=== PATIENT | female | born 1955 | race African-American/Black ===

== ENCOUNTER 2017-01-16 18:05 | Observation (INO) | payer OTHER ==
[2017-01-16 19:02] LABS: MCH 21.2 pg (25.7-33.7); MCHC 32.5 g/dl (32.0-36.0); MEAN PLT VOLUME 8.1 fl (7.5-11.1); PLATELET COUNT 252 K/MM3 (134-434); RDW 15.8 % (11.6-15.6); WHITE BLOOD COUNT 9.8 K/mm3 (4.0-10.0)
[2017-01-16 19:13] LABS: INR 1.12 (0.82-1.09); PROTHROMBIN TIME (PATIENT) 12.4 SEC (9.98-11.88)
[2017-01-16 19:30] LABS: ALBUMIN 3.8 g/dl (3.4-5.0); ANION GAP 8 (8-16); BILIRUBIN,TOTAL 0.3 mg/dL (0.2-1.0); CALCIUM 8.6 mg/dL (8.5-10.1); CO2 25 mmol/L (21-32); CREATININE 0.8 mg/dL (0.55-1.02); GLUCOSE,RANDOM 75 mg/dL (74-106); SGOT/AST 13 U/L (15-37); SGPT/ALT 26 U/L (12-78); TOT PROT 7.1 g/dl (6.4-8.2)
[2017-01-16 19:32] LABS: ALK PHOS 163 U/L (45-117); TROPONIN I < 0.02 ng/ml (0.00-0.05)
--- NOTE | 2017-01-16 19:41 | PDOC ---
History of Present Illness - General Chief Complaint: Chest Pain Stated Complaint: CHEST PAIN/NUMB FINGERS/LIGHTHEADED Time Seen by Provider: 01/16/17 19:04 History Source: Patient Exam Limitations: No Limitations - History of Present Illness Initial Comments: 01/16/17 19:17 61yo Female patient presents to ED c/o chest tightness. Patient reports symptoms of h/a began 1 week ago, with chest tightness today. Patient states she is not feeling well, felt her chest get tight and she used her inhaler with no relief. Patient then proceeded to take a shower, but felt lightheaded with sharp pains to left side of her head. She reports becoming very sweaty and "went down to her knees." Patient then called her daughter and took a cab over to the hospital because she was to dizzy. Patient denies n/v/d, fever, abd pain , back pain, diff breathing, cough, congestion, or any other complaints at this time. Presenting Symptoms: Dizziness Timing/Duration: reports: getting worse. denies: constant, changing over time, intermittent, resolved prior to arrival, gone now, other Severity/Quality: reports: mild, sharp. denies: moderate, severe, aching, burning, dull, ingestion, pressure, stabbing, tearing, tightness, other Location: reports: other (Chest Pressure) Chest Pain Radiation: reports: no radiation Activities at Onset: reports: no specific activity Past History - Travel Traveled outside of the country in the last 30 days: No Close contact w/someone who was outside of country & ill: No - Past Medical History Allergies/Adverse Reactions: Allergies Allergy/AdvReac Type Severity Reaction Status Date / Time morphine AdvReac Verified 01/16/17 21:01 mushroom Allergy Mild Swelling Uncoded 01/16/17 21:01 Home Medications: Ambulatory Orders Albuterol Sulfate Inhaler - [Ventolin HFA Inhaler -] 2 puff IH Q6H PRN #0 inhaler 07/04/16 Alprazolam [Xanax] 1 mg PO BID tablet MDD 10 07/04/16 Aspirin [ASA -] 81 mg PO DAILY tab.chew 07/04/16 Atorvastatin Ca [Lipitor] 80 mg PO HS tablet 07/04/16 Budesonide/Formeterol Fumarate [SYMBICORT 80/4.5mcg -] 2 puff IH BID inhaler Clopidogrel Bisulfate [Plavix -] 75 mg PO DAILY tablet 07/04/16 Enalapril Maleate [Vasotec -] 5 mg PO DAILY tablet 07/04/16 Isosorbide Mononitrate [Imdur -] 30 mg PO DAILY tab.sr.24h 07/04/16 Metoprolol Tartrate [Lopressor -] 25 mg PO BID tablet 07/04/16 Ranitidine [Zantac -] 150 mg PO BID tablet 07/04/16 Amlodipine Besylate [Norvasc -] 5 mg PO DAILY 01/16/17 Furosemide [Lasix] 40 mg PO DAILY 01/16/17 Oxycodone HCl/Acetaminophen [Percocet 5-325 mg Tablet] 1 tab PO Q6H 01/16/17 Asthma: Yes Cardiac Disorders: Yes (CARDIAC 2-STENT JUL 24) Diabetes: Yes HTN: Yes Hypercholesterolemia: Yes Suicide Attempt (Hx): No - Surgical History Abdominal Surgery: Yes (HERNIA) Cardiac Surgery: Yes (Bypass 2007, CARDIAC STENT IN JUN 2014) Cholecystectomy: Yes (1990) - Family Disease History Family Disease History: Diabetes: Grandparents, Father, Heart Disease: Grandparents, Father - Immunization History Immunization Up to Date: No - Psycho/Social/Smoking Cessation Hx Anxiety: No Suicidal Ideation: No Smoking Status: Yes Smoking History: Current every day smoker Have you smoked in the past 12 months: Yes Number of Cigarettes Smoked Daily: 1 If you are a former smoker, when did you quit?: Pt states that she smokes 1 or 2 sometimes Information on smoking cessation initiated: No 'Breaking Loose' booklet given: 02/27/15 Hx Alcohol Use: No Drug/Substance Use Hx: No Substance Use Type: None Hx Substance Use Treatment: No Cardiac Specific PMH - Complaint Specific PMHX Abdominal Aortic Aneurysm: No Angina: No Cardiac Arrhythmia: No Cardiac Stent: Yes GERD: No Pacemaker: No Pulmonary Embolus: No Valvular Heart Disease: No Peripheral Vascular Disease: No Review of Systems - Review of Systems Able to Perform ROS?: Yes Is the patient limited Kiswahili proficient: No Constitutional: No: Chills, Fever Respiratory: No: Cough, Orthopnea, Shortness of Breath, Stridor, Wheezing Cardiac (ROS): Yes: Edema, Lightheadedness, Chest Tightness. No: Chest Pain, Palpitations, Syncope ABD/GI: No: Constipated, Diarrhea, Nausea, Poor Appetite, Poor Fluid Intake, Vomiting : No: Burning, Dysuria, Frequency, Flank Pain, Hematuria, Pain, Urgency Musculoskeletal: No: Back Pain Integumentary: Yes: Sweating. No: Erythema, Rash Neurological: Yes: Headache, Dizziness. No: Numbness, Seizure, Tremors, Weakness All Other Systems: Reviewed and Negative *Physical Exam - Vital Signs Last Vital Signs Temp Pulse Resp BP Pulse Ox 98.0 F 68 20 135/65 97 01/16/17 18:13 01/16/17 18:13 01/16/17 18:13 01/16/17 18:13 01/16/17 18:13 - Physical Exam General Appearance: Yes: Nourished, Appropriately Dressed. No: Apparent Distress, Mild Distress, Moderate Distress, Severe Distress Neck: positive: Trachea midline, Supple. negative: Stridor, Lymphadenopathy (R) , Lymphadenopathy (L) Respiratory/Chest: positive: Lungs Clear, Normal Breath Sounds. negative: Chest Tender, Respiratory Distress, Accessory Muscle Use, Labored Respiration, Rapid RR, Crackles, Rales, Rhonchi, Stridor, Wheezing Cardiovascular: positive: Regular Rhythm, Regular Rate, Edema. negative: JVD, Murmur, Bradycardia, Tachycardia Gastrointestinal/Abdominal: positive: Normal Bowel Sounds, Soft Musculoskeletal: positive: Normal Inspection. negative: CVA Tenderness Extremity: positive: Normal Capillary Refill, Normal Inspection, Normal Range of Motion, Pedal Edema Integumentary: positive: Normal Color, Dry, Warm Neurologic: positive: miller apprentice II-XII NML intact, Fully Oriented, Alert, Normal Mood/ Affect, Normal Response, Motor Strength 5/5 Heart Score/ECG Review - History History: Moderately suspicious - Electrocardiogram EKG: Normal - Age Age: 45-65 - Risk Factors Risk Factors Heart Score: Yes Hx Hypertension, Yes Hx Diabetes, Yes Positive family hx of cardiac disease Based on the list above the patient has:: >/=3 risk factors or Hx atherosclerotic disease - Troponin Troponin: </= normal limit - Score Heart Score - Total: 4 - ECG Impressions Normal ECG: Yes Non-specific ST Elevation: No Ischemic Changes: No Bradycardia: No Torsades wang Pointes: No WPW: No ED Treatment Course - LABORATORY CBC & Chemistry Diagram: 01/16/17 13:57 01/16/17 13:57 - ADDITIONAL ORDERS Additional order review: Laboratory Results 01/16/17 01/16/17 01/16/17 19:14 13:57 13:57 INR 1.12 PTT (Actin FS) 42.0 H Sodium 144 Potassium 3.9 Chloride 111 H Carbon Dioxide 25 Anion Gap 8 BUN 11 D Creatinine 0.8 D Creat Clearance w eGFR > 60 Random Glucose 75 D Calcium 8.6 Total Bilirubin 0.3 AST 13 L D ALT 26 Alkaline Phosphatase 163 H Creatine Kinase 173 CK-MB (CK-2) < 1.000 Troponin I < 0.02 B-Natriuretic Peptide 105.98 Total Protein 7.1 Albumin 3.8 01/16/17 13:57 RBC 6.04 H MCV 65.0 L MCHC 32.5 RDW 15.8 H MPV 8.1 Neutrophils % 62.0 Lymphocytes % 31.0 Monocytes % 4.0 Eosinophils % 2.0 Basophils % Glazier Artist - RADIOLOGY Radiology Studies Ordered: Category Date Time Status HEAD CT WITHOUT CONTRAST [CT] Stat CT Scan 01/16/17 19:46 Completed CHEST PA & LAT [RAD] Stat Radiology 01/16/17 19:15 Completed - Medications Given in the ED: ED Medications Discontinued Medications Generic Name Dose Route Start Last Admin Trade Name Freq PRN Reason Stop Dose Admin Aspirin 324 mg 01/16/17 21:36 01/16/17 22:14 Asa - PO 01/16/17 21:37 324 mg ONCE ONE Administration *DC/Admit/Observation/Transfer Diagnosis at time of Disposition: Sensation of chest tightness, CABG 3 vessel 2005, HTN, NIDDM, Stented coronary artery, Hypercholesteremia - Discharge Dispostion Condition at time of disposition: Fair Admit: Yes Decision to Admit order Date/Time: 01/16/17 22:55 DR. PINEDA ADMITTED TO TELE OBS.
[2017-01-16] MEDS ORDERED: ASPIRIN 81 MG CHEWABLE TABLETS PO ONE (21:36)
[2017-01-16] MEDS ORDERED: ASPIRIN 81 MG CHEWABLE TABLETS ONE (22:00)
[2017-01-16 22:36] LABS: HYPOCHROMIA 1+; PLATELET ESTIMATE ADEQUATE (NORMAL)
[2017-01-16] MEDS ORDERED: NITROGLYCERIN 2% OINTMENT - 1GM PACKET TD ONE (22:45)
--- NOTE | 2017-01-16 22:46 | PN ---
<Rick Rockwelljose - Last Filed: 01/16/17 22:46> Teaching Attending Note Name of Resident: Brock Jeong ATTENDING PHYSICIAN STATEMENT I saw and evaluated the patient. I reviewed the resident's note and discussed the case with the resident. I agree with the resident's findings and plan as documented. SUBJECTIVE: OBJECTIVE: ASSESSMENT AND PLAN: <Saleem Vasques - Last Filed: 01/17/17 00:12> Teaching Attending Note ATTENDING PHYSICIAN STATEMENT I saw and evaluated the patient. I reviewed the resident's note and discussed the case with the resident. I agree with the resident's findings and plan as documented. SUBJECTIVE: Patient is a 61 yo Female with a significant past medical history of CAD s/p CABG, HTN, HLD, and diabetes, who presented to ED complaining of chest pain described as chest tightness since earlier today. The patient reported that her pain radiates to her arm and is a 8/10 in severity. The patient noted that her pain may be related to exertion but reports no alleviating factors. The patient reported associated diaphoresis, weakness, and headache. OBJECTIVE: Vital Signs: Last Vital Signs Temp Pulse Resp BP Pulse Ox 98.0 F 68 20 135/65 97 01/16/17 18:13 01/16/17 18:13 01/16/17 18:13 01/16/17 18:13 01/16/17 18:13 Physical Exam: GEN: NAD HEENT: NCAT, PERRL, CARD: RRR, S1 S2 RESP: CTAB ABD: NT, BWS x4 EXT: - (+) Bilateral lower extremity 2+ pitting edema Labs: CBCD WBC 9.8 K/mm3 (4.0-10.0) 01/16/17 13:57 RBC 6.04 M/mm3 (3.60-5.2) H 01/16/17 13:57 Hgb 12.8 GM/dL (10.7-15.3) 01/16/17 13:57 Hct 39.3 % (32.4-45.2) 01/16/17 13:57 MCV 65.0 fl (80-96) L 01/16/17 13:57 MCHC 32.5 g/dl (32.0-36.0) 01/16/17 13:57 RDW 15.8 % (11.6-15.6) H 01/16/17 13:57 Plt Count 252 K/MM3 (134-434) 01/16/17 13:57 MPV 8.1 fl (7.5-11.1) 01/16/17 13:57 CMP Sodium 144 mmol/L (136-145) 01/16/17 13:57 Potassium 3.9 mmol/L (3.5-5.1) 01/16/17 13:57 Chloride 111 mmol/L (98-107) H 01/16/17 13:57 Carbon Dioxide 25 mmol/L (21-32) 01/16/17 13:57 Anion Gap 8 (8-16) 01/16/17 13:57 BUN 11 mg/dL (7-18) D 01/16/17 13:57 Creatinine 0.8 mg/dL (0.55-1.02) D 01/16/17 13:57 Creat Clearance w eGFR > 60 (>60) 01/16/17 13:57 Calcium 8.6 mg/dL (8.5-10.1) 01/16/17 13:57 Total Bilirubin 0.3 mg/dL (0.2-1.0) 01/16/17 13:57 AST 13 U/L (15-37) L D 01/16/17 13:57 ALT 26 U/L (12-78) 01/16/17 13:57 Alkaline Phosphatase 163 U/L (45-117) H 01/16/17 13:57 Total Protein 7.1 g/dl (6.4-8.2) 01/16/17 13:57 Albumin 3.8 g/dl (3.4-5.0) 01/16/17 13:57 Imagin. CXR PA and LAT Impression: No significant interval change or acute lung disease is present. Reviewed and interpreted by radiologist Dr. Peace Roca MD. 2. CT Impression: Mild volume loss without evidence of acute intracranial pathology. Questionable prominent adenoids that were partially included on this exam. Please correlate with physical exam. Reviewed and interpreted by radiologist Dr. Peace Roca MD. ASSESSMENT AND PLAN: Patient is a 61 yo Female with a significant past medical history of CAD s/p CABG, HTN, HLD, and diabetes, who presented to ED complaining of chest tightness. 1. Chest tightness -Rule out ACS -Trend troponins -ECG-normal sinus rhythm no ST T changes -Heart Score is 4 -Cardiology consult -Continue aspirin -Continue beta blockers -Continue Plavix -Nitro PRN chest pain -Recent echo done in november obtain records -02 2L Nasal Cannula 2. Diabetes -Metformin -Finger stick Q4H RASS 3. HTN -Continue home medications -Continue beta blockers 4. CAD -Continue statin 5. Headache -CT head neg -Pain control 6. Dizziness- questionable vertigo -Can try methylzene 7. DVT PPX -Heparin 5000 Q8H Admit to observation tele. Documentation prepared by Saleem Vasques, acting as phlebotomist medical lab assistant for Dr. Luli MD.
[2017-01-16] MEDS ORDERED: traMADol HCL 50 MG TABLET PO ONE (22:52)
[2017-01-16] MEDS ORDERED: traMADol HCL 50 MG TABLET ONE (22:59)
[2017-01-16] MEDS ORDERED: OXYCODONE/APAP 5/325MG COMBO TABLET PO PRN (23:45)
[2017-01-16] MEDS ORDERED: FUROSEMIDE 40 MG/4 ML INJECTABLE VIAL IVPB ONE (23:52)
[2017-01-16] MEDS ORDERED: ALBUTEROL SO4 0.083% IH SOL 2.5 MG/3 ML VIAL.NEB. NEB PRN (23:52)
--- NOTE | 2017-01-17 00:24 | HP ---
CHIEF COMPLAINT:CHEST PAIN PCP: Dr. Eliseo Villegas Revenue Cycle Analyst: Dr. Maloney HISTORY OF PRESENT ILLNESS: 61 yo F with significant PMHx of CAD(s/p CABG 2006 and stents x2 Jun, 2016), DM , HTN, and HLD presents to ED with chest pain. She describes constant 8/10 substernal chest pressure that radiates to left arm that lasted for approx. 15- 20 min and prompted trip to ED. Pain associated with activity and SOB, but denies diaphoresis. She also complains of bilat. leg swelling which she attributes to not taking lasix for 1 week due to insurance issues. She also mentions that for the past 3 weeks she has been having dizziness in which she feel as if the room is spinning with near syncope and relieved by lying still, but denies LOC. Furthermore for the past week she has also had left sided YEE and neck pain that limits her range of motion. Denies recent illness, travel , sick contacts, fevers, chills, or N/V/D/C. ER course was notable for: (1)Trops (-) x2 (2)EKG - NSR without ST or T wave changes. (3)BNP wnl Recent Travel: Denies PAST MEDICAL HISTORY:CAD, DM , HTN, HLD, Asthma, chronic cervical neck pain PAST SURGICAL HISTORY: CABG 2006, Cardiac stents 2015, Spinal surgery 2013, hernia repair 2015, CCY 1991 Social History: Smokin-2 cig/day Alcohol: socially Drugs: Denies Family History:Diabetes: Grandparents, Father, Heart Disease: Grandparents, Father Allergies morphine Adverse Reaction (Verified 01/16/17 21:01) mushroom Allergy (Mild, Uncoded 01/16/17 21:01) Swelling Pt. states, causes swelling. HOME MEDICATIONS: Home Medications Medication Instructions Recorded Albuterol Sulfate Inhaler - 2 puff IH Q6H PRN #0 inhaler 07/04/16 [Ventolin HFA Inhaler -] Alprazolam [Xanax] 1 mg PO BID tablet MDD 10 07/04/16 Aspirin [ASA -] 81 mg PO DAILY tab.chew 07/04/16 Atorvastatin Ca [Lipitor] 80 mg PO HS tablet 07/04/16 Budesonide/Formeterol Fumarate 2 puff IH BID inhaler 07/04/16 [SYMBICORT 80/4.5mcg -] Clopidogrel Bisulfate [Plavix -] 75 mg PO DAILY tablet 07/04/16 Enalapril Maleate [Vasotec -] 5 mg PO DAILY tablet 07/04/16 Isosorbide Mononitrate [Imdur -] 30 mg PO DAILY tab.sr.24h 07/04/16 Metoprolol Tartrate [Lopressor -] 25 mg PO BID tablet 07/04/16 Ranitidine [Zantac -] 150 mg PO BID tablet 07/04/16 Amlodipine Besylate [Norvasc -] 5 mg PO DAILY 01/16/17 Furosemide [Lasix] 40 mg PO DAILY 01/16/17 Oxycodone HCl/Acetaminophen 1 tab PO Q6H 01/16/17 [Percocet 5-325 mg Tablet] REVIEW OF SYSTEMS CONSTITUTIONAL: Absent: fever, chills, diaphoresis, generalized weakness, malaise, loss of appetite, weight change HEENT: Absent: rhinorrhea, nasal congestion, throat pain, throat swelling, difficulty swallowing, mouth swelling, ear pain, eye pain, visual changes CARDIOVASCULAR: (+)chest pain, syncope,lightheadedness, peripheral edema Absent: , palpitations, irregular heart rate, RESPIRATORY:(+) dyspnea with exertion Absent: cough, shortness of breath, , orthopnea, wheezing, stridor, hemoptysis GASTROINTESTINAL: Absent: abdominal pain, abdominal distension, nausea, vomiting, diarrhea, constipation, melena, hematochezia GENITOURINARY: Absent: dysuria, frequency, urgency, hesitancy, hematuria, flank pain, genital pain MUSCULOSKELETAL: (+)neck pain Absent: myalgia, arthralgia, joint swelling, back pain, SKIN: Absent: rash, itching, pallor HEMATOLOGIC/IMMUNOLOGIC: (+)easy bruising Absent: easy bleeding, , lymphadenopathy, frequent infections ENDOCRINE: Absent: unexplained weight gain, unexplained weight loss, heat intolerance, cold intolerance NEUROLOGIC: (+)headache Absent: , focal weakness or paresthesias, dizziness, unsteady gait, seizure, mental status changes, bladder or bowel incontinence PSYCHIATRIC: Absent: anxiety, depression, suicidal or homicidal ideation, hallucinations. PHYSICAL EXAMINATION GENERAL: Awake, alert, and fully oriented, in mild distress. HEAD: Normal with no signs of trauma. EYES: Pupils equal, round and reactive to light, extraocular movements intact, sclera anicteric, conjunctiva clear. EARS, NOSE, THROAT: Ears normal, nares patent, oropharynx clear without exudates. Moist mucous membranes. NECK: Decreased range of motion 2/2 pain, supple without lymphadenopathy, JVD, or masses. LUNGS: Breath sounds equal, bibasilar crackles, no wheezing, No accessory muscle use. HEART: Regular rate and rhythm, normal S1 and S2 without murmur, rub or gallop. ABDOMEN: Soft,Obese, nontender, not distended, normoactive bowel sounds, inguinal hernia left , no guarding, no rebound, no masses. No hepatomegaly or splenomegaly. MUSCULOSKELETAL: Normal range of motion at all joints. No bony deformities or tenderness. No CVA tenderness. 3/5 strength in LUE 2/2 pain. UPPER EXTREMITIES: 2+ pulses, warm, well-perfused. No cyanosis. No clubbing. . No peripheral edema. LOWER EXTREMITIES: 2+ pulses, warm, well-perfused. No calf tenderness. 2+ pitting edema bilat. NEUROLOGICAL: Cranial nerves II-XII intact. Normal speech. gait not observed. PSYCHIATRIC: Cooperative. Good eye contact. Appropriate mood and affect. SKIN: Warm, dry, normal turgor, no rashes or lesions noted. ASSESSMENT/PLAN: 61 yo F with significant PMHx of CAD(s/p CABG 2005 and stents x2 Jun, 2016), DM , HTN, and HLD placed on observation for rule out of chest pain. Problem List - Problem (1) Chest tightness or pressure Assessment/Plan: * rule out ACS * Heart score-4 * EKG- NSR without ST or T wave changes. * telemetry * trend troponins * Consult Dr. Maloney * continue: ASA and Nitro PRN CP * Atorvastatin Calcium (Lipitor -) 80 mg PO HS * Clopidogrel Bisulfate (Plavix -) 75 mg PO DAILY * Heparin Sodium (Porcine) (Heparin -) 5,000 unit SQ TID * Isosorbide Mononitrate (Imdur -) 30 mg PO DAILY * metoprolol Tartrate (Lopressor -) 25 mg PO BID (2) CHF (congestive heart failure) Assessment/Plan: * STAT Lasix 40mg IV * ECHO done 2016 - need to obtain records. * Enalapril Maleate (Vasotec -) 5 mg PO DAILY * Furosemide (Lasix -) 40 mg PO DAILY * Metoprolol Tartrate (Lopressor -) 25 mg PO BID * daily weights * strict I/O's * sodium controlled diet. (3) CAD (coronary artery disease) (5) Stented coronary artery (6) HTN Assessment/Plan: * continue: * Amlodipine Besylate (Norvasc -) 5 mg PO DAILY * Enalapril Maleate (Vasotec -) 5 mg PO DAILY * Furosemide (Lasix -) 40 mg PO DAILY . * Metoprolol Tartrate (Lopressor -) 25 mg PO BID GHAN[place]YAM (7) Hypercholesteremia Assessment/Plan: * Continue Lipitor 80mg HS (8) Diabetes Assessment/Plan: * Sodium/ADA diet * BGM ACHS * ISS ACHS (9) Asthma Assessment/Plan: * Supplemental O2 via NC @ 2L * maintain SpO2>90% * Albuterol Sulfate (Ventolin 0.083% Nebulizer Soln -) 1 amp NEB Q4H * Budesonide/Formoterol Fumarate (Symbicort 80/4.5mcg -) 2 puff IH BID (10) Chronic pain Assessment/Plan: * Pain control * Oxycodone/Acetaminophen (Percocet 5/325 -) combo PO Q6H (11) neck pain/ cervical fusion Assessment/Plan: * Flexeril 5mg PO TID PRN * Percocet 5/325 PO Q6H (12) DVT prophylaxis Assessment/Plan: * Heparin 5000 units TID SQ * SCD's bilat. Visit type - Emergency Visit Emergency Visit: Yes ED Registration Date: 01/16/17 Care time: The patient presented to the Emergency Department on the above date and was hospitalized for further evaluation of their emergent condition. - New Patient This patient is new to me today: Yes Date on this admission: 01/17/17 - Critical Care Critical Care patient: No
[2017-01-17] MEDS ORDERED: FUROSEMIDE 40 MG/4 ML INJECTABLE VIAL ONE (00:51)
[2017-01-17] MEDS ORDERED: CYCLOBENZAPRINE HCL 10 MG TABLET (FP) PO PRN (02:28)
[2017-01-17] MEDS ORDERED: HEPARIN NA (PORCINE) 5,000 UNITS/ML 1ML VIAL ONE (06:40)
[2017-01-17 06:57] LABS: BASOPHIL 0.9 % (0-2.0); EOSINOPHIL 2.4 % (0-4.5); MCH 21.2 pg (25.7-33.7); MCHC 32.6 g/dl (32.0-36.0); MEAN CELL VOLUME 64.9 fl (80-96); MEAN PLT VOLUME 9.1 fl (7.5-11.1); NEUTROPHILS 53.5 % (42.8-82.8); PLATELET COUNT 249 K/MM3 (134-434); RDW 15.8 % (11.6-15.6); WHITE BLOOD COUNT 8.9 K/mm3 (4.0-10.0)
[2017-01-17 07:00] LABS: URINE APPEARANCE CLEAR; URINE BILIRUBIN NEGATIVE (NEGATIVE); URINE BLOOD NEGATIVE (NEGATIVE); URINE COLOR STRAW; URINE GLUCOSE (UA) NEGATIVE (NEGATIVE); URINE KETONE NEGATIVE (NEGATIVE); URINE LEUK ESTERASE NEGATIVE (NEGATIVE); URINE NITRITE NEGATIVE (NEGATIVE); URINE PROTEIN NEGATIVE (NEGATIVE); URINE UROBILINOGEN NEGATIVE E.U./dl (0.2-1.0)
[2017-01-17 07:09] LABS: INR 1.13 (0.82-1.09); PROTHROMBIN TIME (PATIENT) 12.5 SEC (9.98-11.88)
[2017-01-17] MEDS: HEPARIN NA (PORCINE) 5,000 UNITS/ML 1ML VIAL SQ SCH ×2 (07:10→14:14)
[2017-01-17] MEDS: INSULIN SLIDING SCALE (NOVOLOG) 1 VIAL SQ SCH ×3 (07:10→18:24)
[2017-01-17 07:26] LABS: ALBUMIN 3.6 g/dl (3.4-5.0); ANION GAP 10 (8-16); BILIRUBIN,TOTAL 0.3 mg/dL (0.2-1.0); CALCIUM 8.5 mg/dL (8.5-10.1); CO2 28 mmol/L (21-32); CREATININE 0.7 mg/dL (0.55-1.02); GLUCOSE,RANDOM 107 mg/dL (74-106); MAGNESIUM 1.9 mg/dL (1.8-2.4); PHOSPHOROUS 3.6 mg/dL (2.5-4.9); SGOT/AST 10 U/L (15-37); SGPT/ALT 22 U/L (12-78); TOT PROT 6.5 g/dl (6.4-8.2)
[2017-01-17 07:28] LABS: ALK PHOS 147 U/L (45-117); TROPONIN I < 0.02 ng/ml (0.00-0.05)
--- NOTE | 2017-01-17 09:37 | CON.CARD ---
Consult Consult Specialty:: Cardiology Referred by:: ER Reason for Consultation:: Chest pain - History of Present Illness Chief Complaint: Headache, left arm pain, left neck pain, chest pain History of Present Illness: 61 year old woman with a history of HTN, HLD, DM II, CAD s/p CABG 2005, s/p PCI with stent SVG 2013, and again PCI with CONSUELO SVG 06/2016 for in-stent restenosis, admitted with c/o headache, left neck pain radiating to left arm and intermittent chest pain. PT. states she has had intermittent mild chest pain for the past week however it is the headache, left neck pain, and left arm pain that caused her to come to the ER. She also states that she has not had any medications in over a week as her insurance recently changed and it did not include a prescription plan. denies any sob, palpitations, lightheadedness, dizziness, syncope, near syncope , pnd, orthopnea, or le edema. - History Source History Provided By: Patient, Medical Record Limitations to Obtaining History: No Limitations - Past Medical History Cardio/Vascular: Yes: CAD (PCI AUG 2014), HTN, Hyperlipdemia Pulmonary: Yes: COPD Psych: Yes: Depression Endocrine: Yes: Diabetes Mellitus - Past Surgical History Past Surgical History: Yes: CABG (3 V 2004), Cholecystectomy - Alcohol/Substance Use Hx Alcohol Use: No History of Substance Use: reports: None - Smoking History Smoking history: Current every day smoker Have you smoked in the past 12 months: Yes Aproximately how many cigarettes per day: 1 If you are a former smoker, when did you quit?: Pt states that she smokes 1 or 2 sometimes - Social History ADL: Independent History of Recent Travel: No Home Medications - Allergies Allergies/Adverse Reactions: Allergies Allergy/AdvReac Type Severity Reaction Status Date / Time morphine AdvReac Verified 01/16/17 21:01 mushroom Allergy Mild Swelling Uncoded 01/16/17 21:01 - Home Medications Home Medications: Ambulatory Orders Alprazolam [Xanax] 1 mg PO BID tablet MDD 10 07/04/16 Oxycodone HCl/Acetaminophen [Percocet 5-325 mg Tablet] 1 tab PO Q6H 01/16/17 Albuterol Sulfate Inhaler - [Ventolin HFA Inhaler -] 2 puff IH Q6H PRN #1 inhaler 01/17/17 Aspirin [ASA -] 81 mg PO DAILY #7 tab.chew 01/17/17 Atorvastatin Ca [Lipitor] 80 mg PO HS #7 tablet 01/17/17 Budesonide/Formeterol Fumarate [SYMBICORT 80/4.5mcg -] 2 puff IH BID #1 inhaler 01/17/17 Clopidogrel Bisulfate [Plavix -] 75 mg PO DAILY #7 tablet 01/17/17 Enalapril Maleate [Vasotec -] 5 mg PO DAILY #7 tablet 01/17/17 Furosemide [Lasix] 40 mg PO DAILY #7 tablet 01/17/17 Metoprolol Tartrate [Lopressor -] 25 mg PO BID #14 tablet 01/17/17 Ranitidine [Zantac -] 150 mg PO BID #14 tablet 01/17/17 Family Disease History - Family Disease History Family Disease History: Heart Disease: Mother Review of Systems - Review of Systems Constitutional: denies: No Symptoms, Chills, Diaphoresis, Fever, Lethargy, Loss of Appetite, Malaise, Night Sweats, Unintentional Wgt. Loss, Weakness, Other Eyes: denies: No Symptoms, Blind Spots, Blurred Vision, Double Vision, Eye Pain , Floaters, Photophobia, Recent Change in Vision, Other HENT: denies: No Symptoms, Difficult Swallowing, Ear Discharge, Ear Pain, Epistaxis, Gingival Bleeding, Hearing Loss, Mouth Swelling, Nasal Congestion, Ocular Prosthesis, Throat Pain, Toothache, Ringing in Ears, Other Neck: denies: No Symptoms, Decreased ROM, Lumps, Pain on Movement, Stiffness, Swollen Glands, Tenderness, Other Cardiovascular: reports: Chest Pain. denies: No Symptoms, Edema, Palpitations, Shortness of Breath, Other Respiratory: denies: No Symptoms, Cough, Exercise Intolerance, Hemoptysis, Orthopnea, PND, Snoring, SOB, SOB on Exertion, Wheezing, Other Gastrointestinal: denies: No Symptoms, Abdominal Pain, Bloating, Constipation, Diarrhea, Dysphagia, Indigestion, Melena, Nausea, Rectal Bleeding, Vomiting, Vomiting Blood, Other Genitourinary: denies: No Symptoms, Burning, Discharge, Dysuria, Flank Pain, Frequency, Hematuria, Incontinence, Lesions, Menses, Pain, Testicular Mass, Testicular Pain, Testicular Swelling, Urgency, Vaginal Bleeding, Other Breasts: denies: No Symptoms Reported, See HPI, Breast Implants, Discharge from Nipple, Lumps, Pain, Skin Changes, Other Musculoskeletal: reports: Extremity Pain. denies: No Symptoms, Back Pain, Crepitus, Decreased ROM, Joint Pain, Joint Swelling, Muscle Pain, Muscle Cramps , Muscle Weakness, Other Integumentary: denies: No Symptoms, Blister, Bruising, Change in Color, Eczema, Erythema, Incision, Lesions, Lump, Pallor, Pruritis, Rash, Wound, Other Neurological: reports: Headache. denies: No Symptoms, Change in LOC, Change in Speech, Confusion, Dizziness, Incoordination, Numbness, Parasthesia, Pre- Existing Deficit, Seizure, Syncope, Tremors, Unsteady Gait, Weakness, Other Endocrine: denies: No Symptoms, Excessive Sweating, Flushing, Increased Hunger, Increased Thirst, Intolerance to Cold, Intolerance to Heat, Unexplained Weight Gain, Unexplained Weight Loss, Other Hematology/Lymphatic: denies: No Symptoms, Easily Bruised, Excessive Bleeding, Swollen Glands, Other Psychiatric: denies: No Symptoms, Altered Sleep Pattern, Anxiety, Depression, Hallucinations, Panic, Paranoia, Suicidal, Other - Risk Factors Known Risk Factors: Yes: Diabetes Mellitus, Hypercholesterolemia, Hypertension Vital Signs: Vital Signs Temperature 98.0 F 01/16/17 18:13 Pulse Rate 54 L 01/17/17 06:33 Respiratory Rate 19 01/17/17 06:33 Blood Pressure 117/72 01/17/17 06:33 O2 Sat by Pulse Oximetry (%) 97 01/17/17 06:33 Constitutional: Yes: Well Nourished, No Distress, Calm Eyes: Yes: WNL, Conjunctiva Clear, EOM Intact, PERRL HENT: Yes: WNL, Atraumatic, Normocephalic Neck: Yes: WNL, Supple, Trachea Midline Respiratory: Yes: WNL, Regular, CTA Bilaterally. No: Rales, Rhonchi, Wheezes Gastrointestinal: Yes: WNL, Normal Bowel Sounds, Soft. No: Distention, Tenderness Renal/: Yes: WNL Cardiovascular: Yes: Regular Rate and Rhythm. No: Bradycardia, Tachycardia, Pulse Irregular, Gallop, Rub, Varicosities JVD: No Carotid Bruit: No PMI: Non-Displaced Heart Sounds: Yes: S1, S2. No: Split S2, S3, S4, Clicks, Gallop, Rub, Bruit Murmur: No: Systolic Murmur, Diastolic Murmur Musculoskeletal: Yes: WNL Extremities: Yes: WNL Edema: Yes Edema: LLE: 1+, RLE: 1+ Peripheral Pulses WNL: Yes Peripheral Pulses: 2+ Left Doralis Pedis, 2+ Right Dorsalis Pedis Integumentary: Yes: WNL Neurological: Yes: WNL, Alert, Oriented, Cran Nerves II-XII Intact ...Motor Strength: WNL Psychiatric: Yes: WNL, Alert, Oriented - Other Data Labs, Other Data: CBC, BMP 01/17/17 06:20 01/17/17 06:20 INR, PTT INR 1.13 (0.82-1.09) 01/17/17 06:20 Troponin, BNP 01/17/17 01/17/17 00:25 06:20 Troponin I < 0.02 < 0.02 Troponin, BNP 01/17/17 01/17/17 00:25 06:20 Troponin I < 0.02 < 0.02 ekg-nsr 63bpm, nsst Echo: Report Reviewed Prior Cardiac Procedures: CABG, Cardiac Catheterization, PTCA with Stent Imaging - Results Chest X-ray: Report Reviewed, Image Reviewed EKG: Report Reviewed, Image Reviewed Other: Report Reviewed, Image Reviewed Assessment/Plan 61 year old woman with a history of HTN, HLD, DM II, CAD s/p CABG 2005, s/p PCI with stent SVG 2013, and again PCI with CONSUELO SVG 06/2016 for in-stent restenosis, admitted with c/o headache, left neck pain radiating to left arm and intermittent chest pain. PT. states she has had intermittent mild chest pain for the past week however it is the headache, left neck pain, and left arm pain that caused her to come to the ER. She also states that she has not had any medications in over a week as her insurance recently changed and it did not include a prescription plan. Atypical chest pain/LE edema cardiac enzymes wnl no ischemia on ekg no arrhythmias on tele overnight Pt has not had medications at home in >1 week as her insurance changed and she was told she does not have prescription coverage No additional inpatient cardiac work up is needed Resume home medications and pt needs SW to help her with obtaining her medications at home Resume home lasix for LE edema Can dc tele Main complaint on presentation was headache, left sided neck pain, radiating to left arm -possibly due to cervical disc disease -consider neurology evaluation
[2017-01-17] MEDS ORDERED: ISOSORBIDE MONONITRATE 30 MG TAB.SR.24H (FP) PO SCH (10:00)
[2017-01-17] MEDS ORDERED: ASPIRIN 81 MG CHEWABLE TABLETS PO SCH (10:00)
[2017-01-17] MEDS ORDERED: FUROSEMIDE 40 MG TABLET (FP) PO SCH (10:00)
[2017-01-17] MEDS ORDERED: BUDESONIDE/FORMETEROL FUMARATE 80/4.5 mcg INHALER IH SCH (10:00)
[2017-01-17] MEDS ORDERED: ENALAPRIL MALEATE 5 MG TABLET (FP) PO SCH (10:00)
[2017-01-17] MEDS ORDERED: RANITIDINE HCL 150 MG TABLET (FP) PO SCH (10:00)
[2017-01-17] MEDS ORDERED: ALPRAZolam 2 MG TABLET PO PRN (10:00)
[2017-01-17] MEDS ORDERED: CLOPIDOGREL BISULFATE 75 MG TABLET (FP) PO SCH (10:00)
[2017-01-17] MEDS ORDERED: amLODIPine BESYLATE 5 MG TABLET (FP) PO SCH (10:00)
[2017-01-17] MEDS ORDERED: METOPROLOL TARTRATE 25 MG TABLET (FP) PO SCH (10:00)
--- NOTE | 2017-01-17 11:57 | PN ---
Physical Exam: SUBJECTIVE: Patient seen and examined in the ED Complains of headache now complaining of numbness and tingling radiating from headache to left face and arm upset as she feels she is not being worked up properly Requesting to go to [place] States she has not taken any of her home medications in over a week since she could not afford them and had to switch insurance companies and lost her prescription coverage. OBJECTIVE: Vital Signs Period Temp Pulse Resp BP Sys/Thomas Pulse Ox Last 24 Hr 54-55 19-19 117-121/72-75 97-97 GENERAL: The patient is awake, alert, and fully oriented, in no acute distress. HEAD: Normal with no signs of trauma. EYES: PERRL, extraocular movements intact ENT: moist mucous membranes. NECK: supple trachea midline no tenderness on palpation LUNGS: Breath sounds equal, clear to auscultation bilaterally HEART: Regular rate and rhythm, S1, S2 without murmur. ABDOMEN: Soft, nontender, nondistended EXTREMITIES: bilateral lower extremity non pitting edema. NEUROLOGICAL: Cranial nerves II through XII grossly intact. Normal speech PSYCH: withdrawn affect SKIN: Warm, dry Laboratory Results - last 24 hr 01/17/17 01/17/17 01/17/17 00:25 06:20 06:20 WBC 8.9 RBC 5.83 H Hgb 12.3 Hct 37.8 MCV 64.9 L MCHC 32.6 RDW 15.8 H Plt Count 249 MPV 9.1 D Neutrophils % 53.5 Lymphocytes % 37.7 D Monocytes % 5.5 Eosinophils % 2.4 Basophils % 0.9 INR 1.13 Sodium Potassium Chloride Carbon Dioxide Anion Gap BUN Creatinine Creat Clearance w eGFR Random Glucose Calcium Phosphorus Magnesium Total Bilirubin AST ALT Alkaline Phosphatase Troponin I < 0.02 Total Protein Albumin Urine Color Urine Appearance Urine pH Ur Specific [place] Urine Protein Urine Glucose (UA) Urine Ketones Urine Blood Urine Nitrite Urine Bilirubin Urine Urobilinogen Ur Leukocyte Esterase 01/17/17 01/17/17 06:20 06:45 WBC RBC Hgb Hct MCV MCHC RDW Plt Count MPV Neutrophils % Lymphocytes % Monocytes % Eosinophils % Basophils % INR Sodium 144 Potassium 3.9 Chloride 106 Carbon Dioxide 28 Anion Gap 10 BUN 12 Creatinine 0.7 Creat Clearance w eGFR > 60 Random Glucose 107 H D Calcium 8.5 Phosphorus 3.6 Magnesium 1.9 Total Bilirubin 0.3 AST 10 L D ALT 22 Alkaline Phosphatase 147 H Troponin I < 0.02 Total Protein 6.5 Albumin 3.6 Urine Color Straw Urine Appearance Clear Urine pH 6.0 Ur Specific [place] 1.011 Urine Protein Negative Urine Glucose (UA) Negative Urine Ketones Negative Urine Blood Negative Urine Nitrite Negative Urine Bilirubin Negative Urine Urobilinogen Negative Ur Leukocyte Esterase Negative Active Medications Generic Name Dose Route Start Last Admin Trade Name Freq PRN Reason Stop Dose Admin Albuterol Sulfate 1 amp 01/16/17 23:52 Ventolin 0.083% Nebulizer Soln - NEB Q4H PRN SHORT OF BREATH/WHEEZING Alprazolam 1 mg 01/17/17 10:00 Xanax - PO BID PRN Amlodipine Besylate 5 mg 01/17/17 10:00 01/17/17 10:49 Norvasc - PO 5 mg DAILY GHANSHYAM Administration Aspirin 81 mg 01/17/17 10:00 01/17/17 10:48 Asa - PO 81 mg DAILY GHANSHYAM Administration Atorvastatin Calcium 80 mg 01/17/17 22:00 Lipitor - PO HS GHANSHYAM Budesonide/Formoterol Fumarate 2 puff 01/17/17 10:00 01/17/17 10:49 Symbicort 80/4.5mcg - IH 2 puff BID GHANSHYAM Administration Clopidogrel Bisulfate 75 mg 01/17/17 10:00 01/17/17 10:49 Plavix - PO 75 mg DAILY GHANSHYAM Administration Cyclobenzaprine HCl 5 mg 01/17/17 02:28 Flexeril - PO TID PRN PAIN Dexamethasone Sodium Phosphate 10 mg 01/17/17 11:31 Decadron Injection - IVPB 01/17/17 11:32 ONCE ONE Enalapril Maleate 5 mg 01/17/17 10:00 01/17/17 10:49 Vasotec - PO 5 mg DAILY GHANSHYAM Administration Furosemide 40 mg 01/17/17 10:00 01/17/17 10:49 Lasix - PO 40 mg DAILY GHANSHYAM Administration Heparin Sodium (Porcine) 5,000 unit 01/17/17 06:00 01/17/17 07:10 Heparin - SQ 5,000 unit TID GHANSHYAM Administration Famotidine/Sodium Chloride 50 mls @ 100 mls/hr 01/17/17 11:31 Pepcid 20 Mg Premixed Ivpb - IVPB 01/17/17 12:00 ONCE ONE Insulin Aspart 1 vial 01/17/17 07:00 01/17/17 07:10 Novolog Vial Sliding Scale - SQ Not Given ACHS [facility] Protocol Isosorbide Mononitrate 30 mg 01/17/17 10:00 01/17/17 10:48 Imdur - PO 30 mg DAILY GHANSHYAM Administration Metoclopramide HCl 10 mg 01/17/17 11:31 Reglan Injection - IVPB 01/17/17 11:32 ONCE ONE Metoprolol Tartrate 25 mg 01/17/17 10:00 01/17/17 10:49 Lopressor - PO 25 mg BID GHANSHYAM Administration Oxycodone/Acetaminophen 1 combo 01/16/17 23:45 Percocet 5/325 - PO Q6H PRN Ranitidine HCl 150 mg 01/17/17 10:00 01/17/17 10:49 Zantac - PO 150 mg BID GHANSHYAM Administration ASSESSMENT/PLAN: 61F with multiple medical problems presents to the ED with headache and neck pain radiating to the chest FEN: no IVF no electrolyte abnormalities Low sodium fat controlled diet PPx: Zantac Heparin sub Q no deconditioning issues at this time Problem List - Problems (1) Chest tightness or pressure Code(s): R07.89 - OTHER CHEST PAIN (3) HTN Assessment/Plan: monitor vital signs per protocol restart home meds Imdur Lasix Metoprolol Norvasc (4) Hypercholesteremia Assessment/Plan: restart statin Code(s): E78.0 - PURE HYPERCHOLESTEROLEMIA * DO NOT USE * (5) NIDDM Assessment/Plan: fingersticks for BGM ACHS Insulin sliding scale (6) Stented coronary artery Assessment/Plan: restart aspirin and plavix Code(s): Z95.5 - PRESENCE OF CORONARY ANGIOPLASTY IMPLANT AND GRAFT (7) Chronic pain Assessment/Plan: on percocet xanax and flexeril as outpatient will restart Code(s): G89.29 - OTHER CHRONIC PAIN (8) neck pain/ cervical fusion Assessment/Plan: flexeril and percocet PRN pain (9) Asthma Assessment/Plan: restart home dose of albuterol and symbicort Code(s): J45.909 - UNSPECIFIED ASTHMA, UNCOMPLICATED Qualifiers: Asthma severity: unspecified severity Asthma complication type: uncomplicated Qualified Code(s): J45.909 - Unspecified asthma, uncomplicated (10) Back pain Code(s): M54.9 - DORSALGIA, UNSPECIFIED (11) CAD (coronary artery disease) Code(s): I25.10 - ATHSCL HEART DISEASE OF [place] CORONARY ARTERY W/O ANG PCTRS Qualifiers: Coronary Disease-Associated Artery/Lesion type: bypass graft [place] vs. transplanted heart: [place] heart Associated angina: with stable angina Qualified Code(s): I25.709 - Atherosclerosis of coronary artery bypass graft(s), unspecified, with unspecified angina pectoris (12) Chest pain Assessment/Plan: cardiology consult appreciated cardiac enzymes negative x3 no further workup per cardiology no further telemetry needed Code(s): R07.9 - CHEST PAIN, UNSPECIFIED Qualifiers: Chest pain type: unspecified Qualified Code(s): R07.9 - Chest pain, unspecified (13) HLD (hyperlipidemia) Assessment/Plan: lipitor Code(s): E78.5 - HYPERLIPIDEMIA, UNSPECIFIED (14) Headache Assessment/Plan: patient now complaining of paresthesias associated with the headaches will give decadron magnesium and reglan neurology consult CT head reviewed and no acute pathology noted Code(s): R51 - HEADACHE Qualifiers: Headache type: other headache syndrome Qualified Code(s): G44.89 - Other headache syndrome Visit type - Emergency Visit Emergency Visit: Yes ED Registration Date: 01/16/17 Care time: The patient presented to the Emergency Department on the above date and was hospitalized for further evaluation of their emergent condition. - New Patient This patient is new to me today: Yes Date on this admission: 01/17/17 - Critical Care Critical Care patient: No - Discharge Referral Referred to [facility] Med P.C.: No
[2017-01-17] MEDS ORDERED: DEXAMETHASONE SOD PHOSPHATE 10 MG/1 ML VIAL IVPB ONE (12:15)
[2017-01-17] MEDS ORDERED: FAMOTIDINE 20 MG/50 ML IVPB 50 ML IVPB ONE ×2 (12:15→12:20)
[2017-01-17] MEDS ORDERED: METOCLOPRAMIDE HCL INJECTION 10 MG/2 ML VIAL IVPB ONE (12:15)
[2017-01-17] MEDS ORDERED: DEXAMETHASONE SOD PHOSPHATE 10 MG/1 ML VIAL ONE (12:19)
[2017-01-17] MEDS ORDERED: METOCLOPRAMIDE HCL INJECTION 10 MG/2 ML VIAL ONE (12:20)
[2017-01-17] MEDS ORDERED: MAGNESIUM SULF 50% (8.12 MEQ/2 ML-1 GM VIAL) IVPB ONE (13:00)
--- NOTE | 2017-01-17 13:21 | CONSULT ---
Consult Consult Specialty:: Neurology - History of Present Illness Chief Complaint: Left sided headache, facial pain, chest pain History of Present Illness: 61 year old woman with history of CAD s/p CABG and stents, diabetes, hypertension, cervical disc disease s/p surgery, presented to ED with chest pain. Patient describes left sided headache and neck pain, radiating down the left arm and chest. Describes multiple neurologic complaints including vertigo and left leg heaviness which she reports is new for last few days. Patient was evaluated by cardiology, with negative troponin and EKG. CT head was completed which showed no acute pathology. On exam states she is unable to lift the left leg, but with noxious stimuli appears to withdraw the left leg - Past Medical History Cardio/Vascular: Yes: CAD (PCI AUG 2014), HTN, Hyperlipdemia Pulmonary: Yes: COPD Psych: Yes: Depression Endocrine: Yes: Diabetes Mellitus - Past Surgical History Past Surgical History: Yes: CABG ( V 2004), Cholecystectomy - Alcohol/Substance Use Hx Alcohol Use: No History of Substance Use: reports: None - Smoking History Smoking history: Current every day smoker Have you smoked in the past 12 months: Yes Aproximately how many cigarettes per day: 1 If you are a former smoker, when did you quit?: Pt states that she smokes 1 or 2 sometimes - Social History ADL: Independent History of Recent Travel: No Home Medications - Allergies Allergies/Adverse Reactions: Allergies Allergy/AdvReac Type Severity Reaction Status Date / Time morphine AdvReac Verified 01/16/17 21:01 mushroom Allergy Mild Swelling Uncoded 01/16/17 21:01 - Home Medications Home Medications: Ambulatory Orders Albuterol Sulfate Inhaler - [Ventolin HFA Inhaler -] 2 puff IH Q6H PRN #0 inhaler 07/04/16 Alprazolam [Xanax] 1 mg PO BID tablet MDD 10 07/04/16 Aspirin [ASA -] 81 mg PO DAILY tab.chew 07/04/16 Atorvastatin Ca [Lipitor] 80 mg PO HS tablet 07/04/16 Budesonide/Formeterol Fumarate [SYMBICORT 80/4.5mcg -] 2 puff IH BID inhaler Clopidogrel Bisulfate [Plavix -] 75 mg PO DAILY tablet 07/04/16 Enalapril Maleate [Vasotec -] 5 mg PO DAILY tablet 07/04/16 Isosorbide Mononitrate [Imdur -] 30 mg PO DAILY tab.sr.24h 07/04/16 Metoprolol Tartrate [Lopressor -] 25 mg PO BID tablet 07/04/16 Ranitidine [Zantac -] 150 mg PO BID tablet 07/04/16 Amlodipine Besylate [Norvasc -] 5 mg PO DAILY 01/16/17 Furosemide [Lasix] 40 mg PO DAILY 01/16/17 Oxycodone HCl/Acetaminophen [Percocet 5-325 mg Tablet] 1 tab PO Q6H 01/16/17 Family Disease History - Family Disease History Family Disease History: Heart Disease: Mother Review of Systems - Review of Systems Neurological: reports: Headache, Weakness Physical Exam Vital Signs: Vital Signs Temperature 98.0 F 01/17/17 10:00 Pulse Rate 68 01/17/17 10:00 Respiratory Rate 18 01/17/17 11:00 Blood Pressure 138/68 01/17/17 10:00 O2 Sat by Pulse Oximetry (%) 97 01/17/17 11:00 Constitutional: Yes: Anxious Eyes: Yes: Conjunctiva Clear, EOM Intact HENT: Yes: Atraumatic, Normocephalic Cardiovascular: Yes: S1, S2 Respiratory: Yes: Regular Neurological: Yes: Alert (EOMI, visual rios full, no facial weakness Motor can lift left leg against gravity but can not sustain, withdraws to left leg noxious stimuli Sensory intact to light touch) Labs: CBC, BMP 01/17/17 06:20 01/17/17 06:20 Assessment/Plan 61 year old woman with history of CAD s/p CABG and stents, diabetes, hypertension, cervical disc disease s/p surgery, presented to ED with chest pain. Patient describes left sided headache and neck pain, radiating down the left arm and chest. Describes multiple neurologic complaints including vertigo and left leg heaviness which she reports is new for last few days. Patient was evaluated by cardiology, with negative troponin and EKG. CT head was completed which showed no acute pathology. On exam states she is unable to lift the left leg, but with noxious stimuli appears to withdraw the left leg Headache/neck pain/left leg weakness Recommend MRI brain and cervical spine to rule out intracranial pathology/ cervical radiculopathy Explained need to patient, she is not sure if she would like to proceed Would not recommend sedation prior to MRI If unable to tolerate MRI, recommend CT neck (CT head already completed). If above testing unremarkable, patient can follow up with neuro as outpatient Physical therapy
--- NOTE | 2017-01-17 14:03 | PN ---
Teaching Attending Note Name of Resident: Evan Kevin ATTENDING PHYSICIAN STATEMENT I saw and evaluated the patient. I reviewed the resident's note and discussed the case with the resident. I agree with the resident's findings and plan as documented. SUBJECTIVE:pt is tearful during exam. states she came to the ER for YEE that started 2 weeks ago has been intermittent that radiated down her neck and left arm. she states that pain is 10/10 when it comes on and can not elicit any exacerbating or relieving factors. she states she has "blacked out" several times when this pain starts but can not confidently state that the pain has caused her to black out. she has not been compliant with her medications as her insurance has lapsed. and takes her blood pressure pills at times because she is trying to have them "stretch out". states she was prompted to come to ER when she developed chest pain after having this YEE for several hours. denies YEE in the past. denies photophobia. denies URI like symptoms denies SOB, fever, hcills, numbness/tingling in the face, recent cough, blurred vision, tinnitus. OBJECTIVE: Last Vital Signs Temp Pulse Resp BP Pulse Ox 98.0 F 68 18 138/68 97 01/17/17 10:00 01/17/17 10:00 01/17/17 11:00 01/17/17 10:00 01/17/17 11:00 General tearful CV S1 S2 RRR no murmur/rub/gallop no chest wall tenderness Neuro decreased sensation to full L side of face, no sinus tenderness, EOMI, no tongue deviation, hearing grossly intact. full range of motion of all 4 extremities, sensation grossly intact ASSESSMENT AND PLAN: 61yo F with PMH CAD s/p CABG, DM, HTN and dyslipidemia presented to the ER and was admitted for further evaluation of their emergent condition 1. atypical CP- recent cath done in June 2016. cardiac markers neg x3. evaluated by cardio. counseled pt on importance of medication compliance due to stents and risk factors. verbalized understanding 2. YEE with parathesia- possible due to medication non-compliance (possible uncontrolled HTN, although currently controlled) vs some radiculopathy. pt also stating now that she has parathesia's. but story has been inconsistent and she is hesitant on answering questions and cooperating with physical exam. states we are treating her like she "dumb because Dany black". re-assured her the questioning is so that her symptoms can be better understood and try to determine etiology of pain. MRI is likely needed in the case. neuro consulted to help facilitate information taking. 3. HTN- currently controlled. will d/c norvasc and isosorbide at this time as BP is controlled off medications. cont betablocker, acei and lasix. 4. DM- diet controlled. A1c 6.3 on last admission. will cont diabetic diet. iss , bgm 5. d/c home pending results of MRI and neuro evaluation. will likely require further workup as outpatient 6. d/w pt with Case management present the need for medication compliance. attempted to reduce the amount of medications she is currently taking. 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
[2017-01-17 15:57] VITALS: TEMP 98.1
--- NOTE | 2017-01-17 17:20 | DS ---
Physical Exam: SUBJECTIVE: Patient seen and examined at bedside in ER. OBJECTIVE: Vital Signs Period Temp Pulse Resp BP Sys/Thomas Pulse Ox Last 24 Hr 98.0 F-98.1 F 54-68 18-19 112-138/68-75 97-97 PHYSICAL EXAM GENERAL: The patient is awake, alert, and fully oriented, in no acute distress. HEAD: Normal with no signs of trauma. EYES: PERRL, extraocular movements intact, sclera anicteric, conjunctiva clear. ENT: Ears normal, nares patent, oropharynx clear without exudates, moist mucous membranes. NECK: Trachea midline, full range of motion, supple. LUNGS: Breath sounds equal, clear to auscultation bilaterally, no wheezes, no crackles, no accessory muscle use. HEART: Regular rate and rhythm, S1, S2 without murmur, rub or gallop. ABDOMEN: Soft, nontender, nondistended, normoactive bowel sounds, no guarding, no rebound, no hepatosplenomegaly, no masses. EXTREMITIES: 2+ pulses, warm, well-perfused, no edema. NEUROLOGICAL: Cranial nerves II through XII grossly intact. Normal speech, gait not observed. PSYCH: Normal mood, normal affect. SKIN: Warm, dry, normal turgor, no rashes or lesions noted. LABS Laboratory Results - last 24 hr 01/17/17 01/17/17 01/17/17 00:25 06:20 06:20 WBC 8.9 RBC 5.83 H Hgb 12.3 Hct 37.8 MCV 64.9 L MCHC 32.6 RDW 15.8 H Plt Count 249 MPV 9.1 D Neutrophils % 53.5 Lymphocytes % 37.7 D Monocytes % 5.5 Eosinophils % 2.4 Basophils % 0.9 INR 1.13 Sodium Potassium Chloride Carbon Dioxide Anion Gap BUN Creatinine Creat Clearance w eGFR POC Glucometer Random Glucose Calcium Phosphorus Magnesium Total Bilirubin AST ALT Alkaline Phosphatase Troponin I < 0.02 Total Protein Albumin Urine Color Urine Appearance Urine pH Ur Specific [place] Urine Protein Urine Glucose (UA) Urine Ketones Urine Blood Urine Nitrite Urine Bilirubin Urine Urobilinogen Ur Leukocyte Esterase 01/17/17 01/17/17 01/17/17 06:20 06:45 07:03 WBC RBC Hgb Hct MCV MCHC RDW Plt Count MPV Neutrophils % Lymphocytes % Monocytes % Eosinophils % Basophils % INR Sodium 144 Potassium 3.9 Chloride 106 Carbon Dioxide 28 Anion Gap 10 BUN 12 Creatinine 0.7 Creat Clearance w eGFR > 60 POC Glucometer [id number] Random Glucose 107 H D Calcium 8.5 Phosphorus 3.6 Magnesium 1.9 Total Bilirubin 0.3 AST 10 L D ALT 22 Alkaline Phosphatase 147 H Troponin I < 0.02 Total Protein 6.5 Albumin 3.6 Urine Color Straw Urine Appearance Clear Urine pH 6.0 Ur Specific [place] 1.011 Urine Protein Negative Urine Glucose (UA) Negative Urine Ketones Negative Urine Blood Negative Urine Nitrite Negative Urine Bilirubin Negative Urine Urobilinogen Negative Ur Leukocyte Esterase Negative HOSPITAL COURSE: Date of Admission:01/16/17 Date of Discharge: 01/17/17 Pre-hospital course: 61 yo F with significant PMHx of CAD(s/p CABG 2005 and stents x2 Jun, 2016), DM , HTN, and HLD presents to ED with chest pain. She describes constant 8/10 substernal chest pressure that radiates to left arm that lasted for approx. 15- 20 min and prompted trip to ED. Pain associated with activity and SOB, but denies diaphoresis. She also complains of bilat. leg swelling which she attributes to not taking lasix for 1 week due to insurance issues. She also mentions that for the past 3 weeks she has been having dizziness in which she feel as if the room is spinning with near syncope and relieved by lying still, but denies LOC. Furthermore for the past week she has also had left sided YEE and neck pain that limits her range of motion. Hospital course: Trops neg x 2, EKG showed NSR, BNP wnl, no white count, H/H were stable, UA showed no evidence of UTI, CXR showed no acute pathology. Head CT done due to YEE which showed mild volume loss w/o evidence of acute intracranial pathology. Pt also c/o parasthesias in face and neck due to pain. CT neck done which showed C3-C7 posterior fusion, anterior fusion at c5-c7, B/L laminectomy at C3 and C4. CT neck also showed a 1.6 cm focal low-attenuation density in L thyroid lobe. Pt told to f/u for this with endocrine and to get thyroid u/s. Pt also told to f/u neuro for pains and parasthesias. Pt was agreeable to this. She will also be sent home with 1 month's supply of home meds from our pharmacy. Norvasc and isosorbide were discontinued as her BP was well controlled. Pt told to f/u with Dr. Thornton as she usually sees him to continue to monitor BP and assess for any change in meds. Minutes to complete discharge: 45 Discharge Summary Reason For Visit: CHEST PAIN, HTN Current Active Problems CABG 3 vessel 2005 (Acute) CHF (congestive heart failure) (Acute) Chest tightness or pressure (Acute) HTN (Acute) Headache (Acute) Hypercholesteremia (Acute) NIDDM (Acute) Stented coronary artery (Acute) Condition: Fair - Instructions Diet, Activity, Other Instructions: You will be able to get 1 month's worth of your medications. You must take them as prescribed. Follow up with your primary care doctor within the next few days to get continued care and for refills of your medications. For your blood pressure medications, continue to follow up with Dr. Thornton so that he may monitor your blood pressure and make any necessary changes to your medications. If your symptoms persist please follow up with neurology (Dr. Ribera) and will likely need an MRI. Your CT scan of the neck shows a 1.6 cm density on the left thyroid lobe which will need outpatient follow up with a thyroid ultrasound. The Ct of your neck also shows fusion of C3-C7 spine. You can follow up with neurology for your fusion. Referrals: Bjorn Maloney MD [Staff Physician] - Anastacia Ribera MD [Staff Physician] - Disposition: HOME - Home Medications Comprehensive Discharge Medication List: Ambulatory Orders Alprazolam [Xanax] 1 mg PO BID tablet MDD 10 07/04/16 Oxycodone HCl/Acetaminophen [Percocet 5-325 mg Tablet] 1 tab PO Q6H 01/16/17 Albuterol Sulfate Inhaler - [Ventolin HFA Inhaler -] 2 puff IH Q6H PRN #1 inhaler 01/17/17 Aspirin [ASA -] 81 mg PO DAILY #7 tab.chew 01/17/17 Atorvastatin Ca [Lipitor] 80 mg PO HS #7 tablet 01/17/17 Budesonide/Formeterol Fumarate [SYMBICORT 80/4.5mcg -] 2 puff IH BID #1 inhaler 01/17/17 Clopidogrel Bisulfate [Plavix -] 75 mg PO DAILY #7 tablet 01/17/17 Enalapril Maleate [Vasotec -] 5 mg PO DAILY #7 tablet 01/17/17 Furosemide [Lasix] 40 mg PO DAILY #7 tablet 01/17/17 Metoprolol Tartrate [Lopressor -] 25 mg PO BID #14 tablet 01/17/17 Ranitidine [Zantac -] 150 mg PO BID #14 tablet 01/17/17 This patient is new to me today: Yes Date on this admission: 01/17/17 Emergency Visit: Yes ED Registration Date: 01/16/17 Care time: The patient presented to the Emergency Department on the above date and was hospitalized for further evaluation of their emergent condition. Critical Care patient: No - Discharge Referral Referred to [facility] No
[2017-01-17 18:21] VITALS: BP 120/62; PULSE 96; BMI 31.9
--- NOTE | 2017-01-17 21:31 | EKG ---
Test Reason : Blood Pressure : / mmHG Vent. Rate : 063 BPM Atrial Rate : 063 BPM P-R Int : 152 ms QRS Dur : 082 ms QT Int : 410 ms P-R-T Axes : 042 009 018 degrees QTc Int : 419 ms NORMAL SINUS RHYTHM POSSIBLE LEFT ATRIAL ENLARGEMENT BORDERLINE ECG WHEN COMPARED WITH ECG OF 03-JUL-2016 09:56, NO SIGNIFICANT CHANGE WAS FOUND Confirmed by BONITA RIVERS MD ([id number]) on 01/17/2017 9:31:25 PM Referred By: Confirmed By:BONITA RIVERS MD
[2017-01-17] MEDS ORDERED: ATORVASTATIN CA 80 MG TABLET (FP) PO SCH (22:00)
== END 2017-01-17 18:47 | disposition home or self-care (01) ==
LOC: JER 18:05 → JERBED 22:55
PROVIDERS: ADMIT Internal Medicine; ATTEND Internal Medicine
DX: R07.89 Other chest pain (principal); I25.10 Atherosclerotic heart disease of native coronary artery without angina pectoris; I10 Essential (primary) hypertension; R51 Headache; I50.9 Heart failure, unspecified; J45.909 Unspecified asthma, uncomplicated; F17.210 Nicotine dependence, cigarettes, uncomplicated; M54.2 Cervicalgia; J44.9 Chronic obstructive pulmonary disease, unspecified; E11.9 Type 2 diabetes mellitus without complications; F32.9 Major depressive disorder, single episode, unspecified; E78.00 Pure hypercholesterolemia, unspecified; Z95.1 Presence of aortocoronary bypass graft; Z95.5 Presence of coronary angioplasty implant and graft
CPT/HCPCS: 36415; 70450-TC; 71020-TC; 72125-TC; 80053; 81003; 82550; 82553; 83735; 83880; 84100; 84484; 85025; 85610; 85730; 93005; 93010; 99285-25; G0378; J1644

== ENCOUNTER 2017-05-02 12:22 | Observation (INO) | payer MEDICARE, OTHER ==
[2017-05-02] MEDS ORDERED: PANTOPRAZOLE SODIUM 40 MG in SODIUM CHLORIDE 100 ML IVPB ONE (13:48)
[2017-05-02] MEDS ORDERED: ONDANSETRON 4 MG/2 ML VIAL IVPUSH ONE (13:48)
[2017-05-02] MEDS ORDERED: SODIUM CHLORIDE 1,000 ML IV STA (13:48)
[2017-05-02] MEDS ORDERED: ONDANSETRON 4 MG/2 ML VIAL ONE (13:55)
[2017-05-02] MEDS ORDERED: PANTOPRAZOLE SODIUM 100 ML IVPB ONE (13:55)
[2017-05-02 14:21] LABS: BASOPHIL 0.8 % (0-2.0); EOSINOPHIL 2.4 % (0-4.5); MCH 21.1 pg (25.7-33.7); MCHC 32.3 g/dl (32.0-36.0); MEAN CELL VOLUME 65.2 fl (80-96); MEAN PLT VOLUME 8.1 fl (7.5-11.1); NEUTROPHILS 62.2 % (42.8-82.8); PLATELET COUNT 243 K/MM3 (134-434); RDW 16.3 % (11.6-15.6); WHITE BLOOD COUNT 9.1 K/mm3 (4.0-10.0)
[2017-05-02 14:47] LABS: ALBUMIN 3.7 g/dl (3.4-5.0); ANION GAP 9 (8-16); BILIRUBIN,TOTAL 0.3 mg/dL (0.2-1.0); CALCIUM 8.7 mg/dL (8.5-10.1); CO2 26 mmol/L (21-32); COCKROFT - GAULT 107.3465; CREATININE 0.8 mg/dL (0.55-1.02); GLUCOSE,RANDOM 100 mg/dL (74-106); SGOT/AST 19 U/L (15-37); SGPT/ALT 27 U/L (12-78); TOT PROT 6.9 g/dl (6.4-8.2)
[2017-05-02 14:50] LABS: ALK PHOS 175 U/L (45-117); TROPONIN I < 0.02 ng/ml (0.00-0.05)
--- NOTE | 2017-05-02 14:53 | PDOC ---
*Physical Exam - Vital Signs Last Vital Signs Temp Pulse Resp BP Pulse Ox 98 F 67 18 156/89 99 05/02/17 12:32 05/02/17 12:32 05/02/17 12:32 05/02/17 12:32 05/02/17 12:32 ED Treatment Course - LABORATORY CBC & Chemistry Diagram: 05/03/17 05:35 05/03/17 05:35 - ADDITIONAL ORDERS Additional order review: 05/02/17 14:10 RBC 6.18 H MCV 65.2 L MCHC 32.3 RDW 16.3 H MPV 8.1 D Neutrophils % 62.2 Lymphocytes % 29.8 D Monocytes % 4.8 Eosinophils % 2.4 Basophils % 0.8 - Medications Given in the ED: ED Medications Discontinued Medications Generic Name Dose Route Start Last Admin Trade Name Freq PRN Reason Stop Dose Admin Pantoprazole Sodium 40 mg/ 100 mls @ 200 mls/hr 05/02/17 13:48 05/02/17 14:10 Sodium Chloride IVPB 05/02/17 14:17 200 mls/hr ONCE ONE Administration Sodium Chloride 1,000 mls @ 1,000 mls/hr 05/02/17 13:48 05/02/17 14:10 Normal Saline - IV 05/02/17 14:47 1,000 mls/hr ASDIR STA Administration Ondansetron HCl 4 mg 05/02/17 13:48 05/02/17 14:10 Zofran Injection IVPUSH 05/02/17 13:49 4 mg ONCE ONE Administration Medical Decision Making - Medical Decision Making 05/02/17 14:49 61-year-old female presenting to the ER with a complaint of chest pain 05/02/17 14:53 Laboratory Tests 05/02/17 14:10 WBC 9.1 Hgb 13.0 Hct 40.3 Plt Count 243 Laboratory Tests 05/02/17 14:10 BUN 7 D Creatinine 0.8 Creatine Kinase 128 Troponin I < 0.02 05/02/17 14:53 Pt seen by Midlevel Provider under my direct supervision Ancillary studies reviewed I agree with plan as outlined by Midlevel Provider *DC/Admit/Observation/Transfer Diagnosis at time of Disposition: Lightheaded, Chest pain - Discharge Dispostion Disposition: HOME Condition at time of disposition: Stable - Prescriptions
--- NOTE | 2017-05-02 14:56 | PDOC ---
History of Present Illness - General Chief Complaint: Chest Pain Stated Complaint: CHEST PAIN Time Seen by Provider: 05/02/17 13:01 History Source: Patient Exam Limitations: No Limitations - History of Present Illness Initial Comments: 05/02/17 13:57 61-year-old female presents the ED with complaints of intermittent dizziness for the past 2 weeks associated with epigastric pressure radiating to her mid chest. Patient states history of acid reflux, triple bypass, diabetes, anxiety, hypertension, and dyslipidemia. Patient states also has not been compliant with her medications in regards to her diabetes since she has a lot of her mind and has increased stress in her life presently. Patient denies palpitations, shortness of breath, cough, lower extremity edema, diaphoresis, visual changes or headache. Presenting Symptoms: Chest Pain, Dizziness Timing/Duration: reports: constant Severity/Quality: reports: mild, aching Location: reports: substernal, epigastric Chest Pain Radiation: reports: no radiation Activities at Onset: reports: none Prior Chest Pain/Cardiac Workup: reports: Echocardiography, Other (bypass) Nitro Today/Relief: Yes: no nitro taken today Aspirin Received prior to arrival (Core Measure): Yes: no aspirin today Associated Symptoms: Yes: Chest Pain/pressure, Dizziness Past History - Past Medical History Allergies/Adverse Reactions: Allergies Allergy/AdvReac Type Severity Reaction Status Date / Time morphine AdvReac Verified 05/02/17 12:35 mushroom Allergy Mild Swelling Uncoded 05/02/17 12:35 Home Medications: Ambulatory Orders Alprazolam [Xanax] 1 mg PO BID tablet MDD 10 07/04/16 Oxycodone HCl/Acetaminophen [Percocet 5-325 mg Tablet] 1 tab PO Q6H 01/16/17 Albuterol Sulfate Inhaler - [Ventolin HFA Inhaler -] 2 puff IH Q6H PRN #1 inhaler 01/17/17 Aspirin [ASA -] 81 mg PO DAILY #7 tab.chew 01/17/17 Atorvastatin Ca [Lipitor] 80 mg PO HS #7 tablet 01/17/17 Budesonide/Formeterol Fumarate [SYMBICORT 80/4.5mcg -] 2 puff IH BID #1 inhaler 01/17/17 Clopidogrel Bisulfate [Plavix -] 75 mg PO DAILY #7 tablet 01/17/17 Enalapril Maleate [Vasotec -] 5 mg PO DAILY #7 tablet 01/17/17 Furosemide [Lasix] 40 mg PO DAILY #7 tablet 01/17/17 Metoprolol Tartrate [Lopressor -] 25 mg PO BID #14 tablet 01/17/17 Ranitidine [Zantac -] 150 mg PO BID #14 tablet 01/17/17 Ranolazine [Ranexa -] 500 mg PO BID #60 tab 05/03/17 Asthma: Yes Cardiac Disorders: Yes (CARDIAC 2-STENT JUL 24) Diabetes: Yes HTN: Yes Hypercholesterolemia: Yes Psychiatric Problems: Yes Suicide Attempt (Hx): No - Surgical History Abdominal Surgery: Yes (HERNIA) Cardiac Surgery: Yes (Bypass 2007, CARDIAC STENT IN JUN 2014) Cholecystectomy: Yes (1990) - Family Disease History Family Disease History: Diabetes: Grandparents, Father, Heart Disease: Grandparents, Father - Immunization History Immunization Up to Date: No - Psycho/Social/Smoking Cessation Hx Anxiety: No Suicidal Ideation: No Smoking Status: Yes Smoking History: Never smoked Have you smoked in the past 12 months: Yes Number of Cigarettes Smoked Daily: 1 If you are a former smoker, when did you quit?: Pt states that she smokes 1 or 2 sometimes Information on smoking cessation initiated: No 'Breaking Loose' booklet given: 01/17/17 Hx Alcohol Use: No Drug/Substance Use Hx: No Substance Use Type: None Hx Substance Use Treatment: No Patient Lives Alone: No Cardiac Specific PMH - Complaint Specific PMHX Abdominal Aortic Aneurysm: No Angina: No Cardiac Arrhythmia: No Cardiac Stent: Yes GERD: No Pacemaker: No Pulmonary Embolus: No Valvular Heart Disease: No Peripheral Vascular Disease: No Review of Systems - Review of Systems Able to Perform ROS?: Yes Constitutional: No: Symptoms Reported HEENTM: No: Symptoms Reported Respiratory: No: Symptoms reported Cardiac (ROS): Yes: Chest Pain, Lightheadedness ABD/GI: Yes: Poor Appetite, Indigestion Musculoskeletal: No: Symptoms Reported Integumentary: No: Symptoms Reported Neurological: Yes: Dizziness Endocrine: No: Symptoms Reported Hematologic/Lymphatic: No: Symptoms Reported *Physical Exam - Vital Signs Last Vital Signs Temp Pulse Resp BP Pulse Ox 98 F 65 20 133/68 96 05/03/17 15:22 05/03/17 15:22 05/03/17 15:22 05/03/17 15:22 05/03/17 07:28 - Physical Exam General Appearance: Yes: Nourished, Appropriately Dressed. No: Apparent Distress HEENT: positive: EOMI, [place]. negative: Pale Conjunctivae Neck: positive: Supple Respiratory/Chest: positive: Lungs Clear, Normal Breath Sounds. negative: Respiratory Distress, Accessory Muscle Use Cardiovascular: positive: Regular Rhythm, Regular Rate. negative: Murmur Gastrointestinal/Abdominal: positive: Soft. negative: Tenderness Extremity: positive: Normal Capillary Refill. negative: Pedal Edema Integumentary: positive: Normal Color, Warm, Moist Neurologic: positive: Motor Strength 5/5. negative: Normal Mood/Affect ( tearful and anxious) Heart Score/ECG Review - History History: Slightly suspicious - Electrocardiogram EKG: Normal - Age Age: 45-65 - Risk Factors Risk Factors Heart Score: Yes Hx Hypercholesterolemia, Yes Hx Hypertension, Yes Hx Diabetes, Yes Smoking History, Yes Positive family hx of cardiac disease Based on the list above the patient has:: >/=3 risk factors or Hx atherosclerotic disease - Troponin Troponin: </= normal limit - Score Heart Score - Total: 3 - ECG Intrepretation Rhythm: Regular Rhythm (rate 84.) ED Treatment Course - LABORATORY CBC & Chemistry Diagram: 05/03/17 05:35 05/03/17 05:35 - ADDITIONAL ORDERS Additional order review: 05/02/17 14:10 RBC 6.18 H MCV 65.2 L MCHC 32.3 RDW 16.3 H MPV 8.1 D Neutrophils % 62.2 Lymphocytes % 29.8 D Monocytes % 4.8 Eosinophils % 2.4 Basophils % 0.8 - RADIOLOGY Radiology Studies Ordered: Category Date Time Status HEAD CT WITHOUT CONTRAST [CT] Stat CT Scan 05/02/17 13:47 Completed CHEST X-RAY PORTABLE* [RAD] Stat Radiology 05/02/17 13:48 Completed - Medications Given in the ED: ED Medications Discontinued Medications Generic Name Dose Route Start Last Admin Trade Name Freq PRN Reason Stop Dose Admin Acetaminophen 650 mg 05/02/17 17:52 05/02/17 20:03 Tylenol - PO 05/02/17 17:53 650 mg ONCE ONE Administration Acetaminophen 325 mg 05/03/17 02:45 05/03/17 02:51 Tylenol - PO 05/03/17 02:46 Not Given ONCE ONE Al Hydroxide/Mg Hydroxide 30 ml 05/03/17 02:43 05/03/17 03:36 Mylanta Oral Suspension - PO 05/03/17 02:44 30 ml ONCE ONE Administration Albuterol Sulfate 2 puff 05/02/17 17:23 05/02/17 22:44 Ventolin Hfa Inhaler - IH 1 inh Q6H PRN Administration wheezing Aspirin 81 mg 05/03/17 10:00 05/03/17 13:06 Asa - PO 81 mg DAILY GHANSHYAM Administration Atorvastatin Calcium 80 mg 05/02/17 22:00 05/02/17 22:43 Lipitor - PO 80 mg HS GHANSHYAM Administration Budesonide/Formoterol Fumarate 2 puff 05/02/17 22:00 05/03/17 13:07 Symbicort 80/4.5mcg - IH Not Given BID GHANSHYAM Clopidogrel Bisulfate 75 mg 05/03/17 10:00 05/03/17 13:06 Plavix - PO 75 mg DAILY GHANSHYAM Administration Enalapril Maleate 5 mg 05/03/17 10:00 05/03/17 13:07 Vasotec - PO 5 mg DAILY GHANSHYAM Administration Furosemide 40 mg 05/03/17 10:00 05/03/17 13:06 Lasix - PO 40 mg DAILY GHANSHYAM Administration Pantoprazole Sodium 40 mg/ 100 mls @ 200 mls/hr 05/02/17 13:48 05/02/17 14:10 Sodium Chloride IVPB 05/02/17 14:17 200 mls/hr ONCE ONE Administration Sodium Chloride 1,000 mls @ 1,000 mls/hr 05/02/17 13:48 05/02/17 14:10 Normal Saline - IV 05/02/17 14:47 1,000 mls/hr ASDIR STA Administration Dipyridamole 50 mg/ Dextrose 50 mls @ 750 mls/hr 05/03/17 10:00 05/03/17 12:45 IVPB 05/03/17 10:03 750 mls/hr ONCE ONE Administration Insulin Aspart 0 vial 05/02/17 22:00 05/03/17 15:55 Novolog Vial Sliding Scale - SQ Not Given ACHS [facility] Protocol Ketorolac Tromethamine 30 mg 05/02/17 16:38 05/02/17 17:00 Toradol Injection - IVPUSH 05/02/17 16:39 30 mg ONCE ONE Administration Metoprolol Tartrate 25 mg 05/02/17 22:00 05/03/17 13:06 Lopressor - PO 25 mg BID GHANSHYAM Administration Ondansetron HCl 4 mg 05/02/17 13:48 05/02/17 14:10 Zofran Injection IVPUSH 05/02/17 13:49 4 mg ONCE ONE Administration Oxycodone HCl 5 mg 05/03/17 02:26 05/03/17 02:51 Roxicodone - PO 05/03/17 02:27 Not Given ONCE ONE Ranitidine HCl 150 mg 05/02/17 22:00 05/03/17 13:06 Zantac - PO 150 mg BID GHANSHYAM Administration Ranolazine 500 mg 05/03/17 15:15 05/03/17 15:50 Ranexa - PO 500 mg BID GHANSHYAM Administration Tramadol HCl 50 mg 05/03/17 03:05 05/03/17 03:19 Ultram - PO 05/03/17 03:06 50 mg ONCE ONE Administration Medical Decision Making - Medical Decision Making 05/02/17 14:02 Patient complains of lightheadedness intermittently for the past week now associate with epigastric pain that radiated to her mid chest. Patient concerning for ACS, indigestion, anxiety, and electrolyte imbalance patient ordered for cardiac workup including chest x-ray, head CT, EKG. heart score 3 05/02/17 15:06 Laboratory Tests 05/02/17 05/02/17 14:10 14:10 WBC 9.1 Hgb 13.0 Hct 40.3 MCV 65.2 L MCHC 32.3 Neutrophils % 62.2 Sodium 143 Potassium 4.4 Chloride 108 H Random Glucose 100 Magnesium 2.0 Alkaline Phosphatase 175 H Creatine Kinase 128 Troponin I < 0.02 Total Protein 6.[address] negative for acute findings.chest x-ray negative for acute findings. We' ll contact patient's PCP, Josephine Darby. 05/02/17 16:31 he does not admit. Microblog sent to hospitalist 05/02/17 16:53 patient discussed with hospitalist and accepted to service. Consultation also placed for Dr. Thornton. *DC/Admit/Observation/Transfer Diagnosis at time of Disposition: Lightheaded Chest pain Qualifiers: Chest pain type: unspecified Qualified Code(s): R07.9 - Chest pain, unspecified - Discharge Dispostion Disposition: HOME Condition at time of disposition: Stable Admit: Yes - Prescriptions
[2017-05-02 15:26] LABS: INR 1.04 (0.82-1.09); PROTHROMBIN TIME (PATIENT) 11.4 SEC (9.98-11.88)
[2017-05-02] MEDS ORDERED: KETOROLAC TROMETHAMINE 30 MG/1 ML VIAL IVPUSH ONE (16:38)
[2017-05-02] MEDS ORDERED: KETOROLAC TROMETHAMINE 30 MG/1 ML VIAL ONE (16:39)
--- NOTE | 2017-05-02 16:49 | HP ---
CHIEF COMPLAINT: "I woke up with pain in my chest." PCP: Josephine Darby Cards: Conrad HISTORY OF PRESENT ILLNESS: This is a 61yo woman with PMH of HTN, CAD, NIDDM, HLD, asthma and 2v CABG ([facility] 2005) who presents for care with left sided chest pain upon awakening today. She reports associated SOB and nausea upon awaking today. She states she has been feeling lightheaded for "a while" but has not undergone any evaluation because she has had multiple deaths in her family and did not have the time. She also reports non-compliance with her medications due to feeling overwhelmed. ER course was notable for: (1) negative troponin (2) Chest pain (3) Normal CXR Recent Travel: denies PAST MEDICAL HISTORY: HTN, CAD, NIDDM, HLD, asthma PAST SURGICAL HISTORY: 2v CABG ([facility] 2005) Social History: Smoking: quit ~1 year ago 7 pack years Alcohol: occasional Drugs: denies Family History: denies Allergies morphine Adverse Reaction (Verified 05/02/17 12:35) mushroom Allergy (Mild, Uncoded 05/02/17 12:35) Swelling Pt. states, causes swelling. HOME MEDICATIONS: Home Medications 3 Medication Instructions Recorded Alprazolam [Xanax] 1 mg PO BID tablet MDD 10 07/04/16 Oxycodone HCl/Acetaminophen 1 tab PO Q6H 01/16/17 [Percocet 5-325 mg Tablet] Albuterol Sulfate Inhaler - 2 puff IH Q6H PRN #1 inhaler 01/17/17 [Ventolin HFA Inhaler -] Aspirin [ASA -] 81 mg PO DAILY #7 tab.chew 01/17/17 Atorvastatin Ca [Lipitor] 80 mg PO HS #7 tablet 01/17/17 Budesonide/Formeterol Fumarate 2 puff IH BID #1 inhaler 01/17/17 [SYMBICORT 80/4.5mcg -] Clopidogrel Bisulfate [Plavix -] 75 mg PO DAILY #7 tablet 01/17/17 Enalapril Maleate [Vasotec -] 5 mg PO DAILY #7 tablet 01/17/17 Furosemide [Lasix] 40 mg PO DAILY #7 tablet 01/17/17 Metoprolol Tartrate [Lopressor -] 25 mg PO BID #14 tablet 01/17/17 Ranitidine [Zantac -] 150 mg PO BID #14 tablet 01/17/17 REVIEW OF SYSTEMS CONSTITUTIONAL: Absent: fever, chills, diaphoresis, generalized weakness, malaise, loss of appetite, weight change HEENT: Absent: rhinorrhea, nasal congestion, throat pain, throat swelling, difficulty swallowing, mouth swelling, ear pain, eye pain, visual changes CARDIOVASCULAR: chest pain, lightheadedness, peripheral edema Absent: syncope, palpitations, irregular heart rate RESPIRATORY: shortness of breath Absent: cough, dyspnea with exertion, orthopnea, wheezing, stridor, hemoptysis GASTROINTESTINAL: Absent: abdominal pain, abdominal distension, nausea, vomiting, diarrhea, constipation, melena, hematochezia GENITOURINARY: Absent: dysuria, frequency, urgency, hesitancy, hematuria, flank pain, genital pain MUSCULOSKELETAL: Absent: myalgia, arthralgia, joint swelling, back pain, neck pain SKIN: Absent: rash, itching, pallor HEMATOLOGIC/IMMUNOLOGIC: Absent: easy bleeding, easy bruising, lymphadenopathy, frequent infections ENDOCRINE: Absent: unexplained weight gain, unexplained weight loss, heat intolerance, cold intolerance NEUROLOGIC: Absent: headache, focal weakness or paresthesias, dizziness, unsteady gait, seizure, mental status changes, bladder or bowel incontinence PSYCHIATRIC: Absent: anxiety, depression, suicidal or homicidal ideation, hallucinations. PHYSICAL EXAMINATION Vital Signs - 24 hr 3 05/02/17 12:32 Temperature 98 F Pulse Rate 67 Respiratory 18 Rate Blood Pressure 156/89 O2 Sat by Pulse 99 Oximetry (%) GENERAL: Awake, alert, and fully oriented, in no acute distress. HEAD: Normal with no signs of trauma. EYES: Pupils equal, round and reactive to light, extraocular movements intact, sclera anicteric, conjunctiva clear. No lid lag. EARS, NOSE, THROAT: Ears normal, nares patent, oropharynx clear without exudates. Moist mucous membranes. NECK: Normal range of motion, supple without lymphadenopathy, JVD, or masses. LUNGS: Breath sounds equal, clear to auscultation bilaterally. No wheezes, and no crackles. No accessory muscle use. HEART: Regular rate and rhythm, normal S1 and S2 without murmur, rub or gallop. ABDOMEN: Soft, nontender, not distended, normoactive bowel sounds, no guarding, no rebound, no masses. No hepatomegaly or splenomegaly. MUSCULOSKELETAL: Normal range of motion at all joints. No bony deformities or tenderness. No CVA tenderness. UPPER EXTREMITIES: 2+ pulses, warm, well-perfused. No cyanosis. No clubbing. No peripheral edema. LOWER EXTREMITIES: 2+ pulses, warm, well-perfused. No calf tenderness. Dependant edema. NEUROLOGICAL: Cranial nerves II-XII intact. Normal speech. Normal gait. PSYCHIATRIC: Cooperative. Good eye contact. Tearful during exam. SKIN: Warm, dry, normal turgor, no rashes or lesions noted, normal capillary refill. Laboratory Results - last 24 hr 3 05/02/17 05/02/17 05/02/17 14:10 14:10 14:10 WBC 9.1 RBC 6.18 H Hgb 13.0 Hct 40.3 MCV 65.2 L MCHC 32.3 RDW 16.3 H Plt Count 243 MPV 8.1 D Neutrophils % 62.2 Lymphocytes % 29.8 D Monocytes % 4.8 Eosinophils % 2.4 Basophils % 0.8 INR 1.04 Sodium 143 Potassium 4.4 Chloride 108 H Carbon Dioxide 26 Anion Gap 9 BUN 7 D Creatinine 0.8 Creat Clearance w eGFR > 60 Random Glucose 100 Calcium 8.7 Magnesium 2.0 Total Bilirubin 0.3 AST 19 D ALT 27 D Alkaline Phosphatase 175 H Creatine Kinase 128 Troponin I < 0.02 Total Protein 6.9 Albumin 3.7 EKG: Sinus rhythm CXR as read by Dr. Spencer: No active pulmonary disease. CTH as read by Dr. Spencer: No bleeding, midline shift or mass effect. ASSESSMENT/PLAN: A: This is a 61yo woman with PMH of HTN, CAD, NIDDM, HLD, asthma and 2v CABG ([facility] 2005) who presents for care with left sided chest pain upon awakening today. She reports associated SOB and nausea upon awaking today. She states she has been feeling lightheaded for "a while" but has not undergone any evaluation because she has had multiple deaths in her family and did not have the time. She also reports non-compliance with her medications due to feeling overwhelmed. HEART score-5. P: 1. chest pain -trend troponin- would start heparin gtt if positive -BNP -telemetry monitoring -home Plavix -ASA -statin -BBlocker -cards consult Paul 2. CAD -tele -home meds 3. DM -FS QACHS -ISS 4. HTN -home meds 5. hyperlipidemia -home meds 6. asthma -well controlled -home meds 7. F/E/N -diabetic diet 8. PPX -on Plavix, Zantac -OOB as tolerated Dispo: This patient needs observation for her acute medical conditions. Visit type - Emergency Visit Emergency Visit: Yes ED Registration Date: 05/02/17 Care time: The patient presented to the Emergency Department on the above date and was hospitalized for further evaluation of their emergent condition. - New Patient This patient is new to me today: Yes Date on this admission: 05/03/17 - Critical Care Critical Care patient: No
[2017-05-02] MEDS ORDERED: ALBUTEROL SO4 6.7 GM HFA INHALER IH PRN (17:23)
[2017-05-02] MEDS ORDERED: ACETAMINOPHEN 325 MG TABLET (FP) PO ONE (17:52)
[2017-05-02] MEDS ORDERED: NITROGLYCERIN SUBLINGUAL 1/150 0.4 MG TAB SL PRN (17:53)
[2017-05-02 18:07] LABS: URINE APPEARANCE CLEAR; URINE BILIRUBIN NEGATIVE (NEGATIVE); URINE BLOOD NEGATIVE (NEGATIVE); URINE COLOR LTYELLOW; URINE GLUCOSE (UA) NEGATIVE (NEGATIVE); URINE KETONE NEGATIVE (NEGATIVE); URINE LEUK ESTERASE NEGATIVE (NEGATIVE); URINE NITRITE NEGATIVE (NEGATIVE); URINE PROTEIN NEGATIVE (NEGATIVE); URINE UROBILINOGEN NEGATIVE E.U./dl (0.2-1.0)
[2017-05-02] MEDS ORDERED: ACETAMINOPHEN 325 MG TABLET (FP) ONE (19:55)
[2017-05-02 20:45] LABS: TROPONIN I < 0.02 ng/ml (0.00-0.05)
[2017-05-02 21:37] LABS: HYPOCHROMIA 2+; PLATELET ESTIMATE ADEQUATE (NORMAL)
[2017-05-02 21:38] LABS: MICROCYTOSIS 1+
[2017-05-02] MEDS ORDERED: ATORVASTATIN CA 80 MG TABLET (FP) PO SCH (22:00)
[2017-05-02] MEDS ORDERED: RANITIDINE HCL 150 MG TABLET (FP) ONE (22:30)
[2017-05-02] MEDS ORDERED: METOPROLOL TARTRATE 25 MG TABLET (FP) ONE (22:30)
[2017-05-02] MEDS ORDERED: ATORVASTATIN CA 80 MG TABLET (FP) ONE (22:31)
[2017-05-02] MEDS: METOPROLOL TARTRATE 25 MG TABLET (FP) PO SCH ×2 (22:43→22:48)
[2017-05-02] MEDS: RANITIDINE HCL 150 MG TABLET (FP) PO SCH (22:44)
[2017-05-02] MEDS: BUDESONIDE/FORMETEROL FUMARATE 80/4.5 mcg INHALER IH SCH (22:44)
[2017-05-03] MEDS: INSULIN SLIDING SCALE (NOVOLOG) 1 VIAL SQ SCH ×4 (01:47→15:55)
[2017-05-03 02:10] LABS: TROPONIN I < 0.02 ng/ml (0.00-0.05)
[2017-05-03] MEDS ORDERED: oxyCODONE HCL 5 MG TABLET PO ONE (02:26)
[2017-05-03] MEDS ORDERED: MAG HYDROX/AL HYDROX/SIMETH 30 ML UNIT-DOSE CUP PO ONE (02:43)
--- NOTE | 2017-05-03 02:43 | HOSP ---
Subjective - Review of Symptoms Events since last encounter: nurse reports pt with chest pain Subjective: Pt states she is having chest pain. States it is the same pain she has been having all day, no change in site, quantity or quality. Pt states that she did receive a medication earlier in the ED that helped but pain returned. Cardiovascular: Yes: Chest Pain Physical Examination Vital Signs: Vital Signs Temperature 98.2 F 05/02/17 22:00 Pulse Rate 71 05/03/17 01:24 Respiratory Rate 20 05/02/17 23:30 Blood Pressure 117/74 05/03/17 01:24 O2 Sat by Pulse Oximetry (%) 96 05/03/17 01:24 Constitutional: Yes: No Distress, Other (poor eye contact during conversation, looking down at her lap) Cardiovascular: Yes: Regular Rate and Rhythm Respiratory: Yes: CTA Bilaterally Gastrointestinal: Yes: Normal Bowel Sounds, Tenderness (on deep palpation epigastric region) Hospitalist Encounter Assessment: Chest pain: - troponin neg x 3 - requesting toradol given earlier. Explained link between NSAID use and cardiovascular events and advised this would not be best drug to use - pt with morphine allergy: when pt asked what reaction was she stated, I don 't know, I don't know. then later states she threw up several times and felt bad after receiving it. She was unsure if this was due to the fact that she had taken it on an empty stomach. She did not want morphine - pt refused nitroglycerin as it gives her a headache. - pt advised would try maalox given epigastric tenderness and oxycodone as she takes percocet at home. Pt did not want the percocet but accepted the maalox. - pt requested to speak to another provider, resident Forbes attended pt and they agreed she would try tramadol
[2017-05-03] MEDS ORDERED: ACETAMINOPHEN 325 MG TABLET (FP) PO ONE (02:45)
[2017-05-03] MEDS ORDERED: KETOROLAC TROMETHAMINE 30 MG/1 ML VIAL IVPUSH ONE (03:01)
[2017-05-03] MEDS ORDERED: traMADol HCL 50 MG TABLET PO ONE (03:05)
[2017-05-03 06:35] VITALS: BMI 31.4
[2017-05-03 07:21] LABS: BASOPHIL 1.1 % (0-2.0); EOSINOPHIL 2.2 % (0-4.5); MCH 21.3 pg (25.7-33.7); MCHC 32.8 g/dl (32.0-36.0); MEAN CELL VOLUME 64.9 fl (80-96); MEAN PLT VOLUME 8.8 fl (7.5-11.1); NEUTROPHILS 58.2 % (42.8-82.8); PLATELET COUNT 211 K/MM3 (134-434); RDW 16.6 % (11.6-15.6); WHITE BLOOD COUNT 8.3 K/mm3 (4.0-10.0)
[2017-05-03 07:29] LABS: CALCIUM 8.3 mg/dL (8.5-10.1); COCKROFT - GAULT 140.964; CREATININE 0.6 mg/dL (0.55-1.02)
--- NOTE | 2017-05-03 08:38 | CON.CARD ---
Consult Consult Specialty:: Cardiology Referred by:: Linda Duncan Reason for Consultation:: Chest Pain - History of Present Illness Chief Complaint: Chest pain History of Present Illness: 61F known to our group from office. PMH CAD s/p CABG 2005, PCI to SVG--Ramus 2013 with unstable angina 06/2016 with ISR and CONSUELO of SVG--Ramus graft. Risk factors also include DM and HTN. ROS: 1-2 days of epigastric and midsternal chest tightness at rest, thought it was reflux. Not exertional. No associated KOCH, N/V or diaphoresis. Did not feel like her usual anginal symptoms. No palpitations, edema or PND. Denies syncope. No cough, fevers. She says she may have missed 1-2 days of meds, but in general has been taking her usual medications. ECG reviewed, no acute changes; Serial TnIs x3 have been WNL with normal CK. - History Source History Provided By: Patient Limitations to Obtaining History: No Limitations - Past Medical History Cardio/Vascular: Yes: CAD (PCI, 2013, 2015 and CABG 2005), CHF (chronic diastolic), HTN, Hyperlipdemia Pulmonary: Yes: COPD Psych: Yes: Depression Endocrine: Yes: Diabetes Mellitus - Past Surgical History Past Surgical History: Yes: CABG (3 V 2004), Cholecystectomy Additional Surgical History: spine surgery - Alcohol/Substance Use Hx Alcohol Use: No History of Substance Use: reports: None - Smoking History Smoking history: Current some day smoker Have you smoked in the past 12 months: Yes Aproximately how many cigarettes per day: 2 If you are a former smoker, when did you quit?: Pt states that she smokes 1 or 2 sometimes - Social History ADL: Independent History of Recent Travel: No Home Medications - Allergies Allergies/Adverse Reactions: Allergies Allergy/AdvReac Type Severity Reaction Status Date / Time morphine AdvReac Verified 05/02/17 12:35 mushroom Allergy Mild Swelling Uncoded 05/02/17 12:35 - Home Medications Home Medications: Ambulatory Orders Alprazolam [Xanax] 1 mg PO BID tablet MDD 10 07/04/16 Oxycodone HCl/Acetaminophen [Percocet 5-325 mg Tablet] 1 tab PO Q6H 01/16/17 Albuterol Sulfate Inhaler - [Ventolin HFA Inhaler -] 2 puff IH Q6H PRN #1 inhaler 01/17/17 Aspirin [ASA -] 81 mg PO DAILY #7 tab.chew 01/17/17 Atorvastatin Ca [Lipitor] 80 mg PO HS #7 tablet 01/17/17 Budesonide/Formeterol Fumarate [SYMBICORT 80/4.5mcg -] 2 puff IH BID #1 inhaler 01/17/17 Clopidogrel Bisulfate [Plavix -] 75 mg PO DAILY #7 tablet 01/17/17 Enalapril Maleate [Vasotec -] 5 mg PO DAILY #7 tablet 01/17/17 Furosemide [Lasix] 40 mg PO DAILY #7 tablet 01/17/17 Metoprolol Tartrate [Lopressor -] 25 mg PO BID #14 tablet 01/17/17 Ranitidine [Zantac -] 150 mg PO BID #14 tablet 01/17/17 Family Disease History - Family Disease History Family Disease History: Heart Disease: Mother Review of Systems Findings/Remarks: see HPI - Review of Systems Constitutional: reports: No Symptoms Eyes: reports: No Symptoms Cardiovascular: reports: Chest Pain Respiratory: reports: No Symptoms Gastrointestinal: reports: Other (epigastric tightness) Genitourinary: denies: No Symptoms, Burning, Discharge, Dysuria, Flank Pain, Frequency, Hematuria, Incontinence, Lesions, Menses, Pain, Testicular Mass, Testicular Pain, Testicular Swelling, Urgency, Vaginal Bleeding, Other Musculoskeletal: denies: No Symptoms, Back Pain, Crepitus, Decreased ROM, Extremity Pain, Joint Pain, Joint Swelling, Muscle Pain, Muscle Cramps, Muscle Weakness, Other Integumentary: denies: No Symptoms, Blister, Bruising, Change in Color, Eczema, Erythema, Incision, Lesions, Lump, Pallor, Pruritis, Rash, Wound, Other Neurological: reports: Other (occasional light headedness) Endocrine: denies: No Symptoms, Excessive Sweating, Flushing, Increased Hunger, Increased Thirst, Intolerance to Cold, Intolerance to Heat, Unexplained Weight Gain, Unexplained Weight Loss, Other Hematology/Lymphatic: denies: No Symptoms, Easily Bruised, Excessive Bleeding, Swollen Glands, Other Psychiatric: denies: No Symptoms, Altered Sleep Pattern, Anxiety, Depression, Hallucinations, Panic, Paranoia, Suicidal, Other - Risk Factors Known Risk Factors: Yes: Diabetes Mellitus, Hypertension, Smoking, Other (Known CAD) Vital Signs: Vital Signs Temperature 98.0 F 05/03/17 07:28 Pulse Rate 59 L 05/03/17 07:28 Respiratory Rate 20 05/03/17 07:28 Blood Pressure 140/55 05/03/17 07:28 O2 Sat by Pulse Oximetry (%) 96 05/03/17 07:28 Constitutional: Yes: No Distress Eyes: Yes: Conjunctiva Clear, EOM Intact HENT: Yes: Atraumatic, Normocephalic Neck: Yes: Supple, Trachea Midline Respiratory: Yes: CTA Bilaterally (no rales or wheezing) Gastrointestinal: Yes: Soft (non-tender) Cardiovascular: Yes: Regular Rate and Rhythm, Other (no murmurs) JVD: No Carotid Bruit: No PMI: Non-Displaced Edema: No Neurological: Yes: Alert - Other Data Labs, Other Data: CBC, BMP 05/03/17 05:35 05/03/17 05:35 INR, PTT INR 1.04 (0.82-1.09) 05/02/17 14:10 Troponin, BNP 05/02/17 05/03/17 20:15 01:45 Troponin I < 0.02 < 0.02 B-Natriuretic Peptide 105.22 Troponin, BNP 05/02/17 05/03/17 20:15 01:45 Troponin I < 0.02 < 0.02 B-Natriuretic Peptide 105.22 NSR 63bpm, LAE TELE: NSR Echo: Report Reviewed Prior Cardiac Procedures: CABG, PTCA with Stent Ejection Fraction %: LVEF > or = 40 % Imaging - Results X-ray: Report Reviewed, Image Reviewed Cat Scan: Report Reviewed EKG: Image Reviewed Problem List - Problems (1) CAD (coronary artery disease) of artery bypass graft Code(s): I25.810 - ATHEROSCLEROSIS OF CABG W/O ANGINA PECTORIS Qualifiers: [place] vs. transplanted heart: [place] heart Associated angina: without angina Qualified Code(s): I25.810 - Atherosclerosis of coronary artery bypass graft(s) without angina pectoris (2) Chest pain of unknown etiology Assessment/Plan: -Atypical chest pain Code(s): R07.89 - OTHER CHEST PAIN (3) CHF (congestive heart failure) Code(s): I50.9 - HEART FAILURE, UNSPECIFIED Qualifiers: Congestive heart failure type: diastolic Congestive heart failure chronicity: chronic Qualified Code(s): I50.32 - Chronic diastolic ( congestive) heart failure Assessment/Plan IMP: CAD s/p CABG 2005; PCI of SVG to Ramus 2013 with ISR and CONSUELO again in 06/2016 Atypical chest pain: possibly GERD HTN with chronic diastolic CHF, now euvolemic DM REC: Serial cardiac enzymes are negative with no acute ST changes. For echo today. Plan for exercise MIBI later this morning. If WNL, ok to discharge home later today with close outpatient f/u. If ischemia, would hold discharge and will formulate plan based on result. Thanks.
[2017-05-03] MEDS ORDERED: ENALAPRIL MALEATE 5 MG TABLET (FP) PO SCH (10:00)
[2017-05-03] MEDS ORDERED: DIPYRIDAMOLE STRESS TEST 50 MG in DEXTROSE 5%-WATER - 40 ML IVPB ONE (10:00)
[2017-05-03] MEDS ORDERED: CLOPIDOGREL BISULFATE 75 MG TABLET (FP) PO SCH (10:00)
[2017-05-03] MEDS ORDERED: ASPIRIN 81 MG CHEWABLE TABLETS PO SCH (10:00)
[2017-05-03] MEDS ORDERED: FUROSEMIDE 40 MG TABLET (FP) PO SCH (10:00)
[2017-05-03] MEDS ORDERED: ENOXAPARIN NA (PORCINE) 40 MG/0.4 ML DISP.SYRIN SQ SCH (10:00)
--- NOTE | 2017-05-03 12:34 | EKG ---
Test Reason : Blood Pressure : / mmHG Vent. Rate : 063 BPM Atrial Rate : 063 BPM P-R Int : 148 ms QRS Dur : 084 ms QT Int : 400 ms P-R-T Axes : 040 004 022 degrees QTc Int : 409 ms NORMAL SINUS RHYTHM POSSIBLE LEFT ATRIAL ENLARGEMENT BORDERLINE ECG WHEN COMPARED WITH ECG OF 16-JAN-2017 18:15, NO SIGNIFICANT CHANGE WAS FOUND Confirmed by VENITA PEACE MD ([id number]) on 05/03/2017 12:33:42 PM Referred By: Confirmed By:VENITA PEACE MD
[2017-05-03] MEDS: RANITIDINE HCL 150 MG TABLET (FP) PO SCH (13:06)
[2017-05-03] MEDS: METOPROLOL TARTRATE 25 MG TABLET (FP) PO SCH (13:06)
[2017-05-03] MEDS: BUDESONIDE/FORMETEROL FUMARATE 80/4.5 mcg INHALER IH SCH (13:07)
[2017-05-03] MEDS ORDERED: RANOLAZINE E.R. 500 MG TABLET (FP) PO SCH (15:15)
[2017-05-03 15:23] VITALS: BP 133/68; PULSE 65; TEMP 98
--- NOTE | 2017-05-03 16:40 | DS ---
Physical Exam: SUBJECTIVE: Patient seen and examined OBJECTIVE: Vital Signs Period Temp Pulse Resp BP Sys/Thomas Pulse Ox Last 24 Hr 97.6 F-98.8 F 52-88 18-22 117-150/52-85 96-100 Laboratory Results - last 24 hr 05/02/17 05/02/17 05/02/17 17:33 20:15 22:35 WBC RBC Hgb Hct MCV MCHC RDW Plt Count MPV Neutrophils % Lymphocytes % Monocytes % Eosinophils % Basophils % Sodium Potassium Chloride Carbon Dioxide Anion Gap BUN Creatinine POC Glucometer [id number] Random Glucose Calcium Creatine Kinase 99 Troponin I < 0.02 B-Natriuretic Peptide Urine Color Ltyellow Urine Appearance Clear Urine pH 5.0 Ur Specific [place] 1.020 Urine Protein Negative Urine Glucose (UA) Negative Urine Ketones Negative Urine Blood Negative Urine Nitrite Negative Urine Bilirubin Negative Urine Urobilinogen Negative Ur Leukocyte Esterase Negative 05/03/17 05/03/17 05/03/17 01:45 05:35 05:35 WBC 8.3 RBC 5.54 H Hgb 11.8 Hct 36.0 MCV 64.9 L MCHC 32.8 RDW 16.6 H Plt Count 211 MPV 8.8 Neutrophils % 58.2 Lymphocytes % 30.3 Monocytes % 8.2 Eosinophils % 2.2 Basophils % 1.1 Sodium 142 Potassium 4.2 Chloride 108 H Carbon Dioxide 25 Anion Gap 9 BUN 10 D Creatinine 0.6 D POC Glucometer Random Glucose 137 H D Calcium 8.3 L Creatine Kinase Troponin I < 0.02 B-Natriuretic Peptide 105.22 Urine Color Urine Appearance Urine pH Ur Specific [place] Urine Protein Urine Glucose (UA) Urine Ketones Urine Blood Urine Nitrite Urine Bilirubin Urine Urobilinogen Ur Leukocyte Esterase HOSPITAL COURSE: Date of Admission:05/02/17 Date of Discharge: 05/03/17 Minutes to complete discharge: 38 Discharge Summary Reason For Visit: CHEST PAIN LIGHTHEADED Current Active Problems CAD (coronary artery disease) of artery bypass graft (Acute) Chest pain (Acute) Chest pain of unknown etiology (Acute) Lightheaded (Acute) Hospital Course: Initial Hospital Course: Briefly, this 61 year female with PMH of HTN, CAD, NIDDM, HLD, asthma and 2v CABG ([facility] 2005) who presented for care with left sided chest pain when she woke up with associated sob and epigastric tightness at rest . She had been feeling lightheaded for "a while" but has not undergone any evaluation because she has had multiple deaths in her family and did not have the time. She also reports non-compliance with her medications due to feeling overwhelmed. HEART score-5. Subsequent Hospital Course/Progress Note/Discharge Summary by p: Plan: 1. Chest Pain - r/o DC trops x2 negative - Stress test 05/03: sml mild apical lateral reversible defect c/w ischemia EF 68 % - Echo 05/03: LVSF nml size, fxn, fill pattern nml, trace MR, RVSP nml, Mild MR - Start ranexa 500 BID - Cardiology follow up Dr. Thornton 05/04 1400 2. CAD s/p CABG - Plavix 75mg daily - Daily ASA - Metoprolol 25 BID 3. DM II - Recently taken off insulin - PMD follow up - Counseled on diet and exercise 4. HTN - Enalapril 5mg daily 5. HLD - Lipitor HS 6. Asthma - Not in exacerbation - symbicort Dispo: - Home with above new mediation (ranexa) - F/u tomorrow 05/04 1400 w/ Norberto - Pt and daughter aware and agree to above plan Condition: Stable - Instructions Diet, Activity, Other Instructions: Please return to the ED for any new, persistent, or worsening symptoms. Follow up with your PCP in 1 week Tomorrow you have an appointment 05/04/[address] Thornton at 2pm Referrals: Sha Thornton MD [Staff Physician] - (Tomorrow 05-04-17 @ 2pm follow up appt. ) Josephine Darby MD [Primary Care Provider] - Disposition: HOME - Home Medications Comprehensive Discharge Medication List: Ambulatory Orders Alprazolam [Xanax] 1 mg PO BID tablet MDD 10 07/04/16 Oxycodone HCl/Acetaminophen [Percocet 5-325 mg Tablet] 1 tab PO Q6H 01/16/17 Albuterol Sulfate Inhaler - [Ventolin HFA Inhaler -] 2 puff IH Q6H PRN #1 inhaler 01/17/17 Aspirin [ASA -] 81 mg PO DAILY #7 tab.chew 01/17/17 Atorvastatin Ca [Lipitor] 80 mg PO HS #7 tablet 01/17/17 Budesonide/Formeterol Fumarate [SYMBICORT 80/4.5mcg -] 2 puff IH BID #1 inhaler 01/17/17 Clopidogrel Bisulfate [Plavix -] 75 mg PO DAILY #7 tablet 01/17/17 Enalapril Maleate [Vasotec -] 5 mg PO DAILY #7 tablet 01/17/17 Furosemide [Lasix] 40 mg PO DAILY #7 tablet 01/17/17 Metoprolol Tartrate [Lopressor -] 25 mg PO BID #14 tablet 01/17/17 Ranitidine [Zantac -] 150 mg PO BID #14 tablet 01/17/17 Ranolazine [Ranexa -] 500 mg PO BID #60 tab 05/03/17 This patient is new to me today: Yes Date on this admission: 05/03/17 Emergency Visit: Yes ED Registration Date: 05/02/17 Care time: The patient presented to the Emergency Department on the above date and was hospitalized for further evaluation of their emergent condition. Critical Care patient: No - Discharge Referral Referred to [facility] No
== END 2017-05-03 16:13 | disposition home or self-care (01) ==
LOC: JER 12:22 → J4W 16:55
PROVIDERS: ADMIT Internal Medicine; ATTEND Nurse Practitioner Acute Care
PROC: 3E0333Z Introduction of Anti-inflammatory into Peripheral Vein, Percutaneous Approach (ICD-10-PCS; principal; 2017-05-02)
PROC: 3E033GC Introduction of Other Therapeutic Substance into Peripheral Vein, Percutaneous Approach (ICD-10-PCS; 2017-05-02)
PROC: 3E0337Z Introduction of Electrolytic and Water Balance Substance into Peripheral Vein, Percutaneous Approach (ICD-10-PCS; 2017-05-02)
PROC: 3E0F7GC Introduction of Other Therapeutic Substance into Respiratory Tract, Via Natural or Artificial Opening (ICD-10-PCS; 2017-05-02)
DX: R07.89 Other chest pain (principal); R42 Dizziness and giddiness; I10 Essential (primary) hypertension; I25.810 Atherosclerosis of coronary artery bypass graft(s) without angina pectoris; I50.32 Chronic diastolic (congestive) heart failure; K21.9 Gastro-esophageal reflux disease without esophagitis; Z95.1 Presence of aortocoronary bypass graft; E11.9 Type 2 diabetes mellitus without complications; E78.5 Hyperlipidemia, unspecified; F41.9 Anxiety disorder, unspecified; J45.909 Unspecified asthma, uncomplicated; Z91.14 Patient's other noncompliance with medication regimen; Z88.6 Allergy status to analgesic agent; Z91.018 Allergy to other foods; Z79.82 Long term (current) use of aspirin; Z95.5 Presence of coronary angioplasty implant and graft; Z72.0 Tobacco use
CPT/HCPCS: 36415; 70450-TC; 71010-TC; 78452-TC; 80048; 80053; 81003; 82550; 83735; 83880; 84484; 85025; 85610; 93005; 93010; 93017; 93306-TC; 99285-25; A9502; G0378; J1245

== ENCOUNTER 2017-07-16 14:10 | Emergency (ER) | payer MEDICARE, OTHER ==
[2017-07-16] MEDS ORDERED: ASPIRIN 81 MG CHEWABLE TABLETS PO ONE (14:44)
[2017-07-16 14:47] VITALS: BMI 31.9
--- NOTE | 2017-07-16 14:49 | PDOC ---
History of Present Illness - General Chief Complaint: Chest Pain Stated Complaint: CHEST PAIN Time Seen by Provider: 07/16/17 14:14 History Source: Patient Exam Limitations: No Limitations - History of Present Illness Initial Comments: 07/16/17 15:08 Patient is a 61 year old obese female with significant cardiac history including cabg presenting with two hours of chest pain that started at rest with associated mild shortness of breath. Patient states the pain started with a "popping" sensation in the left lower abdomen that spread to the LUQ, chest and left flank. Pain also radiates to the left shoulder and arm. Patient denies fever, chills, sweating and current SOB. Endorses LLQ and inquinal pain. Endorses hesitance incontinence w/o dysurea. Patient also endorses bilateral inguinal hernias with a failed repair for which she was going to have an MRI last week but claims they were unable to get a vein. Patient claims her GI surgeon refuses to repair the hernia. PCP: [facility] OB: Dr. Barroso GI: Dr. Walden Warehouse Selector: Norberto Past History - Past Medical History Allergies/Adverse Reactions: Allergies Allergy/AdvReac Type Severity Reaction Status Date / Time mushroom Allergy Mild Swelling Uncoded 07/16/17 14:26 Home Medications: Ambulatory Orders Alprazolam [Xanax] 1 mg PO BID tablet MDD 10 07/04/16 Oxycodone HCl/Acetaminophen [Percocet 5-325 mg Tablet] 1 tab PO Q6H 01/16/17 Albuterol Sulfate Inhaler - [Ventolin HFA Inhaler -] 2 puff IH Q6H PRN #1 inhaler 01/17/17 Aspirin [ASA -] 81 mg PO DAILY #7 tab.chew 01/17/17 Atorvastatin Ca [Lipitor] 80 mg PO HS #7 tablet 01/17/17 Budesonide/Formeterol Fumarate [SYMBICORT 80/4.5mcg -] 2 puff IH BID #1 inhaler 01/17/17 Clopidogrel Bisulfate [Plavix -] 75 mg PO DAILY #7 tablet 01/17/17 Enalapril Maleate [Vasotec -] 5 mg PO DAILY #7 tablet 01/17/17 Furosemide [Lasix] 40 mg PO DAILY #7 tablet 01/17/17 Metoprolol Tartrate [Lopressor -] 25 mg PO BID #14 tablet 01/17/17 Ranitidine [Zantac -] 150 mg PO BID #14 tablet 01/17/17 Ranolazine [Ranexa -] 500 mg PO BID #60 tab 05/03/17 Asthma: Yes Cardiac Disorders: Yes (CARDIAC 2-STENT JUL 24) Diabetes: Yes HTN: Yes Hypercholesterolemia: Yes Psychiatric Problems: Yes Suicide Attempt (Hx): No - Surgical History Abdominal Surgery: Yes (HERNIA) Cardiac Surgery: Yes (Bypass 2007, CARDIAC STENT IN JUN 2014) Cholecystectomy: Yes (1990) - Family Disease History Family Disease History: Diabetes: Grandparents, Father, Heart Disease: Grandparents, Father - Immunization History Immunization Up to Date: No - Psycho/Social/Smoking Cessation Hx Anxiety: No Suicidal Ideation: No Smoking Status: Yes Smoking History: Former smoker Have you smoked in the past 12 months: Yes Number of Cigarettes Smoked Daily: 1 If you are a former smoker, when did you quit?: Pt states that she smokes 1 or 2 sometimes Information on smoking cessation initiated: No 'Breaking Loose' booklet given: 01/17/17 Hx Alcohol Use: No Drug/Substance Use Hx: No Substance Use Type: None Hx Substance Use Treatment: No Review of Systems - Review of Systems Constitutional: No: Chills, Fever Respiratory: Yes: Shortness of Breath Cardiac (ROS): Yes: Chest Pain. No: Syncope ABD/GI: Yes: Other (Left sided abdominal pain). No: Nausea, Vomiting : Yes: Incontinence, Other (B/L inguinal hernias). No: Dysuria Musculoskeletal: Yes: Back Pain (upper left shoulder and left flank) *Physical Exam - Vital Signs Last Vital Signs Temp Pulse Resp BP Pulse Ox 97.9 F 58 L 18 134/79 98 07/16/17 14:15 07/16/17 14:15 07/16/17 14:15 07/16/17 14:15 07/16/17 14:15 - Physical Exam General Appearance: Yes: Nourished, Appropriately Dressed, Mild Distress, Obese HEENT: positive: EOMI, [place], Normal ENT Inspection, Other (Slow side to side tongue movements) Respiratory/Chest: positive: Lungs Clear, Normal Breath Sounds. negative: Chest Tender, Respiratory Distress Cardiovascular: positive: Regular Rhythm, Regular Rate, Other (auscultation limited by habitus). negative: Edema, JVD, Murmur Gastrointestinal/Abdominal: positive: Normal Bowel Sounds, Tender (LUQ, LLQ, Inguinal), Other (Small reducable left ingunal hernia palpated on left, ) Musculoskeletal: positive: Normal Inspection, Other (No evidence of hernia incarceration) Extremity: positive: Normal Inspection Integumentary: positive: Normal Color, Dry, Warm. negative: Diaphoresis Neurologic: positive: administrative services coordinator II-XII NML intact, Fully Oriented, Alert. negative: Motor Strength 5/5 (Left sided weakness 2+LE 4+UE) ED Treatment Course - LABORATORY CBC & Chemistry Diagram: 07/16/17 15:09 07/16/17 15:09 - RADIOLOGY Radiograph Interpretation: 07/16/17 20:06 EXAM: CT abdomen and pelvis with intravenous and oral contrast IMAGES: 510 EXAM DATE AND TIME: 2017-07-16 19:22:55 REASON FOR EXAM: Left lower quadrant pain COMPARISON: None. FINDINGS: There are mild atelectatic changes at the lung bases The gallbladder is surgically absent Intra-and extrahepatic biliary dilatation. Suspected post cholecystectomy changes. No clear evidence of obstructing stone or mass The liver is enlarged measuring 19 cm in craniocaudal dimension. The upper abdominal visceral organs are otherwise unremarkable There is no bowel obstruction or distention Questionable mild thickening of the distal and terminal ileum may be secondary to underdistention versus nonspecific ileitis The appendix is normal There is a soft tissue mass in the right lower quadrant with a pedicle attached to the proximal ascending colon measuring 4.0 x 3.5 cm axially and 4.7 cm in craniocaudal dimension No evidence of an acute process in the left lower quadrant The pelvic organs are grossly normal There are bilateral inguinal hernias containing fat No free air, free fluid or loculated collections Medical Decision Making - Medical Decision Making 07/16/17 14:49 61 year old obese female with significant cad s/p cabg complaining of chest pain at rest that started two hours ago with associated sob no diaphoresis, pain radiates to back and left arm. PE significant for left sided weakness that daughter claims is chronic but patient claims is worse. left leg 2+ strength. LLQ/LUQ tenderness, right shoulder tenderness Ddx includes but is not limited to dissection, ACS, pancreatitis, PE, infectious cause, abdominal wall rupture Plan ASA, IV, Monitor EKG CXR CBC, CMP Cardiac enzymes, BNP Lipase UA Consider abdominal CT with IV/PO contrast NPO EKG: sinus bradycardia (54), intervals and axis within normal limits, no ST elevations or depressions BP symmetric B/L, moderate patient pain level, no mediastinal widening reassuring for dissection 07/16/17 16:38 CBC WBC 9.5 K/mm3 (4.0-10.0) 07/16/17 15:09 RBC 6.28 M/mm3 (3.60-5.2) H 07/16/17 15:09 Hgb 13.4 GM/dL (10.7-15.3) D 07/16/17 15:09 Hct 41.2 % (32.4-45.2) 07/16/17 15:09 MCV 65.7 fl (80-96) L 07/16/17 15:09 MCH 21.4 pg (25.7-33.7) L 07/16/17 15:09 MCHC 32.5 g/dl (32.0-36.0) 07/16/17 15:09 RDW 16.1 % (11.6-15.6) H 07/16/17 15:09 Plt Count 269 K/MM3 (134-434) D 07/16/17 15:09 MPV 8.7 fl (7.5-11.1) 07/16/17 15:09 grossly within normal limits no anemia or leukocytosis 07/16/17 16:59 CMP Sodium 141 mmol/L (136-145) 07/16/17 15:09 Potassium 4.4 mmol/L (3.5-5.1) 07/16/17 15:09 Chloride 105 mmol/L (98-107) 07/16/17 15:09 Carbon Dioxide 27 mmol/L (21-32) 07/16/17 15:09 Anion Gap 9 (8-16) 07/16/17 15:09 BUN 10 mg/dL (7-18) 07/16/17 15:09 Creatinine 0.7 mg/dL (0.55-1.02) 07/16/17 15:09 Creat Clearance w eGFR > 60 (>60) 07/16/17 15:09 Random Glucose 81 mg/dL (74-106) D 07/16/17 15:09 Calcium 9.1 mg/dL (8.5-10.1) 07/16/17 15:09 Total Bilirubin 0.6 mg/dL (0.2-1.0) D 07/16/17 15:09 AST 16 U/L (15-37) 07/16/17 15:09 ALT 22 U/L (12-78) 07/16/17 15:09 Alkaline Phosphatase 156 U/L (45-117) H 07/16/17 15:09 Creatine Kinase 202 IU/L (26-192) H 07/16/17 15:09 Creatine Kinase Index 0.4 % (0.0-5.0) 07/16/17 15:09 CK-MB (CK-2) < 1.000 ng/mL (0.5-3.6) 07/16/17 15:09 Troponin I < 0.02 ng/ml (0.00-0.05) 07/16/17 15:09 B-Natriuretic Peptide 83.85 pg/ml (5-125) 07/16/17 15:09 Total Protein 6.8 g/dl (6.4-8.2) 07/16/17 15:09 Albumin 3.8 g/dl (3.4-5.0) 07/16/17 15:09 Lipase 86 U/L (73-393) 07/16/17 15:09 Reassuring cardiac enzymes, Troponin I and CK-MB within normal limits Reassuring BNP within normal limits Slightly elevated Alk Phos and CK Reassuring Lipase 07/16/17 20:12 CT non concerning for any acute left quadrant pathology Put in multiple calls to Dr. Abbasi's practice to inform him of his patient Dr. Bejarano received a text stating it was OK for patient to go home. Discussed the lab and imaging results with the patient and she said she wanted to go. Provided patient with copies of the CT report and lab results Patient became inpatient when the discharge instructions were being printed and left without receiving instructions *DC/Admit/Observation/Transfer Diagnosis at time of Disposition: Chest pain of unknown etiology - Discharge Dispostion Disposition: HOME Condition at time of disposition: Stable Admit: No - Referrals Referrals: Josephine Darby MD [Primary Care Provider] - Sha Thornton MD [Staff Physician] - - Patient Instructions Printed Discharge Instructions: DI for Atypical Chest Pain, DI for Chest Pain Additional Instructions: Thank you for trusting us with your health care. I hope you were satisfied with the care we provided. As we discussed, the tests we performed today did not show any concerning cause of your chest pain, abdominal pain or shortness of breath. While we don't always find the cause of a problem in the emergency department, our main goal is to identify serious and immediately concerning conditions. We put a call into your data integrity analyst, Dr. Thornton, and you should follow up with him and mention you were seen in the emergency department. You should also follow up with your primary physician who can perform a more in-depth evaluation of your problems. If you have any increasing pain or new or concerning symptoms, please return to the emergency department immediately. - Attestations Physician Attestion: 07/16/17 22:20 I, Dr. Eugene Church, attest that this document has been prepared under my direction and personally reviewed by me in its entirety. I further attest, that it accurately reflects all work, treatment, procedures and medical decision -making performed by me.
[2017-07-16] MEDS ORDERED: ASPIRIN 81 MG CHEWABLE TABLETS ONE (15:13)
[2017-07-16 15:50] LABS: MCH 21.4 pg (25.7-33.7); MCHC 32.5 g/dl (32.0-36.0); MEAN CELL VOLUME 65.7 fl (80-96); MEAN PLT VOLUME 8.7 fl (7.5-11.1); PLATELET COUNT 269 K/MM3 (134-434); RDW 16.1 % (11.6-15.6); WHITE BLOOD COUNT 9.5 K/mm3 (4.0-10.0)
--- NOTE | 2017-07-16 16:12 | PDOC ---
Attending Attestation - Resident Resident Name: Lynnette,Jon - ED Attending Attestation I have performed the following: I have examined & evaluated the patient, The case was reviewed & discussed with the resident, I agree w/resident's findings & plan, Exceptions are as noted <Ary Deng - Last Filed: 07/16/17 16:11> - HPI HPI: 07/16/17 16:12 The patient is a 61 yo woman with PMH of HTN, CAD, NIDDM, HLD, asthma and 2v CABG ([facility] 2005), bilateral inguinal hernia who presents for care with left lower abdominal pain for 2 hours. The patient states she developed LLQ pain yesterday which radiated up to her chest. She also reports simultaneous left sided chest pain with radiation to RUE. She notes that it feels slightly different from previous cardiac episodes. She denies any modifying factors. She states that she has prior history of inguinal hernia repair and notes a bulge in the left groin while standing for a year. She states no change in bowel habits, noting her last bowel movement being today. She endorses difficulty urinating and frequency. She denies fever, nausea, vomiting, and chills. - Physicial Exam PE: 07/16/17 16:12 GENERAL: Awake, alert, and fully oriented, in no acute distress HEAD: No signs of trauma EYES: PERRLA, EOMI, sclera anicteric, conjunctiva clear ENT: Auricles normal inspection, nares patent, Moist mucosa NECK: Normal ROM, supple, no lymphadenopathy, JVD, or masses LUNGS: Lung exam normal. Breath sounds equal, clear to auscultation bilaterally. No wheezes, and no crackles HEART: Regular rate and rhythm, normal S1 and S2, no murmurs, rubs or gallops ABDOMEN: +LUQ and LLQ tender to palpitations. +Abdominal obese Soft, nontender, normoactive bowel sounds. No guarding, no rebound. No masses : + Left supra inguinal bulge while standing for a year. EXTREMITIES: Warm and well perfused. Normal range of motion, no edema. No clubbing or cyanosis. No cords, erythema, or tenderness NEUROLOGICAL: Normal speech. Gait normal SKIN: Warm, Dry, normal turgor, no rashes or lesions noted. - Medical Decision Making 07/16/17 16:16 Documentation prepared by Emigdio Rendon, acting as medical aides teacher for Ary Deng MD. <Emigdio Rendon - Last Filed: 07/16/17 16:16>
[2017-07-16 16:16] LABS: ALBUMIN 3.8 g/dl (3.4-5.0); ANION GAP 9 (8-16); BILIRUBIN,TOTAL 0.6 mg/dL (0.2-1.0); CALCIUM 9.1 mg/dL (8.5-10.1); CO2 27 mmol/L (21-32); CREATININE 0.7 mg/dL (0.55-1.02); GLUCOSE,RANDOM 81 mg/dL (74-106); SGOT/AST 16 U/L (15-37); SGPT/ALT 22 U/L (12-78); TOT PROT 6.8 g/dl (6.4-8.2)
[2017-07-16 16:19] LABS: ALK PHOS 156 U/L (45-117); CPK 202 IU/L (26-192); TROPONIN I < 0.02 ng/ml (0.00-0.05)
[2017-07-16] MEDS ORDERED: morphine CARPU-JECT 4 MG/1 ML DISP.SYRIN IVPUSH ONE (16:40)
[2017-07-16] MEDS ORDERED: morphine CARPU-JECT 2 MG/1 ML DISP.SYRIN ONE (16:45)
[2017-07-16 17:05] LABS: PLATELET ESTIMATE ADEQUATE (NORMAL)
[2017-07-16 17:06] LABS: HYPOCHROMIA 2+; MICROCYTOSIS 1+; OVALOCYTE 1+; PLATELET ESTIMATE ADEQUATE; POIKILOCYTOSIS 1+; TARGET CELLS RARE; TEAR DROP CELLS RARE
[2017-07-16 18:47] LABS: URINE APPEARANCE SLCLOUDY; URINE BILIRUBIN NEGATIVE (NEGATIVE); URINE BLOOD NEGATIVE (NEGATIVE); URINE COLOR YELLOW; URINE GLUCOSE (UA) NEGATIVE (NEGATIVE); URINE KETONE NEGATIVE (NEGATIVE); URINE LEUK ESTERASE NEGATIVE (NEGATIVE); URINE NITRITE NEGATIVE (NEGATIVE); URINE PROTEIN NEGATIVE (NEGATIVE); URINE UROBILINOGEN NEGATIVE mg/dL (0.2-1.0)
[2017-07-16 21:50] LABS: CPK 174 IU/L (26-192); TROPONIN I < 0.02 ng/ml (0.00-0.05)
[2017-07-16 22:12] VITALS: BP 103/65; PULSE 61; TEMP 97.7
--- NOTE | 2017-07-17 11:30 | EKG ---
Test Reason : Blood Pressure : / mmHG Vent. Rate : 054 BPM Atrial Rate : 054 BPM P-R Int : 152 ms QRS Dur : 080 ms QT Int : 448 ms P-R-T Axes : 033 -02 008 degrees QTc Int : 424 ms SINUS BRADYCARDIA OTHERWISE NORMAL ECG WHEN COMPARED WITH ECG OF 02-MAY-2017 12:30, NO SIGNIFICANT CHANGE WAS FOUND Confirmed by BONITA RIVERS MD ([id number]) on 07/17/2017 11:29:41 AM Referred By: Confirmed By:BONITA RIVERS MD
== END 2017-07-16 22:28 | disposition home or self-care (01) ==
LOC: JER 14:10
PROC: 3E033NZ Introduction of Analgesics, Hypnotics, Sedatives into Peripheral Vein, Percutaneous Approach (ICD-10-PCS; principal; 2017-07-16)
DX: R07.9 Chest pain, unspecified (principal); I25.10 Atherosclerotic heart disease of native coronary artery without angina pectoris; I10 Essential (primary) hypertension; Z95.1 Presence of aortocoronary bypass graft; Z95.5 Presence of coronary angioplasty implant and graft; Z87.891 Personal history of nicotine dependence; E11.9 Type 2 diabetes mellitus without complications; E78.00 Pure hypercholesterolemia, unspecified; J45.909 Unspecified asthma, uncomplicated
CPT/HCPCS: 36415; 71020-TC; 74177-TC; 80053; 81003; 82553; 83690; 83880; 84484; 85027; 93005; 93010; 96374; 99285-25

== ENCOUNTER 2017-09-09 20:32 | Emergency (ER) | payer MEDICARE, OTHER ==
[2017-09-09 20:39] VITALS: BP 124/63; PULSE 87; TEMP 98.3; BMI 31.9
--- NOTE | 2017-09-09 21:55 | PDOC ---
History of Present Illness - General Chief Complaint: Cold Symptoms Stated Complaint: COLD,WHEEZING Time Seen by Provider: 09/09/17 20:41 History Source: Patient Exam Limitations: No Limitations - History of Present Illness Initial Comments: 09/09/17 22:15 61 yr female with cough for 3 weeks. Pt states history of asthma , took 5 days of azithromycin 3 weeks ago. Pt denies abd pain or vomiting. Pt states seh had wheezing today used inhaler that helped her symptoms. Timing/Duration: reports: constant, week Severity: reports: mild Associated Symptoms: reports: chest pain/soreness, cough. denies: denies symptoms Past History - Past Medical History Allergies/Adverse Reactions: Allergies Allergy/AdvReac Type Severity Reaction Status Date / Time mushroom Allergy Mild Swelling Verified 09/09/17 22:16 mushroom Allergy Mild Swelling Uncoded 07/16/17 14:26 Home Medications: Ambulatory Orders Alprazolam [Xanax] 1 mg PO BID tablet MDD 10 07/04/16 Oxycodone HCl/Acetaminophen [Percocet 5-325 mg Tablet] 1 tab PO Q6H 01/16/17 Albuterol Sulfate Inhaler - [Ventolin HFA Inhaler -] 2 puff IH Q6H PRN #1 inhaler 01/17/17 Atorvastatin Ca [Lipitor] 80 mg PO HS #7 tablet 01/17/17 Budesonide/Formeterol Fumarate [SYMBICORT 80/4.5mcg -] 2 puff IH BID #1 inhaler 01/17/17 Clopidogrel Bisulfate [Plavix -] 75 mg PO DAILY #7 tablet 01/17/17 Furosemide [Lasix] 40 mg PO DAILY #7 tablet 01/17/17 Metoprolol Tartrate [Lopressor -] 25 mg PO BID #14 tablet 01/17/17 Ranitidine [Zantac -] 150 mg PO BID #14 tablet 01/17/17 Ranolazine [Ranexa -] 500 mg PO BID #60 tab 05/03/17 Albuterol Sulfate Inhaler - [Ventolin HFA Inhaler -] 2 inh PO Q4H #1 inh Amoxicillin/Potassium Clav [Augmentin 875-125 Tablet] 1 each PO BID #14 tablet 09/09/17 Benzonatate [Tessalon Perle -] 200 mg PO TID #42 cap 09/09/17 Asthma: Yes Cardiac Disorders: Yes (CARDIAC 2-STENT JUL 24) Diabetes: Yes HTN: Yes Hypercholesterolemia: Yes Psychiatric Problems: Yes - Surgical History Abdominal Surgery: Yes (HERNIA) Cardiac Surgery: Yes (Bypass 2007, CARDIAC STENT IN JUN 2014) Cholecystectomy: Yes (1990) - Family Disease History Family Disease History: Diabetes: Grandparents, Father, Heart Disease: Grandparents, Father - Immunization History Immunization Up to Date: No - Suicide/Smoking/Psychosocial Hx Smoking Status: Yes Smoking History: Current some day smoker Have you smoked in the past 12 months: No Number of Cigarettes Smoked Daily: 2 If you are a former smoker, when did you quit?: Pt states that she smokes 1 or 2 sometimes Information on smoking cessation initiated: No 'Breaking Loose' booklet given: 01/17/17 Hx Alcohol Use: No Drug/Substance Use Hx: No Substance Use Type: None Hx Substance Use Treatment: No Respiratory Specific PMHX - Complaint Specific PMHX Angina: No Pulmonary Embolus: No Review of Systems - Review of Systems Able to Perform ROS?: Yes Is the patient limited Italian proficient: No Constitutional: No: Symptoms Reported HEENTM: No: Symptoms Reported Respiratory: Yes: Cough, Wheezing Cardiac (ROS): No: Symptoms Reported ABD/GI: No: Symptoms Reported : No: Symptoms Reported Musculoskeletal: No: Symptoms Reported Integumentary: No: Symptoms Reported Neurological: No: Symptoms reported *Physical Exam - Vital Signs Last Vital Signs Temp Pulse Resp BP Pulse Ox 98.3 F 87 19 124/63 98 09/09/17 20:40 09/09/17 20:40 09/09/17 20:40 09/09/17 20:40 09/09/17 20:40 - Physical Exam General Appearance: Yes: Nourished, Appropriately Dressed HEENT: positive: EOMI, [place], Normal ENT Inspection, TMs Normal, Pharynx Normal Neck: positive: Supple Respiratory/Chest: positive: Lungs Clear, Normal Breath Sounds Cardiovascular: positive: Regular Rhythm, Regular Rate Gastrointestinal/Abdominal: positive: Normal Bowel Sounds, Soft Musculoskeletal: positive: Normal Inspection Extremity: positive: Normal Capillary Refill, Normal Inspection, Normal Range of Motion Integumentary: positive: Normal Color, Dry, Warm Neurologic: positive: Fully Oriented, Alert, Normal Mood/Affect, Normal Response , Motor Strength 5/5 ED Treatment Course - RADIOLOGY Radiology Studies Ordered: Category Date Time Status CHEST PA & LAT [RAD] Stat Radiology 09/09/17 21:36 Ordered Medical Decision Making - Medical Decision Making 09/09/17 22:17 cc: cough for 3 weeks not getting better with some wheezing on and off used inhaler at home with some relief non toxic stable vitals denies chest pain or abd pain pt improved after nebulizers CXR is negative will dc home with family all dc inst verbally given to the patient and her family. all questions asked and answered at discharge. pt is stable steady gait no acute resp distress. 09/13/17 16:03 09/13/17 16:05 *DC/Admit/Observation/Transfer Diagnosis at time of Disposition: Bronchitis - Discharge Dispostion Disposition: HOME Condition at time of disposition: Fair - Prescriptions Prescriptions: Amoxicillin/Potassium Clav [Augmentin 875-125 Tablet] 1 each PO BID #14 tablet Benzonatate [Tessalon Perle -] 200 mg PO TID #42 cap Albuterol Sulfate Inhaler - [Ventolin HFA Inhaler -] 2 inh PO Q4H #1 inh - Referrals Referrals: Josephine Darby MD [Primary Care Provider] - Oswald Ramos MD [Staff Physician] - - Patient Instructions Additional Instructions: follow with the product handler next week call Monday to make appointment drink pleanty of water and get rest take the medication as directed Return to ER for any worsening symptoms - Post Discharge Activity
[2017-09-09] MEDS ORDERED: ALBUTEROL SO4 0.083% IH SOL 2.5 MG/3 ML VIAL.NEB. NEB ONE (22:14)
[2017-09-09] MEDS ORDERED: AMOX TR/POT CLAV 875MG/125MG TABLETS (FP) PO STA (22:48)
[2017-09-09] MEDS ORDERED: AMOX TR/POT CLAV 875MG/125MG TABLETS (FP) ONE (22:52)
[2017-09-10] MEDS ORDERED: LEVOFLOXACIN 750 MG TABLET PO SCH (10:00)
== END 2017-09-09 22:59 | disposition home or self-care (01) ==
LOC: JERFT 20:32
PROC: 3E0F7GC Introduction of Other Therapeutic Substance into Respiratory Tract, Via Natural or Artificial Opening (ICD-10-PCS; principal; 2017-09-09)
DX: J20.9 Acute bronchitis, unspecified (principal); I25.810 Atherosclerosis of coronary artery bypass graft(s) without angina pectoris; I10 Essential (primary) hypertension; Z95.1 Presence of aortocoronary bypass graft; Z95.5 Presence of coronary angioplasty implant and graft; Z72.0 Tobacco use; E11.9 Type 2 diabetes mellitus without complications; E78.00 Pure hypercholesterolemia, unspecified
CPT/HCPCS: 71020-TC; 94640; 99281-25

== ENCOUNTER 2017-09-20 02:27 | Emergency (ER) | payer MEDICARE, OTHER ==
[2017-09-20] MEDS ORDERED: methylPREDNISolone NA SUCC 125 MG/2 ML VIAL IVPUSH ONE (03:01)
[2017-09-20] MEDS ORDERED: FAMOTIDINE 20 MG/50 ML IVPB 50 ML IVPB ONE ×2 (03:01→03:07)
[2017-09-20 03:03] VITALS: BP 122/79; PULSE 63; BMI 32.3
[2017-09-20] MEDS ORDERED: methylPREDNISolone NA SUCC 125 MG/2 ML VIAL ONE (03:06)
--- NOTE | 2017-09-20 03:07 | PDOC ---
History of Present Illness - General Chief Complaint: Hives Stated Complaint: RASH/ALLERGIC REACTION Time Seen by Provider: 09/20/17 02:58 History Source: Patient Exam Limitations: No Limitations - History of Present Illness Initial Comments: 09/20/17 03:02 61yo Female patient presents to ED c/o itching, possible allergic reaction. Patient states symptoms began yesterday while sitting on couch. Patient denies fever, CP, Abd pain, n/v/d, or any other complaints at this time. Timing/Duration: other ( 2 days) Severity: moderate Modifying Factors: improves with: medication (Benadryl) Associated Symptoms: reports: rash Past History - Travel Traveled outside of the country in the last 30 days: No Close contact w/someone who was outside of country & ill: No - Past Medical History Allergies/Adverse Reactions: Allergies Allergy/AdvReac Type Severity Reaction Status Date / Time mushroom Allergy Mild Swelling Verified 09/20/17 02:55 mushroom Allergy Mild Swelling Uncoded 09/20/17 02:55 Home Medications: Ambulatory Orders Alprazolam [Xanax] 1 mg PO BID tablet MDD 10 07/04/16 Oxycodone HCl/Acetaminophen [Percocet 5-325 mg Tablet] 1 tab PO Q6H 01/16/17 Albuterol Sulfate Inhaler - [Ventolin HFA Inhaler -] 2 puff IH Q6H PRN #1 inhaler 01/17/17 Atorvastatin Ca [Lipitor] 80 mg PO HS #7 tablet 01/17/17 Budesonide/Formeterol Fumarate [SYMBICORT 80/4.5mcg -] 2 puff IH BID #1 inhaler 01/17/17 Clopidogrel Bisulfate [Plavix -] 75 mg PO DAILY #7 tablet 01/17/17 Furosemide [Lasix] 40 mg PO DAILY #7 tablet 01/17/17 Metoprolol Tartrate [Lopressor -] 25 mg PO BID #14 tablet 01/17/17 Ranitidine [Zantac -] 150 mg PO BID #14 tablet 01/17/17 Ranolazine [Ranexa -] 500 mg PO BID #60 tab 05/03/17 Albuterol Sulfate Inhaler - [Ventolin HFA Inhaler -] 2 inh PO Q4H #1 inh Amoxicillin/Potassium Clav [Augmentin 875-125 Tablet] 1 each PO BID #14 tablet 09/09/17 Benzonatate [Tessalon Perle -] 200 mg PO TID #42 cap 09/09/17 Diphenhydramine [Benadryl 1% Cream -] 1 applic TP BID PRN #1 tube 09/20/17 Famotidine [Pepcid] 40 mg PO BID #14 tablet 09/20/17 Methylprednisolone [Medrol Dose Vinay] 4 mg PO ASDIR #21 tablet 09/20/17 Asthma: Yes Cardiac Disorders: Yes (CARDIAC 2-STENT JUL 24) Diabetes: Yes HTN: Yes Hypercholesterolemia: Yes Psychiatric Problems: Yes - Surgical History Abdominal Surgery: Yes (HERNIA) Cardiac Surgery: Yes (Bypass 2007, CARDIAC STENT IN JUN 2014) Cholecystectomy: Yes (1990) - Family Disease History Family Disease History: Diabetes: Grandparents, Father, Heart Disease: Grandparents, Father - Immunization History Immunization Up to Date: No - Suicide/Smoking/Psychosocial Hx Smoking Status: Yes Smoking History: Current some day smoker Have you smoked in the past 12 months: No Number of Cigarettes Smoked Daily: 2 If you are a former smoker, when did you quit?: Pt states that she smokes 1 or 2 sometimes Information on smoking cessation initiated: No 'Breaking Loose' booklet given: 01/17/17 Hx Alcohol Use: No Drug/Substance Use Hx: No Substance Use Type: None Hx Substance Use Treatment: No Review of Systems - Review of Systems Able to Perform ROS?: Yes Is the patient limited Upper Sorbian proficient: No Integumentary: Yes: Erythema, Pruritus, Rash All Other Systems: Reviewed and Negative *Physical Exam - Vital Signs Last Vital Signs Temp Pulse Resp BP Pulse Ox 63 14 122/79 99 09/20/17 02:55 09/20/17 02:55 09/20/17 02:55 09/20/17 02:55 - Physical Exam General Appearance: Yes: Nourished, Appropriately Dressed, Mild Distress. No: Apparent Distress, Moderate Distress, Severe Distress HEENT: positive: EOMI, [place], Normal ENT Inspection, Normal Voice, Symmetrical, TMs Normal, Pharynx Normal. negative: Pharyngeal Erythema, Tonsillar Exudate, Tonsillar Erythema, Nasal Congestion, Rhinorrhea, Sinus Tenderness, TM Bulging, TM Dull, TM Erythema Neck: positive: Trachea midline, Supple. negative: Decreased range of motion, Stridor, Lymphadenopathy (R), Lymphadenopathy (L), Rigidity, Tender lateral, Tender midline Respiratory/Chest: positive: Lungs Clear, Normal Breath Sounds. negative: Chest Tender, Respiratory Distress, Accessory Muscle Use, Labored Respiration, Rapid RR, Rhonchi, Stridor, Wheezing Cardiovascular: positive: Regular Rhythm, Regular Rate Musculoskeletal: positive: Normal Inspection. negative: CVA Tenderness, Decreased Range of Motion, Vertebral Tenderness Extremity: positive: Normal Capillary Refill, Normal Inspection, Normal Range of Motion. negative: Pedal Edema, Swelling, Calf Tenderness, Erythema, Inflammation Integumentary: positive: Normal Color, Dry, Warm, Hives, Other (Welts noted to left upper arm, posterior neck and left cheek (face). Welts appear to be related to insect bites.) Neurologic: positive: case briefer II-XII NML intact, Fully Oriented, Alert, Normal Mood/ Affect, Normal Response, Motor Strength 5/5, Abnormal Cranial NS *DC/Admit/Observation/Transfer Diagnosis at time of Disposition: Localized urticaria - Discharge Dispostion Disposition: HOME Condition at time of disposition: Improved Admit: No - Prescriptions Prescriptions: Diphenhydramine [Benadryl 1% Cream -] 1 applic TP BID PRN #1 tube PRN Reason: itching Methylprednisolone [Medrol Dose Vinay] 4 mg PO ASDIR #21 tablet Famotidine [Pepcid] 40 mg PO BID #14 tablet - Patient Instructions Printed Discharge Instructions: DI for General Allergic Reactions, DI for Hives Additional Instructions: Take medications as prescribed. You must continue to take medications and finish them even if feeling better. Follow up with your PMD. Return if any concerns for further evaluation. Print Language: AUSTRIAN - Post Discharge Activity Forms/Work/School Notes: Back to Work
--- NOTE | 2017-09-20 04:09 | PDOC ---
*Physical Exam - Vital Signs Last Vital Signs Temp Pulse Resp BP Pulse Ox 63 14 122/79 99 09/20/17 02:55 09/20/17 02:55 09/20/17 02:55 09/20/17 02:55 ED Treatment Course - Medications Given in the ED: ED Medications Discontinued Medications Generic Name Dose Route Start Last Admin Trade Name Eddieq PRN Reason Stop Dose Admin Diphenhydramine HCl 12.5 mg 09/20/17 03:01 09/20/17 03:24 Benadryl Injection - IVPUSH 09/20/17 03:02 12.5 mg ONCE ONE Administration Famotidine/Sodium Chloride 50 mls @ 100 mls/hr 09/20/17 03:01 09/20/17 03:24 Pepcid 20 Mg Premixed Ivpb - IVPB 09/20/17 03:30 100 mls/hr ONCE ONE Administration Methylprednisolone Sodium Succinate 125 mg 09/20/17 03:01 09/20/17 03:24 Solu-Medrol - IVPUSH 09/20/17 03:02 125 mg ONCE ONE Administration Medical Decision Making - Medical Decision Making 09/20/17 04:09 agree with care from [facility] *DC/Admit/Observation/Transfer Diagnosis at time of Disposition: Localized hives - Discharge Dispostion Disposition: HOME Condition at time of disposition: Improved - Prescriptions Prescriptions: Diphenhydramine [Benadryl 1% Cream -] 1 applic TP BID PRN #1 tube PRN Reason: itching Methylprednisolone [Medrol Dose Vinay] 4 mg PO ASDIR #21 tablet Famotidine [Pepcid] 40 mg PO BID #14 tablet - Referrals Referrals: Josephine Darby MD [Primary Care Provider] - - Patient Instructions Printed Discharge Instructions: DI for Hives, DI for General Allergic Reactions Additional Instructions: Take medications as prescribed. You must continue to take medications and finish them even if feeling better. Follow up with your PMD. Return if any concerns for further evaluation. Print Language: IVORIAN - Post Discharge Activity Forms/Work/School Notes: Back to Work
== END 2017-09-20 04:25 | disposition home or self-care (01) ==
LOC: JER 02:27
PROC: 3E033GC Introduction of Other Therapeutic Substance into Peripheral Vein, Percutaneous Approach (ICD-10-PCS; principal; 2017-09-20)
DX: L50.8 Other urticaria (principal); J45.909 Unspecified asthma, uncomplicated; E11.9 Type 2 diabetes mellitus without complications; I10 Essential (primary) hypertension; E78.00 Pure hypercholesterolemia, unspecified; F99 Mental disorder, not otherwise specified; Z95.5 Presence of coronary angioplasty implant and graft; F17.210 Nicotine dependence, cigarettes, uncomplicated
CPT/HCPCS: 99281-25

== ENCOUNTER 2018-04-18 11:26 | Emergency (ER) | payer MEDICARE, OTHER ==
[2018-04-18 11:31] VITALS: BP 142/80; PULSE 70; TEMP 98.2; BMI 33.3
--- NOTE | 2018-04-18 12:23 | PDOC ---
History of Present Illness - General Chief Complaint: Pain, Acute Stated Complaint: FALL/ LT LEG PAIN Time Seen by Provider: 04/18/18 12:01 - History of Present Illness Initial Comments: This is a 62-year-old female who presents to the emergency room after a fall outside of a building yesterday she complains of left hip pain. Past medical history significant for diabetes and hypertension. She also has had a previous spinal surgery. She points to the lateral aspect of her left hip as the area of her discomfort. She describes her pain as achy exacerbated with motion relieved with rest and free of radiation. No prior issues with the left hip. 04/18/18 12:19 Past History - Past Medical History Allergies/Adverse Reactions: Allergies Allergy/AdvReac Type Severity Reaction Status Date / Time mushroom Allergy Mild Swelling Verified 04/18/18 11:31 mushroom Allergy Mild Swelling Uncoded 04/18/18 11:31 Home Medications: Ambulatory Orders Alprazolam [Xanax] 1 mg PO BID tablet MDD 10 07/04/16 Oxycodone HCl/Acetaminophen [Percocet 5-325 mg Tablet] 1 tab PO Q6H 01/16/17 Albuterol Sulfate Inhaler - [Ventolin HFA Inhaler -] 2 puff IH Q6H PRN #1 inhaler 01/17/17 Atorvastatin Ca [Lipitor] 80 mg PO HS #7 tablet 01/17/17 Budesonide/Formeterol Fumarate [SYMBICORT 80/4.5mcg -] 2 puff IH BID #1 inhaler 01/17/17 Clopidogrel Bisulfate [Plavix -] 75 mg PO DAILY #7 tablet 01/17/17 Furosemide [Lasix] 40 mg PO DAILY #7 tablet 01/17/17 Metoprolol Tartrate [Lopressor -] 25 mg PO BID #14 tablet 01/17/17 Ranitidine [Zantac -] 150 mg PO BID #14 tablet 01/17/17 Ranolazine [Ranexa -] 500 mg PO BID #60 tab 05/03/17 Albuterol Sulfate Inhaler - [Ventolin HFA Inhaler -] 2 inh PO Q4H #1 inh Famotidine [Pepcid] 40 mg PO BID #14 tablet 09/20/17 Methylprednisolone [Medrol Dose Vinay] 4 mg PO ASDIR #21 tablet 09/20/17 Asthma: Yes Cardiac Disorders: Yes (CARDIAC 2-STENT JUL 24) COPD: No Diabetes: Yes HTN: Yes Hypercholesterolemia: Yes Psychiatric Problems: Yes - Surgical History Abdominal Surgery: Yes (HERNIA) Cardiac Surgery: Yes (Bypass 2007, CARDIAC STENT IN JUN 2014) Cholecystectomy: Yes (1990) - Family Disease History Family Disease History: Diabetes: Grandparents, Father, Heart Disease: Grandparents, Father - Immunization History Immunization Up to Date: No - Suicide/Smoking/Psychosocial Hx Smoking Status: Yes Smoking History: Never smoked Have you smoked in the past 12 months: No Number of Cigarettes Smoked Daily: 2 If you are a former smoker, when did you quit?: Pt states that she smokes 1 or 2 sometimes Information on smoking cessation initiated: No 'Breaking Loose' booklet given: 01/17/17 Hx Alcohol Use: No Drug/Substance Use Hx: No Substance Use Type: None Hx Substance Use Treatment: No Review of Systems - Review of Systems Musculoskeletal: Yes: Joint Pain All Other Systems: Reviewed and Negative *Physical Exam - Vital Signs Last Vital Signs Temp Pulse Resp BP Pulse Ox 98.2 F 70 20 142/80 100 04/18/18 11:28 04/18/18 11:28 04/18/18 11:28 04/18/18 11:28 04/18/18 11:28 - Physical Exam Comments: Left hip skin color and temperature are normal there is full range of motion with discomfort about the lateral aspect of the left hip. There is tenderness about the area of the greater trochanter. Thigh and calf is soft and nontender she has no gross sensorimotor deficits. Left knee range of motion is full. There is a small superficial abrasion about the superior lateral aspect of the patella. Normal skin color and temperature are otherwise. No instability no joint line tenderness. Fine For soft and nontender. Straight leg raise test is negative. 04/18/18 12:21 Medical Decision Making - Medical Decision Making X-rays of the left hip are negative she does have mild degenerative changes. X- rays of the lumbar spine show well-preserved disc space mild degeneration at the facet joints and a grade 1 L4-L5 retrolisthesis 04/18/18 12:18 04/18/18 12:22 This is a knee and hip contusion. Her symptoms should resolve in a few days. Because of her past medical history and medications for hypertension and diabetes Tylenol as the safest for her for pain control. I will give her orthopedic follow-up. *DC/Admit/Observation/Transfer Diagnosis at time of Disposition: Contusion, hip, Contusion, knee - Discharge Dispostion Disposition: HOME Condition at time of disposition: Stable Decision to Admit order: No - Referrals Referrals: Josephine Darby MD [Primary Care Provider] - Ventura David MD [Staff Physician] - - Patient Instructions Printed Discharge Instructions: Contusion Additional Instructions: Your injuries are contusions. They involve your knee and hip. You may ice the areas that are painful for 20 minutes at a time 4-5 times a day. Because of your medications you take for hypertension and diabetes the safest pain medicine you may take is Tylenol. I will have him follow-up with orthopedic surgery for further evaluation and treatment options. Return to the emergency room if your symptoms worsen or go unresolved prior to follow-up. - Post Discharge Activity
== END 2018-04-18 12:30 | disposition home or self-care (01) ==
LOC: JER 11:26 → JERFT 11:26
DX: S70.02XA Contusion of left hip, initial encounter (principal); S80.02XA Contusion of left knee, initial encounter; W18.39XA Other fall on same level, initial encounter; Y93.89 Activity, other specified; Y92.9 Unspecified place or not applicable; F99 Mental disorder, not otherwise specified; Z95.5 Presence of coronary angioplasty implant and graft; J45.909 Unspecified asthma, uncomplicated; I10 Essential (primary) hypertension; E11.9 Type 2 diabetes mellitus without complications; E78.00 Pure hypercholesterolemia, unspecified
CPT/HCPCS: 99281-25

== ENCOUNTER → 2018-05-28 | Day surgery (SDC) | payer MEDICARE, OTHER ==
--- NOTE | 2018-05-29 17:51 | PATH ---
Surgical Pathology Report Patient Name: BANDAR GRISSOM [facility]. Rec. #: [id number] /Age/Gender: 1955 (Age: 62) / F Account: [id number] Location: RADIOLOGY [facility] Taken: 05/28/2018 Received: 05/28/2018 Reported: 05/29/2018 Physicians: Lily Wilkerson M.D. Specimen(s) Received LEFT BREAST 11-12:00 0.6CM MASS Clinical History Nonpalpable lesion Mammographic findings: Probably benign Ultrasound findings: Probably benign Final Diagnosis LEFT BREAST 11-12:00 0.6 CM MASS, ULTRASOUND GUIDED CORE BIOPSY: BREAST TISSUE WITH FIBROADENOMA AND CALCIFICATIONS. Electronically Signed Rachel Wiggins M.D. Gross Description Received in formalin labeled "left 11:30," are 6 shea-yellow, cylindrical portions of fibroadipose tissue ranging from 0.5-1.3 cm in length and averaging 0.1 cm in diameter. The specimens are submitted in toto in one cassette. Time to formalin fixation: 2 minutes Total formalin fixation time: Approximately 9 hours. /05/28/2018 saudi05/28/2018
== END | disposition home or self-care (01) ==
LOC: JRADUS-SUR 07:20
PROVIDERS: ATTEND Obstetrics & Gynecology
PROC: 0HBU3ZX Excision of Left Breast, Percutaneous Approach, Diagnostic (ICD-10-PCS; principal; 2018-05-28)
DX: D24.2 Benign neoplasm of left breast (principal); N63.22 Unspecified lump in the left breast, upper inner quadrant; D64.89 Other specified anemias
CPT/HCPCS: 19083; 77065-TC; 87899; 88305-TC; A4648

== ENCOUNTER 2018-06-09 10:06 | Emergency (ER) | payer MEDICARE, OTHER ==
[2018-06-09 10:18] VITALS: BP 141/77; PULSE 62; TEMP 98; BMI 32.3
--- NOTE | 2018-06-09 11:09 | PDOC ---
Suture Removal/Wound Check HPI - History of Present Illness Chief Complaint: Suture/Staple Removal(Here) Stated Complaint: SUTURE REMOVAL Time Seen by Provider: 06/09/18 10:45 History Source: Yes: Patient Exam Limitations: Yes: Clinical Condition Treated at: [facility] ED Date of Last ED visit: 05/25/18 - Previous ED Treatment Type of procedure performed on last visit: Yes: Laceration Repair Tetanus Immunization: Yes: Up to Date - Onset of Previous Treatment Date of Occurence: 05/25/18 Timing/Duration/Severity of Onset: reports: Prior to presentation Past History - Past Medical History Allergies/Adverse Reactions: Allergies Allergy/AdvReac Type Severity Reaction Status Date / Time mushroom Allergy Mild Swelling Verified 06/09/18 10:19 Home Medications: Ambulatory Orders Alprazolam [Xanax] 1 mg PO BID tablet MDD 10 07/04/16 Albuterol Sulfate Inhaler - [Ventolin HFA Inhaler -] 2 puff IH Q6H PRN #1 inhaler 01/17/17 Budesonide/Formeterol Fumarate [SYMBICORT 80/4.5mcg -] 2 puff IH BID #1 inhaler 01/17/17 Clopidogrel Bisulfate [Plavix -] 75 mg PO DAILY #7 tablet 01/17/17 Furosemide [Lasix] 40 mg PO DAILY #7 tablet 01/17/17 Metoprolol Tartrate [Lopressor -] 25 mg PO BID #14 tablet 01/17/17 Ranitidine [Zantac -] 150 mg PO BID #14 tablet 01/17/17 Ranolazine [Ranexa -] 500 mg PO BID #60 tab 05/03/17 Albuterol Sulfate Inhaler - [Ventolin HFA Inhaler -] 2 inh PO Q4H #1 inh Famotidine [Pepcid] 40 mg PO BID #14 tablet 09/20/17 Methylprednisolone [Medrol Dose Vinay] 4 mg PO ASDIR #21 tablet 09/20/17 Mupirocin Ointment [Bactroban 2% Ointment -] 1 applic TP BID PRN #1 tube Asthma: Yes Cardiac Disorders: Yes (Bypass 2007, CARDIAC STENT IN JUN 2014) COPD: No Diabetes: Yes HTN: Yes Hypercholesterolemia: Yes Psychiatric Problems: Yes - Surgical History Abdominal Surgery: Yes (HERNIA) Cardiac Surgery: Yes (Bypass 2007, CARDIAC STENT IN JUN 2014) Cholecystectomy: Yes (1990) - Family Disease History Family Disease History: Diabetes: Grandparents, Father, Heart Disease: Grandparents, Father - Immunization History Immunization Up to Date: No - Suicide/Smoking/Psychosocial Hx Smoking Status: Yes Smoking History: Former smoker Have you smoked in the past 12 months: No Number of Cigarettes Smoked Daily: 2 If you are a former smoker, when did you quit?: Pt states that she smokes 1 or 2 sometimes Information on smoking cessation initiated: No 'Breaking Loose' booklet given: 01/17/17 Hx Alcohol Use: No Drug/Substance Use Hx: No Substance Use Type: None Hx Substance Use Treatment: No Suture Removal/Wound Check PE - Physical Exam Laceration/Wound Check Symptoms: reports: Improved. denies: Pain, Fever, Chills , Redness, Discharge, Bleeding, Numbness, Weakness Comments: 06/09/18 11:05 wound well healed with 2 sutures in mattress fashion in place. no wound dehiscence , no erythema to wound area, no drainage to wound area Current Severity Level: None Maximum Severity Level: None Location of Laceration/Wound: left: Leg (sparrow of left leg) Pain Radiation: None *Review of Systems - Review of Systems Constitutional: No: Chills, Fever HEENTM: No: Eye Pain, Blurred Vision, Tearing, Recent change in vision, Double Vision, Cataracts, Ear Pain, Ocular Prothesis, Ear Discharge, Nose Pain, Nose Congestion, Tinnitus, Nose Bleeding, Hearing Loss, Throat Pain, Throat Swelling , Mouth Pain, Dental Problems, Difficulty Swallowing, Mouth Swelling, Other Respiratory: No: Cough, Orthopnea, Shortness of Breath, SOB with Exertion, SOB at Rest, Stridor, Wheezing, Productive cough, Hemoptysis, Other Cardiac (ROS): No: Chest Pain, Edema, Irregular Heart Rate, Lightheadedness, Palpitations, Syncope, Chest Tightness, Other ABD/GI: No: Abdominal Distended, Abd. Pain w/ defecation, Blood Streaked Bowels , Constipated, Diarrhea, Difficulty Swallowing, Nausea, Poor Appetite, Poor Fluid Intake, Rectal Bleeding, Vomiting, Indigestion, Abdominal cramping, Tarry Stools, Other Musculoskeletal: No: Back Pain, Gout, Joint Pain, Joint Swelling, Muscle Pain, Muscle Weakness, Neck Pain, Joint Stiffness, Other Integumentary: Yes: Other (well healing 3cm laceration to sparrow of left leg) Neurological: No: Headache, Numbness, Paresthesia, Pre-Existing Deficit, Seizure , Tingling, Tremors, Weakness, Unsteady Gait, Ataxia, Dizziness, Other Psychiatric: No: Anxiety, Depression, Frequent Crying, Stressors, Sleep Pattern Change, Emotional Problems, Mood Swings, Change in Appetite, Other All Other Systems: Reviewed and Negative *Physical Exam - Vital Signs Last Vital Signs Temp Pulse Resp BP Pulse Ox 98 F 62 18 141/77 99 06/09/18 10:16 06/09/18 10:16 06/09/18 10:16 06/09/18 10:16 06/09/18 10:16 *DC/Admit/Observation/Transfer Diagnosis at time of Disposition: Visit for wound check Laceration of left leg Qualifiers: Encounter type: subsequent encounter Qualified Code(s): S81.812D - Laceration without foreign body, left lower leg, subsequent encounter - Discharge Dispostion Disposition: HOME Decision to Admit order: No - Prescriptions Prescriptions: Mupirocin Ointment [Bactroban 2% Ointment -] 1 applic TP BID PRN #1 tube PRN Reason: wound - Referrals Referrals: Josephine Darby MD [Primary Care Provider] - - Patient Instructions - Post Discharge Activity
== END 2018-06-09 11:16 | disposition home or self-care (01) ==
LOC: JERFT 10:06
DX: Z48.817 Encounter for surgical aftercare following surgery on the skin and subcutaneous tissue (principal); S81.812D Laceration without foreign body, left lower leg, subsequent encounter; W22.03XD Walked into furniture, subsequent encounter
CPT/HCPCS: 99281-25

== ENCOUNTER 2018-07-11 11:49 | Inpatient (IN) | payer MEDICARE, OTHER ==
[2018-07-11 12:03] VITALS: BP 153/80; PULSE 58; TEMP 98.6; BMI 31.9
--- NOTE | 2018-07-11 12:35 | PDOC ---
History of Present Illness - General History Source: Patient Exam Limitations: No Limitations - History of Present Illness Initial Comments: 07/11/18 13:02 The patient is a 62 year old female, with a significant past medical history NIDDM, coronary artery disease with triple bypass surgery, hypertension, hyperlipidemia, who presents to the emergency department with, 3 days of chest pain. The patient describes her pain as a pressure-like, tightness radiating to her back. She reports an associated cough with clear phlegm, wheezing, and lightheadedness. As per patient, she was getting an ultrasound today of her abdomen and pelvis in the hospital when her symptoms were not subsiding which prompted her visit to the ED for evaluation. The patient has had pneumonia in the past. She denies being on antibiotics recently. She denies recent fevers, chills, headache or dizziness. She denies recent nausea, vomit, diarrhea or constipation. She denies recent dysuria, frequency, urgency or hematuria. She denies recent shortness of breath. Allergies: Mushroom. Past surgical history: Cholecystectomy. Cardiac stent s/p bypass. Hernia repair. Social history: Occasional alcohol usage. Denies recreational drug use. Primary Care Physician: Dr. Josephine Darby <Jared Williamson - Last Filed: 07/11/18 13:47> <Jennifer Anders - Last Filed: 07/12/18 07:30> - General Chief Complaint: Chest Pain Stated Complaint: CHEST PAINS Time Seen by Provider: 07/11/18 12:09 Past History <Jared Williamson - Last Filed: 07/11/18 13:47> - Past Medical History Asthma: Yes Cardiac Disorders: Yes (Bypass 2007, CARDIAC STENT IN JUN 2014) COPD: No Diabetes: Yes HTN: Yes Hypercholesterolemia: Yes Psychiatric Problems: Yes - Surgical History Abdominal Surgery: Yes (HERNIA) Cardiac Surgery: Yes (Bypass 2007, CARDIAC STENT IN JUN 2014) Cholecystectomy: Yes (1990) - Family Disease History Family Disease History: Diabetes: Grandparents, Father, Heart Disease: Grandparents, Father - Immunization History Immunization Up to Date: No - Suicide/Smoking/Psychosocial Hx Smoking Status: Yes Smoking History: Former smoker Have you smoked in the past 12 months: No Number of Cigarettes Smoked Daily: 2 If you are a former smoker, when did you quit?: Pt states that she smokes 1 or 2 sometimes Information on smoking cessation initiated: No 'Breaking Loose' booklet given: 01/17/17 Hx Alcohol Use: No Drug/Substance Use Hx: No Substance Use Type: None Hx Substance Use Treatment: No <Jennifer Anders - Last Filed: 07/12/18 07:30> - Past Medical History Allergies/Adverse Reactions: Allergies Allergy/AdvReac Type Severity Reaction Status Date / Time mushroom Allergy Mild Swelling Verified 07/11/18 11:59 Home Medications: Ambulatory Orders Albuterol Sulfate Inhaler - [Ventolin HFA Inhaler -] 2 puff IH Q6H PRN #1 inhaler 01/17/17 Budesonide/Formeterol Fumarate [SYMBICORT 80/4.5mcg -] 2 puff IH BID #1 inhaler 01/17/17 Clopidogrel Bisulfate [Plavix -] 75 mg PO DAILY #7 tablet 01/17/17 Ranolazine [Ranexa -] 500 mg PO BID #60 tab 05/03/17 Albuterol Sulfate Inhaler - [Ventolin HFA Inhaler -] 2 inh PO Q4H #1 inh Mupirocin Ointment [Bactroban 2% Ointment -] 1 applic TP BID PRN #1 tube Mupirocin Ointment [Bactroban 2% Ointment -] 1 applic TP TID #1 tube 06/11/18 Alprazolam [Xanax] 2 mg PO BID MDD 10 07/11/18 Amlodipine Besylate [Norvasc -] 5 mg PO DAILY 07/11/18 Aspirin [Ecotrin] 81 mg PO DAILY 07/11/18 Atorvastatin Calcium [Lipitor] 20 mg PO DAILY 07/11/18 Enalapril Maleate [Vasotec] 5 mg PO DAILY 07/11/18 Famotidine [Pepcid] 20 mg PO DAILY 07/11/18 Furosemide [Lasix] 20 mg PO DAILY 07/11/18 Isosorbide Mononitrate [Imdur -] 60 mg PO DAILY 07/11/18 Metoprolol Tartrate [Lopressor] 50 mg PO DAILY 07/11/18 Sertraline HCl [Zoloft] 25 mg PO DAILY 07/11/18 Sertraline HCl [Zoloft] 100 mg PO DAILY 07/11/18 hydrOXYzine PAMOATE [Vistaril -] 50 mg PO DAILY 07/11/18 Review of Systems - Review of Systems Able to Perform ROS?: Yes Comments:: 07/11/18 13:03 CONSTITUTIONAL: Absent: fever, no chills, no fatigue EYES: Absent: visual changes ENT: Absent: ear pain, no sore throat CARDIOVASCULAR: Present: Chest pain. Absent: no palpitations RESPIRATORY: Present: Cough. Absent: no SOB GI: Absent: abdominal pain, no nausea, no vomiting, no constipation, no diarrhea GENITOURINARY: Absent: dysuria, no frequency, no hematuria MUSKULOSKELETAL: Absent: back pain, no arthralgia, no myalgia SKIN: Absent: rash NEURO: Present: Lightheadedness. Absent: headache All Other Systems: Reviewed and Negative <Jared Williamson - Last Filed: 07/11/18 13:47> *Physical Exam - Vital Signs Last Vital Signs Temp Pulse Resp BP Pulse Ox 98.6 F 58 L 17 153/80 99 07/11/18 11:59 07/11/18 11:59 07/11/18 11:59 07/11/18 11:59 07/11/18 11:59 - Physical Exam Comments: 07/11/18 13:03 GENERAL: Well-appearing, well-nourished. No apparent distress. HEENT: Normocephalic, atraumatic. PERRL, EOM intact. CARDIOVASCULAR: Normal S1, S2. Regular rate and rhythm. PULMONARY: Clear to auscultation bilaterally. ABDOMEN: Soft, non-distended, non-tender. EXTREMITIES: Normal ROM in all four extremities. No gross deformities. SKIN: Warm, dry. No rash NEUROLOGICAL: No focal neurological deficits. <Jared Williamson - Last Filed: 07/11/18 13:47> - Vital Signs Last Vital Signs Temp Pulse Resp BP Pulse Ox 98.6 F 58 L 17 153/80 99 07/11/18 11:59 07/11/18 11:59 07/11/18 11:59 07/11/18 11:59 07/11/18 11:59 <Jennifer Anders - Last Filed: 07/12/18 07:30> Heart Score/ECG Review - History History: Moderately suspicious - Age Age: 45-65 - Risk Factors Risk Factors Heart Score: Yes Hx Hypercholesterolemia, Yes Hx Hypertension, Yes Hx Obesity Based on the list above the patient has:: >/=3 risk factors or Hx atherosclerotic disease <Jennifer Anders - Last Filed: 07/12/18 07:30> ED Treatment Course - LABORATORY CBC & Chemistry Diagram: 07/11/18 13:55 07/11/18 13:55 <Jennifer Anders - Last Filed: 07/12/18 07:30> Medical Decision Making - Medical Decision Making 07/11/18 13:[address] Thornton's, patient's after school teacher, office. Awaiting call back. <WinlilyJared nguyễn - Last Filed: 07/11/18 13:47> - Medical Decision Making 07/11/18 13:51 A portion of this note was documented by scribe services under my direction. I have reviewed the details of the note, within reason, and agree with the documentation with the following case summary and management plan written by me. Patient is a 62-year-old female past medical history of CAD, CABG, stenting, hypertension, hyperlipidemia, who presents to the emergency department today with 2 days of chest tightness. Patient states nothing makes the tightness better or worse. Given her history she is concerned there is something wrong with her heart. She is also concerned she might have pneumonia. She has not taken an aspirin today. Concerned for ACS patient will require to tropes given history, pneumonia, upper respiratory infection less likely. Plan as follows: Labs EKG Chest x-ray Cardiology consult: Call placed to Dr. Thornton. Reevaluate EKG: Rate 54 bpm, sinus bradycardia, normal intervals, normal axis, no acute ST- T wave changes. Chest x-ray impression: No evidence of pneumonia, CHF, pleural effusion or pneumothorax. 07/11/18 13:[address] Thornton. Given patient's history would like patient placed in telemetry observation for ACS and stress test in the morning Sign out given to Dr. Gould; pt pending admission once labs return <Jennifer Anders - Last Filed: 07/12/18 07:30> *DC/Admit/Observation/Transfer - Attestations Scribe Attestion: 07/11/18 13:03 Documentation prepared by Jared Williamson, acting as director medical writing for Kaur Gould MD. <Jared Williamson - Last Filed: 07/11/18 13:47> <Jennifer Anders - Last Filed: 07/12/18 07:30> Diagnosis at time of Disposition: CAD (coronary artery disease) Qualifiers: Coronary Disease-Associated Artery/Lesion type: unspecified vessel or lesion type [place] vs. transplanted heart: [place] heart Associated angina: without angina Qualified Code(s): I25.10 - Atherosclerotic heart disease of [place] coronary artery without angina pectoris Chest pain Qualifiers: Chest pain type: unspecified Qualified Code(s): R07.9 - Chest pain, unspecified - Discharge Dispostion Condition at time of disposition: Stable
[2018-07-11] MEDS ORDERED: ALBUTEROL SO4 2.5/IPRATROPIUM 0.5 INH SOL 3 ML VIAL.NEB. NEB ONE ×2 (12:36→13:01)
[2018-07-11] MEDS ORDERED: ASPIRIN 81 MG CHEWABLE TABLETS PO ONE (12:36)
[2018-07-11] MEDS ORDERED: SODIUM CHLORIDE 1,000 ML IV STA (12:37)
[2018-07-11] MEDS ORDERED: ASPIRIN 325 MG TABLET ONE (13:02)
--- NOTE | 2018-07-11 13:44 | PDOC ---
*Physical Exam - Vital Signs Last Vital Signs Temp Pulse Resp BP Pulse Ox 98.6 F 58 L 17 153/80 99 07/11/18 11:59 07/11/18 11:59 07/11/18 11:59 07/11/18 11:59 07/11/18 11:59 Heart Score/ECG Review - History History: Slightly suspicious - Electrocardiogram EKG: Normal - Age Age: 45-65 - Risk Factors Risk Factors Heart Score: Yes Hx Hypercholesterolemia, Yes Hx Hypertension, Yes Hx Obesity Based on the list above the patient has:: >/=3 risk factors or Hx atherosclerotic disease - Troponin Troponin: </= normal limit - Score Heart Score - Total: 3 ED Treatment Course - LABORATORY CBC & Chemistry Diagram: 07/11/18 13:55 07/11/18 13:55 Medical Decision Making - Medical Decision Making 07/11/18 14:34 62 yo F presenting with chest pain x 2 days h/o CABG Pt seen by Midlevel Provider under my direct supervision Pt interviewed and examined Ancillary studies reviewed Laboratory Tests 07/11/18 07/11/18 13:55 13:55 WBC 9.5 Hgb 14.3 Hct 44.1 Plt Count 230 BUN 11 Creatinine 0.7 Creatine Kinase 93 Troponin I < 0.02 B-Natriuretic Peptide 96.[address] Thornton Requests that pt be placed on observation I agree with plan as outlined by Midlevel Provider 07/11/18 14:35 *DC/Admit/Observation/Transfer Diagnosis at time of Disposition: CAD (coronary artery disease) Qualifiers: Coronary Disease-Associated Artery/Lesion type: unspecified vessel or lesion type [place] vs. transplanted heart: [place] heart Associated angina: without angina Qualified Code(s): I25.10 - Atherosclerotic heart disease of [place] coronary artery without angina pectoris Chest pain Qualifiers: Chest pain type: unspecified Qualified Code(s): R07.9 - Chest pain, unspecified - Discharge Dispostion Condition at time of disposition: Stable Decision to Admit order: Yes - Referrals Referrals: Josephine Darby MD [Primary Care Provider] - - Patient Instructions - Post Discharge Activity
[2018-07-11 14:06] LABS: EOS % 3.3 % (0-4.5); HEMATOCRIT 44.1 % (32.4-45.2); HEMOGLOBIN 14.3 GM/dL (10.7-15.3); MCH 21.8 pg (25.7-33.7); MCHC 32.5 g/dl (32.0-36.0); MEAN PLT VOLUME 9.1 fl (7.5-11.1); NEUT % 54.7 % (42.8-82.8); PLATELET COUNT 230 K/MM3 (134-434); RBC 6.58 M/mm3 (3.60-5.2); RDW 15.9 % (11.6-15.6); WHITE BLOOD COUNT 9.5 K/mm3 (4.0-10.0)
[2018-07-11 14:18] LABS: INR 1.11 (0.83-1.09); PROTHROMBIN TIME (PATIENT) 12.5 SEC (9.7-13.0)
[2018-07-11 14:26] LABS: ALBUMIN 3.9 g/dl (3.4-5.0); ANION GAP 7 (8-16); BILIRUBIN,TOTAL 0.5 mg/dL (0.2-1.0); BLOOD UREA NITROGEN 11 mg/dL (7-18); CALCIUM 9.2 mg/dL (8.5-10.1); CHLORIDE 106 mmol/L (98-107); CO2 28 mmol/L (21-32); CREATININE 0.7 mg/dL (0.55-1.02); GLUCOSE,RANDOM 79 mg/dL (74-106); SGOT/AST 37 U/L (15-37); SGPT/ALT 68 U/L (12-78); SODIUM 141 mmol/L (136-145); TOT PROT 7.7 g/dl (6.4-8.2)
[2018-07-11 14:29] LABS: ALK PHOS 164 U/L (45-117); N-TERMINAL BNP 96.86 pg/ml (5-125)
--- NOTE | 2018-07-11 14:47 | PN ---
Teaching Attending Note Name of Resident: Hortensia Agrawal ATTENDING PHYSICIAN STATEMENT I saw and evaluated the patient. I reviewed the resident's note and discussed the case with the resident. I agree with the resident's findings and plan as documented. SUBJECTIVE: Patient is a 62yo female with PMHx of HTN, CAD, DM, HLD, Asthma, CABG x1 stent presented in the ED with a 3 day history of chest pain. Patient is very tearful , states that 4 of her family members within a year period. OBJECTIVE: Vital Signs Temperature 98.6 F 07/11/18 11:59 Pulse Rate 58 L 07/11/18 11:59 Respiratory Rate 17 07/11/18 11:59 Blood Pressure 153/80 07/11/18 11:59 O2 Sat by Pulse Oximetry (%) 99 07/11/18 11:59 CBCD WBC 9.5 K/mm3 (4.0-10.0) 07/11/18 13:55 RBC 6.58 M/mm3 (3.60-5.2) H 07/11/18 13:55 Hgb 14.3 GM/dL (10.7-15.3) 07/11/18 13:55 Hct 44.1 % (32.4-45.2) 07/11/18 13:55 MCV 67.0 fl (80-96) L 07/11/18 13:55 MCHC 32.5 g/dl (32.0-36.0) 07/11/18 13:55 RDW 15.9 % (11.6-15.6) H 07/11/18 13:55 Plt Count 230 K/MM3 (134-434) 07/11/18 13:55 MPV 9.1 fl (7.5-11.1) 07/11/18 13:55 CMP Sodium 141 mmol/L (136-145) 07/11/18 13:55 Potassium 4.0 mmol/L (3.5-5.1) 07/11/18 13:55 Chloride 106 mmol/L (98-107) 07/11/18 13:55 Carbon Dioxide 28 mmol/L (21-32) 07/11/18 13:55 Anion Gap 7 (8-16) L 07/11/18 13:55 BUN 11 mg/dL (7-18) 07/11/18 13:55 Creatinine 0.7 mg/dL (0.55-1.02) 07/11/18 13:55 Creat Clearance w eGFR > 60 (>60) 07/11/18 13:55 Random Glucose 79 mg/dL (74-106) 07/11/18 13:55 Calcium 9.2 mg/dL (8.5-10.1) 07/11/18 13:55 Total Bilirubin 0.5 mg/dL (0.2-1.0) 07/11/18 13:55 AST 37 U/L (15-37) 07/11/18 13:55 ALT 68 U/L (12-78) 07/11/18 13:55 Alkaline Phosphatase 164 U/L (45-117) H 07/11/18 13:55 Total Protein 7.7 g/dl (6.4-8.2) 07/11/18 13:55 Albumin 3.9 g/dl (3.4-5.0) 07/11/18 13:55 CARDIAC ENZYMES Creatine Kinase 93 IU/L (26-192) 07/11/18 13:55 Troponin I < 0.02 ng/ml (0.00-0.05) 07/11/18 13:55 Current Medications Generic Name Dose Route Start Last Admin Trade Name Freq PRN Reason Stop Dose Admin Sodium Chloride 1,000 mls @ 125 mls/hr 07/11/18 12:37 07/11/18 13:50 Normal Saline - IV 07/11/18 20:36 125 mls/hr ASDIR STA Administration Home Medications Medication Instructions Recorded Alprazolam [Xanax] 1 mg PO BID tablet MDD 10 07/04/16 Albuterol Sulfate Inhaler - 2 puff IH Q6H PRN #1 inhaler 01/17/17 [Ventolin HFA Inhaler -] Budesonide/Formeterol Fumarate 2 puff IH BID #1 inhaler 01/17/17 [SYMBICORT 80/4.5mcg -] Clopidogrel Bisulfate [Plavix -] 75 mg PO DAILY #7 tablet 01/17/17 Furosemide [Lasix] 40 mg PO DAILY #7 tablet 01/17/17 Metoprolol Tartrate [Lopressor -] 25 mg PO BID #14 tablet 01/17/17 Ranitidine [Zantac -] 150 mg PO BID #14 tablet 01/17/17 Ranolazine [Ranexa -] 500 mg PO BID #60 tab 05/03/17 Albuterol Sulfate Inhaler - 2 inh PO Q4H #1 inh 09/09/17 [Ventolin HFA Inhaler -] Famotidine [Pepcid] 40 mg PO BID #14 tablet 09/20/17 Methylprednisolone [Medrol Dose 4 mg PO ASDIR #21 tablet 09/20/17 Vinay] Mupirocin Ointment [Bactroban 2% 1 applic TP BID PRN #1 tube 06/09/18 Ointment -] Mupirocin Ointment [Bactroban 2% 1 applic TP TID #1 tube 06/11/18 Ointment -] PE: GENERAL: AAOx3. NAD. Tearful during interview. HEENT: AT/NC. Normal facial symmetry. Moist mucus membranes. NECK: Supple, no LAD or JVD. LUNGS: CTA B/L. No wheezes/rhonchi/rales noted. HEART: RRR, Normal S1, S2. No murmurs, rubs, or gallop noted. No reproducible chest pain. ABDOMEN: Soft, nondistended. positive for BSs. MUSCULOSKELETAL: left sided of her neck tender the pressure points. NEUROLOGICAL: Decreased tactile sensation on l side. PSYCHIATRIC: Cooperative. Pt is tearful SKIN: Warm, dry, normal turgor, no rashes or lesions ASSESSMENT AND PLAN: Patient is a 62yo female with PMHx of HTN, CAD, DM, HLD, Asthma, CABG x1 stent presented in the ED with a 3 day history of chest pain. #Acute chest pain r/o ACS, is on the case, stress test in am. will get CTA to r/o dissection since the patient is c/o having chest pain radiating to her back # Left sided weakness , will get Ct of the head to r/o Stroke. # Depression her family members a year ago ,very tearful. DVT Px: heparin
--- NOTE | 2018-07-11 14:49 | FALL ---
Fall Exam - Event Witnessed fall: No - Pre-Fall Mental Status: Cooperative Current Medications: Current Medications Generic Name Dose Route Start Last Admin Trade Name Freq PRN Reason Stop Dose Admin Sodium Chloride 1,000 mls @ 125 mls/hr 07/11/18 12:37 07/11/18 13:50 Normal Saline - IV 07/11/18 20:36 125 mls/hr ASDIR STA Administration - Post-Fall Patient Outcome: No Injury Treatment: None Vital Signs: Vital Signs Temperature 98.6 F 07/11/18 11:59 Pulse Rate 58 L 07/11/18 11:59 Respiratory Rate 17 07/11/18 11:59 Blood Pressure 153/80 07/11/18 11:59 O2 Sat by Pulse Oximetry (%) 99 07/11/18 11:59 LOC Post-Fall: Unchanged Identify factors for HIGH RISK for Head Injury: Pt on anticoagulant (CT of the head was ordered by the primary care nurse, )
--- NOTE | 2018-07-11 16:28 | HP ---
CHIEF COMPLAINT: chest pain x3 days PCP: Dr. Josephine Darby HISTORY OF PRESENT ILLNESS: 62F w/ pmhx of HTN, CAD, DM, HLD, Asthma, CABG x1 stent presented in the ED with a 3 day history of chest pain. Pt reports her chest pain is 7/10 and radiates to the back. She usually takes a baby aspirin, but reports no relief. She associates this chest pain with shortness of breath and nausea. Pt also reports that she has been noncompliant with her meds due to multiple recent deaths in her family that has caused her stress. She occasionally smokes 1-2 cigarettes when she feels stressed. Additionally, she reports a 3 day history of L sided body weakness that started with a tingling sensation on the L side of her face. Since then, her symptoms has persisted. ER course was notable for: (1) neg trops (2) ECG unremarkable (3) Aspirin 325 mg given Recent Travel: Denies PAST MEDICAL HISTORY: HTN CAD DM HLD Asthma CABG (2005) x1 stent PAST SURGICAL HISTORY: cholescystectomy CABG (2005) Social History: Smoking: Admits to smoking 1-2 cigarettes intermittently over the past month Alcohol: Socially Drugs: Denies Family History: Denies Allergies mushroom Allergy (Mild, Verified 07/11/18 11:59) Swelling Home Medication List Medication Instructions Recorded Confirmed Type Alprazolam [Xanax] 2 mg PO BID MDD 10 07/11/18 07/11/18 History Amlodipine Besylate [Norvasc -] 5 mg PO DAILY 07/11/18 07/11/18 History Aspirin [Ecotrin] 81 mg PO DAILY 07/11/18 07/11/18 History Atorvastatin Calcium [Lipitor] 20 mg PO DAILY 07/11/18 07/11/18 History Enalapril Maleate [Vasotec] 5 mg PO DAILY 07/11/18 07/11/18 History Famotidine [Pepcid] 20 mg PO DAILY 07/11/18 07/11/18 History Furosemide [Lasix] 20 mg PO DAILY 07/11/18 07/11/18 History Isosorbide Mononitrate [Imdur -] 60 mg PO DAILY 07/11/18 07/11/18 History Metoprolol Tartrate [Lopressor] 50 mg PO DAILY 07/11/18 07/11/18 History Sertraline HCl [Zoloft] 25 mg PO DAILY 07/11/18 07/11/18 History Sertraline HCl [Zoloft] 100 mg PO DAILY 07/11/18 07/11/18 History hydrOXYzine PAMOATE [Vistaril -] 50 mg PO DAILY 07/11/18 07/11/18 History Active Medications Acetaminophen (Tylenol -) 650 mg PO Q6H PRN PRN Reason: PAIN LEVEL 6-10 Albuterol Sulfate (Ventolin Hfa Inhaler -) 2 puff IH Q4H PRN PRN Reason: SHORTNESS OF BREATH Amlodipine Besylate (Norvasc -) 5 mg PO DAILY [facility] Aspirin (Ecotrin -) 81 mg PO DAILY [facility] Atorvastatin Calcium (Lipitor -) 20 mg PO DAILY [facility] Budesonide/Formoterol Fumarate (Symbicort 80/4.5mcg -) 2 puff IH BID PRN PRN Reason: ASTHMA Clopidogrel Bisulfate (Plavix -) 75 mg PO DAILY [facility] Enalapril Maleate (Vasotec -) 5 mg PO DAILY [facility] Furosemide (Lasix -) 20 mg PO DAILY [facility] Heparin Sodium (Porcine) (Heparin -) 5,000 unit SQ TID [facility] Sodium Chloride (Normal Saline -) 1,000 mls @ 125 mls/hr IV ASDIR STA Stop: 07/11/18 20:36 Last Admin: 07/11/18 13:50 Dose: 125 mls/hr Sodium Chloride (Normal Saline -) 1,000 mls @ 75 mls/hr IV ASDIR GHANSHYAM Stop: 07/12/18 06:34 Insulin Aspart (Novolog Vial Sliding Scale -) 1 vial SQ ACHS [facility]; Protocol Metoprolol Tartrate (Lopressor -) 50 mg PO DAILY [facility] Ranolazine (Ranexa -) 500 mg PO BID [facility] Sertraline HCl (Zoloft -) 125 mg PO DAILY [facility] REVIEW OF SYSTEMS CONSTITUTIONAL: +L sided weakness in U/L extremities Absent: fever, chills, diaphoresis, generalized weakness, malaise, loss of appetite, weight change HEENT: Absent: rhinorrhea, nasal congestion, throat pain, throat swelling, difficulty swallowing, mouth swelling, ear pain, eye pain, visual changes CARDIOVASCULAR: 7/10 chest pain radiating to the back Absent: syncope, palpitations, irregular heart rate, lightheadedness, peripheral edema RESPIRATORY: cough w/ clear productive sputum Absent: shortness of breath, dyspnea with exertion, orthopnea, wheezing, stridor , hemoptysis GASTROINTESTINAL: Absent: abdominal pain, abdominal distension, nausea, vomiting, diarrhea, constipation, melena, hematochezia GENITOURINARY: Absent: dysuria, frequency, urgency, hesitancy, hematuria, flank pain, genital pain MUSCULOSKELETAL: Absent: myalgia, arthralgia, joint swelling, back pain, neck pain SKIN: Absent: rash, itching, pallor HEMATOLOGIC/IMMUNOLOGIC: Absent: easy bleeding, easy bruising, lymphadenopathy, frequent infections ENDOCRINE: Absent: unexplained weight gain, unexplained weight loss, heat intolerance, cold intolerance NEUROLOGIC: Absent: headache, focal weakness or paresthesias, dizziness, unsteady gait, seizure, mental status changes, bladder or bowel incontinence PSYCHIATRIC: Absent: anxiety, depression, suicidal or homicidal ideation, hallucinations. PHYSICAL EXAMINATION Vital Signs - 24 hr 07/11/18 11:59 Temperature 98.6 F Pulse Rate 58 L Respiratory 17 Rate Blood Pressure 153/80 O2 Sat by Pulse 99 Oximetry (%) GENERAL: AAOx3. NAD. Tearful during interview. HEENT: AT/NC. Normal facial symmetry. Moist mucus membranes. NECK: Supple, no LAD or JVD. 4/5 muscle strength in L neck rotation. LUNGS: CTA B/L. No wheezes/rhonchi/rales noted. HEART: RRR, Normal S1, S2. No murmurs, rubs, or gallop noted. No reproducible chest pain. ABDOMEN: Soft, nondistended. Tender in RUQ to deep palpation. Normactive bowel sounds in all 4Qs. No masses or bruits noted. MUSCULOSKELETAL: No peripheral edema noted. 5/5 muscles strength in R U/L extremities. 4/5 muscle strength in L U/L extremities. NEUROLOGICAL: Decreased tactile sensation on l side. PSYCHIATRIC: Cooperative. Pt is tearful with limited eye contact. SKIN: Warm, dry, normal turgor, no rashes or lesions noted, normal capillary refill. Laboratory Results - last 24 hr 07/11/18 07/11/18 07/11/18 13:55 13:55 13:55 WBC 9.5 RBC 6.58 H Hgb 14.3 Hct 44.1 MCV 67.0 L MCH 21.8 L MCHC 32.5 RDW 15.9 H Plt Count 230 MPV 9.1 Absolute Neuts (auto) 5.2 Neutrophils % 54.7 Lymphocytes % 34.0 Monocytes % 7.0 Eosinophils % 3.3 Basophils % 1.0 Nucleated RBC % 0 PT with INR 12.50 INR 1.11 H Sodium 141 Potassium 4.0 Chloride 106 Carbon Dioxide 28 Anion Gap 7 L BUN 11 Creatinine 0.7 Creat Clearance w eGFR > 60 Random Glucose 79 Calcium 9.2 Magnesium 2.0 Total Bilirubin 0.5 AST 37 ALT 68 Alkaline Phosphatase 164 H Creatine Kinase 93 Troponin I < 0.02 B-Natriuretic Peptide 96.86 Total Protein 7.7 Albumin 3.9 CXR: No acute PNA, CHF, pleural effusion, pneumothorax. Echo: pending CT Head: pending CTA Chest: pending ASSESSMENT/PLAN: 62F w/ pmhx of HTN, CAD, DM, HLD, Asthma, CABG x1 stent who presented to the ED with chest pain admitted to the hospital to r/o ACS. #chest pain; likely unstable angina, r/o ACS vs GERD -cont Aspirin 81 mg PO QD -cont Tylenol 650 mg PO Q6H -trend trops -repeat ECG -f/u echo -f/u CTA to r/o dissection -cardio consult (Dr. Thornton) -lipid panel ordered, pt not currently on statin #L sided body weakness; r/o stroke -f/u CT head -PT eval #DM -BGM -ISS -f/u Hgb A1c #Asthma -cont Albuterol -cont Symbicort PRN #HTN -cont Norvasc 5 mg PO QD -cont Enalapril 5 mg PO QD -cont Lasix 20 mg PO QD #CAD -cont Aspirin 81 mg PO QD #HLD -cont Atorvastatin 20 mg PO QD #DVT Ppx -cont Heparin 5000U SQ TID #FEN -NS @ 75cc/hr -BMP in AM -diabetic/sodium-controlled diet dispo -monitor on tele -HCP provided to pt Visit type - Emergency Visit Emergency Visit: Yes ED Registration Date: 07/11/18 Care time: The patient presented to the Emergency Department on the above date and was hospitalized for further evaluation of their emergent condition. - New Patient This patient is new to me today: Yes Date on this admission: 07/12/18 - Critical Care Critical Care patient: No Hospitalist Screening - Colonoscopy Questionnaire Colonoscopy Questionnaire: Colonoscopy Questionnaire - Patient: 50 - 75 years old and never had a screening colonoscopy: Unknown History of colon or rectal polyps, or CA: Unknown History of IBD, Crohn's disease or UC: Unknown History of abdominal radiation therapy as a child: Unknown - Relative: 1 with colon or rectal CA, or polyps at age 60 or younger: Unknown Colon or rectal CA diagnosed at age 45 or younger: Unknown Multiple relatives with colon or rectal CA: Unknown - Outcome: Screening Result: Negative Screen
[2018-07-11] MEDS ORDERED: INSULIN SLIDING SCALE (NOVOLOG) 1 VIAL SQ SCH (16:30)
[2018-07-11] MEDS ORDERED: ACETAMINOPHEN 325 MG TABLET (FP) PO PRN (16:43)
--- NOTE | 2018-07-11 17:12 | EKG ---
Test Reason : Blood Pressure : / mmHG Vent. Rate : 054 BPM Atrial Rate : 054 BPM P-R Int : 144 ms QRS Dur : 084 ms QT Int : 424 ms P-R-T Axes : 001 001 014 degrees QTc Int : 402 ms SINUS BRADYCARDIA OTHERWISE NORMAL ECG WHEN COMPARED WITH ECG OF 16-JUL-2017 14:47, NO SIGNIFICANT CHANGE WAS FOUND Confirmed by LUKAS MAR MD ([id number]) on 07/11/2018 5:12:27 PM Referred By: Confirmed By:LUKAS MAR MD
[2018-07-11] MEDS ORDERED: SODIUM CHLORIDE 1,000 ML IV SCH (17:15)
[2018-07-11] MEDS ORDERED: ALBUTEROL SO4 8 GM HFA INHALER IH PRN (17:30)
[2018-07-11] MEDS ORDERED: amLODIPine BESYLATE 5 MG TABLET (FP) PO SCH (17:30)
[2018-07-11] MEDS ORDERED: SERTRALINE HCL 50 MG TABLET (FP) PO SCH (17:45)
[2018-07-11] MEDS ORDERED: BUDESONIDE/FORMETEROL FUMARATE 80/4.5 mcg INHALER IH SCH (17:45)
[2018-07-11] MEDS ORDERED: ENALAPRIL MALEATE 5 MG TABLET (FP) PO SCH (17:45)
[2018-07-11] MEDS ORDERED: FUROSEMIDE 20 MG TABLET (FP) PO SCH (17:45)
[2018-07-11] MEDS ORDERED: METOPROLOL TARTRATE 50 MG TABLET (FP) PO SCH (17:45)
[2018-07-11 20:24] LABS: URINE APPEARANCE SLCLOUDY; URINE BILIRUBIN NEGATIVE (<2.0 mg/dL); URINE COLOR YELLOW; URINE GLUCOSE (UA) NEGATIVE (NEGATIVE); URINE KETONE NEGATIVE (NEGATIVE); URINE LEUK ESTERASE NEGATIVE (NEGATIVE); URINE NITRITE NEGATIVE (NEGATIVE); URINE PROTEIN NEGATIVE (NEGATIVE); URINE UROBILINOGEN NEGATIVE mg/dL (0.2-1.0)
[2018-07-11] MEDS ORDERED: HEPARIN NA (PORCINE) 5,000 UNITS/ML 1ML VIAL SQ SCH (22:00)
[2018-07-11] MEDS ORDERED: ATORVASTATIN CA 20 MG TABLET (FP) PO SCH (22:00)
[2018-07-11] MEDS ORDERED: RANOLAZINE E.R. 500 MG TABLET (FP) PO SCH (22:00)
--- NOTE | 2018-07-12 06:50 | HOSP ---
Physical Examination Vital Signs: Vital Signs Temperature 98.6 F 07/11/18 11:59 Pulse Rate 58 L 07/11/18 11:59 Respiratory Rate 17 07/11/18 11:59 Blood Pressure 153/80 07/11/18 11:59 O2 Sat by Pulse Oximetry (%) 99 07/11/18 11:59 Labs: CBC, BMP 07/11/18 13:55 07/11/18 13:55 Hospitalist Encounter Assessment: Called at around 8:30pm. Nurse reported patient wanted to leave AMA. She refused to do any more tests, and is removing her IV lines. Explained to patient risks of leaving and benefits of staying. Paper Machine Backtender called to inform patient wanted to leave, told patient wet wheeler would want her to stay here but still she refused to stay. Explained to patient the risks of leaving which include , she understood, but refused to sign the AMA form.
[2018-07-12] MEDS ORDERED: ASPIRIN COATED 81 MG TABLET.EC PO SCH ×2 (10:00)
[2018-07-12] MEDS ORDERED: CLOPIDOGREL BISULFATE 75 MG TABLET (FP) PO SCH (10:00)
--- NOTE | 2018-07-12 10:01 | EKG ---
Test Reason : Blood Pressure : / mmHG Vent. Rate : 053 BPM Atrial Rate : 053 BPM P-R Int : 152 ms QRS Dur : 074 ms QT Int : 448 ms P-R-T Axes : 023 -01 011 degrees QTc Int : 420 ms POOR DATA QUALITY, INTERPRETATION MAY BE ADVERSELY AFFECTED SINUS BRADYCARDIA OTHERWISE NORMAL ECG WHEN COMPARED WITH ECG OF 11-JUL-2018 11:56, NO SIGNIFICANT CHANGE WAS FOUND Confirmed by ROSALIND JOSHUA, ERIK ([id number]) on 07/12/2018 10:00:56 AM Referred By: Confirmed By:ERIK BOYER MD
--- NOTE | 2018-07-12 15:51 | DS ---
Physical Exam: HOSPITAL COURSE: Date of Admission:07/11/18 The patient is a 62yo F w/ pmhx HTN, CAD, DM, HLD who presented to the ED with a 3 day history of chest pain. Pt reported that her pain was 7/10 in intensity and radiated to her back. The patient also complained of left sided body weakness and numbness during the same period of time. The patient associated this chest pain with both shortness of breath and nausea. In the ED, an EKG showed sinus bradycardia without evidence of ischemia or change from previous studies. Troponins were negative x1. A Head CT was negative. The patient was admitted for further cardiac evaluation and to rule out ACS. Cardiology was consulted. Prior to evaluation by cardiology, the patient expressed the desire to leave AMA. The various risks were explained to the patient including worsening of her condition as well as morbidity and mortality. The patient verbalized understanding and expressed the desire to leave regardless. Upon being asked to sign AMA papers, the patient refused. Date of Discharge: 07/12/18 Minutes to complete discharge: 35 Discharge Summary Reason For Visit: CHEST PAIN Current Active Problems CAD (coronary artery disease) (Acute) Chest pain (Acute) Condition: Stable - Instructions Referrals: Josephine Darby MD [Primary Care Provider] - Disposition: AGAINST MEDICAL ADVICE - Home Medications Comprehensive Discharge Medication List: Ambulatory Orders Albuterol Sulfate Inhaler - [Ventolin HFA Inhaler -] 2 puff IH Q6H PRN #1 inhaler 01/17/17 Budesonide/Formeterol Fumarate [SYMBICORT 80/4.5mcg -] 2 puff IH BID #1 inhaler 01/17/17 Clopidogrel Bisulfate [Plavix -] 75 mg PO DAILY #7 tablet 01/17/17 Ranolazine [Ranexa -] 500 mg PO BID #60 tab 05/03/17 Albuterol Sulfate Inhaler - [Ventolin HFA Inhaler -] 2 inh PO Q4H #1 inh Mupirocin Ointment [Bactroban 2% Ointment -] 1 applic TP BID PRN #1 tube Mupirocin Ointment [Bactroban 2% Ointment -] 1 applic TP TID #1 tube 06/11/18 Alprazolam [Xanax] 2 mg PO BID MDD 10 07/11/18 Amlodipine Besylate [Norvasc -] 5 mg PO DAILY 07/11/18 Aspirin [Ecotrin] 81 mg PO DAILY 07/11/18 Atorvastatin Calcium [Lipitor] 20 mg PO DAILY 07/11/18 Enalapril Maleate [Vasotec] 5 mg PO DAILY 07/11/18 Famotidine [Pepcid] 20 mg PO DAILY 07/11/18 Furosemide [Lasix] 20 mg PO DAILY 07/11/18 Isosorbide Mononitrate [Imdur -] 60 mg PO DAILY 07/11/18 Metoprolol Tartrate [Lopressor] 50 mg PO DAILY 07/11/18 Sertraline HCl [Zoloft] 25 mg PO DAILY 07/11/18 Sertraline HCl [Zoloft] 100 mg PO DAILY 07/11/18 hydrOXYzine PAMOATE [Vistaril -] 50 mg PO DAILY 07/11/18 This patient is new to me today: Yes Date on this admission: 07/12/18 Emergency Visit: Yes ED Registration Date: 07/11/18 Care time: The patient presented to the Emergency Department on the above date and was hospitalized for further evaluation of their emergent condition. Critical Care patient: No - Discharge Referral Referred to [facility] No
== END 2018-07-11 21:00 | disposition left against medical advice (07) | DRG 311 ==
LOC: JER 11:49 → JERBED 14:36 → OBSVTOIN 15:45 → J4W 17:30
PROVIDERS: ADMIT Internal Medicine; ATTEND Internal Medicine
DX: I20.0 Unstable angina (principal); Z95.1 Presence of aortocoronary bypass graft; R07.9 Chest pain, unspecified; I10 Essential (primary) hypertension; E78.5 Hyperlipidemia, unspecified; Z98.61 Coronary angioplasty status; E11.9 Type 2 diabetes mellitus without complications; J45.909 Unspecified asthma, uncomplicated; I25.10 Atherosclerotic heart disease of native coronary artery without angina pectoris; E66.9 Obesity, unspecified; Z68.32 Body mass index [BMI] 32.0-32.9, adult; K21.9 Gastro-esophageal reflux disease without esophagitis; Z91.14 Patient's other noncompliance with medication regimen
CPT/HCPCS: 36415; 70450-TC; 71045-TC-FY; 76700-TC; 76856-TC; 80053; 81003; 82550; 83036; 83735; 83880; 84484; 85025; 85610; 93005; 93010; 99283-25; G0378; J7030; J7620

== ENCOUNTER 2018-07-12 11:13 | Observation (INO) | payer MEDICARE, OTHER ==
[2018-07-12 11:45] VITALS: BMI 32.3
--- NOTE | 2018-07-12 12:07 | PDOC ---
History of Present Illness - General Chief Complaint: Chest Pain Stated Complaint: SENT BY PCP Time Seen by Provider: 07/12/18 12:06 History Source: Patient Exam Limitations: No Limitations - History of Present Illness Initial Comments: 07/12/18 15:24 The patient is a 62 year old female, with a significant past medical history NIDDM, coronary artery disease with triple bypass surgery, hypertension, hyperlipidemia, who presents to the emergency department with 4 days of chest pain. The patient describes her pain as a pressure-like, tightness radiating to her back. She states that her symptoms are unchanged from yesterday. Pt was admitted to the hospital yesterday; however, she left AMA after going up to the telemetry floor after many attempts to place an IV. She states that she spoke with Dr. Thornton this morning who convinced her to return to the ED for further cardiac work up. Denies palpitations, SOB, difficulty breathing, n/v/d Allergies: Mushroom. Past surgical history: Cholecystectomy. Cardiac stent s/p bypass. Hernia repair. Social history: Occasional alcohol usage. Denies recreational drug use. Primary Care Physician: Dr. Josephine Darby Past History - Travel Traveled outside of the country in the last 30 days: No Close contact w/someone who was outside of country & ill: No - Past Medical History Allergies/Adverse Reactions: Allergies Allergy/AdvReac Type Severity Reaction Status Date / Time mushroom Allergy Mild Swelling Verified 07/12/18 11:40 Home Medications: Ambulatory Orders Albuterol Sulfate Inhaler - [Ventolin HFA Inhaler -] 2 puff IH Q6H PRN #1 inhaler 01/17/17 Budesonide/Formeterol Fumarate [SYMBICORT 80/4.5mcg -] 2 puff IH BID #1 inhaler 01/17/17 Clopidogrel Bisulfate [Plavix -] 75 mg PO DAILY #7 tablet 01/17/17 Ranolazine [Ranexa -] 500 mg PO BID #60 tab 05/03/17 Albuterol Sulfate Inhaler - [Ventolin HFA Inhaler -] 2 inh PO Q4H #1 inh Mupirocin Ointment [Bactroban 2% Ointment -] 1 applic TP BID PRN #1 tube Mupirocin Ointment [Bactroban 2% Ointment -] 1 applic TP TID #1 tube 06/11/18 Alprazolam [Xanax] 2 mg PO BID MDD 10 07/11/18 Amlodipine Besylate [Norvasc -] 5 mg PO DAILY 07/11/18 Aspirin [Ecotrin] 81 mg PO DAILY 07/11/18 Atorvastatin Calcium [Lipitor] 20 mg PO DAILY 07/11/18 Enalapril Maleate [Vasotec] 5 mg PO DAILY 07/11/18 Famotidine [Pepcid] 20 mg PO DAILY 07/11/18 Furosemide [Lasix] 20 mg PO DAILY 07/11/18 Isosorbide Mononitrate [Imdur -] 60 mg PO DAILY 07/11/18 Metoprolol Tartrate [Lopressor] 50 mg PO DAILY 07/11/18 Sertraline HCl [Zoloft] 25 mg PO DAILY 07/11/18 Sertraline HCl [Zoloft] 100 mg PO DAILY 07/11/18 hydrOXYzine PAMOATE [Vistaril -] 50 mg PO DAILY 07/11/18 Asthma: Yes Cardiac Disorders: Yes (Bypass 2007, CARDIAC STENT IN JUN 2014) COPD: No Diabetes: Yes HTN: Yes Hypercholesterolemia: Yes Psychiatric Problems: Yes - Surgical History Abdominal Surgery: Yes (HERNIA) Cardiac Surgery: Yes (Bypass 2007, CARDIAC STENT IN JUN 2014) Cholecystectomy: Yes (1990) - Family Disease History Family Disease History: Diabetes: Grandparents, Father, Heart Disease: Grandparents, Father - Immunization History Immunization Up to Date: No - Suicide/Smoking/Psychosocial Hx Smoking Status: Yes Smoking History: Former smoker Have you smoked in the past 12 months: Yes Number of Cigarettes Smoked Daily: 3 If you are a former smoker, when did you quit?: Pt states that she smokes 1 or 2 sometimes Information on smoking cessation initiated: No 'Breaking Loose' booklet given: 01/17/17 Hx Alcohol Use: No Drug/Substance Use Hx: No Substance Use Type: None Hx Substance Use Treatment: No Review of Systems - Review of Systems Able to Perform ROS?: Yes Is the patient limited [place] proficient: No Constitutional: No: Chills, Fever, Weakness HEENTM: No: Eye Pain, Blurred Vision, Throat Pain Respiratory: Yes: Cough. No: Shortness of Breath, SOB with Exertion Cardiac (ROS): Yes: Chest Pain, Chest Tightness. No: Palpitations, Syncope ABD/GI: No: Diarrhea, Nausea, Vomiting : No: Burning, Dysuria, Hematuria Musculoskeletal: No: Back Pain, Muscle Pain, Neck Pain Integumentary: No: Bruising, Rash, Sweating Neurological: No: Headache, Numbness, Weakness Psychiatric: No: Anxiety, Depression Endocrine: No: Excessive Sweating, Intolerance to Cold Hematologic/Lymphatic: No: Anemia, Easy Bleeding, Easy Bruising All Other Systems: Reviewed and Negative *Physical Exam - Vital Signs Last Vital Signs Temp Pulse Resp BP Pulse Ox 98.6 F 62 14 132/65 98 07/12/18 11:40 07/12/18 11:40 07/12/18 11:40 07/12/18 11:40 07/12/18 11:40 - Physical Exam General Appearance: Yes: Nourished, Appropriately Dressed. No: Apparent Distress (laying on exam bed) HEENT: positive: EOMI, [place], Normal Voice Neck: positive: Trachea midline, Supple. negative: Tender, Rigid, Lymphadenopathy (R), Lymphadenopathy (L) Respiratory/Chest: positive: Lungs Clear, Normal Breath Sounds. negative: Chest Tender, Respiratory Distress, Accessory Muscle Use, Rhonchi, Stridor, Wheezing Cardiovascular: positive: Regular Rhythm, S1, S2 (present), Bradycardia. negative: JVD, Murmur Gastrointestinal/Abdominal: positive: Normal Bowel Sounds, Flat, Soft. negative : Tender, Guarding, Rebound, Tenderness Musculoskeletal: positive: Normal Inspection. negative: CVA Tenderness (R), CVA Tenderness (L) Extremity: positive: Normal Capillary Refill, Normal Inspection Integumentary: positive: Normal Color, Dry, Warm Neurologic: positive: Fully Oriented, Alert, Normal Mood/Affect, Normal Response ED Treatment Course - LABORATORY CBC & Chemistry Diagram: 07/12/18 13:00 07/12/18 13:10 Medical Decision Making - Medical Decision Making 07/12/18 15:32 The patient is a 62 year old female, with a significant past medical history NIDDM, coronary artery disease with triple bypass surgery, hypertension, hyperlipidemia, who presents to the emergency department with 4 days of chest pain. Pt left AMA yesterday d/t too many needle sticks and did not complete her cardiac work up. Dr. Morris would like tele observation to finish her work up. 20g needle placed in the L AC by Dr. Hermosillo under ultrasound. Plan: Labs, EKG, Urine Tramadol, Aspirin IV fluids EKG, CXR Admission EKG: rate 51 BPM, sinus rhythm. Normal intervals/axis. No acute ST-T wave changes. *DC/Admit/Observation/Transfer Diagnosis at time of Disposition: HTN Chest pain Qualifiers: Chest pain type: unspecified Qualified Code(s): R07.9 - Chest pain, unspecified CAD (coronary artery disease) Qualifiers: Coronary Disease-Associated Artery/Lesion type: unspecified vessel or lesion type [place] vs. transplanted heart: [place] heart Associated angina: with unspecified angina Qualified Code(s): I25.119 - Atherosclerotic heart disease of [place] coronary artery with unspecified angina pectoris - Discharge Dispostion Condition at time of disposition: Stable Decision to Admit order: Yes - Referrals Referrals: Josephine Darby MD [Primary Care Provider] - - Patient Instructions - Post Discharge Activity
[2018-07-12] MEDS ORDERED: ASPIRIN 81 MG CHEWABLE TABLETS PO ONE (12:19)
[2018-07-12] MEDS ORDERED: traMADol HCL 50 MG TABLET PO ONE (12:19)
[2018-07-12] MEDS ORDERED: traMADol HCL 50 MG TABLET ONE (12:40)
[2018-07-12] MEDS ORDERED: ASPIRIN 81 MG CHEWABLE TABLETS ONE (12:40)
[2018-07-12 13:40] LABS: INR 1.09 (0.83-1.09); PROTHROMBIN TIME (PATIENT) 12.3 SEC (9.7-13.0)
[2018-07-12 13:43] LABS: BASO % 0.8 % (0-2.0); EOS % 3.3 % (0-4.5); HEMATOCRIT 42.3 % (32.4-45.2); HEMOGLOBIN 13.7 GM/dL (10.7-15.3); MCH 21.7 pg (25.7-33.7); MCHC 32.2 g/dl (32.0-36.0); MEAN CELL VOLUME 67.3 fl (80-96); MEAN PLT VOLUME 8.6 fl (7.5-11.1); MONO % 6.3 % (3.8-10.2); NEUT % 56.6 % (42.8-82.8); PLATELET COUNT 243 K/MM3 (134-434); RBC 6.29 M/mm3 (3.60-5.2); RDW 15.7 % (11.6-15.6); WHITE BLOOD COUNT 9.8 K/mm3 (4.0-10.0)
[2018-07-12 13:45] LABS: ANION GAP 8 (8-16); BILIRUBIN,TOTAL 0.5 mg/dL (0.2-1.0); BLOOD UREA NITROGEN 10 mg/dL (7-18); CALCIUM 9.2 mg/dL (8.5-10.1); CHLORIDE 106 mmol/L (98-107); CO2 27 mmol/L (21-32); CREATININE 0.8 mg/dL (0.55-1.02); GLUCOSE,RANDOM 93 mg/dL (74-106); MAGNESIUM 2.1 mg/dL (1.8-2.4); POTASSIUM 4.6 mmol/L (3.5-5.1); SGOT/AST 34 U/L (15-37); SGPT/ALT 68 U/L (12-78); SODIUM 141 mmol/L (136-145); TOT PROT 7.8 g/dl (6.4-8.2)
[2018-07-12 13:46] LABS: ALK PHOS 164 U/L (45-117)
[2018-07-12] MEDS ORDERED: SODIUM CHLORIDE 1,000 ML IV STA (14:44)
--- NOTE | 2018-07-12 16:25 | PN ---
Teaching Attending Note Name of Resident: Michelle Lui ATTENDING PHYSICIAN STATEMENT I saw and evaluated the patient. I reviewed the resident's note and discussed the case with the resident. I agree with the resident's findings and plan as documented with exceptions below. SUBJECTIVE: 62 yof with PMHx of CAD s/p CABG 2005, PCI SVG-> ramus 2013, unstable angina 2015 with ISR/CONSUELO to SVG-> ramus 2015, also with HLD, Type 2 DM, HTN comes with 4 days of chest pain and back pain. Patient vague in her history, states for the last 4 days her symptoms have been worse which she has on a chronic basis, substernal pressure like constant with no aggravating or relieving factors, associated with back pain, and some dyspnea earlier but currently denies. Denies being similar to prior anginal symptoms. No arm or jaw pain, diaphoresis , fevers, chills, new cough, dizziness or palpitations. Reports around a month ago started having left facial numbness and left sided weakness and starting using cane. Her facial symptoms have resolved but still feels weak on left side and using a cane. Patient tearful when asked about any stressors. 12 point ROS done, neg except above. OBJECTIVE: Vital Signs Period Temp Pulse Resp BP Sys/Thomas Pulse Ox Last 24 Hr 98.6 F 62 14 132/65 98 Intake & Output 07/09/18 07/10/18 07/11/18 07/12/18 23:59 23:59 23:59 23:59 Weight 200 lb GENERAL: Awake, alert, and fully oriented, in no acute distress, tearful when asked about stressors in life. HEAD: Normal with no signs of trauma. EYES: Pupils equal, round and reactive to light, extraocular movements intact, sclera anicteric, conjunctiva clear. No lid lag. EARS, NOSE, THROAT: Ears normal, nares patent, oropharynx clear without exudates. Moist mucous membranes. NECK: normal range of motion, soft supple no JVD LUNGS: Breath sounds equal, clear to auscultation bilaterally. No wheezes, and no crackles. No accessory muscle use. HEART: S1S2 regular ABDOMEN: Soft, nontender, not distended, normoactive bowel sounds, no guarding, no rebound, no masses. MUSCULOSKELETAL: Normal range of motion at all joints. No bony deformities or tenderness. No CVA tenderness. UPPER EXTREMITIES: 2+ pulses, warm, well-perfused. No cyanosis. No clubbing. No peripheral edema. LOWER EXTREMITIES: 2+ pulses, warm, well-perfused. No calf tenderness. No peripheral edema. NEUROLOGICAL: Cranial nerves II-XII intact. facial symmetry, tongue midline, EOMI, PERRL, sensation checked, inconsistent exam, initially reported decreased on left face, then same, symmetric on upper extremities and again inconsistent on lower extremities, power 5/5 generalized, no pronator drift PSYCHIATRIC: Cooperative. Good eye contact. Appropriate mood and affect. SKIN: Warm, dry, normal turgor, no rashes or lesions noted, normal capillary refill. Home Medications Medication Instructions Recorded Albuterol Sulfate Inhaler - 2 puff IH Q6H PRN #1 inhaler 01/17/17 [Ventolin HFA Inhaler -] Budesonide/Formeterol Fumarate 2 puff IH BID #1 inhaler 01/17/17 [SYMBICORT 80/4.5mcg -] Clopidogrel Bisulfate [Plavix -] 75 mg PO DAILY #7 tablet 01/17/17 Ranolazine [Ranexa -] 500 mg PO BID #60 tab 05/03/17 Albuterol Sulfate Inhaler - 2 inh PO Q4H #1 inh 09/09/17 [Ventolin HFA Inhaler -] Mupirocin Ointment [Bactroban 2% 1 applic TP BID PRN #1 tube 06/09/18 Ointment -] Mupirocin Ointment [Bactroban 2% 1 applic TP TID #1 tube 06/11/18 Ointment -] Alprazolam [Xanax] 2 mg PO BID MDD 10 07/11/18 Amlodipine Besylate [Norvasc -] 5 mg PO DAILY 07/11/18 Aspirin [Ecotrin] 81 mg PO DAILY 07/11/18 Atorvastatin Calcium [Lipitor] 20 mg PO DAILY 07/11/18 Enalapril Maleate [Vasotec] 5 mg PO DAILY 07/11/18 Famotidine [Pepcid] 20 mg PO DAILY 07/11/18 Furosemide [Lasix] 20 mg PO DAILY 07/11/18 Isosorbide Mononitrate [Imdur -] 60 mg PO DAILY 07/11/18 Metoprolol Tartrate [Lopressor] 50 mg PO DAILY 07/11/18 Sertraline HCl [Zoloft] 25 mg PO DAILY 07/11/18 Sertraline HCl [Zoloft] 100 mg PO DAILY 07/11/18 hydrOXYzine PAMOATE [Vistaril -] 50 mg PO DAILY 07/11/18 Laboratory Results - last 24 hr 07/12/18 07/12/18 07/12/18 13:00 13:10 13:10 WBC 9.8 RBC 6.29 H Hgb 13.7 Hct 42.3 MCV 67.3 L MCH 21.7 L MCHC 32.2 RDW 15.7 H Plt Count 243 MPV 8.6 Absolute Neuts (auto) 5.6 Neutrophils % 56.6 Lymphocytes % 33.0 Monocytes % 6.3 Eosinophils % 3.3 Basophils % 0.8 Nucleated RBC % 0 PT with INR 12.30 INR 1.09 Sodium 141 Potassium 4.6 Chloride 106 Carbon Dioxide 27 Anion Gap 8 BUN 10 Creatinine 0.8 Creat Clearance w eGFR > 60 Random Glucose 93 Calcium 9.2 Magnesium 2.1 Total Bilirubin 0.5 AST 34 ALT 68 Alkaline Phosphatase 164 H Creatine Kinase Troponin I Total Protein 7.8 Albumin 4.0 07/12/18 13:10 WBC RBC Hgb Hct MCV MCH MCHC RDW Plt Count MPV Absolute Neuts (auto) Neutrophils % Lymphocytes % Monocytes % Eosinophils % Basophils % Nucleated RBC % PT with INR INR Sodium Potassium Chloride Carbon Dioxide Anion Gap BUN Creatinine Creat Clearance w eGFR Random Glucose Calcium Magnesium Total Bilirubin AST ALT Alkaline Phosphatase Creatine Kinase 110 Troponin I < 0.02 Total Protein Albumin EKG- Sinus bradycardia 51, T inversion in III, unchanged ekg from yesterday CT brain (07/11) - no acute process ASSESSMENT AND PLAN: 62 yof with PMHx of CAD s/p CABG 2005, PCI SVG-> ramus 2013, unstable angina 2015 with ISR/CONSUELO to SVG-> ramus 2015, also with HLD, Type 2 DM, HTN admitted with chest pain -Chest pain -CAD s/p CABG, PCI x2 2 SVG-> ramus 2013 and ISR/CONSUELO in 2016 -?Left facial/left sided weakness -HTN -HLD -Type 2 DM -Obesity -Anxiety -Chronic pain Plan: CTA chest Telemetry, cycle CE. Cardiology consult with Dr. Thornton. 2D echo, will defer stress testing to cardiology. COntinue asa/plavix/metoprolol/imdur/ranexa/Enalapril/lasix Continue zoloft/xanax/percocet. ?Stressors, patient tearful when attempted to discuss, denies any SI/HI. social work support. Continue home meds. CT brain neg from 07/11, inconsistent but non concerning exam currently. Cardiac w/u as above. PT eval. Further neuro w/u based on clinical course. Hold off active imaging till active cardiac concerns ruled out. DVTPPX with lovenox Dispo admit to observation, Plan discussed with patient in detail, all questions answered. Total admit time 60 min.
--- NOTE | 2018-07-12 17:08 | HP ---
CHIEF COMPLAINT: chest pain PCP: Dr. Josephine Darby Solar Crew Member: Dr. Thornton HISTORY OF PRESENT ILLNESS: 62 yr old woman with NIDDM, HTN, CAD s/p CABG and stent with re-stenosis c/o continuous pressure-like mid-substernal chest pain radiating to her back for the past 4 days. She chronically has chest pain but for the past 4 days it has increased in intensity and newly started radiating to the back. Was admitted yesterday for similar compliant but left AMA after multiple attempts at peripheral IV placement failed. When she went home the chest pain continued now associated with poor appetite. This morning she called Dr. Thornton who advised the patient to return to the ED to complete cardiac work -up. admits to medication non-compliance due to stressors in her life. for past month she notes left sided weakness, recalls that she woke up feeling the left lower side of her face was numb and daughter remarked that "her face looked twisted," facial symptoms resolved but left sided weakness remained. her left leg gave out ( 05/25/2018 ) resulting in a mechanical fall(without head trauma) and laceration to right mid sparrow. ER course was notable for: (1) (2) (3) Recent Travel: none PAST MEDICAL HISTORY: CAD, HTN, HLD Asthma, chronic neck pain PAST SURGICAL HISTORY: chart reviewed for further information. 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 Smoking:current occasionally smokes cigarettes 4-5/week Alcohol: socially drinks at parties every few months Drugs: denies Family History: denies family hx of cardiac disease Allergies mushroom Allergy (Mild, Verified 07/12/18 11:40) Swelling HOME MEDICATIONS: Home Medications Medication Instructions Recorded Albuterol Sulfate Inhaler - 2 puff IH Q6H PRN #1 inhaler 01/17/17 [Ventolin HFA Inhaler -] Budesonide/Formeterol Fumarate 2 puff IH BID #1 inhaler 01/17/17 [SYMBICORT 80/4.5mcg -] Clopidogrel Bisulfate [Plavix -] 75 mg PO DAILY #7 tablet 01/17/17 Ranolazine [Ranexa -] 500 mg PO BID #60 tab 05/03/17 Albuterol Sulfate Inhaler - 2 inh PO Q4H #1 inh 09/09/17 [Ventolin HFA Inhaler -] Mupirocin Ointment [Bactroban 2% 1 applic TP BID PRN #1 tube 06/09/18 Ointment -] Mupirocin Ointment [Bactroban 2% 1 applic TP TID #1 tube 06/11/18 Ointment -] Alprazolam [Xanax] 2 mg PO BID MDD 10 07/11/18 Amlodipine Besylate [Norvasc -] 5 mg PO DAILY 07/11/18 Aspirin [Ecotrin] 81 mg PO DAILY 07/11/18 Atorvastatin Calcium [Lipitor] 20 mg PO DAILY 07/11/18 Enalapril Maleate [Vasotec] 5 mg PO DAILY 07/11/18 Famotidine [Pepcid] 20 mg PO DAILY 07/11/18 Furosemide [Lasix] 20 mg PO DAILY 07/11/18 Isosorbide Mononitrate [Imdur -] 60 mg PO DAILY 07/11/18 Metoprolol succinate 50 mg PO DAILY 07/11/18 Sertraline HCl [Zoloft] 25 mg PO DAILY 07/11/18 Sertraline HCl [Zoloft] 100 mg PO DAILY 07/11/18 hydrOXYzine PAMOATE [Vistaril -] 50 mg PO DAILY 07/11/18 REVIEW OF SYSTEMS CONSTITUTIONAL: Present: loss of appetite Absent: fever, chills, diaphoresis, generalized weakness, malaise,, weight change HEENT: Present: sore throat since last night Absent: rhinorrhea, nasal congestion, throat pain, throat swelling, difficulty swallowing, mouth swelling, ear pain, eye pain, visual changes CARDIOVASCULAR: Present: chest pain, Absent: syncope, palpitations, irregular heart rate, lightheadedness, peripheral edema RESPIRATORY: Present: cough, shortness of breath, Absent: dyspnea with exertion, orthopnea, wheezing, stridor, hemoptysis GASTROINTESTINAL: Present: constipation, abdominal pain, Absent: abdominal distension, nausea, vomiting, diarrhea, melena, hematochezia GENITOURINARY: Absent: dysuria, frequency, urgency, hesitancy, hematuria, flank pain, genital pain MUSCULOSKELETAL: Absent: myalgia, arthralgia, joint swelling, back pain, neck pain SKIN: Absent: rash, itching, pallor HEMATOLOGIC/IMMUNOLOGIC: Absent: easy bleeding, easy bruising, lymphadenopathy, frequent infections ENDOCRINE: Absent: unexplained weight gain, unexplained weight loss, heat intolerance, cold intolerance NEUROLOGIC: Present: unsteady gait, left sided upper and lower ext weakness Absent: headache, paresthesias, dizziness, PSYCHIATRIC: Present: anxiety, Absent: depression, suicidal or homicidal ideation, hallucinations. PHYSICAL EXAMINATION Vital Signs - 24 hr 07/12/18 11:40 Temperature 98.6 F Pulse Rate 62 Respiratory 14 Rate Blood Pressure 132/65 O2 Sat by Pulse 98 Oximetry (%) GENERAL: Awake, alert, and fully oriented, in no acute distress. anxious and tearful during interview HEAD: Normal with no signs of trauma. EYES: Pupils equal, round and reactive to light, extraocular movements intact, sclera anicteric, conjunctiva clear. No lid lag. facial symmetry. EARS, NOSE, THROAT: Ears normal, nares patent, oropharynx clear without exudates. Moist mucous membranes. dentures in place NECK: Normal range of motion, supple without lymphadenopathy, JVD, or masses. no carotid bruits, no thyromegaly LUNGS: Breath sounds equal, clear to auscultation bilaterally. No wheezes, and no crackles. No accessory muscle use. HEART: Regular rate and rhythm, normal S1 and S2 without murmur, rub or gallop. ABDOMEN: Soft, +tender in left lower quadrant, not distended, normoactive bowel sounds, no guarding, no rebound, no masses. No hepatomegaly or splenomegaly. MUSCULOSKELETAL: Normal range of motion at all joints. No bony deformities or tenderness. No CVA tenderness. UPPER EXTREMITIES: 2+ b/l radial pulses, warm, well-perfused. No cyanosis. No clubbing. No peripheral edema. well healed scar in left forearm LOWER EXTREMITIES: 2+ b/l DP pulses, warm, well-perfused. No calf tenderness. No peripheral edema. 5/5 in right handgrip/ext+flex at shoulder, biceps,triceps , hip, knee and ankle. left side: 4/5 handgrip, ext+flex at shoulder,biceps/ triceps, hip, knee and ankle. no upper ext or lower extremity drift. finger-to- nose intact b/l. NEUROLOGICAL: Cranial nerves II-XII intact. Normal speech. PSYCHIATRIC: Cooperative. Good eye contact. Appropriate mood and affect. SKIN: Warm, dry, normal turgor, no rashes or lesions noted, normal capillary refill. Laboratory Results - last 24 hr 07/12/18 07/12/18 07/12/18 13:00 13:10 13:10 WBC 9.8 RBC 6.29 H Hgb 13.7 Hct 42.3 MCV 67.3 L MCH 21.7 L MCHC 32.2 RDW 15.7 H Plt Count 243 MPV 8.6 Absolute Neuts (auto) 5.6 Neutrophils % 56.6 Lymphocytes % 33.0 Monocytes % 6.3 Eosinophils % 3.3 Basophils % 0.8 Nucleated RBC % 0 PT with INR 12.30 INR 1.09 Sodium 141 Potassium 4.6 Chloride 106 Carbon Dioxide 27 Anion Gap 8 BUN 10 Creatinine 0.8 Creat Clearance w eGFR > 60 Random Glucose 93 Calcium 9.2 Magnesium 2.1 Total Bilirubin 0.5 AST 34 ALT 68 Alkaline Phosphatase 164 H Creatine Kinase Troponin I Total Protein 7.8 Albumin 4.0 07/12/18 13:10 WBC RBC Hgb Hct MCV MCH MCHC RDW Plt Count MPV Absolute Neuts (auto) Neutrophils % Lymphocytes % Monocytes % Eosinophils % Basophils % Nucleated RBC % PT with INR INR Sodium Potassium Chloride Carbon Dioxide Anion Gap BUN Creatinine Creat Clearance w eGFR Random Glucose Calcium Magnesium Total Bilirubin AST ALT Alkaline Phosphatase Creatine Kinase 110 Troponin I < 0.02 Total Protein Albumin ASSESSMENT/PLAN: 61yo woman with PMH of HTN, CAD, NIDDM, HLD, asthma presents with atypical chest pain placed on observation for further cardiac evaluation. Atypical chest pain - ddx includes acs, angina, aortic dissection - received full dose ASA today in ED, continue 81 mg daily - telemetry monitoring, trend trop, initial set negative today, yesterday's initial set was negative - cards consult [facility] for stress test tomorrow, npo at midnight - with radiation to the back, r.o dissection with chest/abd CTA - echo - pt says ultram is working for the pain, does not tolerate nitroglycerin or morphine left sided weakness - head CT yesterday without any acute or chronic stroke identified - physical therapy assessment, neuro checks q4hr - if symptoms remain stable, recommend f.u with pcp for further work-up with neurology or outpatient spinal imaging CAD s/p cabg - continue plavix and asa 81mg po daily DM - ACHS and BGM w/ NISS - A1c 6.2 HTN - continue imdur, ranexa, metoprolol xl, Asthma - currently controlled - ventolin prn - albuterol prn anxiety - zoloft 100mg HS, 25mg AM - xanax 2mg TID prn chronic pain - percocet 5mg po daily constipation - colace 100mg - one dose miralax diet: low sodium, diabetic, low fat, NPO at midnight for stress in the AM activity as tolerated Visit type - Emergency Visit Emergency Visit: Yes ED Registration Date: 07/12/18 Care time: The patient presented to the Emergency Department on the above date and was hospitalized for further evaluation of their emergent condition. - New Patient This patient is new to me today: Yes Date on this admission: 07/12/18 - Critical Care Critical Care patient: No Hospitalist Screening - Colonoscopy Questionnaire Colonoscopy Questionnaire: Colonoscopy Questionnaire - Patient: 50 - 75 years old and never had a screening colonoscopy: Unknown History of colon or rectal polyps, or CA: Unknown History of IBD, Crohn's disease or UC: Unknown History of abdominal radiation therapy as a child: Unknown - Relative: 1 with colon or rectal CA, or polyps at age 60 or younger: Unknown Colon or rectal CA diagnosed at age 45 or younger: Unknown Multiple relatives with colon or rectal CA: Unknown - Outcome: Screening Result: Negative Screen
[2018-07-12] MEDS ORDERED: DOCUSATE SODIUM 100 MG CAPSULE (FP) PO PRN (17:49)
[2018-07-12] MEDS ORDERED: ALBUTEROL SO4 8 GM HFA INHALER IH PRN (17:49)
[2018-07-12] MEDS ORDERED: ACETAMINOPHEN 325 MG TABLET (FP) PO PRN (17:52)
[2018-07-12] MEDS ORDERED: oxyCODONE HCL 5 MG TABLET PO PRN (17:52)
[2018-07-12] MEDS ORDERED: ENALAPRIL MALEATE 5 MG TABLET (FP) PO SCH (18:00)
[2018-07-12] MEDS ORDERED: POLYETHYLENE GLYCOL 3350 119 GM BTL PO ONE (18:45)
[2018-07-12] MEDS ORDERED: INSULIN (NOVOLOG) ASPART 100 UNITS/ML 10ML VIAL ONE (21:20)
[2018-07-12] MEDS: INSULIN SLIDING SCALE (NOVOLOG) 1 VIAL SQ SCH (21:35)
[2018-07-12] MEDS: RANOLAZINE E.R. 500 MG TABLET (FP) PO SCH (21:35)
[2018-07-12] MEDS ORDERED: SERTRALINE HCL 50 MG TABLET (FP) PO SCH (22:00)
[2018-07-12] MEDS ORDERED: ATORVASTATIN CA 20 MG TABLET (FP) PO SCH (22:00)
[2018-07-13] MEDS: INSULIN SLIDING SCALE (NOVOLOG) 1 VIAL SQ SCH ×3 (06:09→17:29)
[2018-07-13 07:53] LABS: BASO % 1.2 % (0-2.0); EOS % 4.2 % (0-4.5); HEMOGLOBIN 12.7 GM/dL (10.7-15.3); LYMPH % 37.3 % (8-40); MCH 21.9 pg (25.7-33.7); MCHC 32.6 g/dl (32.0-36.0); MEAN PLT VOLUME 8.9 fl (7.5-11.1); MONO % 7.2 % (3.8-10.2); NEUT % 50.1 % (42.8-82.8); PLATELET COUNT 208 K/MM3 (134-434); RBC 5.82 M/mm3 (3.60-5.2); RDW 15.7 % (11.6-15.6); WHITE BLOOD COUNT 7.7 K/mm3 (4.0-10.0)
[2018-07-13 08:23] LABS: ANION GAP 2 (8-16); BLOOD UREA NITROGEN 8 mg/dL (7-18); CALCIUM 8.5 mg/dL (8.5-10.1); CHLORIDE 111 mmol/L (98-107); CO2 27 mmol/L (21-32); CREATININE 0.7 mg/dL (0.55-1.02); GLUCOSE,RANDOM 119 mg/dL (74-106); POTASSIUM 4.4 mmol/L (3.5-5.1); SODIUM 140 mmol/L (136-145)
--- NOTE | 2018-07-13 08:33 | CON.CARD ---
Consult Consult Specialty:: Cardiology Referred by:: Dr. Nuñez Reason for Consultation:: chest pain - History of Present Illness Chief Complaint: Chest pain History of Present Illness: 62F with CAD s/p CABG 2005, multiple PCIs including SVG to Ramus in 2013, and again in 2017 after nuclear stress showed mild apical lateral ischemia. She now returns to ER with atypical CP described as sharp, at rest, lasting seconds. Nonexertional. No associated N/V or diaphoresis. No palpitations. No edema, PND , orthopnea. Denies fever, chills, cough. - History Source History Provided By: Patient - Past Medical History Cardio/Vascular: Yes: CAD (PCI, 2013, 2015 and CABG 2005), CHF (chronic diastolic), HTN, Hyperlipdemia Pulmonary: Yes: COPD Psych: Yes: Depression Endocrine: Yes: Diabetes Mellitus - Past Surgical History Past Surgical History: Yes: CABG (3 V 2004), Cholecystectomy - Alcohol/Substance Use Hx Alcohol Use: No History of Substance Use: reports: None - Smoking History Smoking history: Former smoker Have you smoked in the past 12 months: Yes Aproximately how many cigarettes per day: 3 If you are a former smoker, when did you quit?: Pt states that she smokes 1 or 2 sometimes - Social History ADL: Independent History of Recent Travel: No Home Medications - Allergies Allergies/Adverse Reactions: Allergies Allergy/AdvReac Type Severity Reaction Status Date / Time mushroom Allergy Mild Swelling Verified 07/12/18 11:40 - Home Medications Home Medications: Ambulatory Orders Albuterol Sulfate Inhaler - [Ventolin HFA Inhaler -] 2 puff IH Q6H PRN #1 inhaler 01/17/17 Clopidogrel Bisulfate [Plavix -] 75 mg PO DAILY #7 tablet 01/17/17 Alprazolam [Xanax] 2 mg PO TID PRN MDD 3 07/11/18 Amlodipine Besylate [Norvasc -] 5 mg PO DAILY 07/11/18 Aspirin [Ecotrin] 81 mg PO DAILY 07/11/18 Atorvastatin Calcium [Lipitor] 20 mg PO DAILY 07/11/18 Enalapril Maleate [Vasotec] 5 mg PO DAILY 07/11/18 Famotidine [Pepcid] 20 mg PO DAILY 07/11/18 Furosemide [Lasix] 20 mg PO DAILY 07/11/18 Isosorbide Mononitrate [Imdur -] 60 mg PO DAILY 07/11/18 Sertraline HCl [Zoloft] 25 mg PO DAILY 07/11/18 Sertraline HCl [Zoloft] 100 mg PO HS 07/11/18 hydrOXYzine PAMOATE [Vistaril -] 50 mg PO DAILY 07/11/18 Docusate Sodium [Colace] 100 mg PO BID PRN 07/12/18 Hydroxyzine HCl 50 mg PO DAILY 07/12/18 Metoprolol Succinate [Toprol Xl] 50 mg PO BID 07/12/18 Oxycodone HCl/Acetaminophen [Oxycodone-Acetaminophen 10-325] 1 each PO TID PRN 07/12/18 Ranitidine HCl [Zantac] 150 mg PO BID 07/12/18 Ranitidine [Zantac -] 150 mg PO BID 07/12/18 Ranolazine [Ranexa] 500 mg PO BID 07/12/18 Family Disease History - Family Disease History Family Disease History: Heart Disease: Mother Review of Systems Findings/Remarks: see HPI - Review of Systems Constitutional: denies: No Symptoms, Chills, Diaphoresis, Fever, Lethargy, Loss of Appetite, Malaise, Night Sweats, Unintentional Wgt. Loss, Weakness, Other Eyes: denies: No Symptoms, Blind Spots, Blurred Vision, Double Vision, Eye Pain , Floaters, Photophobia, Recent Change in Vision, Other HENT: denies: No Symptoms, Difficult Swallowing, Ear Discharge, Ear Pain, Epistaxis, Gingival Bleeding, Hearing Loss, Mouth Swelling, Nasal Congestion, Ocular Prosthesis, Throat Pain, Toothache, Ringing in Ears, Other Neck: denies: No Symptoms, Decreased ROM, Lumps, Pain on Movement, Stiffness, Swollen Glands, Tenderness, Other Cardiovascular: reports: Chest Pain Respiratory: denies: No Symptoms, Cough, Exercise Intolerance, Hemoptysis, Orthopnea, PND, Snoring, SOB, SOB on Exertion, Wheezing, Other Genitourinary: denies: No Symptoms, Burning, Discharge, Dysuria, Flank Pain, Frequency, Hematuria, Incontinence, Lesions, Menses, Pain, Testicular Mass, Testicular Pain, Testicular Swelling, Urgency, Vaginal Bleeding, Other Breasts: denies: No Symptoms Reported, See HPI, Breast Implants, Discharge from Nipple, Lumps, Pain, Skin Changes, Other Integumentary: denies: No Symptoms, Blister, Bruising, Change in Color, Eczema, Erythema, Incision, Lesions, Lump, Pallor, Pruritis, Rash, Wound, Other Neurological: denies: No Symptoms, Change in LOC, Change in Speech, Confusion, Dizziness, Headache, Incoordination, Numbness, Parasthesia, Pre-Existing Deficit , Seizure, Syncope, Tremors, Unsteady Gait, Weakness, Other Endocrine: denies: No Symptoms, Excessive Sweating, Flushing, Increased Hunger, Increased Thirst, Intolerance to Cold, Intolerance to Heat, Unexplained Weight Gain, Unexplained Weight Loss, Other - Risk Factors Known Risk Factors: Yes: Diabetes Mellitus, Prior [place] /Emb Stroke, Smoking, Other (known CAD) Vital Signs: Vital Signs Temperature 98.6 F 07/13/18 08:13 Pulse Rate 57 L 07/13/18 08:13 Respiratory Rate 18 07/13/18 08:13 Blood Pressure 141/79 07/13/18 08:13 O2 Sat by Pulse Oximetry (%) 98 07/13/18 01:14 Constitutional: Yes: No Distress, Calm Eyes: Yes: Conjunctiva Clear, EOM Intact HENT: Yes: Atraumatic, Normocephalic Neck: Yes: Supple, Trachea Midline Respiratory: Yes: CTA Bilaterally Gastrointestinal: Yes: Soft Cardiovascular: Yes: Regular Rate and Rhythm JVD: No Carotid Bruit: No PMI: Non-Displaced Heart Sounds: Yes: S1, S2 (RRR, no m.r.g) Edema: No Peripheral Pulses WNL: Yes Neurological: Yes: Alert, Oriented ...Motor Strength: WNL - Other Data Labs, Other Data: CBC, BMP 07/13/18 07:05 INR, PTT INR 1.09 (0.83-1.09) 07/12/18 13:10 Troponin, BNP 07/12/18 07/12/18 13:10 17:28 Troponin I < 0.02 < 0.02 Troponin, BNP 07/12/18 07/12/18 13:10 17:28 Troponin I < 0.02 < 0.02 Laboratory Tests 05/02/17 05/02/17 05/03/17 14:10 20:15 01:45 WBC Hgb Plt Count Sodium Potassium BUN Creatinine Troponin I < 0.02 < 0.02 Creatine Kinase B-Natriuretic Peptide 105.22 05/03/17 05/03/17 07/12/18 05:35 05:35 13:10 WBC 8.3 Hgb 11.8 Plt Count 211 Sodium 142 Potassium 4.2 BUN 10 D Creatinine 0.6 D Troponin I < 0.02 Creatine Kinase 110 B-Natriuretic Peptide 07/12/18 17:28 WBC Hgb Plt Count Sodium Potassium BUN Creatinine Troponin I < 0.02 Creatine Kinase 106 B-Natriuretic Peptide Sinus ria 51, LVH. No acute ST changes Echo: Pending Prior Cardiac Procedures: CABG, PTCA with Stent Ejection Fraction %: LVEF > or = 40 % Imaging - Results Chest X-ray: Report Reviewed Cat Scan: Report Reviewed (no aortic dissection) EKG: Image Reviewed Problem List - Problems (1) CAD (coronary artery disease) Code(s): I25.10 - ATHSCL HEART DISEASE OF [place] CORONARY ARTERY W/O ANG PCTRS Qualifiers: Coronary Disease-Associated Artery/Lesion type: bypass graft [place] vs. transplanted heart: [place] heart (2) Atypical chest pain Code(s): R07.89 - OTHER CHEST PAIN (3) Diabetes Code(s): E11.9 - TYPE 2 DIABETES MELLITUS WITHOUT COMPLICATIONS Qualifiers: Diabetes mellitus type: type 2 (4) HTN (hypertension) Code(s): I10 - ESSENTIAL (PRIMARY) HYPERTENSION Qualifiers: Hypertension type: essential hypertension Qualified Code(s): I10 - Essential (primary) hypertension Assessment/Plan IMP: CAD s/p CABG and multivessel PCI- last in 2017 DM HTN Atypical chest pain. REC: 1. Continue home meds including ASA/Plavix/Metoprolol/Statin/Imdur 2. Echo to rule out pericardial disease 3. For Lexiscan MIBI today, further reccs pending above.
--- NOTE | 2018-07-13 09:43 | ECHO ---
Name: BANDAR GRISSOM Exam:Adult Echocardiogram Study Date: 07/13/2018 07:13 AM Age: 62 yrs Reason For Study: Chest pain Height: 66 in Weight: 200 lb BSA: 2.0 m2 MMode/2D Measurements & Calculations IVSd: 1.3 cm Ao root diam: 2.9 cm LVIDd: 4.4 cm LA dimension: 3.8 cm LVIDs: 2.6 cm LVPWd: 1.2 cm EDV(Teich): 88.8 ml ESV(Teich): 25.1 ml Doppler Measurements & Calculations MV E max trent: 80.5 cm/sec TR max trent: 207.7 cm/sec MV A max trent: 52.9 cm/sec TR max P.3 mmHg MV E/A: 1.5 MV dec time: 0.64 sec Med Peak E' Trent: 9.7 cm/sec PI Vmax: 149.3 cm/sec Med E/e': 8.3 Lat Peak E' Trent: 8.4 cm/sec Lat E/e': 9.6 Left Ventricle There is borderline concentric left ventricular hypertrophy. Ejection Fraction = 60-65%. Right Ventricle The right ventricle is normal in size and function. Atria The left atrium is borderline dilated. Mitral Valve The mitral valve is normal in structure and function. There is no mitral valve stenosis. There is mil d mitral regurgitation. Tricuspid Valve The tricuspid valve is normal in structure and function. There is mild tricuspid regurgitation. Right ventricular systolic pressure is normal. Aortic Valve The aortic valve is trileaflet. No hemodynamically significant valvular aortic stenosis. No aortic regurgitation is present. Pulmonic Valve The pulmonic valve is not well seen, but is grossly normal. There is no pulmonic valvular stenosis. T race pulmonic valvular regurgitation. Great Vessels The aortic root is normal size. Pericardium/Pleura There is no pericardial effusion. Interpretation Summary There is borderline concentric left ventricular hypertrophy. Ejection Fraction = 60-65%. The right ventricle is normal in size and function. There is mild mitral regurgitation. There is mild tricuspid regurgitation. Right ventricular systolic pressure is normal. There is no pericardial effusion. MD Sha Thornton 07/13/2018 09:42 AM
[2018-07-13] MEDS ORDERED: ASPIRIN 81 MG CHEWABLE TABLETS PO SCH (10:00)
[2018-07-13] MEDS ORDERED: SERTRALINE HCL 25 MG TABLET (FP) PO SCH (10:00)
[2018-07-13] MEDS ORDERED: CLOPIDOGREL BISULFATE 75 MG TABLET (FP) PO SCH (10:00)
[2018-07-13] MEDS ORDERED: ENOXAPARIN NA (PORCINE) 40 MG/0.4 ML DISP.SYRIN SQ SCH (10:00)
[2018-07-13] MEDS ORDERED: ENALAPRIL MALEATE 5 MG TABLET (FP) PO SCH (10:00)
[2018-07-13] MEDS ORDERED: amLODIPine BESYLATE 5 MG TABLET (FP) PO SCH (10:00)
[2018-07-13] MEDS ORDERED: ISOSORBIDE MONONITRATE 30 MG TAB.SR.24H (FP) PO SCH (10:00)
--- NOTE | 2018-07-13 11:12 | EKG ---
Test Reason : Blood Pressure : / mmHG Vent. Rate : 051 BPM Atrial Rate : 051 BPM P-R Int : 144 ms QRS Dur : 068 ms QT Int : 442 ms P-R-T Axes : 042 001 011 degrees QTc Int : 407 ms POOR DATA QUALITY, INTERPRETATION MAY BE ADVERSELY AFFECTED SINUS BRADYCARDIA MINIMAL VOLTAGE CRITERIA FOR LVH, MAY BE NORMAL VARIANT Confirmed by DARIAN RAND MD ([id number]) on 07/13/2018 11:12:17 AM Referred By: Confirmed By:DARIAN RAND MD
--- NOTE | 2018-07-13 11:21 | PN ---
Physical Exam: SUBJECTIVE: Patient seen and examined. No acute events overnight. OBJECTIVE: Vital Signs Temperature 98.6 F 07/13/18 08:13 Pulse Rate 57 L 07/13/18 08:13 Respiratory Rate 18 07/13/18 09:00 Blood Pressure 141/79 07/13/18 08:13 O2 Sat by Pulse Oximetry (%) 100 07/13/18 09:00 PHYSICAL EXAMINATION: GENERAL: Awake, alert, and fully oriented, in no acute distress. anxious and tearful during interview. Limited eye contact. HEAD: Normal with no signs of trauma. EYES: Pupils equal, round and reactive to light, extraocular movements intact, sclera anicteric, conjunctiva clear. No lid lag. facial symmetry. EARS, NOSE, THROAT: Ears normal, nares patent, oropharynx clear without exudates. Moist mucous membranes. dentures in place NECK: Normal range of motion, supple without lymphadenopathy, JVD, or masses. no carotid bruits, no thyromegaly LUNGS: Breath sounds equal, clear to auscultation bilaterally. No wheezes, and no crackles. No accessory muscle use. HEART: Regular rate and rhythm, normal S1 and S2 without murmur, rub or gallop. ABDOMEN: Soft, +tender in left lower quadrant, not distended, normoactive bowel sounds, no guarding, no rebound, no masses. No hepatomegaly or splenomegaly. MUSCULOSKELETAL: Normal range of motion at all joints. No bony deformities or tenderness. No CVA tenderness. UPPER EXTREMITIES: 2+ b/l radial pulses, warm, well-perfused. No cyanosis. No clubbing. No peripheral edema. well healed scar in left forearm LOWER EXTREMITIES: 2+ b/l DP pulses, warm, well-perfused. No calf tenderness. No peripheral edema. 5/5 in right handgrip/ext+flex at shoulder, biceps,triceps , hip, knee and ankle. left side: 4/5 handgrip, ext+flex at shoulder,biceps/ triceps, hip, knee and ankle. no upper ext or lower extremity drift. finger-to- nose intact b/l. NEUROLOGICAL: Cranial nerves II-XII intact. Normal speech. PSYCHIATRIC: Cooperative. Good eye contact. Appropriate mood and affect. SKIN: Warm, dry, normal turgor, no rashes or lesions noted, normal capillary refill. CBC, BMP 07/13/18 07:05 07/13/18 07:05 Active Medications Acetaminophen (Tylenol -) 325 mg PO Q8H PRN PRN Reason: PAIN 6-10 Albuterol Sulfate (Ventolin Hfa Inhaler -) 2 puff IH Q6H PRN PRN Reason: SHORT OF BREATH/WHEEZING Amlodipine Besylate (Norvasc -) 5 mg PO DAILY [facility] Aspirin (Asa -) 81 mg PO DAILY [facility] Atorvastatin Calcium (Lipitor -) 20 mg PO HS [facility] Last Admin: 07/12/18 21:39 Dose: Not Given Clopidogrel Bisulfate (Plavix -) 75 mg PO DAILY [facility] Docusate Sodium (Colace -) 100 mg PO Q12H PRN PRN Reason: CONSTIPATION Enalapril Maleate (Vasotec -) 5 mg PO DAILY [facility] Enoxaparin Sodium (Lovenox -) 40 mg SQ DAILY [facility] Insulin Aspart (Novolog Vial Sliding Scale -) 1 vial SQ [facility]; Protocol Last Admin: 07/13/18 06:09 Dose: Not Given Isosorbide Mononitrate (Imdur -) 30 mg PO DAILY [facility] Metoprolol Succinate (Toprol Xl -) 50 mg PO BID [facility] Last Admin: 07/12/18 21:35 Dose: 50 mg Oxycodone HCl (Roxicodone -) 5 mg PO Q8H PRN PRN Reason: PAIN 6-10 Ranolazine (Ranexa -) 500 mg PO BID [facility] Last Admin: 07/12/18 21:35 Dose: 500 mg Sertraline HCl (Zoloft -) 100 mg PO HS [facility] Last Admin: 07/12/18 21:39 Dose: Not Given Sertraline HCl (Zoloft -) 25 mg PO DAILY [facility] IMAGING: ECHO: Borderline concentric LVH. EF = 60-65%. RV is normal in size and fxn. Mild MR. Mild TR. RV systolic pressure is normal. No pericardial effusion. Head CT (yesterday): No acute intracranial pathology CTA Chest: No evidence of thoracoabdominal aortic dissection. ASSESSMENT AND PLAN: 61F with PMH of HTN, CAD, NIDDM, HLD, asthma presents with atypical chest pain placed on observation for further cardiac evaluation. #Atypical chest pain - ddx includes acs, angina, aortic dissection -cont Aspirin 81 mg PO QD -cont Ranexa 500 mg PO BID -telemetry monitoring, trops neg x2 -Echo showed: Borderline concentric LVH. EF = 60-65%. RV is normal in size and fxn. Mild MR. Mild TR. RV systolic pressure is normal. No pericardial effusion. -f/u cardio recs and results of stress test #left sided weakness - head CT yesterday without any acute or chronic stroke identified -PT assessment, neuro checks q4hr -if symptoms remain stable, recommend f/u with PCP for further work-up with neurology or outpatient spinal imaging #CAD s/p cabg -cont Plavix 75 mg PO QD -cont Aspirin 81mg PO QD #DM -ACHS and BGM w/ NISS -A1c 6.2 #HTN -cont Imdur 30 mg PO QD -cont Ranexa 500 mg PO BID -cont Toprol XL 50 mg PO BID #Asthma - currently controlled -cont Ventolin PRN -cont Albuterol PRN #anxiety -cont Zoloft 100mg HS, 25mg AM -cont Xanax 2mg TID PRN #chronic pain -cont Percocet 5 mg PO QD #constipation -cont Colace 100mg -one dose miralax #FEN -no IVf needed -lytes wnl -sodium-controlled/diabetic/low fat diet dispo -full code -activity as tolerated Visit type - Emergency Visit Emergency Visit: Yes ED Registration Date: 07/12/18 Care time: The patient presented to the Emergency Department on the above date and was hospitalized for further evaluation of their emergent condition. - New Patient This patient is new to me today: Yes Date on this admission: 07/13/18 - Critical Care Critical Care patient: No
[2018-07-13] MEDS: RANOLAZINE E.R. 500 MG TABLET (FP) PO SCH (14:09)
--- NOTE | 2018-07-13 14:22 | PN ---
Teaching Attending Note Name of Resident: Hortensia Agrawal ATTENDING PHYSICIAN STATEMENT I saw and evaluated the patient. I reviewed the resident's note and discussed the case with the resident. I agree with the resident's findings and plan as documented. SUBJECTIVE: Patient is comfortable with no acute distress. OBJECTIVE: Vital Signs Temperature 98.6 F 07/13/18 08:13 Pulse Rate 57 L 07/13/18 08:13 Respiratory Rate 18 07/13/18 09:00 Blood Pressure 141/79 07/13/18 08:13 O2 Sat by Pulse Oximetry (%) 100 07/13/18 09:00 CBCD WBC 7.7 K/mm3 (4.0-10.0) 07/13/18 07:05 RBC 5.82 M/mm3 (3.60-5.2) H 07/13/18 07:05 Hgb 12.7 GM/dL (10.7-15.3) 07/13/18 07:05 Hct 39.0 % (32.4-45.2) 07/13/18 07:05 MCV 67.0 fl (80-96) L 07/13/18 07:05 MCHC 32.6 g/dl (32.0-36.0) 07/13/18 07:05 RDW 15.7 % (11.6-15.6) H 07/13/18 07:05 Plt Count 208 K/MM3 (134-434) 07/13/18 07:05 MPV 8.9 fl (7.5-11.1) 07/13/18 07:05 CMP Sodium 140 mmol/L (136-145) 07/13/18 07:05 Potassium 4.4 mmol/L (3.5-5.1) 07/13/18 07:05 Chloride 111 mmol/L (98-107) H 07/13/18 07:05 Carbon Dioxide 27 mmol/L (21-32) 07/13/18 07:05 Anion Gap 2 (8-16) L 07/13/18 07:05 BUN 8 mg/dL (7-18) 07/13/18 07:05 Creatinine 0.7 mg/dL (0.55-1.02) 07/13/18 07:05 Creat Clearance w eGFR > 60 (>60) 07/13/18 07:05 Random Glucose 119 mg/dL (74-106) H 07/13/18 07:05 Calcium 8.5 mg/dL (8.5-10.1) 07/13/18 07:05 Total Bilirubin 0.5 mg/dL (0.2-1.0) 07/12/18 13:10 AST 34 U/L (15-37) 07/12/18 13:10 ALT 68 U/L (12-78) 07/12/18 13:10 Alkaline Phosphatase 164 U/L (45-117) H 07/12/18 13:10 Total Protein 7.8 g/dl (6.4-8.2) 07/12/18 13:10 Albumin 4.0 g/dl (3.4-5.0) 07/12/18 13:10 CARDIAC ENZYMES Creatine Kinase 106 IU/L (26-192) 07/12/18 17:28 Troponin I < 0.02 ng/ml (0.00-0.05) 07/12/18 17:28 Current Medications Generic Name Dose Route Start Last Admin Trade Name Freq PRN Reason Stop Dose Admin Acetaminophen 325 mg 07/12/18 17:52 Tylenol - PO Q8H PRN PAIN 6-10 Albuterol Sulfate 2 puff 07/12/18 17:49 Ventolin Hfa Inhaler - IH Q6H PRN SHORT OF BREATH/WHEEZING Amlodipine Besylate 5 mg 07/13/18 10:00 07/13/18 14:09 Norvasc - PO 5 mg DAILY [facility] Administration Aspirin 81 mg 07/13/18 10:00 07/13/18 14:09 Asa - PO 81 mg DAILY [facility] Administration Atorvastatin Calcium 20 mg 07/12/18 22:00 07/12/18 21:39 Lipitor - PO Not Given HS [facility] Clopidogrel Bisulfate 75 mg 07/13/18 10:00 07/13/18 14:09 Plavix - PO 75 mg DAILY [facility] Administration Docusate Sodium 100 mg 07/12/18 17:49 Colace - PO Q12H PRN CONSTIPATION Enalapril Maleate 5 mg 07/13/18 10:00 07/13/18 14:09 Vasotec - PO 5 mg DAILY [facility] Administration Enoxaparin Sodium 40 mg 07/13/18 10:00 07/13/18 14:09 Lovenox - SQ 40 mg DAILY [facility] Administration Insulin Aspart 1 vial 07/12/18 22:00 07/13/18 06:09 Novolog Vial Sliding Scale - SQ Not Given [facility] Protocol Isosorbide Mononitrate 30 mg 07/13/18 10:00 07/13/18 14:09 Imdur - PO 30 mg DAILY [facility] Administration Metoprolol Succinate 50 mg 07/12/18 22:00 07/13/18 14:09 Toprol Xl - PO 50 mg BID [facility] Administration Oxycodone HCl 5 mg 07/12/18 17:52 Roxicodone - PO Q8H PRN PAIN 6-10 Ranolazine 500 mg 07/12/18 22:00 07/13/18 14:09 Ranexa - PO 500 mg BID [facility] Administration Sertraline HCl 100 mg 07/12/18 22:00 07/12/18 21:39 Zoloft - PO Not Given HS [facility] Sertraline HCl 25 mg 07/13/18 10:00 07/13/18 14:20 Zoloft - PO Not Given DAILY [facility] Home Medications Medication Instructions Recorded Albuterol Sulfate Inhaler - 2 puff IH Q6H PRN #1 inhaler 01/17/17 [Ventolin HFA Inhaler -] Clopidogrel Bisulfate [Plavix -] 75 mg PO DAILY #7 tablet 01/17/17 Alprazolam [Xanax] 2 mg PO TID PRN MDD 3 07/11/18 Amlodipine Besylate [Norvasc -] 5 mg PO DAILY 07/11/18 Aspirin [Ecotrin] 81 mg PO DAILY 07/11/18 Atorvastatin Calcium [Lipitor] 20 mg PO DAILY 07/11/18 Enalapril Maleate [Vasotec] 5 mg PO DAILY 07/11/18 Famotidine [Pepcid] 20 mg PO DAILY 07/11/18 Furosemide [Lasix] 20 mg PO DAILY 07/11/18 Isosorbide Mononitrate [Imdur -] 60 mg PO DAILY 07/11/18 Sertraline HCl [Zoloft] 25 mg PO DAILY 07/11/18 Sertraline HCl [Zoloft] 100 mg PO HS 07/11/18 hydrOXYzine PAMOATE [Vistaril -] 50 mg PO DAILY 07/11/18 Docusate Sodium [Colace] 100 mg PO BID PRN 07/12/18 Hydroxyzine HCl 50 mg PO DAILY 07/12/18 Metoprolol Succinate [Toprol Xl] 50 mg PO BID 07/12/18 Oxycodone HCl/Acetaminophen 1 each PO TID PRN 07/12/18 [Oxycodone-Acetaminophen 10-325] Ranitidine HCl [Zantac] 150 mg PO BID 07/12/18 Ranitidine [Zantac -] 150 mg PO BID 07/12/18 Ranolazine [Ranexa] 500 mg PO BID 07/12/18 PE: per resident's note Echo showed: Borderline concentric LVH. EF = 60-65%. RV is normal in size and fxn. Mild MR. Mild TR. RV systolic pressure is normal. No pericardial effusion. IMAGING: ECHO: Borderline concentric LVH. EF = 60-65%. RV is normal in size and fxn. Mild MR. Mild TR. RV systolic pressure is normal. No pericardial effusion. Head CT (yesterday): No acute intracranial pathology CTA Chest: No evidence of thoracoabdominal aortic dissection. ASSESSMENT AND PLAN: 61F with PMH of HTN, CAD, NIDDM, HLD, asthma presents with atypical chest pain placed on observation for further cardiac evaluation. #Atypical chest pain - CE were negative, stress test is negative , follow with #left sided weakness - head CT negative for stroke #CAD s/p cabg cont Plavix 75 mg PO QD, cont Aspirin 81mg PO QD contnue Imdur 30 mg PO QD, Ranexa 500 mg PO BID, Toprol XL 50 mg PO BID #DM ACHS and BGM w/ NISS, A1c 6.2 #HTN continue home meds. #Asthma - continue current therapy #anxiety continue Zoloft, Xanax as needed #constipation continue colace and Miralax
[2018-07-13 14:41] VITALS: BP 137/65; PULSE 53; TEMP 98
--- NOTE | 2018-07-13 17:36 | DS ---
Physical Exam: SUBJECTIVE: Patient seen and examined. No acute events overnight. OBJECTIVE: Vital Signs Period Temp Pulse Resp BP Sys/Thomas Pulse Ox Last 24 Hr 98 F-98.6 F 53-65 18-20 137-142/61-79 98-100 PHYSICAL EXAM GENERAL: Awake, alert, and fully oriented, in no acute distress. anxious and tearful during interview. Limited eye contact. HEAD: Normal with no signs of trauma. EYES: Pupils equal, round and reactive to light, extraocular movements intact, sclera anicteric, conjunctiva clear. No lid lag. facial symmetry. EARS, NOSE, THROAT: Ears normal, nares patent, oropharynx clear without exudates. Moist mucous membranes. dentures in place NECK: Normal range of motion, supple without lymphadenopathy, JVD, or masses. no carotid bruits, no thyromegaly LUNGS: Breath sounds equal, clear to auscultation bilaterally. No wheezes, and no crackles. No accessory muscle use. HEART: Regular rate and rhythm, normal S1 and S2 without murmur, rub or gallop. ABDOMEN: Soft, +tender in left lower quadrant, not distended, normoactive bowel sounds, no guarding, no rebound, no masses. No hepatomegaly or splenomegaly. MUSCULOSKELETAL: Normal range of motion at all joints. No bony deformities or tenderness. No CVA tenderness. UPPER EXTREMITIES: 2+ b/l radial pulses, warm, well-perfused. No cyanosis. No clubbing. No peripheral edema. well healed scar in left forearm LOWER EXTREMITIES: 2+ b/l DP pulses, warm, well-perfused. No calf tenderness. No peripheral edema. 5/5 in right handgrip/ext+flex at shoulder, biceps,triceps , hip, knee and ankle. left side: 4/5 handgrip, ext+flex at shoulder,biceps/ triceps, hip, knee and ankle. no upper ext or lower extremity drift. finger-to- nose intact b/l. NEUROLOGICAL: Cranial nerves II-XII intact. Normal speech. PSYCHIATRIC: Cooperative. Good eye contact. Appropriate mood and affect. SKIN: Warm, dry, normal turgor, no rashes or lesions noted, normal capillary refill. LABS Laboratory Results - last 24 hr 07/12/18 07/12/18 07/13/18 17:28 21:33 05:12 WBC RBC Hgb Hct MCV MCH MCHC RDW Plt Count MPV Absolute Neuts (auto) Neutrophils % Lymphocytes % Monocytes % Eosinophils % Basophils % Nucleated RBC % Sodium Potassium Chloride Carbon Dioxide Anion Gap BUN Creatinine Creat Clearance w eGFR POC Glucometer 151 122 Random Glucose Calcium Magnesium Creatine Kinase 106 Troponin I < 0.02 07/13/18 07/13/18 07/13/18 07:05 07:05 07:05 WBC 7.7 RBC 5.82 H Hgb 12.7 Hct 39.0 MCV 67.0 L MCH 21.9 L MCHC 32.6 RDW 15.7 H Plt Count 208 MPV 8.9 Absolute Neuts (auto) 3.9 Neutrophils % 50.1 Lymphocytes % 37.3 Monocytes % 7.2 Eosinophils % 4.2 Basophils % 1.2 Nucleated RBC % 0 Sodium 140 Potassium 4.4 Chloride 111 H Carbon Dioxide 27 Anion Gap 2 L BUN 8 Creatinine 0.7 Creat Clearance w eGFR > 60 POC Glucometer Random Glucose 119 H Calcium 8.5 Magnesium 2.0 Creatine Kinase Troponin I 07/13/18 14:25 WBC RBC Hgb Hct MCV MCH MCHC RDW Plt Count MPV Absolute Neuts (auto) Neutrophils % Lymphocytes % Monocytes % Eosinophils % Basophils % Nucleated RBC % Sodium Potassium Chloride Carbon Dioxide Anion Gap BUN Creatinine Creat Clearance w eGFR POC Glucometer 139 Random Glucose Calcium Magnesium Creatine Kinase Troponin I HOSPITAL COURSE: Date of Admission:07/12/18 IMAGING: ECHO: Borderline concentric LVH. EF = 60-65%. RV is normal in size and fxn. Mild MR. Mild TR. RV systolic pressure is normal. No pericardial effusion. 61F with pmhx of HTN, CAD, NIDDM, HLD, asthma presented with atypical chest pain placed on observation for further cardiac evaluation. In the ED, pt was given Ultram for pain. Pt was seen by cardio. Upon cardio recommendation, a pharmacologic stress test was done that was negative for acute ischemic changes. Pt's symptoms improved. She was discharged home with recommendation to follow up with her pcp and assistant finance director and to continue taking all home meds as directed. Date of Discharge: 07/13/18 Minutes to complete discharge: 35 Discharge Summary Reason For Visit: ATHEROSCLEROSIS OF CORONARY ARTERY Condition: Improved - Instructions Diet, Activity, Other Instructions: You were admitted to the hospital for evaluation of your chest pain. You underwent a cardiac stress test that revealed normal heart perfusion. You will need to follow up with a assistant finance director in order to perform further workup and treatment. MEDICAL RECOMMENDATIONS Please continue taking your home medications as directed. CONSULT RECOMMENDATIONS Please follow up with your primary care physician within 1 week. Please follow up with your assistant finance director, Dr. Thornton, within 1 week. If you continue to experience worsening chest pain, shortness of breath, headaches/dizziness, problems with balance or coordination, please proceed to your nearest emergency room immediately. Referrals: Sha Thornton MD [Staff Physician] - 1 Week Josephine Darby MD [Primary Care Provider] - 1 Week Disposition: HOME - Home Medications Comprehensive Discharge Medication List: Ambulatory Orders Albuterol Sulfate Inhaler - [Ventolin HFA Inhaler -] 2 puff IH Q6H PRN #1 inhaler 01/17/17 Clopidogrel Bisulfate [Plavix -] 75 mg PO DAILY #7 tablet 01/17/17 Alprazolam [Xanax] 2 mg PO TID PRN MDD 3 07/11/18 Amlodipine Besylate [Norvasc -] 5 mg PO DAILY 07/11/18 Aspirin [Ecotrin] 81 mg PO DAILY 07/11/18 Atorvastatin Calcium [Lipitor] 20 mg PO DAILY 07/11/18 Enalapril Maleate [Vasotec] 5 mg PO DAILY 07/11/18 Famotidine [Pepcid] 20 mg PO DAILY 07/11/18 Furosemide [Lasix] 20 mg PO DAILY 07/11/18 Isosorbide Mononitrate [Imdur -] 60 mg PO DAILY 07/11/18 Sertraline HCl [Zoloft] 25 mg PO DAILY 07/11/18 Sertraline HCl [Zoloft] 100 mg PO HS 07/11/18 hydrOXYzine PAMOATE [Vistaril -] 50 mg PO DAILY 07/11/18 Docusate Sodium [Colace] 100 mg PO BID PRN 07/12/18 Hydroxyzine HCl 50 mg PO DAILY 07/12/18 Metoprolol Succinate [Toprol Xl] 50 mg PO BID 07/12/18 Oxycodone HCl/Acetaminophen [Oxycodone-Acetaminophen 10-325] 1 each PO TID PRN 07/12/18 Ranitidine [Zantac -] 150 mg PO BID 07/12/18 Ranolazine [Ranexa] 500 mg PO BID 07/12/18 This patient is new to me today: No Emergency Visit: Yes ED Registration Date: 07/12/18 Care time: The patient presented to the Emergency Department on the above date and was hospitalized for further evaluation of their emergent condition. Critical Care patient: No - Discharge Referral Referred to [facility] No
== END 2018-07-13 18:37 | disposition home or self-care (01) ==
LOC: JER 11:13 → JERBED 15:39 → J4W 21:04
PROVIDERS: ADMIT Hospitalist; ATTEND Internal Medicine
PROC: 3E0337Z Introduction of Electrolytic and Water Balance Substance into Peripheral Vein, Percutaneous Approach (ICD-10-PCS; principal; 2018-07-12)
DX: R07.89 Other chest pain (principal); I10 Essential (primary) hypertension; E78.5 Hyperlipidemia, unspecified; E11.9 Type 2 diabetes mellitus without complications; I25.119 Atherosclerotic heart disease of native coronary artery with unspecified angina pectoris; R53.1 Weakness; J45.909 Unspecified asthma, uncomplicated; F41.9 Anxiety disorder, unspecified; G89.29 Other chronic pain; K59.00 Constipation, unspecified; Z79.82 Long term (current) use of aspirin; Z87.891 Personal history of nicotine dependence; Z95.1 Presence of aortocoronary bypass graft; Z95.5 Presence of coronary angioplasty implant and graft
CPT/HCPCS: 36415; 71045-TC-FY; 71275-TC; 74175-TC; 78452-TC; 80048; 80053; 82550; 82962; 83735; 84484; 85025; 85610; 93005; 93010; 93017; 93306-TC; 96360; 97116-GP; 97161-GP; 99285-25; A9502; G0378; J2785; J7030

== ENCOUNTER 2019-01-21 20:55 | Emergency (ER) | payer MEDICARE, OTHER ==
--- NOTE | 2019-01-21 21:01 | PDOC ---
Rapid Medical Evaluation Chief Complaint: Chest Pain Time Seen by Provider: 01/21/19 21:00 Medical Evaluation: Allergies Allergy/AdvReac Type Severity Reaction Status Date / Time mushroom Allergy Mild Swelling Verified 01/21/19 21:00 01/21/19 21:00 I have performed a brief in-person evaluation of this patient. The patient presents with a chief complaint of: chest pain since yesterday. Patient reports chest pain piercing through to mid back and radiation into arm. Denies shortness of breath, nausea or dizziness Pertinent physical exam findings: NAD even and unlabored breathing heart s1s2 I have ordered the following: ekg labs The patient will proceed to the ED for further evaluation. 01/21/19 21:02 Discharge Disposition - Diagnosis Chest pain - Referrals - Patient Instructions - Post Discharge Activity
[2019-01-21 21:07] VITALS: BP 135/54; TEMP 98.7; BMI 30.4
[2019-01-21 21:36] LABS: BASO % 0.9 % (0-2.0); EOS % 2.6 % (0-4.5); HEMATOCRIT 38.4 % (32.4-45.2); HEMOGLOBIN 13.1 GM/dL (10.7-15.3); LYMPH % 30.9 % (8-40); MCH 23.2 pg (25.7-33.7); MCHC 34.1 g/dl (32.0-36.0); MEAN CELL VOLUME 68.1 fl (80-96); MEAN PLT VOLUME 8.2 fl (7.5-11.1); MONO % 7.5 % (3.8-10.2); NEUT % 58.1 % (42.8-82.8); PLATELET COUNT 242 K/MM3 (134-434); RBC 5.64 M/mm3 (3.60-5.2); RDW 14.7 % (11.6-15.6); WHITE BLOOD COUNT 9.2 K/mm3 (4.0-10.0)
--- NOTE | 2019-01-21 21:50 | PDOC ---
History of Present Illness - General Chief Complaint: Chest Pain Stated Complaint: CHEST PAIN Time Seen by Provider: 01/21/19 21:00 - History of Present Illness Initial Comments: 01/21/19 21:52 63 yo female with PMH HTN, HLD, CAD s/p CABG 2007/Stent 2013, NIDDM, Depression ? presents with a complaint of chest pain that started yesterday which she decribes as sharp. She states the pain radiates to her left arm and back to the point where her arm feels heavy. She also endorses left leg pain. She endorses a cough productive of clear sputum for 2 weeks and recent chills. Past History - Past Medical History Allergies/Adverse Reactions: Allergies Allergy/AdvReac Type Severity Reaction Status Date / Time mushroom Allergy Mild Swelling Verified 01/21/19 21:00 Home Medications: Ambulatory Orders Albuterol Sulfate Inhaler - [Ventolin HFA Inhaler -] 2 puff IH Q6H PRN #1 inhaler 01/17/17 Clopidogrel Bisulfate [Plavix -] 75 mg PO DAILY #7 tablet 01/17/17 Alprazolam [Xanax] 2 mg PO TID PRN MDD 3 07/11/18 Amlodipine Besylate [Norvasc -] 5 mg PO DAILY 07/11/18 Aspirin [Ecotrin] 81 mg PO DAILY 07/11/18 Atorvastatin Calcium [Lipitor] 20 mg PO DAILY 07/11/18 Enalapril Maleate [Vasotec] 5 mg PO DAILY 07/11/18 Famotidine [Pepcid] 20 mg PO DAILY 07/11/18 Furosemide [Lasix] 20 mg PO DAILY 07/11/18 Isosorbide Mononitrate [Imdur -] 60 mg PO DAILY 07/11/18 Docusate Sodium [Colace] 100 mg PO BID PRN 07/12/18 Metoprolol Succinate [Toprol Xl] 50 mg PO BID 07/12/18 Oxycodone HCl/Acetaminophen [Oxycodone-Acetaminophen 10-325] 1 each PO TID PRN 07/12/18 Ranitidine [Zantac -] 150 mg PO BID 07/12/18 Ranolazine [Ranexa] 1,000 mg PO BID 07/12/18 Liraglutide [Victoza -] 1.8 mg SQ DAILY@0700 01/21/19 Asthma: Yes Cardiac Disorders: Yes (Bypass 2007, CARDIAC STENT IN JUN 2014) COPD: No Diabetes: Yes HTN: Yes Hypercholesterolemia: Yes Psychiatric Problems: Yes - Surgical History Abdominal Surgery: Yes (HERNIA) Cardiac Surgery: Yes (Bypass 2007, CARDIAC STENT IN JUN 2014) Cholecystectomy: Yes (1990) - Family Disease History Family Disease History: Diabetes: Grandparents, Father, Heart Disease: Grandparents, Father - Immunization History Immunization Up to Date: No - Suicide/Smoking/Psychosocial Hx Smoking Status: Yes Smoking History: Former smoker Have you smoked in the past 12 months: No Number of Cigarettes Smoked Daily: 3 If you are a former smoker, when did you quit?: "a while ago" Information on smoking cessation initiated: No 'Breaking Loose' booklet given: 01/17/17 Hx Alcohol Use: No Drug/Substance Use Hx: No Substance Use Type: None Hx Substance Use Treatment: No *Physical Exam - Vital Signs Last Vital Signs Temp Pulse Resp BP Pulse Ox 98.7 F 71 18 135/54 L 96 01/21/19 21:00 01/21/19 21:00 01/21/19 21:00 01/21/19 21:00 01/21/19 21:00 - Physical Exam Comments: 01/21/19 21:53 GEN: A&O, mild acute distress HEENT: PERRL, moist mucus membranes NECK: supple, no lymphadenopathy HEART: RRR, no murmurs or rubs noted, chest pain is reproducible in mediastinal region LUNGS: CTA b/l, no wheezes or crackles ABDOMEN: Tender to palpation in epigastric and region below left breast, around to CVA area EXTREMITIES: normal ROM, no peripheral edema Moderate Sedation - Procedure Monitoring Vital Signs: Procedure Monitoring Vital Signs Temperature 98.7 F 01/21/19 21:00 Pulse Rate 71 01/21/19 21:00 Respiratory Rate 18 01/21/19 21:00 Blood Pressure 135/54 L 01/21/19 21:00 O2 Sat by Pulse Oximetry (%) 96 01/21/19 21:00 Heart Score/ECG Review - History History: Slightly suspicious - Electrocardiogram EKG: Normal - Age Age: 45-65 - Risk Factors Risk Factors Heart Score: Yes Hx Hypercholesterolemia, Yes Hx Hypertension, Yes Hx Diabetes Based on the list above the patient has:: >/=3 risk factors or Hx atherosclerotic disease - Troponin Troponin: </= normal limit - Score Heart Score - Total: 3 ED Treatment Course - LABORATORY CBC & Chemistry Diagram: 01/21/19 21:16 01/21/19 21:16 - ADDITIONAL ORDERS Additional order review: 01/21/19 21:16 RBC 5.64 H MCV 68.1 L MCHC 34.1 RDW 14.7 MPV 8.2 Neutrophils % 58.1 Lymphocytes % 30.9 Monocytes % 7.5 Eosinophils % 2.6 Basophils % 0.9 Medical Decision Making - Medical Decision Making 01/21/19 23:17 63 yo female with extensive PMH presents with Chest pain since yesterday which radiates to her left arm, left flank, and left leg. She recently had full cardiac workup including stress test and ECHO in 06/2018 which did not reveal any concerning findings. With symptoms difficult to pinpoint, will check CXR and UA in addition to CBC, CMP, and Cardiac profile which are unremarkable at this point. 01/22/19 02:25 UA and CXR unremarkable. Pt still with some pain following Tylenol and fluids. Will give Toradol 30 mg IV and repeat troponin. If pain improves and 2nd Troponin negative, pt can likely be d/c with cardiology and pcp follow up. *DC/Admit/Observation/Transfer Diagnosis at time of Disposition: Chest pain - Discharge Dispostion Disposition: HOME Condition at time of disposition: Stable Decision to Admit order: No - Referrals Referrals: Josephine Darby MD [Primary Care Provider] - Beny Franco MD [Staff Physician] - - Patient Instructions Printed Discharge Instructions: DI for Atypical Chest Pain Additional Instructions: You were seen in the emergency room for chest pain. A heart attack was ruled out with an EKG and two sets of cardiac enzyme tests. It is likely that a lot of your pain was caused by your recent coughing. You should continue to use your inhaler as needed and you can take NSAIDs (Motrin or Ibuprofen) for further pain. Information for a oracle database manager has been included in your discharge paperwork as discussed. - Post Discharge Activity
[2019-01-21 22:09] LABS: ALBUMIN 3.6 g/dl (3.4-5.0); ALK PHOS 156 U/L (45-117); ANION GAP 9 MMOL/L (8-16); BILIRUBIN,TOTAL 0.4 mg/dL (0.2-1); BLOOD UREA NITROGEN 12 mg/dL (7-18); CALCIUM 8.6 mg/dL (8.5-10.1); CHLORIDE 105 mmol/L (98-107); CO2 25 mmol/L (21-32); CREATININE 0.7 mg/dL (0.55-1.3); GLUCOSE,RANDOM 95 mg/dL (74-106); POTASSIUM 3.5 mmol/L (3.5-5.1); SGOT/AST 36 U/L (15-37); SGPT/ALT 94 U/L (13-61); SODIUM 139 mmol/L (136-145); TOT PROT 7.1 g/dl (6.4-8.2)
--- NOTE | 2019-01-21 22:31 | PDOC ---
Attending Attestation - Resident Resident Name: Harpal Li - ED Attending Attestation I have performed the following: I have examined & evaluated the patient, The case was reviewed & discussed with the resident, I agree w/resident's findings & plan, Exceptions are as noted - HPI HPI: 01/21/19 22:30 63 yo female p/w left sided chest pain,L flank pain since yesterday. Pain 8/10 radiating to L arm - Physicial Exam PE: 01/21/19 22:31 wnwd 63 yo female with L chest pain, l flank pain head ncat neck no jvd,supple lungs cta b/l cvs [id number] abd no rebound ext no edema left cva tenderness skin warm and dry neuro axox3,ambulatory - Medical Decision Making 01/22/19 02:34 pt had negaitve stress test and normal echo in 06/2018 plan repeat trop, if neg ,d/c home
[2019-01-21] MEDS ORDERED: ACETAMINOPHEN 1000 MG/100 ML VIAL (NON FORMULARY) IVPB ONE (22:36)
[2019-01-21] MEDS ORDERED: ASPIRIN 81 MG CHEWABLE TABLETS PO ONE (22:36)
[2019-01-21] MEDS ORDERED: LACTATED RINGERS SOLUTION 1000 ML INFUS.BAG IV ONE (22:45)
[2019-01-21] MEDS ORDERED: ACETAMINOPHEN INJECTION 100 ML IVPB ONE (23:13)
[2019-01-21] MEDS ORDERED: ASPIRIN 81 MG CHEWABLE TABLETS ONE (23:13)
[2019-01-21 23:56] VITALS: PULSE 67
[2019-01-22] MEDS ORDERED: KETOROLAC TROMETHAMINE 30 MG/1 ML VIAL IVPUSH ONE (01:59)
[2019-01-22 02:05] LABS: URINE APPEARANCE CLEAR; URINE BILIRUBIN NEGATIVE (<2.0 mg/dL); URINE COLOR YELLOW; URINE GLUCOSE (UA) NEGATIVE (NEGATIVE); URINE KETONE NEGATIVE (NEGATIVE); URINE LEUK ESTERASE NEGATIVE (NEGATIVE); URINE NITRITE NEGATIVE (NEGATIVE); URINE PROTEIN NEGATIVE (NEGATIVE); URINE UROBILINOGEN 4.0 E.U/dl mg/dL (0.2-1.0)
[2019-01-22] MEDS ORDERED: KETOROLAC TROMETHAMINE 30 MG/1 ML VIAL ONE (02:27)
--- NOTE | 2019-01-22 10:49 | EKG ---
Test Reason : Blood Pressure : / mmHG Vent. Rate : 067 BPM Atrial Rate : 067 BPM P-R Int : 166 ms QRS Dur : 086 ms QT Int : 422 ms P-R-T Axes : 052 012 042 degrees QTc Int : 445 ms NORMAL SINUS RHYTHM NORMAL ECG Confirmed by Jonah Nunez MD ([id number]) on 01/22/2019 10:48:39 AM Referred By: Confirmed By:Jonah Nunez MD
== END 2019-01-22 08:10 | disposition home or self-care (01) ==
LOC: JER 20:55
PROC: 3E033NZ Introduction of Analgesics, Hypnotics, Sedatives into Peripheral Vein, Percutaneous Approach (ICD-10-PCS; principal; 2019-01-21)
PROC: 3E0333Z Introduction of Anti-inflammatory into Peripheral Vein, Percutaneous Approach (ICD-10-PCS; 2019-01-21)
DX: R07.9 Chest pain, unspecified (principal); I25.10 Atherosclerotic heart disease of native coronary artery without angina pectoris; I10 Essential (primary) hypertension; Z95.1 Presence of aortocoronary bypass graft; Z95.5 Presence of coronary angioplasty implant and graft; E11.9 Type 2 diabetes mellitus without complications; Z79.84 Long term (current) use of oral hypoglycemic drugs; E78.5 Hyperlipidemia, unspecified; F32.9 Major depressive disorder, single episode, unspecified; Z79.01 Long term (current) use of anticoagulants
CPT/HCPCS: 36415; 71046-TC-FY; 80053; 81003; 82550; 84484; 85025; 93005; 93010; 96374; 96375; 99283-25; J0131

== ENCOUNTER 2019-02-25 12:29 | Emergency (ER) | payer MEDICARE, OTHER ==
[2019-02-25 12:49] VITALS: BP 114/69; PULSE 73; TEMP 98.3; BMI 29.3
[2019-02-25] MEDS ORDERED: ALBUTEROL SO4 2.5/IPRATROPIUM 0.5 INH SOL 3 ML VIAL.NEB. NEB ONE (13:29)
--- NOTE | 2019-02-25 13:29 | PDOC ---
History of Present Illness - General Chief Complaint: Respiratory Stated Complaint: FLU SYSMPTOMS Time Seen by Provider: 02/25/19 13:24 History Source: Patient Exam Limitations: Clinical Condition - History of Present Illness Initial Comments: 02/25/19 13:26 Patient with history of hypertension, hyperlipidemia, diabetes and CAD on blood thinners present with complaint of persistent yellow productive cough, body aches, nasal congestion and tactile fever since yesterday. Patient reported history of pneumonia in the past. Denies dizziness, chest pain, shortness of breath, nausea or vomiting. Denies any other symptoms Timing/Duration: 24 hours Past History - Past Medical History Allergies/Adverse Reactions: Allergies Allergy/AdvReac Type Severity Reaction Status Date / Time mushroom Allergy Mild Swelling Verified 02/25/19 13:14 Home Medications: Ambulatory Orders Albuterol Sulfate Inhaler - [Ventolin HFA Inhaler -] 2 puff IH Q6H PRN #1 inhaler 01/17/17 Clopidogrel Bisulfate [Plavix -] 75 mg PO DAILY #7 tablet 01/17/17 Alprazolam [Xanax] 2 mg PO TID PRN MDD 3 07/11/18 Amlodipine Besylate [Norvasc -] 5 mg PO DAILY 07/11/18 Aspirin [Ecotrin] 81 mg PO DAILY 07/11/18 Atorvastatin Calcium [Lipitor] 20 mg PO DAILY 07/11/18 Enalapril Maleate [Vasotec] 5 mg PO DAILY 07/11/18 Famotidine [Pepcid] 20 mg PO DAILY 07/11/18 Furosemide [Lasix] 20 mg PO DAILY 07/11/18 Isosorbide Mononitrate [Imdur -] 60 mg PO DAILY 07/11/18 Docusate Sodium [Colace] 100 mg PO BID PRN 07/12/18 Metoprolol Succinate [Toprol Xl] 50 mg PO BID 07/12/18 Oxycodone HCl/Acetaminophen [Oxycodone-Acetaminophen 10-325] 1 each PO TID PRN 07/12/18 Ranitidine [Zantac -] 150 mg PO BID 07/12/18 Ranolazine [Ranexa] 1,000 mg PO BID 07/12/18 Liraglutide [Victoza -] 1.8 mg SQ DAILY@0700 01/21/19 Benzonatate [Tessalon Pearls -] 100 mg PO TID PRN #21 capsule 02/25/19 Ipratropium [place] 2 spray NS BID PRN #1 spray 02/25/19 Asthma: Yes Cardiac Disorders: Yes (Bypass 2007, CARDIAC STENT IN JUN 2014) COPD: No Diabetes: Yes HTN: Yes Hypercholesterolemia: Yes Psychiatric Problems: Yes - Surgical History Abdominal Surgery: Yes (HERNIA) Cardiac Surgery: Yes (Bypass 2007, CARDIAC STENT IN JUN 2014) Cholecystectomy: Yes (1990) - Family Disease History Family Disease History: Diabetes: Grandparents, Father, Heart Disease: Grandparents, Father - Immunization History Immunization Up to Date: No - Suicide/Smoking/Psychosocial Hx Smoking Status: Yes Smoking History: Never smoked Have you smoked in the past 12 months: No Number of Cigarettes Smoked Daily: 3 If you are a former smoker, when did you quit?: "a while ago" Information on smoking cessation initiated: No 'Breaking Loose' booklet given: 01/17/17 Hx Alcohol Use: No Drug/Substance Use Hx: No Substance Use Type: None Hx Substance Use Treatment: No Review of Systems - Review of Systems Able to Perform ROS?: Yes Is the patient limited Serbian proficient: No Constitutional: Yes: See HPI, Fever (tactile), Malaise HEENTM: Yes: Symptoms Reported, See HPI, Nose Congestion. No: Eye Pain, Blurred Vision, Tearing, Recent change in vision, Double Vision, Cataracts, Ear Pain, Ocular Prothesis, Ear Discharge, Nose Pain, Tinnitus, Nose Bleeding, Hearing Loss, Throat Pain, Throat Swelling, Mouth Pain, Dental Problems, Difficulty Swallowing, Mouth Swelling, Other Respiratory: Yes: Symptoms reported, See HPI, Cough, Wheezing, Productive cough. No: Orthopnea, Shortness of Breath, SOB with Exertion, SOB at Rest, Stridor, Hemoptysis, Other Cardiac (ROS): No: Symptoms Reported, See HPI, Chest Pain, Edema, Irregular Heart Rate, Lightheadedness, Palpitations, Syncope, Chest Tightness, Other ABD/GI: No: Symptoms Reported, Nausea, Vomiting All Other Systems: Reviewed and Negative *Physical Exam - Vital Signs Last Vital Signs Temp Pulse Resp BP Pulse Ox 98.3 F 73 20 114/69 97 02/25/19 12:44 02/25/19 12:44 02/25/19 12:44 02/25/19 12:44 02/25/19 12:44 - Physical Exam Comments: 02/25/19 13:27 GENERAL: Well developed, well nourished. Awake and alert. No acute distress. HEENT: Normocephalic, atraumatic. PERRLA, EOMI. No conjunctival pallor. Sclera are non-icteric. Moist mucous membranes. Oropharynx is clear. NECK: Supple. Full ROM. CARDIOVASCULAR: Regular rate and rhythm. No murmurs, rubs, or gallops. Distal pulses are 2+ and symmetric. PULMONARY: Mild diffuse wheezing.No evidence of respiratory distress. No rales or rhonchi. ABDOMINAL: Soft. Non-tender. Non-distended. No rebound or guarding. No organomegaly. Normoactive bowel sounds. MUSCULOSKELETAL Normal range of motion at all joints. SKIN: Warm and dry. Normal capillary refill. No rashes. No jaundice. NEUROLOGICAL: Alert, awake, appropriate. Gait is normal without ataxia. PSYCHIATRIC: Cooperative. Good eye contact. Appropriate mood General Appearance: Yes: Nourished, Appropriately Dressed. No: Apparent Distress ED Treatment Course - RADIOLOGY Radiology Studies Ordered: Category Date Time Status CHEST PA & LAT [RAD] Stat Radiology 02/25/19 13:25 Ordered Medical Decision Making - Medical Decision Making 02/25/19 13:28 Patient with history of multiple comorbidities and pneumonia in the past present with complaint of 24-hour history of persistent yellow productive cough , nasal congestion, runny nose and tactile fever. Exam significant for mild diffuse wheezing with no respiratory distress. Patient afebrile on presentation. Rapid flu tests ordered to rule out influenza. Checks x-ray ordered to rule out pneumonia. Treat based on imaging and lab results 02/25/19 14:26 Rapid flu negative. Checks x-ray shows no acute pneumonia or infiltrate. Patient is stable for outpatient management for URI with PCP follow-up. *DC/Admit/Observation/Transfer Diagnosis at time of Disposition: Cough URI (upper respiratory infection) Qualifiers: URI type: unspecified viral URI Qualified Code(s): J06.9 - Acute upper respiratory infection, unspecified - Discharge Dispostion Disposition: HOME Condition at time of disposition: Stable Decision to Admit order: No - Prescriptions Prescriptions: Benzonatate [Tessalon Pearls -] 100 mg PO TID PRN #21 capsule PRN Reason: Cough Ipratropium [place] 2 spray NS BID PRN #1 spray PRN Reason: nasal congestion - Referrals Referrals: Josephine Darby MD [Primary Care Provider] - - Patient Instructions Printed Discharge Instructions: DI for Viral Upper Respiratory Infection -- Adult Additional Instructions: Your flu test was negative. The chest x-ray shows no pneumonia the symptoms likely from upper respiratory infection. Take medication as prescribed. Follow- up with primary care - Post Discharge Activity
== END 2019-02-25 14:33 | disposition home or self-care (01) ==
LOC: JER 12:29 → JERFT 12:29
PROC: 3E0F7GC Introduction of Other Therapeutic Substance into Respiratory Tract, Via Natural or Artificial Opening (ICD-10-PCS; principal; 2019-02-25)
DX: J06.9 Acute upper respiratory infection, unspecified (principal); B97.89 Other viral agents as the cause of diseases classified elsewhere; I25.10 Atherosclerotic heart disease of native coronary artery without angina pectoris; I10 Essential (primary) hypertension; Z95.1 Presence of aortocoronary bypass graft; Z95.5 Presence of coronary angioplasty implant and graft; Z79.01 Long term (current) use of anticoagulants; E11.9 Type 2 diabetes mellitus without complications; E78.00 Pure hypercholesterolemia, unspecified; J45.909 Unspecified asthma, uncomplicated
CPT/HCPCS: 71046-TC-FY; 87804; 94640; 99281-25

== ENCOUNTER 2019-07-17 18:06 | Inpatient (IN) | payer MEDICARE, OTHER ==
--- NOTE | 2019-07-17 18:22 | PDOC ---
Rapid Medical Evaluation Chief Complaint: Chest Pain Time Seen by Provider: 07/17/19 18:18 Medical Evaluation: Allergies Allergy/AdvReac Type Severity Reaction Status Date / Time mushroom Allergy Mild Swelling Verified 02/25/19 13:14 07/17/19 18:20 I have performed a brief in-person evaluation of this patient. The patient presents with a chief complaint of:h/o CABG on plavix, HTN present with complains of CP since yesterday worsening today with numbness in left arm since this AM. Denies vomiting but report nausea and lightheadedness. Denies sweats, chills Pertinent physical exam findings: heart RRR. lungs CTAB I have ordered the following: EKG, CBC,CMP,cardiac profile The patient will proceed to the ED for further evaluation. Discharge Disposition - Diagnosis Chest pain Qualifiers: Chest pain type: unspecified Qualified Code(s): R07.9 - Chest pain, unspecified - Discharge Dispostion Condition at time of disposition: Stable - Referrals - Patient Instructions - Post Discharge Activity
--- NOTE | 2019-07-17 18:48 | PDOC ---
History of Present Illness - General Chief Complaint: Chest Pain Stated Complaint: chest pain Time Seen by Provider: 07/17/19 18:18 History Source: Patient, Old Records Exam Limitations: Other (poor historian) - History of Present Illness Initial Comments: 07/17/19 18:50 Patient is a poor historian. 63yo F with PMH of CAD s/p CABG 2010, stent placement, IDDM, HTN, HLD, Asthma presenting to ED with complaints of sharp chest pain radiating to the L arm and to the back. Patient is unsure when pain started, saying it started "earlier today". She says she felt a tightness yesterday. Pain is sharp, constant, radiating to the L arm and to the back, worsened with inspiration. States that she was walking when the pain started. She feels a heaviness in her L arm and L leg. Patient states that she has been coughing clear phlegm for the past few days. She says she had similar symptoms when she got the bypass. She has not seen her programs director since last year. Endorses nausea, abdominal pain. Denies syncope, SOB at this time, fevers, chills, changes in vision, urinary symptoms, diarrhea, constipation, vomiting, recent travel, recent surgeries. Went to her PMD office this morning but did not mention the tightness. PMD: Krista Darby Cards: Norberto PMH: see hpi PSH: see hpi Meds: see med rec Allergies: nkda Social: smokes 2-4 cigarettes/day Past History - Past Medical History Allergies/Adverse Reactions: Allergies Allergy/AdvReac Type Severity Reaction Status Date / Time mushroom Allergy Mild Swelling Verified 07/17/19 18:21 Home Medications: Ambulatory Orders Albuterol Sulfate Inhaler - [Ventolin HFA Inhaler -] 2 puff IH Q6H PRN #1 inhaler 01/17/17 Clopidogrel Bisulfate [Plavix -] 75 mg PO DAILY #7 tablet 01/17/17 Alprazolam [Xanax] 2 mg PO TID PRN MDD 3 07/11/18 Amlodipine Besylate [Norvasc -] 5 mg PO DAILY 07/11/18 Aspirin [Ecotrin] 81 mg PO DAILY 07/11/18 Atorvastatin Calcium [Lipitor] 20 mg PO DAILY 07/11/18 Enalapril Maleate [Vasotec] 5 mg PO DAILY 07/11/18 Famotidine [Pepcid] 20 mg PO DAILY 07/11/18 Furosemide [Lasix] 20 mg PO DAILY 07/11/18 Isosorbide Mononitrate [Imdur -] 60 mg PO DAILY 07/11/18 Docusate Sodium [Colace] 100 mg PO BID PRN 07/12/18 Metoprolol Succinate [Toprol Xl] 50 mg PO BID 07/12/18 Oxycodone HCl/Acetaminophen [Oxycodone-Acetaminophen 10-325] 1 each PO TID PRN 07/12/18 Ranitidine [Zantac -] 150 mg PO BID 07/12/18 Ranolazine [Ranexa] 1,000 mg PO BID 07/12/18 Liraglutide [Victoza -] 1.8 mg SQ DAILY@0700 01/21/19 Benzonatate [Tessalon Pearls -] 100 mg PO TID PRN #21 capsule 02/25/19 Ipratropium [place] 2 spray NS BID PRN #1 spray 02/25/19 Asthma: Yes Cardiac Disorders: Yes (Bypass 2007, CARDIAC STENT IN JUN 2014) COPD: No Diabetes: Yes HTN: Yes Hypercholesterolemia: Yes Psychiatric Problems: Yes - Surgical History Abdominal Surgery: Yes (HERNIA) Cardiac Surgery: Yes (Bypass 2007, CARDIAC STENT IN JUN 2014) Cholecystectomy: Yes (1990) - Family Disease History Family Disease History: Diabetes: Grandparents, Father, Heart Disease: Grandparents, Father - Immunization History Immunization Up to Date: No - Suicide/Smoking/Psychosocial Hx Smoking Status: Yes Smoking History: Never smoked Have you smoked in the past 12 months: No Number of Cigarettes Smoked Daily: 3 If you are a former smoker, when did you quit?: "a while ago" Information on smoking cessation initiated: No 'Breaking Loose' booklet given: 01/17/17 Hx Alcohol Use: No Drug/Substance Use Hx: No Substance Use Type: None Hx Substance Use Treatment: No Cardiac Specific PMH - Complaint Specific PMHX Abdominal Aortic Aneurysm: No Angina: No Cardiac Arrhythmia: No Cardiac Stent: Yes GERD: No Pacemaker: No Pulmonary Embolus: No Valvular Heart Disease: No Peripheral Vascular Disease: No Review of Systems - Review of Systems Constitutional: Yes: See HPI HEENTM: No: Symptoms Reported Respiratory: Yes: See HPI Cardiac (ROS): Yes: See HPI ABD/GI: Yes: See HPI Musculoskeletal: Yes: See HPI Integumentary: No: Symptoms Reported Neurological: Yes: See HPI *Physical Exam - Vital Signs Last Vital Signs Temp Pulse Resp BP Pulse Ox 98.1 F 58 L 20 133/72 100 07/17/19 18:17 07/17/19 19:30 07/17/19 19:30 07/17/19 19:30 07/17/19 19:30 - Physical Exam General Appearance: Yes: Appropriately Dressed, Mild Distress, Obese HEENT: positive: EOMI, [place], Normal ENT Inspection Neck: positive: Trachea midline, Supple. negative: Carotid bruit Respiratory/Chest: positive: Lungs Clear, Normal Breath Sounds. negative: Crackles, Rales, Rhonchi, Stridor, Wheezing Cardiovascular: positive: Regular Rhythm, Regular Rate, S1, S2. negative: Edema , JVD, Murmur Vascular Pulses: Dorsalis-Pedis (R): 2+, Doralis-Pedis (L): 2+ Gastrointestinal/Abdominal: positive: Normal Bowel Sounds, Soft. negative: Tender, Distended, Guarding, Rebound Musculoskeletal: positive: Other (L upper arm tenderness). negative: CVA Tenderness Extremity: positive: Normal Capillary Refill. negative: Pedal Edema, Swelling, Calf Tenderness Integumentary: positive: Normal Color, Dry, Warm Neurologic: positive: sifter operator II-XII NML intact, Fully Oriented, Alert, Normal Mood/ Affect, Normal Response, Motor Strength 5/5 Heart Score/ECG Review - History History: Highly suspicious - Electrocardiogram EKG: Normal - Age Age: 45-65 - Risk Factors Risk Factors Heart Score: Yes Hx Hypercholesterolemia, Yes Hx Hypertension, Yes Hx Diabetes, Yes Smoking History Based on the list above the patient has:: >/=3 risk factors or Hx atherosclerotic disease - Troponin Troponin: </= normal limit - Score Heart Score - Total: 5 - ECG Intrepretation Rhythm: Regular Rhythm - [place]: Normal - P and [place] Prominent R with upright T in V1 (true posterior GA): No Delta Wave(s) Present: No WPW: No - QRS Poor R Wave Progression: No Q Wave Present: No - ST and T Early Repolarization: No Non Specific ST-T Wave changes: No ED Treatment Course - LABORATORY CBC & Chemistry Diagram: 07/17/19 19:45 07/17/19 19:45 - ADDITIONAL ORDERS Additional order review: Laboratory Results 07/17/19 07/17/19 07/17/19 19:45 19:45 19:45 PT with INR 12.70 INR 1.08 D-Dimer 411 Sodium 140 Potassium 4.6 Chloride 107 Carbon Dioxide 26 Anion Gap 7 L BUN 7.7 Creatinine 0.6 Est GFR (CKD-EPI)AfAm 114.02 Est GFR (CKD-EPI)NonAf 98.38 Random Glucose 71 L Calcium 9.1 Total Bilirubin 0.5 AST 67 H ALT 100 H Alkaline Phosphatase 154 H Creatine Kinase Cancelled Troponin I Total Protein 7.8 Albumin 3.8 07/17/19 07/17/19 19:45 19:45 PT with INR INR D-Dimer Sodium Potassium Chloride Carbon Dioxide Anion Gap BUN Creatinine Est GFR (CKD-EPI)AfAm Est GFR (CKD-EPI)NonAf Random Glucose Calcium Total Bilirubin AST ALT Alkaline Phosphatase Creatine Kinase 127 Troponin I < 0.02 Cancelled Total Protein Albumin 07/17/19 19:45 RBC 6.34 H MCV 67.4 L MCHC 32.8 RDW 15.3 MPV 8.5 Neutrophils % 55.3 Lymphocytes % 33.6 Monocytes % 7.5 Eosinophils % 2.1 Basophils % 1.5 - RADIOLOGY Radiology Studies Ordered: Category Date Time Status CHEST X-RAY PORTABLE* [RAD] Stat Radiology 07/17/19 18:31 Completed - Medications Given in the ED: ED Medications Discontinued Medications Generic Name Dose Route Start Last Admin Trade Name Freq PRN Reason Stop Dose Admin Aspirin 162 mg 07/17/19 19:07 07/17/19 19:15 Ecotrin - PO 07/17/19 19:08 162 mg ONCE ONE Administration Sodium Chloride 1,000 mls @ 1,000 mls/hr 07/17/19 18:53 07/17/19 19:30 Normal Saline - IV 07/17/19 19:52 1,000 mls/hr ASDIR STA Administration Metoclopramide HCl 10 mg 07/17/19 18:54 07/17/19 19:35 Reglan Injection - IVPB 07/17/19 18:55 10 mg ONCE ONE Administration Nitroglycerin 1 inch 07/17/19 19:07 07/17/19 19:15 Nitro-Bid 2% Paste - TD 07/17/19 19:08 1 inch ONCE ONE Administration Medical Decision Making - Medical Decision Making 07/17/19 21:06 63yo F with PMH of CAD s/p CABG 2009, IDDM, HTN, HLD, Asthma presenting to ED with complaints of sharp chest pain radiating to the L arm and to the back. Patient is unsure when pain started, saying it started "earlier today". She says she felt a tightness yesterday. Pain is sharp, constant, radiating to the L arm and to the back, worsened with inspiration. States that she was walking when the pain started. She feels a heaviness in her L arm and L leg. Patient states that she has been coughing clear phlegm for the past few days. She says she had similar symptoms when she got the bypass. She has not seen her programs director since last year. Endorses nausea, abdominal pain. Denies syncope, SOB at this time, fevers, chills, changes in vision, urinary symptoms, diarrhea , constipation, vomiting, recent travel, recent surgeries. Went to her PMD office this morning but did not mention the tightness. Vitals: wnl ddx includes but not limited to acs, pe, dissection, cva/tia, pna, copd/asthma, ptx, malignancy, electrolyte disturbance. echo 07/14 showed normal lvf. stress 07/14: normal. has not followed up with cardiology. cardiac labs, d-dimer, asa, nitropaste, cxr, ekg. iv fluids and reglan: pt complaining of nausea and is diabetic low suspicion for dissection and pe at this time. patient feeling better after meds, chest pain decreased. labs wnl, d-dimer wnl, negative trop. no acute changes. given history, improvement with meds, not following up with cardiology, patient will benefit from admission. accepted by hospitalist. *DC/Admit/Observation/Transfer Diagnosis at time of Disposition: Chest pain Qualifiers: Chest pain type: unspecified Qualified Code(s): R07.9 - Chest pain, unspecified - Discharge Dispostion Condition at time of disposition: Stable Decision to Admit order Date/Time: Decision to Admit Order Category Date Time Status Decision to Admit to Hospital Routine Admission 07/17/19 20:55 Active - Referrals Referrals: Josephine Darby MD [Primary Care Provider] - - Patient Instructions - Post Discharge Activity
[2019-07-17] MEDS ORDERED: SODIUM CHLORIDE 1,000 ML IV STA (18:53)
[2019-07-17] MEDS ORDERED: METOCLOPRAMIDE HCL INJECTION 10 MG/2 ML VIAL IVPB ONE (18:54)
[2019-07-17] MEDS ORDERED: ASPIRIN COATED 81 MG TABLET.EC PO ONE (19:07)
[2019-07-17] MEDS ORDERED: NITROGLYCERIN 2% OINTMENT - 1GM PACKET TD ONE ×2 (19:07→19:21)
[2019-07-17] MEDS ORDERED: ASPIRIN COATED 81 MG TABLET.EC ONE (19:20)
[2019-07-17] MEDS ORDERED: METOCLOPRAMIDE HCL INJECTION 10 MG/2 ML VIAL ONE (19:21)
[2019-07-17 19:57] LABS: BASO % 1.5 % (0-2.0); EOS % 2.1 % (0-4.5); HEMATOCRIT 42.7 % (32.4-45.2); LYMPH % 33.6 % (8-40); MCH 22.1 pg (25.7-33.7); MCHC 32.8 g/dl (32.0-36.0); MEAN CELL VOLUME 67.4 fl (80-96); MEAN PLT VOLUME 8.5 fl (7.5-11.1); MONO % 7.5 % (3.8-10.2); NEUT % 55.3 % (42.8-82.8); PLATELET COUNT 287 K/MM3 (134-434); RBC 6.34 M/mm3 (3.60-5.2); RDW 15.3 % (11.6-15.6); WHITE BLOOD COUNT 9.6 K/mm3 (4.0-10.0)
--- NOTE | 2019-07-17 20:04 | PDOC ---
Documentation entered by Dax Nolan SCRIBE, acting as scribe for Curtis Campbell MD. Curtis Campbell MD: This documentation has been prepared by the Ovidio baxter Elijah, SCRIBE, under my direction and personally reviewed by me in its entirety. I confirm that the documentation accurately reflects all work, treatment, procedures, and medical decision making performed by me. Attending Attestation - Resident Resident Name: Sa Ravenira - ED Attending Attestation I have performed the following: I have examined & evaluated the patient, The case was reviewed & discussed with the resident, I agree w/resident's findings & plan - HPI HPI: 07/17/19 18:48 Patient is a 63 year old female with a significant past medical history of htn, hld, dm and CAD who presents to the ED with Sharp chest pain. Patient reports that the pain radiates to the L arm and back, and associates some tightness, Patient also notes she feels heaviness in the L arm and L leg. Denies SOB, fever , chills, vomiting. Allergies: Mushroom PCP: Dr. Josephine Darby - Physicial Exam PE: 07/17/19 20:02 Patient is awake and alert, well-nourished, in no distress Normocephalic and atraumatic PERRLA, EOMI CTA RRR Well-healed sternotomy scar No lower extremity edema - Medical Decision Making 07/17/19 20:03 Patient 63-year-old female with multiple comorbidities, history of CAD (CABG) presents with left-sided chest discomfort with radiation to the left arm. Initial EKG shows no evidence of acute ischemia. Vital signs are noted. Differential diagnoses includes ACS versus PE. We'll obtain d-dimer. Chest x- ray reveals no evidence of acute pathology. Surgical morena are noted. We'll administer aspirin and transdermal nitroglycerin. Patient's heart is noted to be 5. Will place her in obs telemetry for serial cardiac enzymes and cardiac eval. 07/17/19 21:04 1st cardiac enzymes are negative. LFTs mildly elevated: may be related to statin therapy of hepatic steatosis. Heart Score/ECG Review - History History: Highly suspicious - Electrocardiogram EKG: Normal - Age Age: 45-65 - Risk Factors Risk Factors Heart Score: Yes Hx Hypercholesterolemia, Yes Hx Hypertension, Yes Hx Diabetes Based on the list above the patient has:: >/=3 risk factors or Hx atherosclerotic disease - Troponin Troponin: </= normal limit - Score Heart Score - Total: 5
[2019-07-17 20:16] LABS: INR 1.08 (0.83-1.09); PROTHROMBIN TIME (PATIENT) 12.7 SEC (9.7-13.0)
[2019-07-17 20:36] LABS: ALBUMIN 3.8 g/dl (3.4-5.0); BILIRUBIN,TOTAL 0.5 mg/dL (0.2-1); BLOOD UREA NITROGEN 7.7 mg/dL (7-18); CALCIUM 9.1 mg/dL (8.5-10.1); CREATININE 0.6 mg/dL (0.55-1.3); POTASSIUM 4.6 mmol/L (3.5-5.1); TOT PROT 7.8 g/dl (6.4-8.2)
[2019-07-17 21:49] LABS: PH,URINE 5.5 (5.0-8.0); URINE APPEARANCE CLOUDY; URINE BILIRUBIN NEGATIVE (NEGATIVE); URINE COLOR DK YELLOW; URINE GLUCOSE (UA) NEGATIVE (NEGATIVE); URINE KETONE NEGATIVE (NEGATIVE); URINE LEUK ESTERASE NEGATIVE (NEGATIVE); URINE NITRITE NEGATIVE (NEGATIVE); URINE PROTEIN NEGATIVE (NEGATIVE)
[2019-07-17] MEDS ORDERED: ALBUTEROL SO4 8 GM HFA INHALER IH PRN (22:04)
--- NOTE | 2019-07-17 22:12 | HP ---
CHIEF COMPLAINT: Chest pain PCP: Dr. Josephine Darby Vacuum Pan Tender: Dr. Thornton HISTORY OF PRESENT ILLNESS: Patient is a 63 year old female with PMH of CAD (s/p CABG), NIDDM, HTN, HLD, asthma who presents with chest pain for 2 days. Pain is sharp, pleuritic, substernal, and radiates to her LUE. She complains of persistent heaviness in her LUE and associated SOB, diaphoresis, and lightheadedness. Symptoms began yesterday while she was walking. Pt also complains of a mild productive cough with clear phlegm for the past several days. She denies any fever, chills, or palpitations. 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 She denies any episodes of similar symptoms in recent past. She follows up with her PCP regularly (last saw earlier today, but did not mention her chest pain symptoms) and to her knowledge, there have been no changes in her medications. She has a health aide at home who helps her with her medications daily. Patient also denies any abd pain, diarrhea, vomiting, or urinary symptoms. Pt's symptoms have since resolved s/p asa and nitroglycerin. ER course was notable for: (1) EKG: NSR, no ischemic changes (2) Initial trop: neg (3) CXR: no acute pathology Recent Travel: denies PAST MEDICAL HISTORY: CAD (s/p CABG) DM HTN HLD asthma PAST SURGICAL HISTORY: Cholecystectomy () CABG (2006) Spine surgery (2015) Social History: Smoking: denies Alcohol: denies Drugs: denies Family History: Brother: HTN Aunts: Breast CA Father: DM, CAD Allergies mushroom Allergy (Mild, Verified 07/17/19 18:21) Swelling HOME MEDICATIONS: Home Medications Medication Instructions Recorded Albuterol Sulfate Inhaler - 2 puff IH Q6H PRN #1 inhaler 01/17/17 [Ventolin HFA Inhaler -] Clopidogrel Bisulfate [Plavix -] 75 mg PO DAILY #7 tablet 01/17/17 Amlodipine Besylate [Norvasc -] 5 mg PO DAILY 07/11/18 Aspirin [Ecotrin] 81 mg PO DAILY 07/11/18 Enalapril Maleate [Vasotec] 5 mg PO DAILY 07/11/18 Famotidine [Pepcid] 20 mg PO DAILY 07/11/18 Furosemide [Lasix] 20 mg PO DAILY 07/11/18 Isosorbide Mononitrate [Imdur -] 60 mg PO DAILY 07/11/18 Docusate Sodium [Colace] 100 mg PO BID PRN 07/12/18 Metoprolol Succinate [Toprol Xl] 50 mg PO BID 07/12/18 Oxycodone HCl/Acetaminophen 1 each PO TID PRN 07/12/18 [Oxycodone-Acetaminophen 10-325] Ranolazine [Ranexa] 1,000 mg PO BID 07/12/18 Liraglutide [Victoza -] 1.8 mg SQ DAILY@0700 01/21/19 Benzonatate [Tessalon Pearls -] 100 mg PO TID PRN #21 capsule 02/25/19 Ipratropium [place] 2 spray NS BID PRN #1 spray 02/25/19 REVIEW OF SYSTEMS CONSTITUTIONAL: diaphoresis Absent: fever, chills, generalized weakness, malaise, loss of appetite, weight change HEENT: Absent: rhinorrhea, nasal congestion, throat pain, throat swelling, difficulty swallowing, mouth swelling, ear pain, eye pain, visual changes CARDIOVASCULAR: chest pain, lightheadedness Absent: syncope, palpitations, irregular heart rate, peripheral edema RESPIRATORY: shortness of breath, cough Absent: dyspnea with exertion, orthopnea, wheezing, stridor, hemoptysis GASTROINTESTINAL: Absent: abdominal pain, abdominal distension, nausea, vomiting, diarrhea, constipation, melena, hematochezia GENITOURINARY: Absent: dysuria, frequency, urgency, hesitancy, hematuria, flank pain, genital pain MUSCULOSKELETAL: Absent: myalgia, arthralgia, joint swelling, back pain, neck pain SKIN: Absent: rash, itching, pallor HEMATOLOGIC/IMMUNOLOGIC: Absent: easy bleeding, easy bruising, lymphadenopathy, frequent infections ENDOCRINE: Absent: unexplained weight gain, unexplained weight loss, heat intolerance, cold intolerance NEUROLOGIC: Absent: headache, focal weakness or paresthesias, dizziness, unsteady gait, seizure, mental status changes, bladder or bowel incontinence PSYCHIATRIC: Absent: anxiety, depression, suicidal or homicidal ideation, hallucinations. PHYSICAL EXAMINATION Vital Signs - 24 hr 07/17/19 07/17/19 18:17 19:30 Temperature 98.1 F Pulse Rate 69 Pulse Rate [ 58 L Left Radial] Respiratory 18 20 Rate Blood Pressure 130/79 Blood Pressure 133/72 [Left Arm] O2 Sat by Pulse 99 100 Oximetry (%) GENERAL: Awake, alert, and fully oriented. No acute distress. HEAD: Normal with no signs of trauma. EYES: Pupils equal, round and reactive to light, extraocular movements intact, sclera anicteric, conjunctiva clear. No lid lag. EARS, NOSE, THROAT: Ears normal, nares patent, oropharynx clear without exudates. Moist mucous membranes. NECK: Normal range of motion, supple without lymphadenopathy, JVD, or masses. LUNGS: Breath sounds equal, clear to auscultation bilaterally. No wheezes, and no crackles. No accessory muscle use. HEART: Regular rate and rhythm, normal S1 and S2 without murmur, rub or gallop. ABDOMEN: Soft, nontender, not distended, normoactive bowel sounds, no guarding, no rebound, no masses. No hepatomegaly or splenomegaly. MUSCULOSKELETAL: Normal range of motion at all joints. No bony deformities or tenderness. No CVA tenderness. UPPER EXTREMITIES: 2+ pulses, warm, well-perfused. No cyanosis. No clubbing. No peripheral edema. LOWER EXTREMITIES: 2+ pulses, warm, well-perfused. No calf tenderness. 1+ non- pitting edema NEUROLOGICAL: Cranial nerves II-XII intact. Normal speech. Normal gait. PSYCHIATRIC: Cooperative. Pt avoids most eye contact, speaks slowly. Became tearful several times during questioning. SKIN: Warm, dry, normal turgor, no rashes or lesions noted, normal capillary refill. Laboratory Results - last 24 hr CBC, BMP 07/17/19 19:45 07/17/19 19:45 Urine Test Results Urine Color Dk yellow Urine Appearance Cloudy Urine pH 5.5 (5.0-8.0) Ur Specific [place] 1.023 (1.010-1.035) Urine Protein Negative (NEGATIVE) Urine Glucose (UA) Negative (NEGATIVE) Urine Ketones Negative (NEGATIVE) Urine Blood Negative (NEGATIVE) Urine Nitrite Negative (NEGATIVE) Urine Bilirubin Negative (NEGATIVE) Ur Leukocyte Esterase Negative (NEGATIVE) Hepatic Panel Total Bilirubin 0.5 mg/dL (0.2-1) AST 67 U/L (15-37) H ALT 100 U/L (13-61) H Alkaline Phosphatase 154 U/L (45-117) H Albumin 3.8 g/dl (3.4-5.0) ASSESSMENT/PLAN: Patient is a 63 year old female with PMH of CAD (s/p CABG), NIDDM, HTN, HLD, asthma who presents with chest pain for 2 days. #Chest pain With pt's multiple co-morbidities, must r/o ACS EKG: NSR with no st elevations or ischemic changes Initial trop: neg, will cont to trend Echo (07/13/18): Borderline concentric LVH, EF: 60-65% Stress test (07/12/18): no ischemia, normal perfusion Will f/u repeat echo for any changes in function. Consider stress test in am. Consulting cardio (Dr. Thornton) as pt has been lost to f/u as outpt Monitor on tele #Transaminitis AST: 67, ALT: 100 Per pt, PCP told her that her LFTs have been elevated. She states that she self-discontinued her statin one month ago Pt denies alcohol/drug use, abd symptoms, any hx of liver disease. She is post-cholecystectomy ~25 years US abd (07/11/18): mild fatty infiltration of liver, small simple cyst 8mm Will f/u repeat RUQ US #Depression Pt was notably sad during interview, tearing up several times. Reports that she has lost 4 family members (including her and mother) in the past year. Spoke very slowly, avoided eye contact. Notes that she has lost 30 lbs in the past month due to poor appetite. PHQ-9 Depression screen: 12 Consider psych consult #DM Pt takes liraglutide 1.8mg SQ daily at home Will start SSI TIDAC during admission #HTN Cont home meds: 50mg BID, norvasc 5mg daily, enalapril 5mg daily #CAD s/p CABG Cont home meds: asa 81mg, plavix 75mg daily #FEN No standing fluids NPO, pending possible stress test in am #DVT ppx Heparin SQ #Dispo Monitor on tele Visit type - Emergency Visit Emergency Visit: Yes ED Registration Date: 07/17/19 Care time: The patient presented to the Emergency Department on the above date and was hospitalized for further evaluation of their emergent condition. - New Patient This patient is new to me today: Yes Date on this admission: 08/22/19 - Critical Care Critical Care patient: No ATTENDING PHYSICIAN STATEMENT I saw and evaluated the patient. I reviewed the resident's note and discussed the case with the resident. I agree with the resident's findings and plan as documented. SUBJECTIVE: OBJECTIVE: ASSESSMENT AND PLAN:
--- NOTE | 2019-07-17 23:48 | PN ---
Teaching Attending Note Name of Resident: Irma Long ATTENDING PHYSICIAN STATEMENT I saw and evaluated the patient. I reviewed the resident's note and discussed the case with the resident. I agree with the resident's findings and plan as documented. Seen and examined; please see resident note for further hsitorical information. Briefly, this is a 63 y/o female presenting with chest pain; +hx CAD s/p CABG (3V remote s/p PCI SVG to ramus). Seen by CV in past; echo 2018 shows LVEF wnl with mild MR/TR and normal RVSP. PCI done 2013, 2015, and 2005 CABG. When she was here for chest pain in 2018 Dr. Thornton saw her and ordered MIBI and was discharged. She is on Ranexa at home as well as long-acting nitrates. VS, labs, imaging reviewed NAD, AAO, resting in bed RRR s1/2 no mgr NC AT EOMI PERRLA Lungs CTAB, w/ sym exp Sternotomy scar Depressed mood EKG reviewed; prior studies reviewed Prior echo and MIBI discussed above No cath reports in system to review ASSESSMENT AND PLAN: Patient with a known hx CAD on optimal medical therapy presents to the ER with chest pain; we will place her on tele, r/o ACS, and consult her web editor. # Chest Pain with hx CAD # Hx DM # Hx HFpEF # Hx HLD Full Code
[2019-07-18] MEDS: HEPARIN NA (PORCINE) 5,000 UNITS/ML 1ML VIAL SQ SCH ×2 (03:00→09:53)
[2019-07-18] MEDS: INSULIN SLIDING SCALE (NOVOLOG) 1 VIAL SQ SCH ×3 (06:19→16:18)
[2019-07-18 07:28] VITALS: BMI 29.5
[2019-07-18 07:57] LABS: BASO % 0.5 % (0-2.0); HEMATOCRIT 37.3 % (32.4-45.2); HEMOGLOBIN 12.3 GM/dL (10.7-15.3); LYMPH % 36.7 % (8-40); MCH 22.2 pg (25.7-33.7); MEAN CELL VOLUME 67.4 fl (80-96); MEAN PLT VOLUME 8.2 fl (7.5-11.1); MONO % 7.4 % (3.8-10.2); NEUT % 53.4 % (42.8-82.8); PLATELET COUNT 219 K/MM3 (134-434); RBC 5.54 M/mm3 (3.60-5.2); WHITE BLOOD COUNT 7.4 K/mm3 (4.0-10.0)
[2019-07-18 07:59] LABS: ALBUMIN 3.2 g/dl (3.4-5.0); BILIRUBIN,TOTAL 0.7 mg/dL (0.2-1); BLOOD UREA NITROGEN 8.5 mg/dL (7-18); CALCIUM 8.7 mg/dL (8.5-10.1); CREATININE 0.6 mg/dL (0.55-1.3); POTASSIUM 3.7 mmol/L (3.5-5.1); TOT PROT 6.6 g/dl (6.4-8.2)
[2019-07-18] MEDS ORDERED: ASPIRIN COATED 81 MG TABLET.EC PO SCH (10:00)
[2019-07-18] MEDS ORDERED: FUROSEMIDE 20 MG TABLET (FP) PO SCH (10:00)
[2019-07-18] MEDS ORDERED: amLODIPine BESYLATE 5 MG TABLET (FP) PO SCH (10:00)
[2019-07-18] MEDS ORDERED: CLOPIDOGREL BISULFATE 75 MG TABLET (FP) PO SCH (10:00)
[2019-07-18] MEDS ORDERED: ENALAPRIL MALEATE 5 MG TABLET (FP) PO SCH (10:00)
[2019-07-18] MEDS ORDERED: REGADENOSON 0.4 MG/5 ML PRE-FILLED SYRINGE IVPUSH ONE ×2 (10:32→10:45)
--- NOTE | 2019-07-18 11:43 | CON.CARD ---
Cardiology Consult (text) - Consultation Consultation Note: Chief Complaint: Chest pain History of Present Illness: 63F with CAD s/p CABG 2005, multiple PCIs including SVG to Ramus in 2013, and again in 2017 after nuclear stress showed mild apical lateral ischemia. She now returns to ER with atypical CP described as sharp, at rest, lasting seconds each time, intermittent over past 3 days. No sob palps dizzy loc pnd orthopnea le edema. Cp resolved now. No anginal sxs. - History Source History Provided By: Patient - Past Medical History Cardio/Vascular: Yes: CAD (PCI, 2013, 2015 and CABG 2005), CHF (chronic diastolic), HTN, Hyperlipdemia Pulmonary: Yes: COPD Psych: Yes: Depression Endocrine: Yes: Diabetes Mellitus - Past Surgical History Past Surgical History: Yes: CABG (3 V 2004), Cholecystectomy - Alcohol/Substance Use Hx Alcohol Use: No History of Substance Use: reports: None - Smoking History Smoking history: Former smoker - Social History ADL: Independent History of Recent Travel: No Home Medications - Allergies Allergies/Adverse Reactions: Allergies Allergy/AdvReac Type Severity Reaction Status Date / Time mushroom Allergy Mild Swelling Verified 07/17/19 18:21 Home Medications Medication Instructions Recorded Albuterol Sulfate Inhaler - 2 puff IH Q6H PRN #1 inhaler 01/17/17 [Ventolin HFA Inhaler -] Clopidogrel Bisulfate [Plavix -] 75 mg PO DAILY #7 tablet 01/17/17 Amlodipine Besylate [Norvasc -] 5 mg PO DAILY 07/11/18 Aspirin [Ecotrin] 81 mg PO DAILY 07/11/18 Enalapril Maleate [Vasotec] 5 mg PO DAILY 07/11/18 Famotidine [Pepcid] 20 mg PO DAILY 07/11/18 Furosemide [Lasix] 20 mg PO DAILY 07/11/18 Isosorbide Mononitrate [Imdur -] 60 mg PO DAILY 07/11/18 Docusate Sodium [Colace] 100 mg PO BID PRN 07/12/18 Metoprolol Succinate [Toprol Xl] 50 mg PO BID 07/12/18 Oxycodone HCl/Acetaminophen 1 each PO TID PRN 07/12/18 [Oxycodone-Acetaminophen 10-325] Ranolazine [Ranexa] 1,000 mg PO BID 07/12/18 Liraglutide [Victoza -] 1.8 mg SQ DAILY@0700 01/21/19 Benzonatate [Tessalon Pearls -] 100 mg PO TID PRN #21 capsule 02/25/19 Ipratropium [place] 2 spray NS BID PRN #1 spray 02/25/19 Family Disease History - Family Disease History Family Disease History: Heart Disease: Mother Review of Systems Findings/Remarks: see HPI - Review of Systems Constitutional: denies: No Symptoms, Chills, Diaphoresis, Fever, Lethargy, Loss of Appetite, Malaise, Night Sweats, Unintentional Wgt. Loss, Weakness, Other Eyes: denies: No Symptoms, Blind Spots, Blurred Vision, Double Vision, Eye Pain , Floaters, Photophobia, Recent Change in Vision, Other HENT: denies: No Symptoms, Difficult Swallowing, Ear Discharge, Ear Pain, Epistaxis, Gingival Bleeding, Hearing Loss, Mouth Swelling, Nasal Congestion, Ocular Prosthesis, Throat Pain, Toothache, Ringing in Ears, Other Neck: denies: No Symptoms, Decreased ROM, Lumps, Pain on Movement, Stiffness, Swollen Glands, Tenderness, Other Cardiovascular: reports: Chest Pain Respiratory: denies: No Symptoms, Cough, Exercise Intolerance, Hemoptysis, Orthopnea, PND, Snoring, SOB, SOB on Exertion, Wheezing, Other Genitourinary: denies: No Symptoms, Burning, Discharge, Dysuria, Flank Pain, Frequency, Hematuria, Incontinence, Lesions, Menses, Pain, Testicular Mass, Testicular Pain, Testicular Swelling, Urgency, Vaginal Bleeding, Other Breasts: denies: No Symptoms Reported, See HPI, Breast Implants, Discharge from Nipple, Lumps, Pain, Skin Changes, Other Integumentary: denies: No Symptoms, Blister, Bruising, Change in Color, Eczema, Erythema, Incision, Lesions, Lump, Pallor, Pruritis, Rash, Wound, Other Neurological: denies: No Symptoms, Change in LOC, Change in Speech, Confusion, Dizziness, Headache, Incoordination, Numbness, Parasthesia, Pre-Existing Deficit , Seizure, Syncope, Tremors, Unsteady Gait, Weakness, Other Endocrine: denies: No Symptoms, Excessive Sweating, Flushing, Increased Hunger, Increased Thirst, Intolerance to Cold, Intolerance to Heat, Unexplained Weight Gain, Unexplained Weight Loss, Other - Risk Factors Known Risk Factors: Yes: Diabetes Mellitus, Prior DC /Emb Stroke, Smoking, Other (known CAD) Vital Signs: Vital Signs Period Temp Pulse Resp BP Sys/Thomas Pulse Ox Last 24 Hr 97.8 F-98.1 F 54-69 16-20 109-133/62-79 98-100 Constitutional: Yes: No Distress, Calm Eyes: Yes: Conjunctiva Clear, EOM Intact HENT: Yes: Atraumatic, Normocephalic Neck: Yes: Supple, Trachea Midline Respiratory: Yes: CTA Bilaterally Gastrointestinal: Yes: Soft Cardiovascular: Yes: Regular Rate and Rhythm JVD: No Carotid Bruit: No PMI: Non-Displaced Heart Sounds: Yes: S1, S2 (RRR, no m.r.g) Edema: No Peripheral Pulses WNL: Yes Neurological: Yes: Alert, Oriented ...Motor Strength: WNL no jaundice diaphoresis - Other Data Labs, Other Data: Laboratory Last Values WBC 7.4 K/mm3 (4.0-10.0) 07/18/19 06:55 RBC 5.54 M/mm3 (3.60-5.2) H 07/18/19 06:55 Hgb 12.3 GM/dL (10.7-15.3) 07/18/19 06:55 Hct 37.3 % (32.4-45.2) 07/18/19 06:55 MCV 67.4 fl (80-96) L 07/18/19 06:55 MCH 22.2 pg (25.7-33.7) L 07/18/19 06:55 MCHC 33.0 g/dl (32.0-36.0) 07/18/19 06:55 RDW 15.0 % (11.6-15.6) 07/18/19 06:55 Plt Count 219 K/MM3 (134-434) D 07/18/19 06:55 MPV 8.2 fl (7.5-11.1) 07/18/19 06:55 Absolute Neuts (auto) 4.0 K/mm3 (1.5-8.0) 07/18/19 06:55 Neutrophils % 53.4 % (42.8-82.8) 07/18/19 06:55 Lymphocytes % 36.7 % (8-40) 07/18/19 06:55 Monocytes % 7.4 % (3.8-10.2) 07/18/19 06:55 Eosinophils % 2.0 % (0-4.5) 07/18/19 06:55 Basophils % 0.5 % (0-2.0) 07/18/19 06:55 Nucleated RBC % 0 % (0-0) 07/18/19 06:55 PT with INR 12.70 SEC (9.7-13.0) 07/17/19 19:45 INR 1.08 (0.83-1.09) 07/17/19 19:45 D-Dimer 411 ng/ml (0-500) 07/17/19 19:45 Sodium 142 mmol/L (136-145) 07/18/19 06:55 Potassium 3.7 mmol/L (3.5-5.1) 07/18/19 06:55 Chloride 110 mmol/L (98-107) H 07/18/19 06:55 Carbon Dioxide 26 mmol/L (21-32) 07/18/19 06:55 Anion Gap 7 MMOL/L (8-16) L 07/18/19 06:55 BUN 8.5 mg/dL (7-18) 07/18/19 06:55 Creatinine 0.6 mg/dL (0.55-1.3) 07/18/19 06:55 Est GFR (CKD-EPI)AfAm 114.02 07/18/19 06:55 Est GFR (CKD-EPI)NonAf 98.38 07/18/19 06:55 POC Glucometer 80 UNITS (80-120) 07/18/19 05:40 Random Glucose 77 mg/dL (74-106) 07/18/19 06:55 Calcium 8.7 mg/dL (8.5-10.1) 07/18/19 06:55 Total Bilirubin 0.7 mg/dL (0.2-1) 07/18/19 06:55 AST 46 U/L (15-37) H 07/18/19 06:55 ALT 82 U/L (13-61) H 07/18/19 06:55 Alkaline Phosphatase 141 U/L (45-117) H 07/18/19 06:55 Creatine Kinase 127 U/L (26-192) 07/17/19 19:45 Troponin I < 0.02 ng/ml (0.00-0.05) 07/18/19 06:55 Total Protein 6.6 g/dl (6.4-8.2) 07/18/19 06:55 Albumin 3.2 g/dl (3.4-5.0) L 07/18/19 06:55 Urine Color Dk yellow 07/17/19 21:40 Urine Appearance Cloudy 07/17/19 21:40 Urine pH 5.5 (5.0-8.0) 07/17/19 21:40 Ur Specific [place] 1.023 (1.010-1.035) 07/17/19 21:40 Urine Protein Negative (NEGATIVE) 07/17/19 21:40 Urine Glucose (UA) Negative (NEGATIVE) 07/17/19 21:40 Urine Ketones Negative (NEGATIVE) 07/17/19 21:40 Urine Blood Negative (NEGATIVE) 07/17/19 21:40 Urine Nitrite Negative (NEGATIVE) 07/17/19 21:40 Urine Bilirubin Negative (NEGATIVE) 07/17/19 21:40 Urine Urobilinogen 1.0 mg/dL (0.2-1.0) 07/17/19 21:40 Ur Leukocyte Esterase Negative (NEGATIVE) 07/17/19 21:40 ecg: sr, no ischemic changes tele: sr mibi 06/2018: no ischemia echo 06/2018: nl lv/rv, mild mr, mild tr, nl rvsp cxr: clear lungs Problem List - Problems (1) CAD (coronary artery disease) Code(s): I25.10 - ATHSCL HEART DISEASE OF [place] CORONARY ARTERY W/O ANG PCTRS Qualifiers: Coronary Disease-Associated Artery/Lesion type: bypass graft [place] vs. transplanted heart: [place] heart (2) Atypical chest pain Code(s): R07.89 - OTHER CHEST PAIN (3) Diabetes Code(s): E11.9 - TYPE 2 DIABETES MELLITUS WITHOUT COMPLICATIONS Qualifiers: Diabetes mellitus type: type 2 (4) HTN (hypertension) Code(s): I10 - ESSENTIAL (PRIMARY) HYPERTENSION Qualifiers: Hypertension type: essential hypertension Qualified Code(s): I10 - Essential (primary) hypertension Assessment/Plan IMP: CAD s/p CABG and multivessel PCI- last in 2016 DM HTN Atypical chest pain. REC: cp: -atypical, resolved -trops neg, ecg w/o ischemic changes, no signs acs -echo and nuclear stress test pending, if both benign then ok for dc today from cardiac pov cad: -as above -continue home meds including ASA/Plavix/Metoprolol/Statin/Imdur htn: -cont home meds
--- NOTE | 2019-07-18 13:30 | ECHO ---
Name: BANDAR GRISSOM Exam:Adult Echocardiogram Study Date: 07/18/2019 08:58 AM Age: 63 yrs Reason For Study: RULE OUT ACS Height: 66 in Weight: 182 lb BSA: 1.9 m2 MMode/2D Measurements & Calculations IVSd: 1.1 cm Ao root diam: 2.9 cm LVIDd: 4.3 cm LA dimension: 3.2 cm LVIDs: 2.8 cm LVPWd: 1.2 cm LVPWs: 1.4 cm EDV(Teich): 81.0 ml ESV(Teich): 30.0 ml LVOT diam: 2.2 cm RV S Trent: 10.6 cm/sec Doppler Measurements & Calculations MV E max trent: 80.0 cm/sec Ao V2 max: 129.5 cm/sec MV A max trent: 54.3 cm/sec Ao max P.7 mmHg MV E/A: 1.5 Ao V2 mean: 89.3 cm/sec MV dec time: 0.31 sec Ao mean P.5 mmHg Ao V2 VTI: 32.1 cm CRISTI(I,D): 2.2 cm2 CRISTI(V,D): 2.6 cm2 LV V1 max P.3 mmHg SV(LVOT): 71.4 ml LV V1 mean P.6 mmHg LV V1 max: 91.3 cm/sec LV V1 mean: 57.4 cm/sec LV V1 VTI: 19.6 cm PA V2 max: 70.1 cm/sec Med Peak E' Trent: 6.6 cm/sec PA max P.0 mmHg Med E/e': 12.1 Lat Peak E' Trent: 7.6 cm/sec Lat E/e': 10.5 Procedure A complete two-dimensional transthoracic echocardiogram was performed (2D, M-mode, Doppler and color flow Doppler). Left Ventricle The left ventricular size, thickness and function are normal. The left ventricular ejection fraction is normal. Ejection Fraction = 60-65%. The left ventricular wall motion is normal. Right Ventricle The right ventricle is normal in size and function. Atria Normal left and right atrial size and function. Mitral Valve There is no mitral regurgitation noted. Tricuspid Valve There is trace tricuspid regurgitation. There was insufficient TR detected to calculate RV systolic p ressure. Aortic Valve No hemodynamically significant valvular aortic stenosis. No aortic regurgitation is present. Pulmonic Valve There is no pulmonic valvular regurgitation. Great Vessels The aortic root is normal size. Pericardium/Pleura There is no pericardial effusion. Interpretation Summary The left ventricular size, thickness and function are normal The right ventricle is normal in size and function. There is trace tricuspid regurgitation. MD James Armendariz 07/18/2019 01:29 PM
[2019-07-18 15:14] VITALS: BP 118/59; PULSE 73; TEMP 97.7
--- NOTE | 2019-07-18 16:46 | PN ---
Teaching Attending Note Name of Resident: Deborah Viramontes ATTENDING PHYSICIAN STATEMENT I saw and evaluated the patient. I reviewed the resident's note and discussed the case with the resident. I agree with the resident's findings and plan as documented. SUBJECTIVE:asymptomatic. denies CP, SOB, fever, chills, N/V/c/D OBJECTIVE: Last Vital Signs Temp Pulse Resp BP Pulse Ox 97.7 F 73 18 118/59 L 100 07/18/19 14:00 07/18/19 14:00 07/18/19 14:00 07/18/19 14:00 07/18/19 07:54 General NAD ASSESSMENT AND PLAN: 63yo F wtih PMH CAD s/p CABG, DM, dyslipidemia, disatolic CHF presented to the ER with cp x2days and found to have elevated liver enzymes 1. R/o ACS- has not followed [facility] [place] cardio for over a year. at that time had a negative stress. will consult cardio as would liekly benefit from stress test. cont home medication 2. Transamintiis- appears stable. as per pt was told 2 months ago that her liver test were high and she stopped her statin. has not followed up since then. abdominal u/s pending. would cont to hold statin. and will need outpatient monitoring 3. plan to d/c home pending results of NMST and abdominal u/s
--- NOTE | 2019-07-18 16:59 | EKG ---
Test Reason : Blood Pressure : / mmHG Vent. Rate : 065 BPM Atrial Rate : 065 BPM P-R Int : 172 ms QRS Dur : 084 ms QT Int : 430 ms P-R-T Axes : 032 004 032 degrees QTc Int : 447 ms NORMAL SINUS RHYTHM POSSIBLE LEFT ATRIAL ENLARGEMENT BORDERLINE ECG WHEN COMPARED WITH ECG OF 21-JAN-2019 21:04, NO SIGNIFICANT CHANGE WAS FOUND Confirmed by ERIK BOYER MD ([id number]) on 07/18/2019 4:59:28 PM Referred By: Confirmed By:ERIK BOYER MD
--- NOTE | 2019-07-18 17:42 | DS ---
Physical Exam: SUBJECTIVE: Patient seen and examined. In no acute distress. Denies CP/ SOB/ N/V /D/ fevers/ chills. OBJECTIVE: Vital Signs Period Temp Pulse Resp BP Sys/Thomas Pulse Ox Last 24 Hr 97.7 F-98.1 F 54-73 16-20 109-133/59-79 98-100 PHYSICAL EXAM GENERAL: The patient is awake, alert, and fully oriented, in no acute distress. HEENT: No JVD LUNGS: Breath sounds equal, clear to auscultation bilaterally, no wheezes, no crackles, no accessory muscle use. HEART: Regular rate and rhythm, S1, S2 without murmur, rub or gallop. ABDOMEN: Soft, nontender, nondistended, normoactive bowel sounds, no guarding. EXTREMITIES: 2+ pulses, warm, well-perfused, no edema. LABS Laboratory Results - last 24 hr 07/17/19 07/17/19 07/17/19 19:45 19:45 19:45 WBC 9.6 RBC 6.34 H Hgb 14.0 Hct 42.7 MCV 67.4 L MCH 22.1 L MCHC 32.8 RDW 15.3 Plt Count 287 MPV 8.5 Absolute Neuts (auto) 5.3 Neutrophils % 55.3 Lymphocytes % 33.6 Monocytes % 7.5 Eosinophils % 2.1 Basophils % 1.5 Nucleated RBC % 1 H PT with INR INR D-Dimer Sodium Potassium Chloride Carbon Dioxide Anion Gap BUN Creatinine Est GFR (CKD-EPI)AfAm Est GFR (CKD-EPI)NonAf POC Glucometer Random Glucose Calcium Total Bilirubin AST ALT Alkaline Phosphatase Creatine Kinase 127 Troponin I Cancelled < 0.02 Total Protein Albumin Urine Color Urine Appearance Urine pH Ur Specific [place] Urine Protein Urine Glucose (UA) Urine Ketones Urine Blood Urine Nitrite Urine Bilirubin Urine Urobilinogen Ur Leukocyte Esterase 07/17/19 07/17/19 07/17/19 19:45 19:45 19:45 WBC RBC Hgb Hct MCV MCH MCHC RDW Plt Count MPV Absolute Neuts (auto) Neutrophils % Lymphocytes % Monocytes % Eosinophils % Basophils % Nucleated RBC % PT with INR 12.70 INR 1.08 D-Dimer 411 Sodium 140 Potassium 4.6 Chloride 107 Carbon Dioxide 26 Anion Gap 7 L BUN 7.7 Creatinine 0.6 Est GFR (CKD-EPI)AfAm 114.02 Est GFR (CKD-EPI)NonAf 98.38 POC Glucometer Random Glucose 71 L Calcium 9.1 Total Bilirubin 0.5 AST 67 H ALT 100 H Alkaline Phosphatase 154 H Creatine Kinase Cancelled Troponin I Cancelled Total Protein 7.8 Albumin 3.8 Urine Color Urine Appearance Urine pH Ur Specific [place] Urine Protein Urine Glucose (UA) Urine Ketones Urine Blood Urine Nitrite Urine Bilirubin Urine Urobilinogen Ur Leukocyte Esterase 07/17/19 07/18/19 07/18/19 21:40 00:17 05:40 WBC RBC Hgb Hct MCV MCH MCHC RDW Plt Count MPV Absolute Neuts (auto) Neutrophils % Lymphocytes % Monocytes % Eosinophils % Basophils % Nucleated RBC % PT with INR INR D-Dimer Sodium Potassium Chloride Carbon Dioxide Anion Gap BUN Creatinine Est GFR (CKD-EPI)AfAm Est GFR (CKD-EPI)NonAf POC Glucometer 80 Random Glucose Calcium Total Bilirubin AST ALT Alkaline Phosphatase Creatine Kinase Troponin I < 0.02 Total Protein Albumin Urine Color Dk yellow Urine Appearance Cloudy Urine pH 5.5 Ur Specific [place] 1.023 Urine Protein Negative Urine Glucose (UA) Negative Urine Ketones Negative Urine Blood Negative Urine Nitrite Negative Urine Bilirubin Negative Urine Urobilinogen 1.0 Ur Leukocyte Esterase Negative 07/18/19 07/18/19 07/18/19 06:55 06:55 06:55 WBC 7.4 RBC 5.54 H Hgb 12.3 Hct 37.3 MCV 67.4 L MCH 22.2 L MCHC 33.0 RDW 15.0 Plt Count 219 D MPV 8.2 Absolute Neuts (auto) 4.0 Neutrophils % 53.4 Lymphocytes % 36.7 Monocytes % 7.4 Eosinophils % 2.0 Basophils % 0.5 Nucleated RBC % 0 PT with INR INR D-Dimer Sodium 142 Potassium 3.7 Chloride 110 H Carbon Dioxide 26 Anion Gap 7 L BUN 8.5 Creatinine 0.6 Est GFR (CKD-EPI)AfAm 114.02 Est GFR (CKD-EPI)NonAf 98.38 POC Glucometer Random Glucose 77 Calcium 8.7 Total Bilirubin 0.7 AST 46 H ALT 82 H Alkaline Phosphatase 141 H Creatine Kinase Troponin I < 0.02 Total Protein 6.6 Albumin 3.2 L Urine Color Urine Appearance Urine pH Ur Specific [place] Urine Protein Urine Glucose (UA) Urine Ketones Urine Blood Urine Nitrite Urine Bilirubin Urine Urobilinogen Ur Leukocyte Esterase 07/18/19 16:14 WBC RBC Hgb Hct MCV MCH MCHC RDW Plt Count MPV Absolute Neuts (auto) Neutrophils % Lymphocytes % Monocytes % Eosinophils % Basophils % Nucleated RBC % PT with INR INR D-Dimer Sodium Potassium Chloride Carbon Dioxide Anion Gap BUN Creatinine Est GFR (CKD-EPI)AfAm Est GFR (CKD-EPI)NonAf POC Glucometer 266 Random Glucose Calcium Total Bilirubin AST ALT Alkaline Phosphatase Creatine Kinase Troponin I Total Protein Albumin Urine Color Urine Appearance Urine pH Ur Specific [place] Urine Protein Urine Glucose (UA) Urine Ketones Urine Blood Urine Nitrite Urine Bilirubin Urine Urobilinogen Ur Leukocyte Esterase HOSPITAL COURSE: 63 y.o. F PMH CAD (s/p CABG), DM2, HTN, HLD, ashtma, diastolic CHF presented for hest pain for 2 days duration with transaminitis. Admitted for r/o ACS. Pt has not followed up with a road advisor in about 1 year; 1 year ago p had negative stress test and echo showing EF 60-65% and LVH; repeat echo on this visit showed normal EF and trace TR.. EKG showed NSR. Cardio was consulted, recommended stress test which was normal. Started on Imdur 30mg daily. Abd US performed for findings of transaminitis, found to have mild fatty liver. Educated patient on importance of medication compliance and physician follow- up. Pt will f/u outpatient w/ Dr. Thornton. Date of Admission:07/17/19 Cardac stress test: No ischemia Abd US: Status post cholecystectomy. Mild fatty infiltration of the liver versus hepatocellular disease. Please correlate with liver enzymes. Normal- appearing right kidney. CXR 07/17: Single view of the chest reveals clear lungs, sternal sutures and clips, lower cervical spine fusion and prominent mediastinum. The hands are sharp and the soft tissues are intact. Acute process is not seen. Echo: normal EF. Trace TR. EKG wtc 447. NSR Date of Discharge: 07/18/19 Minutes to complete discharge: 36 Discharge Summary Reason For Visit: CHEST PAIN, HTN, HYPERLIPIDEMIA Condition: Stable - Instructions Diet, Activity, Other Instructions: Your visit: You were admitted to the hospital for chest pain. You were treated with medication and we monitored your heart function. While you were here you were found to have mildly elevated liver function testing. Please follow this up with your primary care provider as you may need to have repeat lab testing. Medications: 1. Please take Imdur (Isosorbide mononitrate) 30mg by mouth daily. Continue all other home medications as prescribed. Follow up with the following physicians: 1. Primary care provider (Dr. Josephine Darby) in 1 week. 2. [place] (Dr. Thornton) in 1 week. Further Instructions: You are being discharged to your home. Please return to the ER if you have any signs or symptoms of chest pain, shortness of breath, dizziness, nausea, vomiting, abdominal pains, diarrhea, fevers, fatigue or muscle pains. Please return to the ER if symptoms persist, worsen, or new symptoms arise. Referrals: Sha Thornton MD [Staff Physician] - Josephine Darby MD [Primary Care Provider] - Disposition: HOME - Home Medications Comprehensive Discharge Medication List: Ambulatory Orders Albuterol Sulfate Inhaler - [Ventolin HFA Inhaler -] 2 puff IH Q6H PRN #1 inhaler 01/17/17 Clopidogrel Bisulfate [Plavix -] 75 mg PO DAILY #7 tablet 01/17/17 Amlodipine Besylate [Norvasc -] 5 mg PO DAILY 07/11/18 Aspirin [Ecotrin] 81 mg PO DAILY 07/11/18 Enalapril Maleate [Vasotec] 5 mg PO DAILY 07/11/18 Famotidine [Pepcid] 20 mg PO BID 07/11/18 Furosemide [Lasix] 20 mg PO DAILY 07/11/18 Docusate Sodium [Colace] 100 mg PO BID PRN 07/12/18 Metoprolol Succinate [Toprol Xl] 50 mg PO BID 07/12/18 Oxycodone HCl/Acetaminophen [Oxycodone-Acetaminophen 10-325] 1 each PO TID PRN 07/12/18 Ranolazine [Ranexa] 1,000 mg PO BID 07/12/18 Liraglutide [Victoza -] 1.8 mg SQ DAILY@0700 01/21/19 Ipratropium [place] 2 spray NS BID PRN #1 spray 02/25/19 Isosorbide Mononitrate [Imdur -] 30 mg PO DAILY #30 tab.sr.24h 07/18/19 This patient is new to me today: No Emergency Visit: No Critical Care patient: No - Discharge Referral [facility]erred to [facility] Med P.C.: No ATTENDING PHYSICIAN STATEMENT I saw and evaluated the patient. I reviewed the resident's note and discussed the case with the resident. I agree with the resident's findings and plan as documented. SUBJECTIVE: OBJECTIVE: ASSESSMENT AND PLAN:
== END 2019-07-18 17:39 | disposition home or self-care (01) | DRG 313 ==
LOC: JER 18:06 → JERBED 20:55 → OBSVTOIN 21:55 → J4W 07-18 02:03
PROVIDERS: ADMIT Internal Medicine; ATTEND Internal Medicine
DX: R07.89 Other chest pain (principal); I50.32 Chronic diastolic (congestive) heart failure; I25.10 Atherosclerotic heart disease of native coronary artery without angina pectoris; R94.5 Abnormal results of liver function studies; I11.0 Hypertensive heart disease with heart failure; Z95.1 Presence of aortocoronary bypass graft; E11.9 Type 2 diabetes mellitus without complications; E78.5 Hyperlipidemia, unspecified; F17.210 Nicotine dependence, cigarettes, uncomplicated; J45.909 Unspecified asthma, uncomplicated; R74.0 Nonspecific elevation of levels of transaminase and lactic acid dehydrogenase [LDH]; F32.9 Major depressive disorder, single episode, unspecified
CPT/HCPCS: 36415; 71045-TC-FY; 76705-TC; 78452-TC; 80053; 81003; 82550; 82962; 84484; 85025; 85379; 85610; 87086; 93005; 93010; 93017; 93306-TC; 99285-25; A9502; G0378; J1644; J2785; J7030

== ENCOUNTER 2019-11-07 12:18 | Emergency (ER) | payer MEDICARE, OTHER ==
[2019-11-07 12:28] VITALS: BP 143/77; PULSE 69; TEMP 98; BMI 29.3
[2019-11-07] MEDS ORDERED: IBUPROFEN 600 MG TABLET (FP) PO ONE ×2 (13:43→13:57)
--- NOTE | 2019-11-07 14:49 | PDOC ---
History of Present Illness - General Chief Complaint: Cold Symptoms Stated Complaint: PAIN Time Seen by Provider: 11/07/19 12:49 History Source: Patient Exam Limitations: No Limitations - History of Present Illness Initial Comments: 11/07/19 14:43 63-year-old female presents accompanied by her home health aide with history of CAD status post CABG, diabetes, hypertension, hyperlipidemia, pneumonia in the past, tobacco smoker presents complaining of productive cough, body aches, fever T-max 102, sore throat, earache since yesterday. Denies recent sick contacts, recent travel, shortness of breath, chest pain, nausea, vomiting, diarrhea, abdominal pain or any other symptoms. ROS: GENERAL/CONSTITUTIONAL: Positive fever, no chills, weakness, dizziness HEAD, EYES, EARS, NOSE AND THROAT: Positive ear pain, sore throat CARDIOVASCULAR: No chest pain RESPIRATORY: Positive cough, no shortness of breath GASTROINTESTINAL: No pain, nausea, vomiting, diarrhea or constipation GENITOURINARY: No dysuria MUSCULOSKELETAL: No neck or back pain SKIN: No rash NEUROLOGIC: No headache, vertigo, loss of consciousness, or loss of sensation PE: GENERAL: well-appearing, NAD HEAD: NCAT EYES: Pupils equal, round and reactive to light, sclera anicteric, conjunctiva clear ENT: Normal ear canals bilaterally, pharynx: Minimal erythema, no exudate, uvula midline NECK: supple CHEST: nontender RESP: clear, no w/r/r CARDIO: rrr, no m/g/r ABD: +BS, soft, nontender, non distended BACK: no midline spinal ttp, no CVAT EXTREMITIES: Normal range of motion, no edema NEUROLOGICAL: Normal speech, normal gait SKIN: Warm, Dry Is this a multiple visit Asthma Patient?: No Past History - Past Medical History Allergies/Adverse Reactions: Allergies Allergy/AdvReac Type Severity Reaction Status Date / Time mushroom Allergy Mild Swelling Verified 11/07/19 12:28 Home Medications: Ambulatory Orders Albuterol Sulfate Inhaler - [Ventolin HFA Inhaler -] 2 puff IH Q6H PRN #1 inhaler 01/17/17 Clopidogrel Bisulfate [Plavix -] 75 mg PO DAILY #7 tablet 01/17/17 Amlodipine Besylate [Norvasc -] 5 mg PO DAILY 07/11/18 Aspirin [Ecotrin] 81 mg PO DAILY 07/11/18 Enalapril Maleate [Vasotec] 5 mg PO DAILY 07/11/18 Famotidine [Pepcid] 20 mg PO BID 07/11/18 Furosemide [Lasix] 20 mg PO DAILY 07/11/18 Docusate Sodium [Colace] 100 mg PO BID PRN 07/12/18 Metoprolol Succinate [Toprol Xl] 50 mg PO BID 07/12/18 Oxycodone HCl/Acetaminophen [Oxycodone-Acetaminophen 10-325] 1 each PO TID PRN 07/12/18 Ranolazine [Ranexa] 1,000 mg PO BID 07/12/18 Liraglutide [Victoza -] 1.8 mg SQ DAILY@0700 01/21/19 Ipratropium [place] 2 spray NS BID PRN #1 spray 02/25/19 Isosorbide Mononitrate [Imdur -] 30 mg PO DAILY #30 tab.sr.24h 07/18/19 Asthma: Yes Cardiac Disorders: Yes (Bypass 2007, CARDIAC STENT IN JUN 2014) COPD: No Diabetes: Yes HTN: Yes Hypercholesterolemia: Yes Psychiatric Problems: Yes - Surgical History Abdominal Surgery: Yes (Hernia repair) Cardiac Surgery: Yes (Bypass 2007, Cardiac stent 06/2014) Cholecystectomy: Yes (1990) Orthopedic Surgery: Yes (Spine surgery 12/29) - Immunization History Immunization Up to Date: No - Psycho Social/Smoking Cessation Hx Smoking Status: Yes Smoking History: Never smoked Have you smoked in the past 12 months: No Number of Cigarettes Smoked Daily: 2 If you are a former smoker, when did you quit?: "a while ago" 'Breaking Loose' booklet given: 07/18/19 Hx Alcohol Use: No Drug/Substance Use Hx: No Substance Use Type: None Hx Substance Use Treatment: No *Physical Exam - Vital Signs Last Vital Signs Temp Pulse Resp BP Pulse Ox 98 F 69 18 143/77 98 11/07/19 12:24 11/07/19 12:24 11/07/19 12:24 11/07/19 12:24 11/07/19 12:24 ED Treatment Course - RADIOLOGY Radiology Studies Ordered: Category Date Time Status CHEST PA & LAT [RAD] Stat Radiology 11/07/19 13:42 Completed - Medications Given in the ED: ED Medications Discontinued Medications Generic Name Dose Route Start Last Admin Trade Name Freq PRN Reason Stop Dose Admin Ibuprofen 600 mg 11/07/19 13:43 11/07/19 13:59 Motrin - PO 11/07/19 13:44 600 mg ONCE ONE Administration Medical Decision Making - Medical Decision Making 11/07/19 14:47 63-year-old female with history of CAD, diabetes, hypertension, hyperlipidemia, asthma complaining of cough, fever, body aches, sore throat and earache since yesterday. Rapid flu swab negative for influenza A and B Chest x-ray negative Ibuprofen 600 mg x 1 dose Stable for discharge Supportive care discussed Follow-up with your doctor this week Return precautions given Discharge - Discharge Information Problems reviewed: Yes Clinical Impression/Diagnosis: Viral illness Condition: Stable Disposition: HOME - Follow up/Referral Referrals: Josephine Darby MD [Primary Care Provider] - - Patient Discharge Instructions Additional Instructions: Alternate between acetaminophen 650 and ibuprofen 600 mg every 6 hours as needed for body aches Plenty fluids Rest Follow up with your doctor this week Return to ED if worsening symptoms including shortness of breath, chest pain, diarrhea, vomiting. - Post Discharge Activity
== END 2019-11-07 15:09 | disposition home or self-care (01) ==
LOC: JERFT 12:18
DX: B34.9 Viral infection, unspecified (principal); E11.9 Type 2 diabetes mellitus without complications; I10 Essential (primary) hypertension; E78.5 Hyperlipidemia, unspecified; J45.909 Unspecified asthma, uncomplicated; I25.10 Atherosclerotic heart disease of native coronary artery without angina pectoris
CPT/HCPCS: 71046-TC-FY; 87804; 99281-25

== ENCOUNTER 2020-01-12 16:23 | Observation (INO) | payer MEDICARE ==
[2020-01-12 16:31] VITALS: BMI 29.3
--- NOTE | 2020-01-12 16:45 | PDOC ---
History of Present Illness - General Chief Complaint: Respiratory Stated Complaint: CHEST TIGHTNESS Time Seen by Provider: 01/12/20 16:44 History Source: Patient Exam Limitations: No Limitations - History of Present Illness Initial Comments: 01/12/20 16:47 64yF w PMHx CAD s/p CABG, T2DM, HTN, HLD, asthma, fatty liver, HFpEF complaining of progressive worsening L chest tightness, L arm and leg heaviness at rest since yesterday morning. Not sure if she took aspirin today. Did not take any pain meds for symptoms. Feels anxious about own health because best friend recently , and visited mother's grave site yesterday. Denies fever, headache, nausea/vomiting, SOB. Walks w cane at baseline. 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 Past History - Past Medical History Allergies/Adverse Reactions: Allergies Allergy/AdvReac Type Severity Reaction Status Date / Time mushroom Allergy Mild Swelling Verified 01/12/20 16:31 Home Medications: Ambulatory Orders Albuterol Sulfate Inhaler - [Ventolin HFA Inhaler -] 2 puff IH Q6H PRN #1 inhaler 01/17/17 Clopidogrel Bisulfate [Plavix -] 75 mg PO DAILY #7 tablet 01/17/17 Amlodipine Besylate [Norvasc -] 5 mg PO DAILY 07/11/18 Aspirin [Ecotrin] 81 mg PO DAILY 07/11/18 Enalapril Maleate [Vasotec] 5 mg PO DAILY 07/11/18 Famotidine [Pepcid] 20 mg PO DAILY 07/11/18 Furosemide [Lasix] 20 mg PO DAILY 07/11/18 Docusate Sodium [Colace] 100 mg PO BID 07/12/18 Metoprolol Succinate [Toprol Xl] 50 mg PO DAILY 07/12/18 Ranolazine [Ranexa] 1,000 mg PO BID 07/12/18 Liraglutide [Victoza -] 1.8 mg SQ DAILY@0700 01/21/19 Asthma: Yes Cardiac Disorders: Yes (Bypass 2007, CARDIAC STENT IN JUN 2014) COPD: No Diabetes: Yes HTN: Yes Hypercholesterolemia: Yes Psychiatric Problems: Yes - Surgical History Abdominal Surgery: Yes (Hernia repair) Cardiac Surgery: Yes (Bypass 2007, Cardiac stent 06/2014) Cholecystectomy: Yes (1990) Orthopedic Surgery: Yes (Spine surgery 2/2 rods) - Immunization History Immunization Up to Date: No - Psycho Social/Smoking Cessation Hx Smoking Status: Yes Smoking History: Current some day smoker Have you smoked in the past 12 months: No Number of Cigarettes Smoked Daily: 2 If you are a former smoker, when did you quit?: "a while ago" Information on smoking cessation initiated: No 'Breaking Loose' booklet given: 07/18/19 Hx Alcohol Use: No Drug/Substance Use Hx: No Substance Use Type: None Hx Substance Use Treatment: No Review of Systems - Review of Systems Constitutional: No: Chills, Fever HEENTM: No: Eye Pain, Nose Pain Respiratory: No: Cough, Shortness of Breath Cardiac (ROS): Yes: Chest Pain. No: Palpitations, Syncope ABD/GI: No: Abdominal Distended, Constipated, Diarrhea, Nausea, Vomiting : No: Burning, Dysuria Musculoskeletal: No: Back Pain, Joint Pain Integumentary: No: Bruising, Flushing Neurological: No: Headache, Seizure Psychiatric: No: Anxiety, Depression Endocrine: No: Intolerance to Cold, Intolerance to Heat Hematologic/Lymphatic: No: Anemia, Blood Clots *Physical Exam - Vital Signs Last Vital Signs Temp Pulse Resp BP Pulse Ox 98 F 76 18 125/67 97 01/12/20 16:28 01/12/20 16:28 01/12/20 16:28 01/12/20 16:28 01/12/20 16:28 - Physical Exam General Appearance: Yes: Nourished, Appropriately Dressed, Mild Distress HEENT: positive: EOMI, [place], Normal Voice. negative: Scleral Icterus (R), Scleral Icterus (L) Respiratory/Chest: positive: Lungs Clear, Normal Breath Sounds. negative: Chest Tender, Respiratory Distress, Crackles, Rales, Rhonchi, Stridor, Wheezing Cardiovascular: positive: Regular Rhythm, Regular Rate, S1, S2. negative: Edema , Murmur Gastrointestinal/Abdominal: positive: Normal Bowel Sounds, Flat, Soft. negative : Tender, Organomegaly Extremity: negative: Pedal Edema Integumentary: positive: Normal Color. negative: Dry, Rash Neurologic: positive: mold setter II-XII NML intact, Fully Oriented, Alert, Normal Response, Motor Strength 5/5, Respond to painful stimul, Responsive, Other ( normal balance). negative: Normal Mood/Affect (tearful, anxious), Facial Droop , Numbness, Sensory Deficit, Confused, Disoriented Heart Score/ECG Review - History History: Slightly suspicious - Electrocardiogram EKG: Normal - Age Age: 45-65 - Risk Factors Risk Factors Heart Score: Yes Hx Hypercholesterolemia, Yes Hx Hypertension, Yes Hx Diabetes Based on the list above the patient has:: >/=3 risk factors or Hx atherosclerotic disease - Troponin Troponin: </= normal limit - Score Heart Score - Total: 3 ED Treatment Course - LABORATORY CBC & Chemistry Diagram: 01/12/20 18:00 01/12/20 18:00 Medical Decision Making - Medical Decision Making 01/12/20 17:19 CXR - clear lung rios, normal cardiac size, sternal sutures EKG NSR, HR 70, QTc 425, no ST changes AST 73 ALT 137 ALP 150 --- 64yF w PMHx CAD s/p CABG, T2DM, HTN, HLD, asthma, fatty liver, HFpEF complaining of 2d progressive worsening L chest tightness, L arm and leg heaviness d/t anxiety (life stressors). Low concern for CVA (no focal neuro deficits) vs ACS (neg trop, no ST changes) vs PNA (clear lungs). Chronic elevated LFTs since 2019 likely d/t fatty liver but didnt follow up w PCP Given 162 aspirin, tylenol Admitted tele/obvs Dr Rodas for chest pain, HEART score 3, ACS r/o Discharge - Discharge Information Problems reviewed: Yes Clinical Impression/Diagnosis: Chest pain Qualifiers: Chest pain type: unspecified Qualified Code(s): R07.9 - Chest pain, unspecified Condition: Good - Follow up/Referral Referrals: Josephine Darby MD [Primary Care Provider] - - Patient Discharge Instructions - Post Discharge Activity
--- NOTE | 2020-01-12 17:14 | PDOC ---
Documentation entered by Maida Vincent SCRIBE, acting as scribe for Lana Hurley MD. Lana Hurley MD: This documentation has been prepared by the alisonibe, Maida Vincent SCRIBE, under my direction and personally reviewed by me in its entirety. I confirm that the documentation accurately reflects all work, treatment, procedures, and medical decision making performed by me. Attending Attestation - Resident Resident Name: Nile Vargas - ED Attending Attestation I have performed the following: I have examined & evaluated the patient, The case was reviewed & discussed with the resident, I agree w/resident's findings & plan, Exceptions are as noted - HPI HPI: 01/12/20 17:23 The patient is a 64-year-old female with a past medical history significant for CAD s/p CABG, DM Type 2, HTN, HLD, Asthma, and HFpEF who presents to the emergency department with Left-sided chest pain. The patient reports left-sided chest pain felt under her left breast, which radiates up to the left shoulder, associated with left arm pain. The patient reports additional concern of lower back pain and left leg pain. Denies shortness of breath, fever, chills, nausea, vomiting. The patient states she is anxious because her best friend recently , and she visited her mother's gravesite yesterday. - Physicial Exam PE: 01/12/20 18:09 GENERAL: Well developed, well nourished. Awake and alert. No acute distress. HEENT: Normocephalic, atraumatic. PERRLA, EOMI. No conjunctival pallor. Sclera are non- icteric. Moist mucous membranes. Oropharynx is clear. NECK: Supple. Full ROM. No JVD or bruits. CARDIOVASCULAR: Regular rate and rhythm. No murmurs, rubs, or gallops. PULMONARY: No evidence of respiratory distress. Lungs clear to auscultation bilaterally. No wheezing, rales or rhonchi. ABDOMINAL: Soft. Non-tender. Non-distended. No rebound or guarding. Normoactive bowel sounds. MUSCULOSKELETAL Normal range of motion at all joints. No bony deformities or tenderness. No CVA tenderness. EXTREMITIES: No cyanosis. No clubbing. No edema. No calf tenderness. SKIN: Warm and dry. Normal capillary refill. No rashes. No jaundice. NEUROLOGICAL: Alert, awake, and oriented x3e. Cranial nerves 2-12 intact. Motor strength 5/5, no ataxia or foot droop. PSYCHIATRIC: Cooperative. Good eye contact. Appropriate mood and affect. - Medical Decision Making 01/12/20 18:39 64-year-old female past medical history of coronary artery disease, cardiac stent, hypertension, CHF presents with left-sided chest pain She was here in July 18, 2019 had an echo that showed normal LV function, EF of 60-65% 01/12/20 21:52 Negative troponin CBC is unremarkable Chemistries reviewed and she does have elevated ALT LFTs and she had on her prior ED visit also Admit to telemetry
[2020-01-12] MEDS ORDERED: ASPIRIN 81 MG CHEWABLE TABLETS PO ONE (17:17)
[2020-01-12] MEDS ORDERED: ASPIRIN 81 MG CHEWABLE TABLETS ONE (17:22)
[2020-01-12] MEDS ORDERED: ACETAMINOPHEN 1000 MG/100 ML VIAL (NON FORMULARY) IVPB ONE (17:23)
[2020-01-12] MEDS ORDERED: ACETAMINOPHEN INJECTION 100 ML IVPB ONE (17:54)
[2020-01-12 18:10] LABS: BASO % 1.4 % (0-2.0); EOS % 2.7 % (0-4.5); HEMATOCRIT 40.1 % (32.4-45.2); LYMPH % 30.9 % (8-40); MCH 22.5 pg (25.7-33.7); MCHC 32.6 g/dl (32.0-36.0); MEAN CELL VOLUME 69.2 fl (80-96); MEAN PLT VOLUME 8.3 fl (7.5-11.1); MONO % 7.8 % (3.8-10.2); NEUT % 57.2 % (42.8-82.8); PLATELET COUNT 297 K/MM3 (134-434); RBC 5.79 M/mm3 (3.60-5.2); RDW 15.1 % (11.6-15.6); WHITE BLOOD COUNT 8.3 K/mm3 (4.0-10.0)
[2020-01-12 18:39] LABS: ALBUMIN 3.6 g/dl (3.4-5.0); BILIRUBIN,TOTAL 0.4 mg/dL (0.2-1); BLOOD UREA NITROGEN 11.9 mg/dL (7-18); CREATININE 0.7 mg/dL (0.55-1.3); TOT PROT 7.7 g/dl (6.4-8.2)
[2020-01-12] MEDS ORDERED: IBUPROFEN 400 MG TABLET (FP) PO PRN (20:31)
--- NOTE | 2020-01-12 20:40 | HP ---
<Deborah Viramontes - Last Filed: 01/12/20 21:13> CHIEF COMPLAINT: chest pain PCP: HISTORY OF PRESENT ILLNESS: 64 y.o. F PMH CAD s/p CABG, DM type 2, HTN, HLD, PNA, asthma presenting for chest pain x 2days duration. The patient describes a pressure-like pain, 6/10, constant, radiating through left arm. She did not take anything at home for the pain. The pain is not reproducible, unchanged w/ position. She has had similar symptoms in June 2019, ACS was ruled out at that time (stress test and echo were WNL)- was discharged home w/ addition of 30mg daily Imdur, although she has been non-compliant with medications. The patient noted some recent life stressors including the of her best friend last monday, and visiting her mother's grave site yesterday. She also endorses a recent URI w/ completion of z -pack a few days ago. ROS: + chest pain, L arm pain, LLE pain, diaphoresis - YEE/ SOB/ palpitations/ abd pain/ nausea/ vomiting/ diarrhea/ urine or bowel changes/ weight changes ER course was notable for: (1) EKG NSR; solano waves noted, unchanged from prior ekg in 2018 (2) trop x 1 negative (3) Recent Travel: denies PAST MEDICAL HISTORY: as per hpi PAST SURGICAL HISTORY: C-spine surgery Social History: Smoking: quit 2 yrs ago, but had 1 cigarette 2 days ago Alcohol: social Drugs: denies Allergies mushroom Allergy (Mild, Verified 01/12/20 16:31) Swelling HOME MEDICATIONS: Home Medications Medication Instructions Recorded Albuterol Sulfate Inhaler - 2 puff IH Q6H PRN #1 inhaler 01/17/17 [Ventolin HFA Inhaler -] Clopidogrel Bisulfate [Plavix -] 75 mg PO DAILY #7 tablet 01/17/17 Amlodipine Besylate [Norvasc -] 5 mg PO DAILY 07/11/18 Aspirin [Ecotrin] 81 mg PO DAILY 07/11/18 Enalapril Maleate [Vasotec] 5 mg PO DAILY 07/11/18 Famotidine [Pepcid] 20 mg PO DAILY 07/11/18 Furosemide [Lasix] 20 mg PO DAILY 07/11/18 Docusate Sodium [Colace] 100 mg PO BID 07/12/18 Metoprolol Succinate [Toprol Xl] 50 mg PO DAILY 07/12/18 Ranolazine [Ranexa] 1,000 mg PO BID 07/12/18 Liraglutide [Victoza -] 1.8 mg SQ DAILY@0700 01/21/19 PHYSICAL EXAMINATION Vital Signs - 24 hr 01/12/20 01/12/20 01/12/20 16:28 17:00 18:45 Temperature 98 F Pulse Rate 76 Pulse Rate [ 73 Apical] Respiratory 18 18 Rate Blood Pressure 125/67 Blood Pressure 97/50 L [Right Arm] O2 Sat by Pulse 97 98 97 Oximetry (%) GENERAL: Awake, alert, and fully oriented, sitting upright in bed in no acute distress. Vital signs stable. HEENT: NCAT PERRLA MMM No JVD LUNGS: B/l lower lobe expiratory mild wheezing. No crackles. No accessory muscle use. HEART: Regular rate and rhythm, normal S1 and S2 without murmurs. No chest tenderness to palpation. ABDOMEN: Soft, nontender, not distended, normoactive bowel sounds, no guarding. MUSCULOSKELETAL: B/l calf tenderness to palpation. + Ariel's LLE. Full ROM. EXTREMITIES: 2+ pulses, warm, well-perfused. No peripheral edema. NEUROLOGICAL: Cranial nerves II-XII intact. PSYCHIATRIC: Appropriate mood and affect. SKIN: Warm, dry, normal turgor Laboratory Results - last 24 hr 01/12/20 01/12/20 01/12/20 18:00 18:00 18:00 WBC 8.3 RBC 5.79 H Hgb 13.0 Hct 40.1 MCV 69.2 L MCH 22.5 L MCHC 32.6 RDW 15.1 Plt Count 297 D MPV 8.3 Absolute Neuts (auto) 4.7 Neutrophils % 57.2 Lymphocytes % 30.9 Monocytes % 7.8 Eosinophils % 2.7 Basophils % 1.4 Nucleated RBC % 0 Sodium 140 Potassium 5.0 Chloride 109 H Carbon Dioxide 28 Anion Gap 3 L BUN 11.9 Creatinine 0.7 Est GFR (CKD-EPI)AfAm 107.62 Est GFR (CKD-EPI)NonAf 92.86 Random Glucose 80 Calcium 9.0 Total Bilirubin 0.4 AST 77 H ALT 137 H Alkaline Phosphatase 150 H Creatine Kinase 116 Troponin I 0.02 Total Protein 7.7 Albumin 3.6 ASSESSMENT/PLAN: 64 y.o. F PMH CAD s/p CABG, DM type 2, HTN, HLD, PNA, asthma presenting for chest pain #Chest pain, r/o ACS -trop negative x 1 -EKG: NSR no ST changes, no t wave inversions. Solano waves noted in lead II, also seen on prior EKG from 06/2019 -repeat trop, EKG 6 hrs from initial -cardio consulted here as patient has not seen inspector motor vehicles, has poor follow up. Sees Dr. Thornton outpatient -tele observation -f/u thyroid testing #Calf tenderness -f/u LE ultrasound -ibuprofen as needed for pain #Transaminitis -chronic -fatty liver noted on RUQ U/S in jun-- has not followed up w/ PCP -advised for outpatient follow up -monitor LFT's -lipid panel #DVT PPX -heparin SQ TID -pepsid 20mg daily #FEN -no standing fluids -trend lytes replete prn -sodium controlled/ diabetic diet #Dispo tele observation ATTENDING PHYSICIAN STATEMENT I saw and evaluated the patient. I reviewed the resident's note and discussed the case with the resident. I agree with the resident's findings and plan as documented. SUBJECTIVE: OBJECTIVE: ASSESSMENT AND PLAN: <David Rodas - Last Filed: 01/12/20 22:59> CHIEF COMPLAINT: PCP: HISTORY OF PRESENT ILLNESS: ER course was notable for: (1) (2) (3) Recent Travel: PAST MEDICAL HISTORY: PAST SURGICAL HISTORY: Social History: Smoking: Alcohol: Drugs: Allergies mushroom Allergy (Mild, Verified 01/12/20 16:31) Swelling HOME MEDICATIONS: Home Medications Medication Instructions Recorded Albuterol Sulfate Inhaler - 2 puff IH Q6H PRN #1 inhaler 01/17/17 [Ventolin HFA Inhaler -] Clopidogrel Bisulfate [Plavix -] 75 mg PO DAILY #7 tablet 01/17/17 Amlodipine Besylate [Norvasc -] 5 mg PO DAILY 07/11/18 Aspirin [Ecotrin] 81 mg PO DAILY 07/11/18 Enalapril Maleate [Vasotec] 5 mg PO DAILY 07/11/18 Famotidine [Pepcid] 20 mg PO DAILY 07/11/18 Furosemide [Lasix] 20 mg PO DAILY 07/11/18 Docusate Sodium [Colace] 100 mg PO BID 07/12/18 Metoprolol Succinate [Toprol Xl] 50 mg PO DAILY 07/12/18 Ranolazine [Ranexa] 1,000 mg PO BID 07/12/18 Liraglutide [Victoza -] 1.8 mg SQ DAILY@0700 01/21/19 REVIEW OF SYSTEMS CONSTITUTIONAL: Absent: fever, chills, diaphoresis, generalized weakness, malaise, loss of appetite, weight change HEENT: Absent: rhinorrhea, nasal congestion, throat pain, throat swelling, difficulty swallowing, mouth swelling, ear pain, eye pain, visual changes CARDIOVASCULAR: Absent: chest pain, syncope, palpitations, irregular heart rate, lightheadedness , peripheral edema RESPIRATORY: Absent: cough, shortness of breath, dyspnea with exertion, orthopnea, wheezing, stridor, hemoptysis GASTROINTESTINAL: Absent: abdominal pain, abdominal distension, nausea, vomiting, diarrhea, constipation, melena, hematochezia GENITOURINARY: Absent: dysuria, frequency, urgency, hesitancy, hematuria, flank pain, genital pain MUSCULOSKELETAL: Absent: myalgia, arthralgia, joint swelling, back pain, neck pain SKIN: Absent: rash, itching, pallor HEMATOLOGIC/IMMUNOLOGIC: Absent: easy bleeding, easy bruising, lymphadenopathy, frequent infections ENDOCRINE: Absent: unexplained weight gain, unexplained weight loss, heat intolerance, cold intolerance NEUROLOGIC: Absent: headache, focal weakness or paresthesias, dizziness, unsteady gait, seizure, mental status changes, bladder or bowel incontinence PSYCHIATRIC: Absent: anxiety, depression, suicidal or homicidal ideation, hallucinations. PHYSICAL EXAMINATION Vital Signs - 24 hr 01/12/20 01/12/20 01/12/20 16:28 17:00 18:45 Temperature 98 F Pulse Rate 76 Pulse Rate [ 73 Apical] Respiratory 18 18 Rate Blood Pressure 125/67 Blood Pressure 97/50 L [Right Arm] O2 Sat by Pulse 97 98 97 Oximetry (%) GENERAL: Awake, alert, and fully oriented, in no acute distress. HEAD: Normal with no signs of trauma. EYES: Pupils equal, round and reactive to light, extraocular movements intact, sclera anicteric, conjunctiva clear. No lid lag. EARS, NOSE, THROAT: Ears normal, nares patent, oropharynx clear without exudates. Moist mucous membranes. NECK: Normal range of motion, supple without lymphadenopathy, JVD, or masses. LUNGS: Breath sounds equal, clear to auscultation bilaterally. No wheezes, and no crackles. No accessory muscle use. HEART: Regular rate and rhythm, normal S1 and S2 without murmur, rub or gallop. ABDOMEN: Soft, nontender, not distended, normoactive bowel sounds, no guarding, no rebound, no masses. No hepatomegaly or splenomegaly. MUSCULOSKELETAL: Normal range of motion at all joints. No bony deformities or tenderness. No CVA tenderness. UPPER EXTREMITIES: 2+ pulses, warm, well-perfused. No cyanosis. No clubbing. No peripheral edema. LOWER EXTREMITIES: 2+ pulses, warm, well-perfused. No calf tenderness. No peripheral edema. NEUROLOGICAL: Cranial nerves II-XII intact. Normal speech. Normal gait. PSYCHIATRIC: Cooperative. Good eye contact. Appropriate mood and affect. SKIN: Warm, dry, normal turgor, no rashes or lesions noted, normal capillary refill. Laboratory Results - last 24 hr 01/12/20 01/12/20 01/12/20 18:00 18:00 18:00 WBC 8.3 RBC 5.79 H Hgb 13.0 Hct 40.1 MCV 69.2 L MCH 22.5 L MCHC 32.6 RDW 15.1 Plt Count 297 D MPV 8.3 Absolute Neuts (auto) 4.7 Neutrophils % 57.2 Lymphocytes % 30.9 Monocytes % 7.8 Eosinophils % 2.7 Basophils % 1.4 Nucleated RBC % 0 Sodium 140 Potassium 5.0 Chloride 109 H Carbon Dioxide 28 Anion Gap 3 L BUN 11.9 Creatinine 0.7 Est GFR (CKD-EPI)AfAm 107.62 Est GFR (CKD-EPI)NonAf 92.86 POC Glucometer Random Glucose 80 Calcium 9.0 Total Bilirubin 0.4 AST 77 H ALT 137 H Alkaline Phosphatase 150 H Creatine Kinase 116 Troponin I 0.02 Total Protein 7.7 Albumin 3.6 01/12/20 21:05 WBC RBC Hgb Hct MCV MCH MCHC RDW Plt Count MPV Absolute Neuts (auto) Neutrophils % Lymphocytes % Monocytes % Eosinophils % Basophils % Nucleated RBC % Sodium Potassium Chloride Carbon Dioxide Anion Gap BUN Creatinine Est GFR (CKD-EPI)AfAm Est GFR (CKD-EPI)NonAf POC Glucometer 90 Random Glucose Calcium Total Bilirubin AST ALT Alkaline Phosphatase Creatine Kinase Troponin I Total Protein Albumin ASSESSMENT/PLAN: Visit type - Emergency Visit Emergency Visit: Yes ED Registration Date: 01/12/20 Care time: The patient presented to the Emergency Department on the above date and was hospitalized for further evaluation of their emergent condition. - New Patient This patient is new to me today: Yes Date on this admission: 01/12/20 - Critical Care Critical Care patient: No ATTENDING PHYSICIAN STATEMENT I saw and evaluated the patient. I reviewed the resident's note and discussed the case with the resident. I agree with the resident's findings and plan as documented. SUBJECTIVE:64 years old F with PMH CAD s/p CABG, DM type 2, HTN, HLD, PNA, asthma presented with chest pain. As per patient pain is pressure like 6/10, constant, radiating to left arm. She denies SOB, nausea,vomiting, fever Last time ECHO and stress test was done in june 2019 it was normal She also c/o b/l calf pain L>T and left leg heaviness for past few days. OBJECTIVE: Last Vital Signs Temp Pulse Resp BP Pulse Ox 98 F 73 18 97/50 L 97 01/12/20 16:28 01/12/20 18:45 01/12/20 18:45 01/12/20 18:45 01/12/20 18:45 General Appearance: NAD, normal buit HEENT: positive: EOMI, KINGSTNO, Normal Voice. negative: Scleral Icterus (R), Scleral Icterus (L) Respiratory/Chest: positive: b/l air entry + Normal Breath Sounds. mild b/l exp wheezing Cardiovascular: positive: Regular Rhythm, Regular Rate, S1, S2. negative: Edema , Murmur Gastrointestinal/Abdominal: positive: Normal Bowel Sounds, Flat, Soft. negative : Tender, Organomegaly Extremity: negative: No Pedal Edema, b/l calf tenderness L>R Integumentary: positive: Normal Color. negative: Dry, Rash Neurologic: positive: wellness consultant II-XII NML intact, Fully Oriented, Alert, Normal Response, Motor Strength 5/5, Respond to painful stimul, Responsive, ASSESSMENT AND PLAN: Chest pain R/o ACS b/l calf tenderness r/o DVT Transaminitis _ chronic due to fatty kiver Obs to tele 1st trop negative. EKG normal. follow serial cardiac enzymes and EKG. Cardiology eval. - patient is also requesting to see inspector motor vehicles here check TSH Resume home meds DVt ppx
[2020-01-12] MEDS ORDERED: ALBUTEROL SO4 2.5/IPRATROPIUM 0.5 INH SOL 3 ML VIAL.NEB. NEB PRN (20:57)
[2020-01-12] MEDS ORDERED: HEPARIN NA (PORCINE) 5,000 UNITS/ML 1ML VIAL ONE (21:02)
[2020-01-12] MEDS: INSULIN SLIDING SCALE (NOVOLOG) 1 VIAL SQ SCH (21:12)
[2020-01-12] MEDS: HEPARIN NA (PORCINE) 5,000 UNITS/ML 1ML VIAL SQ SCH (21:12)
[2020-01-13] MEDS ORDERED: ALBUTEROL SO4 HFA INHALER IH PRN (05:03)
[2020-01-13] MEDS: HEPARIN NA (PORCINE) 5,000 UNITS/ML 1ML VIAL SQ SCH (06:03)
[2020-01-13 06:19] VITALS: TEMP 97.7
[2020-01-13 07:23] VITALS: BP 109/62; PULSE 71
[2020-01-13 08:26] LABS: BASO % 1.1 % (0-2.0); EOS % 3.2 % (0-4.5); HEMATOCRIT 37.6 % (32.4-45.2); HEMOGLOBIN 12.4 GM/dL (10.7-15.3); LYMPH % 36.3 % (8-40); MCH 22.4 pg (25.7-33.7); MCHC 32.9 g/dl (32.0-36.0); MEAN CELL VOLUME 68.1 fl (80-96); MEAN PLT VOLUME 8.1 fl (7.5-11.1); MONO % 8.9 % (3.8-10.2); NEUT % 50.5 % (42.8-82.8); PLATELET COUNT 252 K/MM3 (134-434); RBC 5.52 M/mm3 (3.60-5.2); RDW 14.6 % (11.6-15.6); WHITE BLOOD COUNT 6.6 K/mm3 (4.0-10.0)
[2020-01-13 08:34] LABS: ALBUMIN 3.3 g/dl (3.4-5.0); ALK PHOS 143 U/L (45-117); ANION GAP 7 MMOL/L (8-16); BILIRUBIN,TOTAL 0.4 mg/dL (0.2-1); BLOOD UREA NITROGEN 10.9 mg/dL (7-18); CALCIUM 8.4 mg/dL (8.5-10.1); CHLORIDE 111 mmol/L (98-107); CHOLESTEROL 187 mg/dL (50-200); CO2 24 mmol/L (21-32); CREATININE 0.7 mg/dL (0.55-1.3); GLUCOSE,RANDOM 82 mg/dL (74-106); HDL CHOLESTEROL 53 mg/dL (40-60); LDL CHOLESTEROL (ONLY SJRH) 119 mg/dL (5-100); POTASSIUM 3.8 mmol/L (3.5-5.1); SGOT/AST 60 U/L (15-37); SGPT/ALT 125 U/L (13-61); SODIUM 142 mmol/L (136-145); TOT PROT 6.9 g/dl (6.4-8.2); TRIGLYCERIDES 82 mg/dL (0-150)
[2020-01-13] MEDS: INSULIN SLIDING SCALE (NOVOLOG) 1 VIAL SQ SCH (08:44)
--- NOTE | 2020-01-13 09:51 | EKG ---
Test Reason : Blood Pressure : / mmHG Vent. Rate : 058 BPM Atrial Rate : 058 BPM P-R Int : 162 ms QRS Dur : 080 ms QT Int : 436 ms P-R-T Axes : 050 017 033 degrees QTc Int : 428 ms SINUS BRADYCARDIA OTHERWISE NORMAL ECG WHEN COMPARED WITH ECG OF 12-JAN-2020 16:57, T WAVE AMPLITUDE HAS INCREASED IN ANTERIOR LEADS Confirmed by Clara Trevizo ([id number]) on 01/13/2020 9:50:35 AM Referred By: EARLE BRYANT Confirmed By:Clara Trevizo
[2020-01-13] MEDS ORDERED: ASPIRIN COATED 81 MG TABLET.EC PO SCH (10:00)
[2020-01-13] MEDS ORDERED: ENALAPRIL MALEATE 5 MG TABLET (FP) PO SCH (10:00)
[2020-01-13] MEDS ORDERED: amLODIPine BESYLATE 5 MG TABLET (FP) PO SCH (10:00)
[2020-01-13] MEDS ORDERED: FUROSEMIDE 20 MG TABLET (FP) PO SCH (10:00)
[2020-01-13] MEDS ORDERED: RANOLAZINE E.R. 500 MG TABLET (FP) PO SCH (10:00)
[2020-01-13] MEDS ORDERED: DOCUSATE SODIUM 100 MG CAPSULE (FP) PO SCH (10:00)
[2020-01-13] MEDS ORDERED: CLOPIDOGREL BISULFATE 75 MG TABLET (FP) PO SCH (10:00)
[2020-01-13] MEDS ORDERED: FAMOTIDINE 20 MG TABLET PO SCH (10:00)
--- NOTE | 2020-01-13 10:02 | EKG ---
Test Reason : Blood Pressure : / mmHG Vent. Rate : 070 BPM Atrial Rate : 070 BPM P-R Int : 148 ms QRS Dur : 078 ms QT Int : 394 ms P-R-T Axes : 049 024 018 degrees QTc Int : 425 ms NORMAL SINUS RHYTHM POSSIBLE LEFT ATRIAL ENLARGEMENT BORDERLINE ECG WHEN COMPARED WITH ECG OF 17-JUL-2019 18:12, NO SIGNIFICANT CHANGE WAS FOUND Confirmed by Clara Trevizo ([id number]) on 01/13/2020 10:02:37 AM Referred By: Confirmed By:Clara Trevizo
[2020-01-13] MEDS ORDERED: PT OWN MED DRAWER 7, Y5N ONE (10:04)
--- NOTE | 2020-01-13 11:36 | CON.CARD ---
Cardiology Consult (text) - Consultation Consultation Note: Consultation Note: Chief Complaint: Chest pain History of Present Illness: 64F with CAD s/p CABG 2005, multiple PCIs including SVG to [facility] in 2013, and again in 2016 after nuclear stress showed mild apical lateral ischemia p/w chest pain, leg weakness, headaches. Has been feeling weakness in her legs for several days or even longer, then yesterday she felt chest pain in her left chest radiating to her back and left arm, which has resolved. Was intermittent , sharp and lasting a few seconds each time. Has a hard time describing the pain, has happened before and was evaluated 06/2019 with unremarkable echo and mibi at the time. Currently no chest pain, palps, dizziness, dyspnea. Legs feel weak. Sees Dr Thornton for cardio, not recently. Had intermittent lower ext edema over last few weeks which resolved. - History Source History Provided By: Patient - Past Medical History Cardio/Vascular: Yes: CAD (PCI, 2013, 2015 and CABG 2005), CHF (chronic diastolic), HTN, Hyperlipdemia Pulmonary: Yes: COPD Psych: Yes: Depression Endocrine: Yes: Diabetes Mellitus - Past Surgical History Past Surgical History: Yes: CABG (3 V 2004), Cholecystectomy - Alcohol/Substance Use Hx Alcohol Use: No History of Substance Use: reports: None - Smoking History Smoking history: Former smoker - Social History ADL: Independent History of Recent Travel: No Home Medications - Allergies Allergies/Adverse Reactions: Allergies Allergy/AdvReac Type Severity Reaction Status Date / Time mushroom Allergy Mild Swelling Verified 01/12/20 16:31 Home Medications Medication Instructions Recorded Albuterol Sulfate Inhaler - 2 puff IH Q6H PRN #1 inhaler 01/17/17 [Ventolin HFA Inhaler -] Clopidogrel Bisulfate [Plavix -] 75 mg PO DAILY #7 tablet 01/17/17 Amlodipine Besylate [Norvasc -] 5 mg PO DAILY 07/11/18 Aspirin [Ecotrin] 81 mg PO DAILY 07/11/18 Enalapril Maleate [Vasotec] 5 mg PO DAILY 07/11/18 Famotidine [Pepcid] 20 mg PO DAILY 07/11/18 Furosemide [Lasix] 20 mg PO DAILY 07/11/18 Docusate Sodium [Colace] 100 mg PO BID 07/12/18 Metoprolol Succinate [Toprol Xl] 50 mg PO DAILY 07/12/18 Ranolazine [Ranexa] 1,000 mg PO BID 07/12/18 Liraglutide [Victoza -] 1.8 mg SQ DAILY@0700 01/21/19 Family Disease History - Family Disease History Family Disease History: Heart Disease: Mother Review of Systems Findings/Remarks: see HPI - Review of Systems Constitutional: denies: No Symptoms, Chills, Diaphoresis, Fever, Lethargy, Loss of Appetite, Malaise, Night Sweats, Unintentional Wgt. Loss, Weakness, Other Eyes: denies: No Symptoms, Blind Spots, Blurred Vision, Double Vision, Eye Pain , Floaters, Photophobia, Recent Change in Vision, Other HENT: denies: No Symptoms, Difficult Swallowing, Ear Discharge, Ear Pain, Epistaxis, Gingival Bleeding, Hearing Loss, Mouth Swelling, Nasal Congestion, Ocular Prosthesis, Throat Pain, Toothache, Ringing in Ears, Other Neck: denies: No Symptoms, Decreased ROM, Lumps, Pain on Movement, Stiffness, Swollen Glands, Tenderness, Other Cardiovascular: reports: Chest Pain Respiratory: denies: No Symptoms, Cough, Exercise Intolerance, Hemoptysis, Orthopnea, PND, Snoring, SOB, SOB on Exertion, Wheezing, Other Genitourinary: denies: No Symptoms, Burning, Discharge, Dysuria, Flank Pain, Frequency, Hematuria, Incontinence, Lesions, Menses, Pain, Testicular Mass, Testicular Pain, Testicular Swelling, Urgency, Vaginal Bleeding, Other Breasts: denies: No Symptoms Reported, See HPI, Breast Implants, Discharge from Nipple, Lumps, Pain, Skin Changes, Other Integumentary: denies: No Symptoms, Blister, Bruising, Change in Color, Eczema, Erythema, Incision, Lesions, Lump, Pallor, Pruritis, Rash, Wound, Other Neurological: denies: No Symptoms, Change in LOC, Change in Speech, Confusion, Dizziness, Headache, Incoordination, Numbness, Parasthesia, Pre-Existing Deficit , Seizure, Syncope, Tremors, Unsteady Gait, Weakness, Other Endocrine: denies: No Symptoms, Excessive Sweating, Flushing, Increased Hunger, Increased Thirst, Intolerance to Cold, Intolerance to Heat, Unexplained Weight Gain, Unexplained Weight Loss, Other - Risk Factors Known Risk Factors: Yes: Diabetes Mellitus, Prior CT /Emb Stroke, Smoking, Other (known CAD) Vital Signs: Vital Signs Period Temp Pulse Resp BP Sys/Thomas Pulse Ox Last 24 Hr 97.7 F-98.6 F 64-76 16-20 97-125/50-67 97-100 Constitutional: Yes: No Distress, Calm Eyes: Yes: Conjunctiva Clear, EOM Intact HENT: Yes: Atraumatic, Normocephalic Neck: Yes: Supple, Trachea Midline Respiratory: Yes: CTA Bilaterally Gastrointestinal: Yes: Soft Cardiovascular: Yes: Regular Rate and Rhythm JVD: No Carotid Bruit: No PMI: Non-Displaced Heart Sounds: Yes: S1, S2 (RRR, no m.r.g) Edema: No Peripheral Pulses WNL: Yes Neurological: Yes: Alert, Oriented no jaundice diaphoresis Laboratory Last Values WBC 6.6 K/mm3 (4.0-10.0) 01/13/20 08:00 RBC 5.52 M/mm3 (3.60-5.2) H 01/13/20 08:00 Hgb 12.4 GM/dL (10.7-15.3) 01/13/20 08:00 Hct 37.6 % (32.4-45.2) 01/13/20 08:00 MCV 68.1 fl (80-96) L 01/13/20 08:00 MCH 22.4 pg (25.7-33.7) L 01/13/20 08:00 MCHC 32.9 g/dl (32.0-36.0) 01/13/20 08:00 RDW 14.6 % (11.6-15.6) 01/13/20 08:00 Plt Count 252 K/MM3 (134-434) 01/13/20 08:00 MPV 8.1 fl (7.5-11.1) 01/13/20 08:00 Absolute Neuts (auto) 3.3 K/mm3 (1.5-8.0) 01/13/20 08:00 Neutrophils % 50.5 % (42.8-82.8) 01/13/20 08:00 Lymphocytes % 36.3 % (8-40) 01/13/20 08:00 Monocytes % 8.9 % (3.8-10.2) 01/13/20 08:00 Eosinophils % 3.2 % (0-4.5) 01/13/20 08:00 Basophils % 1.1 % (0-2.0) 01/13/20 08:00 Nucleated RBC % 0 % (0-0) 01/13/20 08:00 Sodium 142 mmol/L (136-145) 01/13/20 08:00 Potassium 3.8 mmol/L (3.5-5.1) 01/13/20 08:00 Chloride 111 mmol/L (98-107) H 01/13/20 08:00 Carbon Dioxide 24 mmol/L (21-32) 01/13/20 08:00 Anion Gap 7 MMOL/L (8-16) L 01/13/20 08:00 BUN 10.9 mg/dL (7-18) 01/13/20 08:00 Creatinine 0.7 mg/dL (0.55-1.3) 01/13/20 08:00 Est GFR (CKD-EPI)AfAm 107.62 01/13/20 08:00 Est GFR (CKD-EPI)NonAf 92.86 01/13/20 08:00 POC Glucometer 82 UNITS (80-120) 01/13/20 07:56 Random Glucose 82 mg/dL (74-106) 01/13/20 08:00 Hemoglobin A1c % 4.9 % (4.2-6.3) 01/13/20 08:00 Calcium 8.4 mg/dL (8.5-10.1) L 01/13/20 08:00 Total Bilirubin 0.4 mg/dL (0.2-1) 01/13/20 08:00 AST 60 U/L (15-37) H 01/13/20 08:00 ALT 125 U/L (13-61) H 01/13/20 08:00 Alkaline Phosphatase 143 U/L (45-117) H 01/13/20 08:00 Creatine Kinase 116 U/L (26-192) 01/12/20 18:00 Troponin I < 0.02 ng/ml (0.00-0.05) 01/13/20 08:00 Total Protein 6.9 g/dl (6.4-8.2) 01/13/20 08:00 Albumin 3.3 g/dl (3.4-5.0) L 01/13/20 08:00 Triglycerides 82 mg/dL (0-150) 01/13/20 08:00 Cholesterol 187 mg/dL (50-200) 01/13/20 08:00 Total LDL Cholesterol 119 mg/dL (5-100) H 01/13/20 08:00 HDL Cholesterol 53 mg/dL (40-60) 01/13/20 08:00 TSH 1.65 uIU/ml (0.358-3.74) 01/13/20 00:00 Free T4 1.03 ng/dl (0.76-1.46) 01/13/20 00:00 ecg: sr, no ischemic changes tele: sr mibi 06/2019: no ischemia echo 06/2019: nl lv/rv, tr TR, nl rvsp cxr: clear lungs cp: -atypical, resolved -unremarkable echo and mibi 06/2019 -trops neg, ecg w/o ischemic changes, no signs acs - defer further cardiac testing, advised follow up with Dr. Thornton cad: -as above -continue home meds including ASA/Plavix/Metoprolol/Statin/Imdur htn: -cont home meds leg weakness/swelling - no edema currently - lower ext dopplers no DVT
--- NOTE | 2020-01-13 13:31 | DS ---
Physical Exam: SUBJECTIVE: Patient seen and examined OBJECTIVE: Vital Signs Period Temp Pulse Resp BP Sys/Thomas Pulse Ox Last 24 Hr 97.7 F-98.6 F 64-76 16-20 97-125/50-67 97-100 PHYSICAL EXAM GENERAL: The patient is awake, alert, and fully oriented, in no acute distress. HEAD: Normal with no signs of trauma. EYES: PERRL, extraocular movements intact, sclera anicteric, conjunctiva clear. ENT: Ears normal, nares patent, oropharynx clear without exudates, moist mucous membranes. NECK: Trachea midline, full range of motion, supple. LUNGS: Breath sounds equal, clear to auscultation bilaterally, no wheezes, no crackles, no accessory muscle use. HEART: Regular rate and rhythm, S1, S2 without murmur, rub or gallop. ABDOMEN: Soft, nontender, nondistended, normoactive bowel sounds, no guarding, no rebound, no hepatosplenomegaly, no masses. EXTREMITIES: 2+ pulses, warm, well-perfused, no edema. NEUROLOGICAL: Cranial nerves II through XII grossly intact. Normal speech, gait not observed. PSYCH: Normal mood, normal affect. SKIN: Warm, dry, normal turgor, no rashes or lesions noted. LABS Laboratory Results - last 24 hr 01/12/20 01/12/20 01/12/20 18:00 18:00 18:00 WBC 8.3 RBC 5.79 H Hgb 13.0 Hct 40.1 MCV 69.2 L MCH 22.5 L MCHC 32.6 RDW 15.1 Plt Count 297 D MPV 8.3 Absolute Neuts (auto) 4.7 Neutrophils % 57.2 Lymphocytes % 30.9 Monocytes % 7.8 Eosinophils % 2.7 Basophils % 1.4 Nucleated RBC % 0 Sodium 140 Potassium 5.0 Chloride 109 H Carbon Dioxide 28 Anion Gap 3 L BUN 11.9 Creatinine 0.7 Est GFR (CKD-EPI)AfAm 107.62 Est GFR (CKD-EPI)NonAf 92.86 POC Glucometer Random Glucose 80 Hemoglobin A1c % Calcium 9.0 Total Bilirubin 0.4 AST 77 H ALT 137 H Alkaline Phosphatase 150 H Creatine Kinase 116 Troponin I 0.02 Total Protein 7.7 Albumin 3.6 Triglycerides Cholesterol Total LDL Cholesterol HDL Cholesterol TSH Free T4 01/12/20 01/13/20 01/13/20 21:05 00:00 07:56 WBC RBC Hgb Hct MCV MCH MCHC RDW Plt Count MPV Absolute Neuts (auto) Neutrophils % Lymphocytes % Monocytes % Eosinophils % Basophils % Nucleated RBC % Sodium Potassium Chloride Carbon Dioxide Anion Gap BUN Creatinine Est GFR (CKD-EPI)AfAm Est GFR (CKD-EPI)NonAf POC Glucometer 90 82 Random Glucose Hemoglobin A1c % Calcium Total Bilirubin AST ALT Alkaline Phosphatase Creatine Kinase Troponin I 0.02 Total Protein Albumin Triglycerides Cholesterol Total LDL Cholesterol HDL Cholesterol TSH 1.65 Free T4 1.03 01/13/20 01/13/20 01/13/20 08:00 08:00 08:00 WBC 6.6 RBC 5.52 H Hgb 12.4 Hct 37.6 MCV 68.1 L MCH 22.4 L MCHC 32.9 RDW 14.6 Plt Count 252 MPV 8.1 Absolute Neuts (auto) 3.3 Neutrophils % 50.5 Lymphocytes % 36.3 Monocytes % 8.9 Eosinophils % 3.2 Basophils % 1.1 Nucleated RBC % 0 Sodium 142 Potassium 3.8 Chloride 111 H Carbon Dioxide 24 Anion Gap 7 L BUN 10.9 Creatinine 0.7 Est GFR (CKD-EPI)AfAm 107.62 Est GFR (CKD-EPI)NonAf 92.86 POC Glucometer Random Glucose 82 Hemoglobin A1c % 4.9 Calcium 8.4 L Total Bilirubin 0.4 AST 60 H ALT 125 H Alkaline Phosphatase 143 H Creatine Kinase Troponin I < 0.02 Total Protein 6.9 Albumin 3.3 L Triglycerides 82 Cholesterol 187 Total LDL Cholesterol 119 H HDL Cholesterol 53 TSH Free T4 HOSPITAL COURSE: Date of Admission:01/12/20 Date of Discharge: 01/13/20 Minutes to complete discharge: 30 Discharge Summary Problems reviewed: Yes Reason For Visit: CHEST PAIN Current Active Problems Chest pain (Acute) Asthma (Chronic) CAD (coronary artery disease) of artery bypass graft (Chronic) COPD (chronic obstructive pulmonary disease) (Chronic) Chronic diastolic heart failure (Chronic) Depression (Chronic) HLD (hyperlipidemia) (Chronic) Hx of CABG (Chronic) Hypertension (Chronic) Stented coronary artery (Chronic) Type 2 diabetes mellitus (Chronic) Condition: Good - Instructions Diet, Activity, Other Instructions: You were seen in the ER at [facility] on January 12 for chest pain. EKG and labs showed no signs of a heart attack. Your heart was monitored and you were seen by a brass cutter, Dr. Sera Villa, who cleared you to be discharged and follow up with your brass cutter, Dr. Thornton. You are being discharged home on January 13. Please schedule appointments with your primary care physician, Dr. Josephine Darby, and your brass cutter, Dr. Sha Thornton, within 1 week. Referrals: Sha Thornton MD [Staff Physician] - 1 Week Josephine Darby MD [Primary Care Provider] - 1 Week Disposition: HOME - Home Medications Comprehensive Discharge Medication List: Ambulatory Orders Albuterol Sulfate Inhaler - [Ventolin HFA Inhaler -] 2 puff IH Q6H PRN #1 inhaler 01/17/17 Clopidogrel Bisulfate [Plavix -] 75 mg PO DAILY #7 tablet 01/17/17 Amlodipine Besylate [Norvasc -] 5 mg PO DAILY 07/11/18 Aspirin [Ecotrin] 81 mg PO DAILY 07/11/18 Enalapril Maleate [Vasotec] 5 mg PO DAILY 07/11/18 Famotidine [Pepcid] 20 mg PO DAILY 07/11/18 Furosemide [Lasix] 20 mg PO DAILY 07/11/18 Docusate Sodium [Colace] 100 mg PO BID 07/12/18 Metoprolol Succinate [Toprol Xl] 50 mg PO DAILY 07/12/18 Ranolazine [Ranexa] 1,000 mg PO BID 07/12/18 Liraglutide [Victoza -] 1.8 mg SQ DAILY@0700 01/21/19
== END 2020-01-13 13:30 | disposition home or self-care (01) ==
LOC: JER 16:23 → JERBED 17:15
PROVIDERS: ADMIT Internal Medicine; ATTEND Internal Medicine
PROC: 3E033NZ Introduction of Analgesics, Hypnotics, Sedatives into Peripheral Vein, Percutaneous Approach (ICD-10-PCS; principal; 2020-01-12)
DX: R07.89 Other chest pain (principal); I11.0 Hypertensive heart disease with heart failure; I50.32 Chronic diastolic (congestive) heart failure; E78.5 Hyperlipidemia, unspecified; E11.9 Type 2 diabetes mellitus without complications; I25.10 Atherosclerotic heart disease of native coronary artery without angina pectoris; K76.0 Fatty (change of) liver, not elsewhere classified; B18.2 Chronic viral hepatitis C; R74.0 Nonspecific elevation of levels of transaminase and lactic acid dehydrogenase [LDH]; J44.9 Chronic obstructive pulmonary disease, unspecified; Z87.891 Personal history of nicotine dependence; Z79.82 Long term (current) use of aspirin; Z79.02 Long term (current) use of antithrombotics/antiplatelets; Z95.1 Presence of aortocoronary bypass graft; Z95.5 Presence of coronary angioplasty implant and graft; Z91.018 Allergy to other foods
CPT/HCPCS: 36415; 71045-TC-FY; 80053; 80061; 82550; 82962; 83036; 83721; 84439; 84443; 84484; 85025; 93005; 93010; 93970-TC; 96374; 99285-25; G0378; J0131; J1644

== ENCOUNTER 2020-09-11 23:47 | Observation (INO) | payer MEDICARE, OTHER ==
--- NOTE | 2020-09-12 00:15 | PDOC ---
Attending Attestation - Resident Resident Name: José Miguel Hayes - ED Attending Attestation I have performed the following: I have examined & evaluated the patient, The case was reviewed & discussed with the resident, I agree w/resident's findings & plan - HPI HPI: 09/12/20 03:03 Pt comes with chest pain - Physicial Exam PE: 09/12/20 04:10 Pt has normal exam. She complains of paraspinal back pain. Pt is upset and states that she doesn;t want to be in [place] and that she would never come here. Afebrile VSS Agree with resident exam Pt demanding to sign AMA and leave and go to [facility] where she had aguila Cardiac bypass. - Medical Decision Making 09/12/20 03:02 Patient Name: BANDAR GRISSOM THIS IS A PRELIMINARY REPORT DATE OF SERVICE: 2020-09-12 01:45:31 IMAGES: [id number] EXAM: HEAD CT WITHOUT CONTRAST HISTORY: Left-sided heaviness COMPARISON: 07/11/18 FINDINGS: The ventricular system is midline and nondilated. Mild cortical atrophy is noted.. There is no bleed, mass, extra-axial fluid collection or mass effect. No skull fracture or skull lesion is identified. The visualized paranasal sinuses and mastoid air cells are clear. IMPRESSION: No evidence of acute pathology. 09/12/20 04:19 Pt walked out. Discharge - Discharge Information Problems reviewed: Yes Clinical Impression/Diagnosis: ACS (acute coronary syndrome) Condition: Guarded Disposition: AGAINST MEDICAL ADVICE - Follow up/Referral - Patient Discharge Instructions - Post Discharge Activity
--- OUTSIDE RECORDS SUMMARY | 2020-09-12 00:35 | XMS ---
:1955 Author Organization [facility] ER Care Team Providers Name Role Phone ED STAFF PHYSICIAN, SHREYA Unavailable Unavailable [facility], CNR9 Unavailable Unavailable ED STAFF PHYSICIAN, STAFF Unavailable Unavailable ED STAFF PHYSICIANGONZALO Unavailable Unavailable Mehnaz, Osama Unavailable Unavailable Mehnaz, Osama Unavailable Unavailable Mehnaz, Osama Unavailable Unavailable Mehnaz, Osama Unavailable Unavailable Mehnaz, Osama Unavailable Unavailable Mehnaz, Osama Unavailable Unavailable Mehnaz, Osama Unavailable Unavailable Mehnaz, Osama Unavailable Unavailable Mehnaz, Osama Unavailable Unavailable Mehnaz, Osama Unavailable Unavailable Mehnaz, Osama Unavailable Unavailable Mehnaz, Osama Unavailable Unavailable Mehnaz, Osama Unavailable Unavailable Mehnaz, Osama Unavailable Unavailable Mehnaz, Osama Unavailable Unavailable ED STAFF PHYSICIANYOHAN Unavailable Unavailable ED STAFF PHYSICIAN Unavailable Unavailable Re-disclosure Warning The records that you are about to access may contain information from federally- assisted alcohol or drug abuse programs. If such information is present, then the following federally mandated warning applies: This information has been disclosed to you from records protected by federal confidentiality rules (42 CFR part 2). The federal rules prohibit you from making any further disclosure of this information unless further disclosure is expressly permitted by the written consent of the person to whom it pertains or as otherwise permitted by 42 CFR part 2. A general authorization for the release of medical or other information is NOT sufficient for this purpose. The Federal rules restrict any use of the information to criminally investigate or prosecute any alcohol or drug abuse patient.The records that you are about to access may contain highly sensitive health information, the redisclosure of which is protected by Article 27-F of the [facility] Public Health law. If you continue you may haveaccess to information: Regarding HIV / AIDS; Provided by facilities licensed or operated by the [facility] Office of Mental Health; or Provided by the [facility] Office for People With Developmental Disabilities. If such information is present, then the following [facility] mandated warning applies: This information has been disclosed to you from confidential records which are protected by state law. State law prohibits you from making any further disclosure of this information without the specific written consent of the person to whom it pertains, or as otherwise permitted by law. Any unauthorized further disclosure in violation of state law may result in a fine or custodial sentence or both. A general authorization for the release of medical or other information is NOT sufficient authorization for further disclosure. Allergies and Adverse Reactions Type Description Substance Reaction Status Data Source(s ) Mushrooms Mushrooms Mushrooms Unknown Active eCW1 ([facility]) Mushrooms Mushrooms Mushrooms Unknown Active eCW1 ([facility]) Mushrooms Mushrooms Mushrooms Unknown Active eCW1 ([facility]) Mushrooms Mushrooms Mushrooms Unknown Active eCW1 ([facility]) Mushrooms Mushrooms Mushrooms Unknown Active eCW1 ([facility]) Mushrooms Mushrooms Mushrooms Unknown Active eCW1 ([facility]) Mushrooms Mushrooms Mushrooms Unknown Active eCW1 ([facility]) Encounters Encounter Providers Location Date Indications Data Source(s ) Outpatient Attender: [id number] [facility] 08/31/2020 GSI ([facility] 04:05:10 PM Health Care EDT [facility]) Patient admitted. Outpatient [address] 08/19/2020 12:00:00 eCW1 ([facility] EDT [facility]) (TEL) [address] 08/05/2020 12:00:00 [facility]CW1 [facility] Outpatient [address] 08/05/2020 12:00:00 eCW1 ([facility]) (TEL) [address] 07/22/2020 12:00:00 eCW1 ([facility] Outpatient [address] 07/22/2020 12:00:00 eCW1 ([facility] (TEL) [address] 06/30/2020 12:00:00 eCW1 ([facility] Outpatient Attender: [id number] 06/27/2020 11:33:14 [facility] Patient admitted. Outpatient [address] 06/18/2020 12:00:00 eCW1 ([facility] Outpatient [address] 06/10/2020 12:00:00 eCW1 ([facility]) (TEL) [address] 06/03/2020 12:00:00 eCW1 ([facility]) (TEL) [address] 06/01/2020 12:00:00 eCW1 ([facility]) Outpatient Attender: [id number] 05/27/2020 10:22:47 G SI ([facility] EDT [facility]) Patient admitted. Outpatient [address] 05/22/2020 12:00:00 eCW1 ([facility] (TEL) [address] 05/04/2020 12:00:00 eCW1 ([facility]) 69 [facility] [address] 04/16/2020 12:00:00 eCW1 [facility]) 69 [facility] [address] [facility] 04/16/2020 12:00:00 eCW1 [facility]) Outpatient Attender: CNR9 04/06/2020 10:19:16 G SI ([facility]) Patient admitted. Outpatient Attender: CNR9 [facility] 04/06/2020 10:19:03 AM GSI ([facility] EDT Collabor[facility]) Patient admitted. [address] 04/06/2020 12:00:00 eCW1 ([facility] AM EDT [facility]) [address] 236 03/16/2020 12:00:00 eCW1 ([facility] AM EDT [facility]) [facility] [address] 02/28/2020 12:00:00 eC W1 ([facility] AM EDT [facility]) [address] 236 02/26/2020 12:00:00 eCW1 ([facility] AM EDT [facility]) [address] 236 02/24/2020 12:00:00 eCW1 ([facility] AM EDT [facility]) Outpatient Attender: CNR9 02/14/2020 06:24:51 G SI ([facility]T [facility]) Patient admitted. [facility] [address] 02/12/2020 eCW1 ([facility] 12:00:00 AM EDT [facility]) [facility] [address] 02/11/2020 eCW1 ([facility] 12:00:00 AM EDT [facility] [address] 02/11/2020 eCW1 ([facility] 12:00:00 AM EDT [facility]) [address] 01/22/2020 [facility]00 AM EST [facility]) [address] 236 01/13/2020 eCW1 ([facility] Street [facility] 12:00:00 AM EST [facility]) Emergency Attender: SHREYA Shannon 12/26/2019 [facility] ED STAFF 02:47:00 PM [facility] PHYSICIANAttender 12/26/2019 : STAFF ED STAFF 05:19:00 PM EST PHYSICIANAdmitter : SHREYA ED STAFF PHYSICIAN Patient discharged. Outpatient Attender: Jsoephine Shannon 12/20/2019 [facility] SayeghAdmitter: Osama 12:24:00 PM [facility] SayeghReferrer: Josephine Darby [address] [address] 12/19/2019 eCW1 ([facility] 12:00:00 AM EST [facility]) [address] [address] 12/19/2019 eCW1 ([facility] 12:00:00 AM EST [facility]) [address] 236 12/10/2019 eCW1 ([facility] 12:00:00 AM EST [facility]) Outpatient Attender: CNR9 [facility] 12/06/2019 GSI ([facility] 04:08:49 PM [facility]) Patient admitted. [address] [address] 12/02/2019 eCW1 ([facility] 12:00:00 AM EST [facility]) Emergency Attender: GONZALO Shannon 12/01/2019 [facility] ED STAFF 11:40:[address] [facility] PHYSICIANAttender 12/01/2019 : STAFF ED STAFF 03:15:00 PM EST PHYSICIANAdmitter : GONZALO ED STAFF PHYSICIAN Patient discharged. [address] [address] 11/19/2019 eCW1 ([facility] 12:00:00 AM EST [facility]) [address] [address] 11/13/2019 eCW1 ([facility] 12:00:00 AM EST [facility]) Emergency Attender: YOHAN Shannon 11/09/2019 [facility] ED STAFF 03:16:00 PM [facility] Medical [place] PHYSICIANAttender 11/09/2019 : ED STAFF 06:59:00 PM EST PHYSICIANAttender : STAFF ED STAFF PHYSICIANAdmitter : YOHAN ED STAFF PHYSICIAN Patient discharged. [address] [address] [address] 10/22/2019 12:00: 00 AM eCW1 ([facility]) 69 [facility] [address] 10/08/2019 12:00: 00 AM eCW1 ([facility]) 69 [facility] [address] [place] 10/01/2019 12:00: 00 AM eCW1 ([facility]) 69 [facility] [address] 09/24/2019 12:00: 00 AM eCW1 ([facility]) 69 [facility] [address] 09/17/2019 12:00: 00 AM eCW1 ([facility]) Outpatient 09/02/2019 03:42:38 PM GS I ([facility] EDT [facility]) Patient admitted. [address] 08/20/2019 12:00:00 AM eCW1 ([facility]) [address] [address] [address] 08/13/2019 12:00:00 AM eCW1 ([facility]) [address] [address] [address] 08/05/2019 12:00:00 AM eCW1 ([facility]) [address] 07/17/2019 12:00:00 AM eCW1 ([facility]) Immunizations Vaccine Date Status Description Data Source(s) IIV3. This vaccine 08/20/2019 completed eCW1 ([facility] code is one of two 01:06:00 PM EDT [facility]) which replace CVX 15, influenza, split virus. IIV3. This vaccine 08/20/2019 completed eCW1 ([facility] code is one of two 01:06:00 PM EDT [facility]) which replace CVX 15, influenza, split virus. IIV3. This vaccine 08/20/2019 completed eCW1 ([facility] code is one of two 01:06:00 PM EDT [facility]) which replace CVX 15, influenza, split virus. IIV3. This vaccine 08/20/2019 completed eCW1 ([facility] code is one of two 01:06:00 PM EDT [facility]) which replace CVX 15, influenza, split virus. IIV3. This vaccine 08/20/2019 completed eCW1 ([facility] code is one of two 01:06:00 PM EDT [facility]) which replace CVX 15, influenza, split virus. IIV3. This vaccine 08/20/2019 completed eCW1 ([facility] code is one of two 01:06:00 PM EDT [facility]) which replace CVX 15, influenza, split virus. IIV3. This vaccine 08/20/2019 completed eCW1 ([facility] code is one of two 01:06:00 PM EDT [facility]) which replace CVX 15, influenza, split virus. IIV3. This vaccine 08/20/2019 completed eCW1 ([facility] code is one of two 01:06:00 PM EDT [facility]) which replace CVX 15, influenza, split virus. IIV3. This vaccine 08/20/2019 completed eCW1 ([facility] code is one of two 01:06:00 PM EDT [facility]) which replace CVX 15, influenza, split virus. IIV3. This vaccine 08/20/2019 completed eCW1 ([facility] code is one of two 01:06:00 PM EDT [facility]) which replace CVX 15, influenza, split virus. IIV3. This vaccine 08/20/2019 completed eCW1 ([facility] code is one of two 01:06:00 PM EDT [facility]) which replace CVX 15, influenza, split virus. IIV3. This vaccine 08/20/2019 completed eCW1 ([facility] code is one of two 01:06:00 PM EDT [facility]) which replace CVX 15, influenza, split virus. Medications Medication Brand Start Product Dose Route Administrative Pharmacy [facility] Indications Reaction Description Data Name Date Form Instructions Instructions Source(s) Acetaminoph Percoc .0 active Percoce t eCW1 en 325 MG / et 2019 {tabl 10-325 MG ([facility] aint Oxycodone 10-325 12:00: et} Beny mathur Hydrochlori MG 00 AM Medical de 10 MG EDT [facility]) [Percocet] Percocet 10-325 MG Acetaminoph Percoc .0 active Percoce t eCW1 en 325 MG / et 2019 {tabl 10-325 MG (S aint Oxycodone 10-325 12:00: et} Beny s Hydrochlori MG 00 AM Medical de 10 MG EDT [facility] Tablet [facility]) [Percocet] Percocet 10-325 MG Acetaminoph Percoc .0 active Percoce t eCW1 en 325 MG / et 2019 {tabl 10-325 MG (S aint Oxycodone 10-325 12:00: et} Beny mathur Hydrochlori MG 00 AM Medical de 10 MG EDT [facility]) [Percocet] Percocet 10-325 MG Acetaminoph Percoc .0 active Percoce t eCW1 en 325 MG / et 2019 {tabl 10-325 MG (S aint Oxycodone 10-325 12:00: et} Beny mathur Hydrochlori MG 00 AM Medical de 10 MG EDT [facility] Table[facility] PC) [Percocet] Percocet 10-325 MG Acetaminoph Percoc .0 active Percoce t eCW1 en 325 MG / et 2019 {tabl 10-325 MG (S aint Oxycodone 10-325 12:00: et} Beny s Hydrochlori MG 00 AM Medical de 10 MG EDT [facility] Table[facility] PC) [Percocet] Percocet 10-325 MG Acetaminoph Percoc .0 active Percoce t eCW1 en 325 MG / et 2019 {tabl 10-325 MG (S aint Oxycodone 10-325 12:00: et} Beny s Hydrochlori MG 00 AM Medical de 10 MG EDT [facility] Table[facility] PC) [Percocet] Percocet 10-325 MG Acetaminoph Percoc .0 active Percoce t eCW1 en 325 MG / et 2019 {tabl 10-325 MG (S aint Oxycodone 10-325 12:00: et} Beny mathur Hydrochlori MG 00 AM Medical de 10 MG EDT [facility]) [Percocet] Percocet 10-325 MG atorvastati Lipito .0 active Lipitor 10 eCW1 n 10 MG r 10 2019 {tabl MG ([facility] Oral Tablet MG 12:00: et} Beny s [Lipitor] 00 AM Medical Lipitor 10 EDT Practice MG PC) Ergocalcife Vitami .0 active Vitamin D eCW1 rol 03689 n D 2020 {caps (Ergocalcife ( [facility] UNT Oral (Ergoc 12:00: ule} rol) 1.25 MG [facility] Capsule alcife 00 AM (16738 UT) Med ical Vitamin D rol) EDT Practice (Ergocalcif 1.25 PC) dionte) 1.25 MG MG (51855 (76085 UT) UT) atorvastati Lipito .0 active Lipitor 10 eCW1 n 10 MG r 10 2019 {tabl MG ([facility] Oral Tablet MG 12:00: et} Beny s [Lipitor] 00 AM Medical Lipitor 10 EDT Practice MG PC) atorvastati Lipito .0 active Lipitor 10 eCW1 n 10 MG r 10 2019 {tabl MG ([facility] Oral Tablet MG 12:00: et} Beny s [Lipitor] 00 AM Medical Lipitor 10 EDT Practice MG PC) atorvastati Lipito .0 active Lipitor 10 eCW1 n 10 MG r 10 2019 {tabl MG ([facility] Oral Tablet MG 12:00: et} Beny s [Lipitor] 00 AM Medical Lipitor 10 EDT Practice MG PC) atorvastati Lipito 1.0 active Lipitor 10 eCW1 n 10 MG r 10 2019 {tabl MG ([facility] Oral Tablet MG 12:00: et} Beny s [Lipitor] 00 AM Medical Lipitor 10 EDT Practice MG PC) Ergocalcife Vitami .0 active Vitamin D eCW1 rol 43335 n D 2020 {caps (Ergocalcife ( [facility] UNT Oral (Ergoc 12:00: ule} rol) 1.25 MG [facility] Capsule alcife 00 AM (73870 UT) Med ical Vitamin D rol) EDT Practice (Ergocalcif 1.25 PC) dionte) 1.25 MG MG (53558 (05100 UT) UT) atorvastati Lipito 15/ 1.0 active Lipitor 10 eCW1 n 10 MG r 10 2019 {tabl MG ([facility] Oral Tablet MG 12:00: et} Beny s [Lipitor] 00 AM Medical Lipitor 10 EDT Practice MG PC) Ergocalcife Vitami 1.0 active Vitamin D eCW1 rol 25769 n D 2020 {caps (Ergocalcife ( [facility] UNT Oral (Ergoc 12:00: ule} rol) 1.25 MG [facility] Capsule alcife 00 AM (85867 UT) Med ical Vitamin D rol) EDT Practice (Ergocalcif 1.25 PC) dionte) 1.25 MG MG (07690 (99378 UT) UT) Ergocalcife Vitami 1.0 active Vitamin D eCW1 rol 99740 n D 2020 {caps (Ergocalcife ( [facility]NT Oral (Ergoc 12:00: ule} rol) 1.25 MG [facility] Capsule alcife 00 AM (60329 UT) Med ical Vitamin D rol) EDT Practice (Ergocalcif 1.25 PC) dionte) 1.25 MG MG (08441 (61045 UT) UT) atorvastati Lipito 1.0 active Lipitor 10 eCW1 n 10 MG r 10 2019 {tabl MG ([facility] Oral Tablet MG 12:00: et} Beny s [Lipitor] 00 AM Medical Lipitor 10 EDT Practice MG PC) Ergocalcife Vitami 15/ 1.0 active Vitamin D eCW1 rol 10011 n D 2020 {caps (Ergocalcife ( [facility]NT Oral (Ergoc 12:00: ule} rol) 1.25 MG [facility] Capsule alcife 00 AM (83014 UT) Med ical Vitamin D rol) EDT Practice (Ergocalcif 1.25 PC) dionte) 1.25 MG MG (01325 (14088 UT) UT) Ergocalcife Vitami 15/ 1.0 active Vitamin D eCW1 rol 00532 n D 2019 {caps (Ergocalcife ( [facility]NT Oral (Ergoc 12:00: ule} rol) 1.25 MG [facility] Capsule alcife 00 AM (15654 UT) Med ical Vitamin D rol) EDT Practice (Ergocalcif 1.25 PC) dionte) 1.25 MG MG (88053 (97713 UT) UT) Ergocalcife Vitami 1.0 active Vitamin D eCW1 rol 24767 n D 2019 {caps (Ergocalcife ( [facility]NT Oral (Ergoc 12:00: ule} rol) 1.25 MG [facility] Capsule alcife 00 AM (89356 UT) Med ical Vitamin D rol) EDT Practice (Ergocalcif 1.25 PC) dionte) 1.25 MG MG (11540 (59043 UT) UT) Ergocalcife Vitami 1.0 active Vitamin D eCW1 rol 13004 n D 2019 {caps (Ergocalcife ( [facility]NT Oral (Ergoc 12:00: ule} rol) 1.25 MG [facility] Capsule alcife 00 AM (32731 UT) Med ical Vitamin D rol) EDT Practice (Ergocalcif 1.25 PC) dionte) 1.25 MG MG (89078 (73808 UT) UT) atorvastati Lipito 1.0 active Lipitor 10 eCW1 n 10 MG r 10 2019 {tabl MG ([facility] Oral Tablet MG 12:00: et} Beny s [Lipitor] 00 AM Medical Lipitor 10 EDT Practice MG PC) Acetaminoph Percoc .0 active Percoce t eCW1 en 325 MG / et 2019 {tabl 10-325 MG (S aint Oxycodone 10-325 12:00: et} Beny s Hydrochlori MG 00 AM Medical de 10 MG EDT Practice Oral Tablet PC) [Percocet] Percocet 10-325 MG Acetaminoph Percoc .0 active Percoce t eCW1 en 325 MG / et 2019 {tabl 10-325 MG (S aint Oxycodone 10-325 12:00: et} Beny s Hydrochlori MG 00 AM Medical de 10 MG EDT [facility] Oral Tablet PC) [Percocet] Percocet 10-325 MG Acetaminoph Percoc 05/22/ 1.0 active Percoce t eCW1 en 325 MG / et 2019 {tabl 10-325 MG (S aint Oxycodone 10-325 12:00: et} Beny s Hydrochlori MG 00 AM Medical de 10 MG EDT Practice Oral Tablet PC) [Percocet] Percocet 10-325 MG Acetaminoph Percoc 05/22/ 1.0 active Percoce t eCW1 en 325 MG / et 2019 {tabl 10-325 MG (S aint Oxycodone 10-325 12:00: et} Beny s Hydrochlori MG 00 AM Medical de 10 MG EDT Practice Oral Tablet PC) [Percocet] Percocet 10-325 MG Acetaminoph Percoc 04/16/ active 1 table t eCW1 en 325 MG / et 2019 ([facility] Oxycodone 10-325 12:00: Ben[facility] s Hydrochlori MG 00 AM Medical de 10 MG EDT Practice Oral Tablet PC) [Percocet] Percocet 10-325 MG Acetaminoph Percoc 04/16/ 1.0 active Percoce t eCW1 en 325 MG / et 2019 {tabl 10-325 MG (S aint Oxycodone 10-325 12:00: et} Beny s Hydrochlori MG 00 AM Medical de 10 MG EDT Practice Oral Tablet PC) [Percocet] Percocet 10-325 MG Acetaminoph Percoc 03/17/ active 1 table t eCW1 en 325 MG / et 2019 ([facility] Oxycodone 10-325 12:00: Beny s Hydrochlori MG 00 AM Medical de 10 MG EDT Practice Oral Tablet PC) [Percocet] Percocet 10-325 MG Acetaminoph Percoc 02/11/ active 1 table t eCW1 en 325 MG / et 2019 ([facility] Oxycodone 10-325 12:00: Beny s Hydrochlori MG 00 AM Medical de 10 MG EDT Practice Oral Tablet PC) [Percocet] Percocet 10-325 MG Acetaminoph Percoc 01/22/ active 1 table t eCW1 en 325 MG / et 2019 ([facility] Oxycodone 10-325 12:00: Beny s Hydrochlori MG 00 AM Medical de 10 MG EST [facility]) [Percocet] Percocet 10-325 MG Levofloxaci Levaqu .0 active Levaqui n 500 eCW1 n 500 MG in 500 2019 {tabl MG ([facility] Oral Tablet MG 12:00: et} Beny mathur Levaquin 00 AM Medical 500 MG EST Practice PC) Levofloxaci Levaqu .0 active Levaqui n 500 eCW1 n 500 MG in 500 2020 {tabl MG ([facility] Oral Tablet MG 12:00: et} Beny mathur [facility] MG PC) Levofloxaci Levaqu .0 active Levaqui n 500 eCW1 n 500 MG in 500 2019 {tabl MG ([facility] Oral Tablet MG 12:00: et} eBny mathur Levaquin 00 AM Medical 500 MG EST Practice PC) Levofloxaci Levaqu .0 active Levaqui n 500 eCW1 n 500 MG in 500 2019 {tabl MG ([facility] Oral Tablet MG 12:00: et} Beny mathur Levaquin 00 AM Medical 500 MG EST Practice PC) Levofloxaci Levaqu .0 active Levaqui n 500 eCW1 n 500 MG in 500 2019 {tabl MG ([facility] Oral Tablet MG 12:00: et} Beny mathur [facility] 500 MG PC) Levofloxaci Levaqu .0 active Levaqui n 500 eCW1 n 500 MG in 500 2019 {tabl MG ([facility] Oral Tablet MG 12:00: et} Beny mathur [Levaquin] 00 [facility] 500 MG PC) Levofloxaci Levaqu .0 active Levaqui n 500 eCW1 n 500 MG in 500 2019 {tabl MG ([facility] Oral Tablet MG 12:00: et} Beny mathur [Levaquin] [facility] 500 MG PC) Levofloxaci Levaqu active 1 table t eCW1 n 500 MG in 500 2019 ([facility] Oral Tablet MG 12:00: Beny mathur [Levaquin] 00 AM Medical Levaquin EST Practice 500 MG PC) Acetaminoph Percoc 1 table t eCW1 en 325 MG / et 2020 ([facility] Oxycodone 10-325 12:00: Beny s Hydrochlori MG 00 AM Medical de 10 MG EST Practice Oral Tablet PC) [Percocet] Percocet 10-325 MG Levofloxaci Levaqu .0 active Levaqui n 500 eCW1 n 500 MG in 500 2020 {tabl MG ([facility] Oral Tablet MG 12:00: et} Beny s [Levaquin] 00 AM Medical Levaquin EST Practice 500 MG PC) Levofloxaci Levaqu .0 active Levaqui n 500 eCW1 n 500 MG in 500 2019 {tabl MG ([facility] Oral Tablet MG 12:00: et} Beny s [Levaquin] 00 AM Medical Levaquin EST Practice 500 MG PC) Levofloxaci Levaqu active 1 table t eCW1 n 500 MG in 500 2019 ([facility] Oral Tablet MG 12:00: Beny s [Levaquin] 00 AM Medical Levaquin EST Practice 500 MG PC) Levofloxaci Levaqu .0 active Levaqui n 500 eCW1 n 500 MG in 500 2019 {tabl MG ([facility] Oral Tablet MG 12:00: et} Beny s Levaquin 00 AM Medical 500 MG EST Practice PC) Levofloxaci Levaqu .0 active Levaqui n 500 eCW1 n 500 MG in 500 2020 {tabl MG ([facility] Oral Tablet MG 12:00: et} Beny s Levaquin 00 AM Medical 500 MG EST Practice PC) Levofloxaci Levaqu .0 active Levaqui n 500 eCW1 n 500 MG in 500 2019 {tabl MG ([facility] Oral Tablet MG 12:00: et} Beny s Levaquin 00 AM Medical 500 MG EST Practice PC) Levofloxaci Levaqu active 1 table t eCW1 n 500 MG in 500 2019 ([facility] Oral Tablet MG 12:00: Beny s [Levaquin] 00 AM Medical Levaquin EST Practice 500 MG PC) Acetaminoph Percoc active 1 table t eCW1 en 325 MG / et 2018 ([facility] Oxycodone 10-325 12:00: Beny s Hydrochlori MG 00 AM Medical de 10 MG EST Practice Oral Tablet PC) [Percocet] Percocet 10-325 MG Furosemide Lasix 11/26/ active 1 tablet eCW1 20 MG Oral 20 MG 2019 ([facility] Tablet 12:00: [facility] [Lasix] 00 AM Medical Lasix 20 MG EST Practice PC) Furosemide Lasix 10/22/ active 1 tablet eCW1 20 MG Oral 20 MG 2019 ([facility] Tablet 12:00: [facility] [Lasix] 00 AM Medical Lasix 20 MG EST Practice PC) Furosemide Lasix 10/22/ active 1 tablet eCW1 20 MG Oral 20 MG 2018 ([facility] Tablet 12:00: [facility] [Lasix] 00 AM Medical Lasix 20 MG EST Practice PC) Furosemide Lasix 10/22/ active 1 tablet eCW1 20 MG Oral 20 MG 2018 ([facility] Tablet 12:00: [facility] [Lasix] 00 AM Medical Lasix 20 MG EST Practice PC) Acetaminoph Percoc 10/22/ active 1 table t eCW1 en 325 MG / et 2018 ([facility] Oxycodone 10-325 12:00: Beny s Hydrochlori MG 00 AM Medical de 10 MG EST Practice Oral Tablet PC) [Percocet] Percocet 10-325 MG Acetaminoph Percoc 10/22/ active 1 table t eCW1 en 325 MG / et 2018 ([facility] Oxycodone 10-325 12:00: Beny s Hydrochlori MG 00 AM Medical de 10 MG EST Practice Oral Tablet PC) [Percocet] Percocet 10-325 MG Furosemide Lasix 10/22/ active 1 tablet eCW1 20 MG Oral 20 MG 2018 ([facility] Tablet 12:00: [facility] [Lasix] 00 AM Medical Lasix 20 MG EST Practice PC) 24 HR Nicode 10/08/ active 1 patch to eC W1 Nicotine rm CQ 2019 skin ([facility] 0.875 MG/HR 21 12:00: Beny s Transdermal MG/24H 00 AM Medic al Patch R EST Practice [Nicoderm PC) C-Q] Nicoderm CQ 21 MG/24HR 24 HR Nicode 10/08/ active 1 patch to eC W1 Nicotine rm CQ 2019 skin ([facility] 0.875 MG/HR 21 12:00: Beny s Transdermal MG/24H 00 AM Medic al Patch R EST Practice [Nicoderm PC) C-Q] Nicoderm CQ 21 MG/24HR 24 HR Nicode 10/08/ active 1 patch to eC W1 Nicotine rm CQ 2019 skin ([facility] 0.875 MG/HR 21 12:00: Beny s Transdermal MG/24H 00 AM Medic al Patch R EST Practice [[facility]) C-Q] Nicoderm CQ 21 MG/24HR 24 HR Nicode 10/01/ 1.0 active Nicoderm CQ e CW1 Nicotine rm CQ 2019 {patc 14 MG/24HR (Sa int 0.583 MG/HR 14 12:00: h_to_ Norm hs Transdermal MG/24H 00 AM skin} Medi amador Patch R EST Practice [[facility]) C-Q] Nicoderm CQ 14 MG/24HR 24 HR Nicode 10/01/ active 1 patch to eC W1 Nicotine rm CQ 2019 skin ([facility] 0.583 MG/HR 14 12:00: Beny s Transdermal MG/24H 00 AM Medic al Patch R EST Practice [[facility]) C-Q] Nicoderm CQ 14 MG/24HR 24 HR Nicode 10/01/ active 1 patch to eC W1 Nicotine rm CQ 2019 skin ([facility] 0.583 MG/HR 14 12:00: Beny s Transdermal MG/24H 00 AM Medic al Patch R EST Practice [[facility]) C-Q] Nicoderm CQ 14 MG/24HR 24 HR Nicode 1.0 active Nicoderm CQ e CW1 Nicotine rm CQ 2019 {patc 14 MG/24HR (Sa int 0.583 MG/HR 14 12:00: h_to_ Norm hs Transdermal MG/24H 00 AM skin} Medi amador Patch R EST Practice [[facility]) C-Q] Nicoderm CQ 14 MG/24HR 24 HR Nicode 10/01/ active 1 patch to eC W1 Nicotine rm CQ 2019 skin ([facility] 0.583 MG/HR 14 12:00: Beny s Transdermal MG/24H 00 AM Medic al Patch R EST Practice [[facility]) C-Q] Nicoderm CQ 14 MG/24HR 24 HR Nicode 10/01/ active 1 patch to eC W1 Nicotine rm CQ 2019 skin ([facility] 0.583 MG/HR 14 12:00: Beny s Transdermal MG/24H 00 AM Medic al Patch R EST Practice [[facility]) C-Q] Nicoderm CQ 14 MG/24HR 24 HR Nicode 10/01/ active 1 patch to eC W1 Nicotine rm CQ 2019 skin ([facility] 0.583 MG/HR 14 12:00: Beny s Transdermal MG/24H 00 AM Medic al Patch R EST Practice [[facility]) C-Q] Nicoderm CQ 14 MG/24HR 24 HR Nicode .0 active Nicoderm CQ e CW1 Nicotine rm CQ 2018 {patc 14 MG/24HR (Sa int 0.583 MG/HR 14 12:00: h_to_ Norm hs Transdermal MG/24H 00 AM skin} Medi amador Patch R EST Practice [[facility]) C-Q] Nicoderm CQ 14 MG/24HR 24 HR Nicode .0 active Nicoderm CQ e CW1 Nicotine rm CQ 2018 {patc 14 MG/24HR (Sa int 0.583 MG/HR 14 12:00: h_to_ Norm hs Transdermal MG/24H 00 AM skin} Medi amador Patch R EST Practice [[facility]) C-Q] Nicoderm CQ 14 MG/24HR 24 HR Nicode .0 active Nicoderm CQ e CW1 Nicotine rm CQ 2018 {patc 14 MG/24HR (Sa int 0.583 MG/HR 14 12:00: h_to_ Norm hs Transdermal MG/24H 00 AM skin} Medi amador Patch R EST Practice [[facility]) C-Q] Nicoderm CQ 14 MG/24HR 24 HR Nicode .0 active Nicoderm CQ e CW1 Nicotine rm CQ 2018 {patc 14 MG/24HR (Sa int 0.583 MG/HR 14 12:00: h_to_ Norm hs Transdermal MG/24H 00 AM skin} Medi amador Patch R EST Practice [[facility]) C-Q] Nicoderm CQ 14 MG/24HR 24 HR Nicode .0 active Nicoderm CQ e CW1 Nicotine rm CQ 2018 {patc 14 MG/24HR (Sa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 [facility] Body mass index 30.4 kg/m2 30.4 kg/m2 [facility] (BMI) [Ratio] [facility] [address] [facility] Diastolic blood 83 mm[Hg] 83 mm[Hg] eCW1 ([facility] nt pressure [facility]) Systolic blood 146 mm[Hg] 146 mm[Hg] eCW1 ([facility] t pressure [facility]) Deprecated Oxygen 98 % 98 % eCW1 (S aint saturation in [facility] Capillary blood by [facility]) Oximetry Body temperature 98.2 [degF] 98.2 [degF] eCW1 ( [facility]) Respiratory rate 18 /min 18 /min eCW1 ( int [facility]) Heart rate 75 /min 75 /min eCW1 ([facility]) Body mass index 35.15 kg/m2 35.15 kg/m2 eCW1 (S aint (BMI) [Ratio] [facility] Body weight 180 [lb_av] 180 [lb_av] eCW1 ([facility]) Body height [in_us] eCW1 ([facility]) Body temperature 37.655406 37.891357 [facility] Respiratory rate 19 /min 19 /min [facility] Oxygen saturation 97 % 97 % [facility] Arterial blood [facility] by Pulse oximetry Heart rate 93 /min 93 /min [facility] Diastolic blood 87 mm[Hg] 87 mm[Hg] [facility] pressure [facility] Systolic blood 120 mm[Hg] 120 mm[Hg] [facility] Body temperature 37.351134 37.299265 [facility] Respiratory rate 20 /min 20 /min [facility] Oxygen saturation 97 % 97 % [facility] in Arterial blood [facility] by Pulse oximetry Heart rate 87 /min 87 /min [facility] Diastolic blood 119 mm[Hg] 119 mm[Hg] [facility] Systolic blood 146 mm[Hg] 146 mm[Hg] [facility] Diastolic blood 93 mm[Hg] 93 mm[Hg] eCW1 ([facility] nt pressure [facility]) Systolic blood 136 mm[Hg] 136 mm[Hg] eCW1 ([facility] t pressure [facility]) Body temperature 98.9 [degF] 98.9 [degF] eCW1 ( [facility]) Respiratory rate 18 /min 18 /min eCW1 ([facility]) Heart rate 72 /min 72 /min eCW1 ([facility]) Body mass index 35.35 kg/m2 35.35 kg/m2 eCW1 (S aint (BMI) [Ratio] [facility]) Body weight 181 [lb_av] 181 [lb_av] eCW1 ([facility]) Body height [in_us] eCW1 ([facility]) Diastolic blood 95 mm[Hg] 95 mm[Hg] eCW1 ([facility] nt pressure [facility]) Systolic blood 151 mm[Hg] 151 mm[Hg] eCW1 ([facility] pressure [facility]) Deprecated Oxygen 98 % 98 % eCW1 (S aint saturation in [facility] Capillary blood by [facility]) Oximetry Body temperature 98.3 [degF] 98.3 [degF] eCW1 ( [facility]) Respiratory rate 18 /min 18 /min eCW1 ( int [facility]) Heart rate 76 /min 76 /min eCW1 ([facility]) Body mass index 0 kg/m2 0 kg/m2 eCW1 (Jese nt (BMI) [Ratio] [facility] Body weight 0 [lb_av] 0 [lb_av] eCW1 ([facility]) Body height [in_us] eCW1 ([facility]) Body temperature 37.507534 37.057814 [facility] Respiratory rate 17 /min 17 /min [facility] Oxygen saturation 98 % 98 % [facility] in Arterial blood [facility] by Pulse oximetry Heart rate 89 /min 89 /min [facility] Diastolic blood 63 mm[Hg] 63 mm[Hg] [facility] Systolic blood 123 mm[Hg] 123 mm[Hg] [facility] Diastolic blood 67 mm[Hg] 67 mm[Hg] eCW1 ([facility] nt pressure [facility]) Systolic blood 117 mm[Hg] 117 mm[Hg] eCW1 ([facility] t pressure [facility]) Body temperature 98.9 [degF] 98.9 [degF] eCW1 ( [facility]) Respiratory rate 18 /min 18 /min eCW1 ( int [facility]) Heart rate 69 /min 69 /min eCW1 ([facility]) Body mass index 35.35 kg/m2 35.35 kg/m2 eCW1 (S aint (BMI) [Ratio] [facility] Body weight 181 [lb_av] 181 [lb_av] eCW1 ([facility]) Body height [in_us] eCW1 ([facility]) Diastolic blood 70 mm[Hg] 70 mm[Hg] eCW1 ([facility] nt pressure [facility]) Systolic blood 130 mm[Hg] 130 mm[Hg] eCW1 ([facility] t pressure [facility]) Deprecated Oxygen 98 % 98 % eCW1 (S aint saturation in [facility] Capillary blood by [facility]) Oximetry Body temperature 98.5 [degF] 98.5 [degF] eCW1 ( [facility]) Respiratory rate 18 /min 18 /min eCW1 ( int [facility]) Heart rate 60 /min 60 /min eCW1 ([facility]) Body mass index 35.35 kg/m2 35.35 kg/m2 eCW1 (S aint (BMI) [Ratio] [facility] Body weight 181 [lb_av] 181 [lb_av] eCW1 ([facility]) Body height [in_us] eCW1 ([facility]) Patient Treatment Plan of Care Planned Activity Planned Date Details Description Data Source (s) Acetaminophen 325 MG / 08/19/2020 12:00:00 eCW1 ([place] Oxycodone Hydrochloride 10 AM EDT [facility]) MG Oral Tablet [Percocet] Acetaminophen 325 MG / 07/22/2020 12:00:00 eCW1 ([facility] Oxy[facility] Hydro[facility] 10 AM EDT [facility]) MG Oral Tablet [Percocet] Acetaminophen 325 MG / 07/22/2020 12:00:00 eCW1 ([place] Oxycodone Hydrochloride 10 AM EDT [facility]) MG Oral Tablet [Percocet] Acetaminophen 325 MG / 06/18/2020 12:00:00 eCW1 ([place] Oxycodone Hydrochloride 10 AM EDT [facility]) MG Oral Tablet [Percocet] Acetaminophen 325 MG / 06/18/2020 12:00:00 eCW1 ([facility] Oxy[facility] Hydrochloride 10 AM EDT [facility]) MG Oral Tablet [Percocet] atorvastatin 10 MG Oral 06/10/2020 12:00:00 eCW1 ([facility] Tablet [Lipitor] AM T [facility] Ergocalciferol [id number] UNT 06/10/2020 12:00:00 eCW1 ([facility] Oral Capsule AM [facility]) Acetaminophen 325 MG / 05/22/2020 12:00:00 eCW1 ([facility] Hydrochloride [facility] AM [facility]) MG Oral Tablet [Percocet] Acetaminophen 325 MG / 05/22/2020 12:00:00 eCW1 ([facility]chloride [facility] AM [facility]) MG Oral Tablet [Percocet] Acetaminophen 325 MG / 05/22/2020 12:00:00 eCW1 ([facility] Hydrochloride [facility] AM EDT [facility]) MG Oral Tablet [Percocet] Acetaminophen 325 MG / 04/16/2020 12:00:00 eCW1 ([facility] Hydrochloride 10 AM EDT [facility]) MG Oral Tablet [Percocet] Acetaminophen 325 MG / 04/16/2020 12:00:00 eCW1 ([facility] Hydrochloride 10 AM EDT [facility]) MG Oral Tablet [Percocet] Acetaminophen 325 MG / 03/17/2020 12:00:00 eCW1 ([facility] O[facility]codone Hydrochloride 10 AM T [facility]) MG Oral Tablet [Percocet] Acetaminophen 325 MG / 02/12/2020 12:00:00 eCW1 ([facility] O[facility]codone Hydrochloride 10 AM EDT [facility]) MG Oral Tablet [Percocet] Acetaminophen 325 MG / 01/22/2020 12:00:00 eCW1 ([facility] Oxycodone Hydrochloride 10 AM [facility]) MG Oral Tablet [Percocet] Levofloxacin 500 MG Oral 12/19/2019 12:00:00 eCW1 ([facility] Tablet [Levaquin] AM EST [facility]) Acetaminophen 325 MG / 12/19/2019 12:00:00 eCW1 ([facility] Oxycodone Hydrochloride 10 AM EST [facility]) MG Oral Tablet [Percocet] Acetaminophen 325 MG / 11/19/2019 12:00:00 eCW1 ([facility] Oxycodone Hydrochloride 10 AM EST [facility]) MG Oral Tablet [Percocet] Acetaminophen 325 MG / 10/22/2019 12:00:00 eCW1 ([facility] Oxycodone Hydrochloride 10 AM [facility] ) MG Oral Tablet [Percocet] Furosemide 20 MG Oral 10/22/2019 12:00:00 eCW1 ([facility] Tablet [Lasix] AM [facility]) 24 HR Nicotine 0.583 MG/HR 10/01/2019 12:00:00 eCW1 ([facility] Transdermal Patch AM EST [facility]) [Nicoderm C-Q] 24 HR Nicotine 0.583 MG/HR 10/01/2019 12:00:00 eCW1 ([facility] Transdermal Patch AM [facility]) [Nicoderm C-Q] Acetaminophen 325 MG / 09/24/2019 12:00:00 eCW1 ([facility] Oxycodone Hydrochloride 10 AM [facility]) MG Oral Tablet [Percocet]
--- NOTE | 2020-09-12 00:47 | PDOC ---
History of Present Illness - General Chief Complaint: Chest Pain Stated Complaint: CHEST PAIN Time Seen by Provider: 09/12/20 00:13 - History of Present Illness Initial Comments: 09/12/20 00:55 64 yo f with pmh htn, hld, dm, with bypass presents to ED for midsternal chest pain that started about 6 hours ago. Pt explains she had one of these before where she had cardiac cath. Pt explains pain is tightness feeling that is going from midsternal area and wrapping around to left back. Pt also explains diaphoresis and left hand numbness. Pt also has some left leg heaviness going on for five days. Pt denies anything that makes pain better or worse. Pt denies nausea, emesis, SOB, abd pain, dysuria. PMH: DM, htn, hld PSH: cardiac bypass (2006) Allergies: mushrooms Social: current smoker; denies drugs and alcohol PCP: Dr. Moni Barba Cardio: Dr. Thornton 09/12/20 02:06 Past History - Medical History Allergies/Adverse Reactions: Allergies Allergy/AdvReac Type Severity Reaction Status Date / Time mushroom Allergy Mild Swelling Verified 09/12/20 09:52 Home Medications: Ambulatory Orders Albuterol Sulfate Inhaler - [Ventolin HFA Inhaler -] 2 puff IH Q6H PRN #1 inhaler 01/17/17 Clopidogrel Bisulfate [Plavix -] 75 mg PO DAILY #7 tablet 01/17/17 Amlodipine Besylate [Norvasc -] 5 mg PO DAILY 07/11/18 Aspirin [Ecotrin] 81 mg PO DAILY 07/11/18 Enalapril Maleate [Vasotec] 5 mg PO DAILY 07/11/18 Famotidine [Pepcid] 20 mg PO DAILY 07/11/18 Furosemide [Lasix] 20 mg PO DAILY 07/11/18 Docusate Sodium [Colace] 100 mg PO BID 07/12/18 Metoprolol Succinate [Toprol Xl] 50 mg PO DAILY 07/12/18 Ranolazine [Ranexa] 1,000 mg PO BID 07/12/18 Liraglutide [Victoza -] 1.8 mg SQ DAILY@0700 01/21/19 Asthma: Yes Cardiac Disorders: Yes (Bypass 2007, CARDIAC STENT IN JUN 2014) COPD: No Diabetes: Yes HTN: Yes Hypercholesterolemia: Yes Psychiatric Problems: Yes - Surgical History Abdominal Surgery: Yes (Hernia repair) Cardiac Surgery: Yes (Bypass 2007, Cardiac stent 06/2014) Cholecystectomy: Yes (1990) Orthopedic Surgery: Yes (Spine surgery 12/29) - Immunization History Immunization Up to Date: No - Psycho-Social/Smoking History Smoking Status: Yes Smoking History: Never smoked Have you smoked in the past 12 months: No Number of Cigarettes Smoked Daily: 2 If you are a former smoker, when did you quit?: "a while ago" 'Breaking Loose' booklet given: 07/18/19 Review of Systems - Review of Systems Comments:: 09/12/20 02:07 ROS GENERAL/CONSTITUTIONAL: No fever or chills. HEAD, EYES, EARS, NOSE AND THROAT: No change in vision. No ear pain or discharge. No sore throat. CARDIOVASCULAR:Chest pain RESPIRATORY: No cough, wheezing, or hemoptysis. GASTROINTESTINAL: No nausea, vomiting, diarrhea or constipation. GENITOURINARY: No dysuria, frequency, or change in urination. MUSCULOSKELETAL: No joint or muscle swelling or pain. No neck or back pain. SKIN: No rash NEUROLOGIC: No headache, vertigo, loss of consciousness. Dec strength in left arm and leg ENDOCRINE: No increased thirst. No abnormal weight change ALLERGIC/IMMUNOLOGIC: No hives or skin allergy. *Physical Exam - Vital Signs Last Vital Signs Temp Pulse Resp BP Pulse Ox 98.9 F 70 18 136/66 98 09/11/20 23:49 09/11/20 23:49 09/11/20 23:49 09/11/20 23:49 09/11/20 23:49 - Physical Exam 09/12/20 02:08 GENERAL: Awake, alert, and fully oriented, in moderate distress. HEAD: No signs of trauma, normocephalic, atraumatic EYES: PERRLA, EOMI, sclera anicteric, conjunctiva clear ENT: Auricles normal inspection, hearing grossly normal, nares patent, oropharynx clear without exudates. Moist mucosa NECK: Normal ROM, supple, no lymphadenopathy, JVD, or masses LUNGS: No distress, speaks full sentences, clear to auscultation bilaterally HEART: Regular rate and rhythm, normal S1 and S2, no murmurs, rubs or gallops, peripheral pulses normal and equal bilaterally. BP in left arm 121/79 right arm: 132/80 ABDOMEN: Soft, nontender, normoactive bowel sounds. No guarding, no rebound. No masses EXTREMITIES : Normal inspection, Normal range of motion, no edema. No clubbing or cyanosis. NEUROLOGICAL: Cranial nerves II through XII grossly intact. Normal speech, n ormal gait, no focal sensorimotor deficits SKIN: Warm, Dry, normal turgor, no rashes or lesions noted Heart Score/ECG Review - History History: Moderately suspicious - Electrocardiogram EKG: Normal - Age Age: 45-65 - Risk Factors Risk Factors Heart Score: Yes Hx Hypercholesterolemia, Yes Hx Hypertension, Yes Hx Diabetes, Yes Smoking History Based on the list above the patient has:: >/=3 risk factors or Hx atherosclerotic disease - Troponin Troponin: </= normal limit - Score Heart Score - Total: 4 - ECG Impressions Comment:: 09/12/20 02:55 Regular rate and rhythm Normal axis Normal ME, QRS, and QT interval No st segment elevations or acute ischemic changes ED Treatment Course - LABORATORY CBC & Chemistry Diagram: 09/12/20 08:47 09/12/20 08:47 Medical Decision Making - Medical Decision Making 09/12/20 00:58 64 yo f with pmh htn, hld, dm, with bypass presents to ED for midsternal chest pain that started about 6 hours ago. DDx: ACS, Aortic dissection 09/12/20 02:55 Chest x ray shows no widening mediastinum with BP in bilateral arms not being widely different EKG and tropinin normal Will admit for tele obs Medicine team microblogged PT HPI, ED course, and plan was discussed with resident Sherif Darby. Pt has been admitted to Dr. Maricruz Saba. Pt threathened to sign out AMA but later returned. Relayed information to medic ine team resident Sherif Darby. Discharge - Discharge Information Problems reviewed: Yes Clinical Impression/Diagnosis: ACS (acute coronary syndrome) Condition: Guarded - Admission Yes - Follow up/Referral - Patient Discharge Instructions - Post Discharge Activity
[2020-09-12] MEDS ORDERED: ACETAMINOPHEN 1000 MG/100 ML VIAL (NON FORMULARY) IVPB ONE (01:01)
[2020-09-12] MEDS ORDERED: ACETAMINOPHEN INJECTION 100 ML IVPB ONE (01:19)
[2020-09-12 01:46] LABS: EOS % 1.3 % (0-4.5); HEMATOCRIT 38.4 % (32.4-45.2); HEMOGLOBIN 12.9 GM/dL (10.7-15.3); LYMPH % 35.6 % (8-40); MCH 22.9 pg (25.7-33.7); MCHC 33.5 g/dl (32.0-36.0); MEAN CELL VOLUME 68.3 fl (80-96); MEAN PLT VOLUME 7.9 fl (7.5-11.1); MONO % 6.5 % (3.8-10.2); NEUT % 55.6 % (42.8-82.8); PLATELET COUNT 211 K/MM3 (134-434); RBC 5.63 M/mm3 (3.60-5.2); RDW 14.8 % (11.6-15.6)
[2020-09-12 02:00] LABS: CHLORIDE 107 mmol/L (98-107); POTASSIUM 3.9 mmol/L (3.5-5.1); SODIUM 140 mmol/L (136-145)
[2020-09-12 02:01] LABS: CALCIUM 8.6 mg/dL (8.5-10.1)
[2020-09-12 02:02] LABS: ALBUMIN 3.2 g/dl (3.4-5.0); ANION GAP 6 MMOL/L (8-16); BLOOD UREA NITROGEN 8.7 mg/dL (7-18); CO2 27 mmol/L (21-32); GLUCOSE,RANDOM 92 mg/dL (74-106)
[2020-09-12 02:05] LABS: CREATININE 0.8 mg/dL (0.55-1.3); SGOT/AST 21 U/L (15-37); SGPT/ALT 42 U/L (13-61)
[2020-09-12 02:07] LABS: BILIRUBIN,TOTAL 0.3 mg/dL (0.2-1); TOT PROT 6.8 g/dl (6.4-8.2)
[2020-09-12 02:08] LABS: ALK PHOS 146 U/L (45-117)
[2020-09-12] MEDS ORDERED: ASPIRIN 81 MG CHEWABLE TABLETS PO ONE (02:47)
--- OUTSIDE RECORDS SUMMARY | 2020-09-12 03:21 | XMS ---
:1955 Author Organization [facility] Care Team Providers Name Role Phone ED STAFF PHYSICIAN, SHREYA Unavailable Unavailable [facility], CNR9 Unavailable Unavailable ED STAFF PHYSICIAN, STAFF Unavailable Unavailable ED STAFF PHYSICIANGONZALO Unavailable Unavailable Mehnaz, Osama Unavailable Unavailable Emhnaz, Osama Unavailable Unavailable Mehnaz, Osama Unavailable Unavailable [...] is protected by Article 27-F of the [facility] Public Health law. If you continue you may haveaccess to information: Regarding HIV / AIDS; Provided by facilities licensed or operated by the [facility] Office of Mental Health; or Provided by the [facility] Office for People With Developmental Disabilities. If such information is present, then the following [facility] mandated warning applies: This information has been [...] law may result in a fine or retirement sentence or both. A general authorization for the release of medical or other information is NOT sufficient authorization for further disclosure. Allergies and Adverse Reactions Type Description Substance Reaction Status Data Source(s ) Mushrooms Mushrooms Mushrooms Unknown Active eCW1 ([facility]) Mushrooms Mushrooms Mushrooms Unknown Active eCW1 ([facility]) Mushrooms Mushrooms Mushrooms Unknown Active eCW1 ([facility]) Mushrooms Mushrooms Mushrooms Unknown Active eCW1 ([facility]) Mushrooms Mushrooms Mushrooms Unknown Active eCW1 ([facility]) Mushrooms Mushrooms Mushrooms Unknown Active eCW1 ([facility]) Mushrooms Mushrooms Mushrooms Unknown Active eCW1 ([facility]) Encounters Encounter Providers Location Date Indications Data Source(s ) Outpatient Attender: [id number] [facility] 08/31/2020 GSI ([facility] 04:05:10 PM Health Care EDT [facility]) Patient admitted. Outpatient [address] 08/19/2020 12:00:00 eCW1 ([facility] EDT [facility]) (TEL) [address] 08/05/2020 12:00:00 eCW1 [facility] Outpatient [address] 08/05/2020 12:00:00 eCW1 ([facility] (TEL) [address] 07/22/2020 12:00:00 eCW1 ([facility] Outpatient [address] 07/22/2020 12:00:00 eCW1 ([facility] (TEL) [address] 06/30/2020 12:00:00 eCW1 ([facility] Outpatient Attender: CNR9 06/27/2020 11:33:14 G SI ([facility] Care [facility]) Patient admitted. Outpatient [address] 06/18/2020 12:00:00 eCW1 ([facility] Outpatient [address] 06/10/2020 12:00:00 eCW1 ([facility] (TEL) [address] 06/03/2020 12:00:00 eCW1 ([facility] (TEL) [address] 06/01/2020 12:00:00 eCW1 ([facility] Outpatient Attender: [id number] 05/27/2020 10:22:47 G SI ([facility]) Patient admitted. Outpatient [address] 05/22/2020 12:00:00 eCW1 ([facility] (TEL) [address] 05/04/2020 12:00:00 eCW1 ([facility]) [facility] [address] 04/16/2020 12:00:00 eCW1 ([facility] 69 [facility] [address] 04/16/2020 12:00:00 eCW1 ([facility]) Outpatient Attender: EMERSONR9 04/06/2020 10:19:16 G SI ([facility]T [facility]) Patient admitted. Outpatient Attender: EMERSONR9 [facility] 04/06/2020 10:19:03 AM GSI ([facility] EDT Collaborative) Patient admitted. 69 [facility] [address] 04/06/2020 12:00:00 eCW1 ([facility] AM EDT [facility]) 69 [facility] [address] 03/16/2020 12:00:00 eCW1 ([facility] AM EDT [facility]) [facility] [address] 02/28/2020 12:00:00 eC W1 ([facility] AM EDT [facility]) [address] 02/26/2020 12:00:00 eCW1 ([facility] AM EDT [facility]) [address] 02/24/2020 12:00:00 eCW1 ([facility] AM EDT [facility]) Outpatient Attender: BERNNA 02/14/2020 06:24:51 G SI ([facility] EDT [facility]) Patient admitted. [facility] [address] 02/12/2020 eCW1 ([facility] Street [facility] 12:00:00 AM EDT [facility] [address] 02/11/2020 eCW1 ([facility] Street [facility] 12:00:00 AM EDT [facility] [address] 02/11/2020 eCW1 ([facility] Street [facility] 12:00:00 AM EDT [facility] [address] 01/22/2020 eCW1 ([facility] 12:00:00 AM EST [facility]) [address] 01/13/2020 [facility] 12:[facility]:00 AM EST [facility]) Emergency Attender: SHREYA Shannon 12/26/2019 [facility] ED STAFF 02:47:00 PM [facility] PHYSICIANAttender 12/26/2019 : STAFF ED STAFF 05:19:00 PM EST PHYSICIANAdmitter : SHREYA ED STAFF PHYSICIAN Patient discharged. Outpatient Attender: Josephine Shannon 12/20/2019 [facility] SayeghAdmitter: Josephine 12:24:00 PM [facility] SayeghReferrer: Josephine Darby [address] [address] 12/19/2019 eCW1 ([facility] 12:00:00 AM EST [facility]) [address] 236 12/19/2019 eCW1 ([facility] 12:00:00 AM EST [facility]) [address] [address] 12/10/2019 eCW1 ([facility] 12:00:00 AM EST [facility]) Outpatient Attender: CNR9 [facility] 12/06/2019 GSI ([facility] 04:08:49 PM [facility]) Patient admitted. [address] [address] 12/02/2019 eCW1 ([facility] 12:00:00 AM EST [facility]) Emergency Attender: GONZALO Shannon 12/01/2019 [facility] ED STAFF 11:40:00 AM [facility] PHYSICIANAttender 12/01/2019 : STAFF ED STAFF 03:15:00 PM EST PHYSICIANAdmitter : GONZALO ED STAFF PHYSICIAN Patient discharged. [address] [address] 11/19/2019 eCW1 ([facility] 12:00:00 AM EST [facility]) [address] [address] 11/13/2019 eCW1 ([facility] 12:00:00 AM EST [facility]) Emergency Attender: YOHAN Shannon 11/09/2019 [facility] ED STAFF 03:16:00 PM [facility] PHYSICIANAttender 11/09/2019 : ED STAFF 06:59:00 PM EST PHYSICIANAttender : STAFF ED STAFF PHYSICIANAdmitter : YOHAN ED STAFF PHYSICIAN Patient discharged. [address] [address] [address] 10/22/2019 12:00: 00 AM eCW1 ([facility] EST [facility] Pract[facility]) [address] 10/08/2019 12:00: 00 AM eCW1 ([facility] EST [facility]) 69 [facility] [address] 10/01/2019 12:00: 00 AM eCW1 ([facility] EST [facility]) [address] [address] [address] 09/24/2019 12:00: 00 AM eCW1 ([facility] EDT [facility]) 69 [facility] [address] [facility] [address] 09/17/2019 12:00: 00 AM eCW1 ([facility]) Outpatient 09/02/2019 03:42:38 PM GS I ([facility] EDT [facility]) Patient admitted. [address] 08/20/2019 12:00:00 AM eCW1 ([facility] EDT [facility] ce [facility]) [address] 08/13/2019 12:00:00 AM eCW1 ([facility] EDT [facility] Practi ce [facility]) [address] [address] [address] 08/05/2019 12:00:00 AM eCW1 ([facility] EDT [facility] Practi ce [facility]) [address] 07/17/2019 12:00:00 AM eCW1 ([facility] [...] This vaccine 08/20/2019 completed eCW1 (Jese nt Olra code is one of two 01:06:00 PM [...] Brand Start Product Dose Route Administrative Pharmacy [facility] Indications Reaction Description Data Name Date Form [...] PC) [Percocet] Percocet 10-325 MG Acetaminoph Percoc 07/23/ 1.0 active Percoce t eCW1 en 325 MG / et 2019 {tabl 10-325 MG (S aint Oxycodone 10-325 12:00: et} Beny mathur Hydrochlori MG 00 AM Medical de 10 MG EDT Practice Oral Tablet PC) [Percocet] Percocet 10-325 MG atorvastati Lipito 1.0 active Lipitor 10 eCW1 n 10 MG r 10 2019 {tabl MG (Saint Oral Tablet MG 12:00: et} Beny s [Lipitor] 00 AM Medical Lipitor 10 EDT Practice MG PC) Ergocalcife Vitami 1.0 active Vitamin D eCW1 rol 89515 n D 2019 {caps (Ergocalcife ( [facility] UNT Oral (Ergoc 12:00: ule} rol) 1.25 MG [facility] Capsule alcife 00 AM (69593 UT) Med ical Vitamin D rol) EDT Practice (Ergocalcif 1.25 PC) dionte) 1.25 MG MG (16207 (22124 UT) UT) atorvastati Lipito 1.0 active Lipitor [...] Vitami 1.0 active Vitamin D eCW1 rol 86575 n D 2019 {caps (Ergocalcife ( [facility] UNT Oral (Ergoc 12:00: ule} rol) 1.25 MG [facility] Capsule alcife 00 AM (73306 UT) Med ical Vitamin D rol) EDT Practice (Ergocalcif 1.25 PC) dionte) 1.25 MG MG (04591 (55344 UT) UT) atorvastati Lipito 1.0 active Lipitor 10 eCW1 n 10 MG r 10 2019 {tabl MG ([facility] Oral Tablet MG 12:00: et} Beny s [Lipitor] 00 AM Medical Lipitor 10 EDT Practice MG PC) Ergocalcife Vitami 1.0 active Vitamin D eCW1 rol 26037 n D 2020 {caps (Ergocalcife ( [facility] UNT Oral (Ergoc 12:00: ule} rol) 1.25 MG [facility] Capsule alcife 00 AM (97839 UT) Med ical Vitamin D rol) EDT Practice (Ergocalcif 1.25 PC) dionte) 1.25 MG MG (86944 (28161 UT) UT) Ergocalcife Vitami 1.0 active Vitamin D eCW1 rol 97740 n D 2020 {caps (Ergocalcife ( [facility] UNT Oral (Ergoc 12:00: ule} rol) 1.25 MG [facility] Capsule alcife 00 AM (43250 UT) Med ical Vitamin D rol) EDT Practice (Ergocalcif 1.25 PC) dionte) 1.25 MG MG (13877 (72696 UT) UT) atorvastati Lipito 1.0 active Lipitor 10 eCW1 n 10 MG r 10 2019 {tabl MG ([facility] Oral Tablet MG 12:00: et} Beny s [Lipitor] 00 AM Medical Lipitor 10 EDT Practice MG PC) Ergocalcife Vitami 1.0 active Vitamin D eCW1 rol 09832 n D 2020 {caps (Ergocalcife ( [facility] UNT Oral (Ergoc 12:00: ule} rol) 1.25 MG [facility] Capsule alcife 00 AM (27522 UT) Med ical Vitamin D rol) EDT Practice (Ergocalcif 1.25 PC) dionte) 1.25 MG MG (88116 (18353 UT) UT) Ergocalcife Vitami 1.0 active Vitamin D eCW1 rol 37907 n D 2020 {caps (Ergocalcife ( [facility] UNT Oral (Ergoc 12:00: ule} rol) 1.25 MG [facility] Capsule alcife 00 AM (86606 UT) Med ical Vitamin D rol) EDT Practice (Ergocalcif 1.25 PC) dionte) 1.25 MG MG (49756 (95419 UT) UT) Ergocalcife Vitami .0 active Vitamin D eCW1 rol 30441 n D 2019 {caps (Ergocalcife ( [facility] UNT Oral (Ergoc 12:00: ule} rol) 1.25 MG [facility] Capsule alcife 00 AM (75949 UT) Med ical Vitamin D rol) EDT Practice (Ergocalcif 1.25 PC) dionte) 1.25 MG MG (71152 (45873 UT) UT) Ergocalcife Vitami .0 active Vitamin D eCW1 rol 81459 n D 2019 {caps (Ergocalcife ( [facility] UNT Oral (Ergoc 12:00: ule} rol) 1.25 MG [facility] Capsule alcife 00 AM (37501 UT) Med ical Vitamin D rol) EDT Practice (Ergocalcif 1.25 PC) dionte) 1.25 MG MG (44763 (14366 UT) UT) atorvastati Lipito .0 active Lipitor 10 eCW1 n 10 MG r 10 2019 {tabl MG ([facility] Oral Tablet MG 12:00: et} Beny mathur [Lipitor] 00 AM Medical Lipitor 10 EDT [...] [Percocet] Percocet 10-325 MG Acetaminoph Percoc 05/22/ .0 active Percoce t eCW1 en 325 [...] et} Beny mathur [Levaquin] 00 AM [facility] EST Practice 500 MG PC) [...] et} Beny mathur [Levaquin] 00 AM [facility] 500 MG PC) Levofloxaci Levaqu .0 active Levaqui n 500 eCW1 n 500 MG in 500 2020 {tabl MG ([facility] Oral Tablet MG 12:00: et} Beny mathur [Levaquin] 00 AM [facility] EST Practice 500 MG PC) Levofloxaci Levaqu .0 active Levaqui n 500 eCW1 n 500 MG in 500 2020 {tabl MG ([facility] Oral Tablet MG 12:00: et} Beny mathur [Levaquin] 00 AM [facility] EST Practice 500 MG PC) Levofloxaci Levaqu active 1 table t eCW1 n 500 MG in 500 2019 ([facility] Oral Tablet MG 12:00: Beny mathur [Levaquin] 00 AM [facility] EST Practice 500 MG PC) Acetaminoph Percoc [...] EST Practice 500 MG PC) Acetaminoph Percoc 11/19/ active 1 table t eCW1 en 325 [...] eCW1 en 325 MG / et 2018 ([facility] Oxycodone 10-325 12:00: Beny s Hydrochlori MG 00 AM Medical de 10 MG EST Practice Oral Tablet PC) [Percocet] Percocet 10-325 MG Acetaminoph Percoc 10/22/ active 1 table t eCW1 en 325 MG / et 2018 ([facility] Oxycodone 10-325 12:00: Beny s Hydrochlori MG [...] CQ 14 MG/24HR 24 HR Nicode 10/01/ 1.0 active [...] name Policy type Policy ID Covered Covered democrat's Policy P lorene / Coverage democrat ID relationship to Kim Inf ormation type kim HIP MEDICARE [id number] SP [id number] VIP MICHELL [id number] SP [id number] MEDICARE ADV PLAN W [id number] MICHELL HMO [id number] 01 [id number] MEDICARE OP BRIANA MEDICARE [id number] SP [id number] MEDICAID [id number] SP [id number] Problems, Conditions, and Diagnoses Code Display Name Description Problem Type Effective Data Dates Source(s) E11.9 [id number] Type 2 diabetes Problem 04/16/2020 eCW1 (Jese nt mellitus without 12:00:00 AM [facility] complication, EDT Medical without long-term Practic e PC) current use of insulin E11.9 [id number] Type 2 diabetes Problem 04/16/2020 eCW1 (Jese nt mellitus without 12:00:00 AM [facility] complication, EDT Medical without long-term Practic e PC) current use of insulin J45.30 [id number] Mild persistent Problem 12/19/2019 eCW1 (Jese nt asthma without 12:00:00 AM [facility] complication EST Medical Practice PC) J45.30 [id number] Mild persistent Problem 12/19/2019 eCW1 (Jese nt asthma without 12:00:00 AM [facility] complication EST Medical Practice PC) M16.0 [id number] Arthritis of both Problem 07/17/2019 e CW1 ([facility] hips 12:00:00 AM [facility] EDT Medical Practice PC) M16.0 [id number] Arthritis of both Problem 07/17/2019 e CW1 ([facility] hips 12:00:00 AM [facility] EDT Medical Practice PC) Y99.9 Unspecified external UNSPECIFIED Diagnosis 12/26/2019 Jese Paulino cause status EXTERNAL CAUSE 02:47:00 PM Medical STATUS EST Center Y92.[address] in UN[address] PL[address] IN Diagnosis 12/26/2019 S aijamila Paulino apartment as the APARTMENT 02:47:00 PM [...] of other CONTUSION OF Diagnosis 12/26/2019 Lily Paulino part of head, OTHER PART OF 02:47:00 PM Medical initial encounter HEAD, INITIAL EST Cent er ENCOUNTER R51 Headache HEADACHE Diagnosis 12/26/2019 [facility] 02:47:00 PM Medical EST Center J40 Bronchitis, not BRONCHITIS, NOT Diagnosis 12/20/2019 Lily Paulino specified as acute SPECIFIED 12:24:00 PM Med ical or chronic ACUTE OR CHRONIC EST Center E11.9 Type 2 diabetes TYPE 2 DIABETES Diagnosis 12/01/2019 Lily Paulino mellitus without MELLITUS WITHOUT 11:40:00 AM M [...] EST Center R05 Cough COUGH Diagnosis 11/09/2019 [facility] 03:16:00 PM [facility] Surgeries/Procedures Procedure Description Date Indications Data Source(s) Covid swab 04/16/2020 eCW1 ([facility] [place] [facility] 12:00:00 AM EDT Medical Prac matheus PC) COLLECTION VENOUS BLOOD 09/24/2019 eCW1 ([facility] VENIPUNCTURE 12:00:00 AM EDT Medical Prac matheus PC) HANDLG&/OR CONVEY OF 09/24/2019 eCW1 (Joey lindsay [facility] SPEC FOR TR OFFICE TO 12:00:00 AM EDT Med ical Practice PC) LAB Results ID Date Data Source [id number] 05/22/2020 12:04:00 PM EDT [facility] Name Value Range Interpretation Code Description Data Jaqueline rce(s) Supporting Document(s ) COV2 [facility] This lab was ordered by [facility] and reported by [facility]. ID Date Data Source [id number] 04/16/2020 11:55:00 AM EDT [facility] Name Value Range Interpretation Code Description Data Jaqueline rce(s) Supporting Document(s ) COV2 [facility] This lab was ordered by [facility] and reported by [facility]. ID Date Data Source [id number] 12/01/2019 01:55:00 PM [facility] 0 Name Value Range Interpretation Description Data Sup porting Code Source(s) Document(s ) Color of Urine YELLOW <content [facility] styleCode="Itzel Paulino d">Color, Medical Urine Center </content>YELL OW <content styleCode="Bette lics"> (YELLOW )</content> Glucose NEGATIVE <content [facility] [Mass/volume] styleCode="Itzel Paulino in Urine by d">Urine Medical Test strip Glucose Center </content>NEGA TIVE MG/DL<content styleCode="Bette lics"> (NEGATIVE MG/DL)</conten t> UNK CLEAR <content [facility] styleCode="Itzel Swans d">Urine Medical Clarity Center </content>ZHANG R <content [...] 1.015-1.02 <content [facility] gravity of 5 styleCode="Itzel [facility] Urine by Test d">Urine Medical strip Specific Center Ward </content>1.01 5 <content styleCode="Bette lics"> (1.015-1.025 )</content> [...] lics"> (NEGATIVE )</content> ID Date Data Source [id number] 12/01/2019 01:25:00 PM EST [facility] Center Name Value Range Interpretation Description Data Sup porting Code Source(s) Document(s ) Potassium 3.5-5.3 <content [facility] [Moles/volume styleCode="Itzel [facility] ] in Serum or d">Potassium Medical Plasma </content>4.3 Center MEQ/L<content styleCode="Bette lics"> (3.5-5.3 MEQ/L)</conten t> ID Date Data Source [id number].[id number] 12/01/2019 01:05:00 PM EST [facility] 500 Name Value Range Interpretation Code Description Data Jaqueline rce(s) Supporting Document(s ) UNK <item><content [facility] styleCode="Bold"> Medical Cent er Culture Status </content>
<t able><tbody><tr>< td>Specimen Number:</td><td>[id number]</td></tr ><tr><td>Sample Collection Date/Time: </td><td>12/01/2019 1:05 PM</td></tr><tr>< td>Specimen Source:</td><td>B LOOD</td></tr><tr ><td>Culture Report:</td><td>N O GROWTH 5 DAYS </td></tr><tr><td >Culture Status:</td><td>F inal </td></tr><tr><td >Blood Culture:</td><td> Collection Plate Date: 12/01/2019 13:10 </td></tr></tbody ></table></item> UNK <item><content [facility] styleCode="Bold"> Medical [facility] er Culture Report </content>
<t able><tbody><tr>< td>Specimen Number:</td><td>[id number] .[id number]</td></tr ><tr><td>Sample Collection Date/Time: </td><td>12/01/2019 1:05 PM</td></tr><tr>< td>Specimen Source:</td><td>B LOOD</td></tr><tr ><td>Blood Culture:</td><td> Collection Plate Date: 12/01/2019 13:10 </td></tr><tr><td >Culture Status:</td><td>F inal </td></tr><tr><td >Culture Report:</td><td>N O GROWTH 5 DAYS </td></tr></tbody ></table></item> ID Date Data Source [id number] 12/01/2019 12:50:00 PM EST [facility] 500 Name Value Range Interpretation Code Description Data Jaqueline rce(s) Supporting Document(s ) UNK <item><content [facility] styleCode="Bold"> Medical [facility] Culture Report </content>
<t able><tbody><tr>< td>Specimen Number:</td><td>[id number] .[id number]</td></tr ><tr><td>Sample Collection Date/Time: </td><td>12/01/2019 12:50 PM</td></tr><tr>< td>Specimen Source:</td><td>B LOOD</td></tr><tr ><td>Blood Culture:</td><td> Collection Plate Date: 12/01/2019 12:57 </td></tr><tr><td >Culture Status:</td><td>F inal </td></tr><tr><td >Culture Report:</td><td>N O GROWTH 5 DAYS </td></tr></tbody ></table></item> UNK <item><content [facility] styleCode="Bold"> Medical Cent er Culture Status </content>
<t able><tbody><tr>< td>Specimen Number:</td><td>[id number]</td></tr ><tr><td>Sample Collection Date/Time: </td><td>12/01/2019 12:50 PM</td></tr><tr>< td>Specimen Source:</td><td>B LOOD</td></tr><tr ><td>Culture Report:</td><td>N O GROWTH 5 DAYS </td></tr><tr><td >Culture Status:</td><td>F inal </td></tr><tr><td >Blood Culture:</td><td> Collection Plate Date: 12/01/2019 12:57 </td></tr></tbody ></table></item> ID Date Data Source HematologyRou.[id number] 12/01/2019 12:50:00 PM EST [facility] 0500 Name Value Range Interpretation Description [...] (0.0 KCUMM)</content > ID Date Data Source GFR(Creatinine).[id number] 12/01/2019 12:50:00 PM [facility] 0-0500 Name Value Range Interpretation Code Description Data Jaqueline rce(s) Supporting Document(s ) UNK > 60 <content [facility] styleCode="Bold"> Medical Cent er EGFR </content>108 GFR<content styleCode="Italic s"> (> 60 GFR)</content> ID Date Data Source CHMROUTINECCDA.[id number] 12/01/2019 12:50:00 PM [facility] -0500 Name Value Range Interpretation Description Data Sup porting Code Source(s) Document(s ) Lactate 0.7-2.0 <content [facility] [Mass/volum styleCode="Bold Medical e] in Serum ">Lactic Acid Center or Plasma </content>1.6 MMOLL<content styleCode="Ital ics"> (0.7-2.0 MMOLL)</content > ID Date Data Source CardiacMarkers.[id number] 12/01/2019 12:50:00 PM [facility] -0500 Name Value Range Interpretation Description Data Sup porting Code Source(s) Document(s ) Troponin < 0.034 <content Saint I.cardiac styleCode="Bold [facility] [Mass/volume ">Troponin I Medical ] in Serum </content>< Center or Plasma 0.012 NG/ML<content styleCode="Ital ics"> (< 0.034 NG/ML)</content > ID Date Data Source [id number] 12/01/2019 12:50:00 PM EST [facility] Name Value Range Interpretation Description [...] Carbon 22-30 <content [facility] dioxide, total styleCode="Itzel Swans [Moles/volume] d">Carbon Medical in Serum or Dioxide [...] 08/19/2020 Never Smoker completed Never Smoker eCW1 (Lily t 12:00:00 AM EDT [facility]) Smoking 08/05/2020 Never Smoker completed Never Smoker eCW1 (Lily t 12:00:00 AM [facility]) Smoking 08/05/2020 Never Smoker completed Never Smoker eCW1 (Lily t 12:00:00 AM [facility]) Smoking 07/22/2020 Never Smoker completed Never Smoker eCW1 (Lily t 12:00:00 AM [facility]) Smoking 07/22/2020 Never Smoker completed Never Smoker eCW1 (Lily t 12:00:00 AM [facility]) Smoking 06/18/2020 Never Smoker completed Never Smoker eCW1 (Lily t 12:00:00 AM T [facility]) Smoking 06/18/2020 Never Smoker completed Never Smoker eCW1 (Lily t 12:00:00 AM [facility]) Smoking 06/10/2020 Never Smoker completed Never Smoker eCW1 (Lily t 12:00:00 AM [facility]) Smoking 05/22/2020 Never Smoker completed Never Smoker eCW1 (Lily t 12:00:00 AM [facility]) Smoking 05/22/2020 Never Smoker completed Never Smoker eCW1 (Lily t 12:00:00 AM [facility]) Smoking 05/22/2020 Never Smoker completed Never Smoker eCW1 ([facility]ily t 12:00:00 AM Jona Paulino [facility]) Smoking 04/16/2020 Never Smoker completed Never Smoker eCW1 (Lily t 12:00:00 AM Jona Lora [facility]) Smoking 12/26/2019 Denies Ever completed Denies [...] mm[Hg] 88 mm[Hg] eCW1 (Jese nt pressure [facility]) Systolic blood 135 mm[Hg] 135 mm[Hg] eCW1 ([facility] t pressure [facility]) Oxygen saturation 98 % 98 % eCW1 (S aint in Arterial blood [facility] Medical by Pulse oximetry Practic e PC) Body temperature 98.5 [degF] 98.5 [degF] eCW1 ( [facility] Respiratory rate 18 /min 18 /min eCW1 (Sa int [facility]) Heart rate 69 /min 69 /min eCW1 ([facility]) Body mass index 34.37 kg/m2 34.37 kg/m2 eCW1 (S aint (BMI) [Ratio] [facility]) Body weight 176 [lb_av] 176 [lb_av] eCW1 ([facility]) Body height [in_i] eCW1 ([facility]) Diastolic blood 83 mm[Hg] 83 mm[Hg] eCW1 ([facility] nt pressure [facility]) Systolic blood 145 mm[Hg] 145 mm[Hg] eCW1 ([facility] t pressure [facility]) Oxygen saturation 98 % 98 % eCW1 (S aint in Arterial blood [facility]) Body temperature 98.8 [degF] 98.8 [degF] eCW1 ( [facility]) Respiratory rate 18 /min 18 /min [facility] Heart rate 66 /min 66 /min eCW1 ([facility]) Body mass index 33.59 kg/m2 33.59 kg/m2 eCW1 (S aint (BMI) [Ratio] [facility]) Body weight 172 [lb_av] 172 [lb_av] eCW1 ([facility]) Body height [in_i] eCW1 ([facility]) Diastolic blood 85 mm[Hg] 85 mm[Hg] eCW1 ([facility] nt pressure [facility]) Systolic blood 135 mm[Hg] 135 mm[Hg] eCW1 ([facility] t [facility]) Oxygen saturation 98 % 98 % eCW1 (S aint in Arterial blood [facility]) Body temperature 98.3 [degF] 98.3 [degF] eCW1 ( [facility]) Respiratory rate 16 /min 16 /min eCW1 ([facility]) Heart rate 76 /min 76 /min eCW1 ([facility]) Body mass index 33.59 kg/m2 33.59 kg/m2 eCW1 (S aint (BMI) [Ratio] [facility]) Body weight 172 [lb_av] 172 [lb_av] [facility]CW[facility] Body height [in_i] eCW1 ([facility]) Diastolic blood 81 mm[Hg] 81 mm[Hg] eCW1 ([facility] nt pressure [facility]) Systolic blood 129 mm[Hg] 129 mm[Hg] eCW1 ([facility] t [facility] Body temperature 98.6 [degF] 98.6 [degF] eCW1 ( [facility]) Respiratory rate 18 /min 18 /min eCW1 ( int [facility]) Heart rate 74 /min 74 /min eCW1 ([facility]) Body mass index 33.98 kg/m2 33.98 kg/m2 eCW1 (S aint (BMI) [Ratio] [facility]) Body weight 174 [lb_av] 174 [lb_av] eCW1 ([facility]) Body height [in_i] eCW1 ([facility]) Diastolic blood 85 mm[Hg] 85 mm[Hg] eCW1 ([facility] nt pressure [facility]) Systolic blood 135 mm[Hg] 135 mm[Hg] eCW1 ([facility] t [facility]) Oxygen saturation 99 % 99 % eCW1 (S aint in Arterial blood [facility]) Body temperature 98.9 [degF] 98.9 [degF] eCW1 ( [facility]) Respiratory rate 18 /min 18 /min eCW1 ( int [facility]) Heart rate 75 /min 75 /min eCW1 ([facility]) Body mass index 33.59 kg/m2 33.59 kg/m2 eCW1 (S aint (BMI) [Ratio] [facility]) Body weight 172 [lb_av] 172 [lb_av] eCW1 ([facility]) Body height [in_i] eCW1 ([facility]) Diastolic blood 83 mm[Hg] 83 mm[Hg] eCW1 ([facility] nt [facility]) Systolic blood 140 mm[Hg] 140 mm[Hg] eCW1 ([facility] t pressure [facility]) Body temperature 98.2 [degF] 98.2 [degF] eCW1 ( [facility]) Respiratory rate 18 /min 18 /min eCW1 ([facility]) Heart rate 72 /min 72 /min eCW1 ([facility]) Body mass index 33.59 kg/m2 33.59 kg/m2 eCW1 (S aint (BMI) [Ratio] [facility]) Body weight 172 [lb_av] 172 [lb_av] eCW1 ([facility]) Body height [in_i] eCW1 ([facility]) Diastolic blood 83 mm[Hg] 83 mm[Hg] eCW1 ([facility] nt pressure [facility]) Systolic blood 138 mm[Hg] 138 mm[Hg] eCW1 ([facility] Body temperature 98.4 [degF] 98.4 [degF] eCW1 ( [facility]) Respiratory rate 18 /min 18 /min eCW1 ([facility]) Heart rate 74 /min 74 /min eCW1 ([facility]) Body mass index 33.98 kg/m2 33.98 kg/m2 eCW1 (S aint (BMI) [Ratio] [facility]) Body weight 174 [lb_av] 174 [lb_av] eCW1 [facility] Body height [in_us] eCW1 ([facility]) Diastolic blood 100 mm[Hg] 100 mm[Hg] eCW1 ([facility] nt pressure [facility]) Systolic blood 156 mm[Hg] 156 mm[Hg] eCW1 ([facility] t pressure [facility]) Body temperature 98.6 [degF] 98.6 [degF] eCW1 ( [facility]) Respiratory rate 18 /min 18 /min eCW1 ([facility]) Heart rate 76 /min 76 /min eCW1 ([facility]) Body mass index 34.95 kg/m2 34.95 kg/m2 eCW1 (S aint (BMI) [Ratio] [facility]) Body weight 179 [lb_av] 179 [lb_av] eCW1 ([facility]) Body height [in_us] eCW1 ([facility]) Body weight 83.214161 kg 83.367502 kg [facility] Measured [facility] Body temperature 36.839335 36.778609 [facility] Respiratory rate 20 /min 20 /min [facility] Oxygen saturation 97 % 97 % [facility] by Pulse oximetry Heart rate 89 /min 89 /min [facility] Body height 164.003073 164.312095 cm [facility] Diastolic blood 84 mm[Hg] 84 mm[Hg] [facility] pressure [facility] Systolic blood 139 mm[Hg] 139 mm[Hg] [facility] Body mass index 30.4 kg/m2 30.4 kg/m2 [facility] (BMI) [Ratio] [facility] [facility] Diastolic blood 83 mm[Hg] 83 mm[Hg] eCW1 (Jese nt pressure [facility]) Systolic blood 146 mm[Hg] 146 mm[Hg] eCW1 ([facility] t pressure [facility]) Deprecated Oxygen 98 % 98 % eCW1 (S aint saturation in [facility] Oximetry Body temperature 98.2 [degF] 98.2 [degF] eCW1 ( [facility]) Respiratory rate 18 /min 18 /min eCW1 ([facility]) Heart rate 75 /min 75 /min eCW1 ([facility]) Body mass index 35.15 kg/m2 35.15 kg/m2 eCW1 (S aint (BMI) [Ratio] [facility]) Body weight 180 [lb_av] 180 [lb_av] eCW1 ([facility] Body height [in_us] eCW1 ([facility]) Body temperature 37.597021 37.601973 [facility] Respiratory rate 19 /min 19 /min [facility] Oxygen saturation 97 % 97 % [facility] osephs in Arterial blood [facility] by Pulse oximetry Heart rate 93 /min 93 /min [facility] Diastolic blood 87 mm[Hg] 87 mm[Hg] [facility] pressure [facility] Systolic blood 120 mm[Hg] 120 mm[Hg] [facility] Body temperature 37.094209 37.719369 [facility] Respiratory rate 20 /min 20 /min [facility] Oxygen saturation 97 % 97 % [facility] osephs in Arterial blood [facility] by Pulse oximetry Heart rate 87 /min 87 /min [facility] Diastolic blood 119 mm[Hg] 119 mm[Hg] [facility] pressure [facility] Systolic blood 146 mm[Hg] 146 mm[Hg] [facility] Diastolic blood 93 mm[Hg] 93 mm[Hg] eCW1 ([facility] nt pressure [facility]) Systolic blood 136 mm[Hg] 136 mm[Hg] eCW1 ([facility] t pressure [facility]) Body temperature 98.9 [degF] 98.9 [degF] eCW1 ( [facility]) Respiratory rate 18 /min 18 /min eCW1 ([facility]) Heart rate 72 /min 72 /min eCW1 ([facility]) Body mass index 35.35 kg/m2 35.35 kg/m2 eCW1 (S aint (BMI) [Ratio] [facility]) Body weight 181 [lb_av] 181 [lb_av] eCW1 ([facility]) Body height [in_us] eCW1 ([facility] Diastolic blood 95 mm[Hg] 95 mm[Hg] eCW1 ([facility] nt [facility]) Systolic blood 151 mm[Hg] 151 mm[Hg] eCW1 ([facility] t [facility]) Deprecated Oxygen 98 % 98 % eCW1 (S aint saturation in [facility] Capillary blood by Practi ce PC) Oximetry Body temperature 98.3 [degF] 98.3 [degF] eCW1 ( [facility]) Respiratory rate 18 /min 18 /min eCW1 ( int [facility]) Heart rate 76 /min 76 /min eCW1 ([facility]) Body mass index 0 kg/m2 0 kg/m2 eCW1 (Jese nt (BMI) [Ratio] [facility]) Body weight 0 [lb_av] 0 [lb_av] eCW1 ([facility]) Body height [in_us] eCW1 ([facility]) Body temperature 37.061614 37.826700 [facility] Respiratory rate 17 /min 17 /min [facility] Oxygen saturation 98 % 98 % [facility] tita in Arterial blood [facility] by Pulse oximetry Heart rate 89 /min 89 /min [facility] Diastolic blood 63 mm[Hg] 63 mm[Hg] [facility] pressure [facility] Systolic blood 123 mm[Hg] 123 mm[Hg] [facility] Diastolic blood 67 mm[Hg] 67 mm[Hg] eCW1 (Jese nt pressure [facility]) Systolic blood 117 mm[Hg] 117 mm[Hg] eCW1 ([facility]ily t pressure [facility]) Body temperature 98.9 [degF] 98.9 [degF] eCW1 ( [facility]) Respiratory rate 18 /min 18 /min eCW1 ( int [facility]) Heart rate 69 /min 69 /min eCW1 ([facility]) Body mass index 35.35 kg/m2 35.35 kg/m2 eCW1 (S aint (BMI) [Ratio] [facility]) Body weight 181 [lb_av] 181 [lb_av] eCW1 ([facility]) Body height [in_us] eCW1 ([facility]) Diastolic blood 70 mm[Hg] 70 mm[Hg] eCW1 (Jese nt pressure [facility]) Systolic blood 130 mm[Hg] 130 mm[Hg] eCW1 ([facility] t pressure [facility]) Deprecated Oxygen 98 % 98 % eCW1 (S aint saturation in [facility] ica [facility] blood [facility]) Oximetry Body temperature 98.5 [degF] 98.5 [degF] eCW1 ( [facility]) Respiratory rate 18 /min 18 /min eCW1 (Sa int [facility]) Heart rate 60 /min 60 /min eCW1 ([facility]) Body mass index 35.35 kg/m2 35.35 kg/m2 eCW1 (S aint (BMI) [Ratio] [facility]) Body weight 181 [lb_av] 181 [lb_av] eCW1 ([facility]) Body height [in_us] eCW1 ([facility]) Patient Treatment Plan of Care Planned Activity Planned Date Details Description Data Source (s) Acetaminophen 325 MG / 08/19/2020 12:00:00 eCW1 ([facility] 10 AM EDT [facility]) MG Oral Tablet [Percocet] Acetaminophen 325 MG / 07/22/2020 12:00:00 eCW1 ([facility] 10 AM EDT [facility]) MG Oral Tablet [Percocet] Acetaminophen 325 MG / 07/22/2020 12:00:00 eCW1 ([facility] Oxycodone Hydrochloride 10 AM EDT [facility]) MG Oral Tablet [Percocet] Acetaminophen 325 MG / 06/18/2020 12:00:00 eCW1 ([facility] 10 AM EDT [facility]) MG Oral Tablet [Percocet] Acetaminophen 325 MG / 06/18/2020 12:00:00 eCW1 ([facility] 10 AM EDT [facility]) MG Oral Tablet [Percocet] atorvastatin 10 MG Oral 06/10/2020 12:00:00 eCW1 ([facility] Tablet [Lipitor[facility]) Ergocalciferol 48208 UNT 06/10/2020 12:00:00 eCW1 ([facility] Oral [...] eCW1 ([facility] [address] [facility]) MG Oral Tablet [Percocet] Levofloxacin 500 MG Oral 12/19/2019 12:00:00 eCW1 ([facility] Tablet [Levaquin] AM EST [facility]) Acetaminophen 325 MG / 12/19/2019 12:00:00 eCW1 ([facility] 10 AM EST [facility]) MG Oral Tablet [Percocet] Acetaminophen 325 MG / 11/19/2019 12:00:00 eCW1 ([facility] [address] [facility] ) MG Oral Tablet [Percocet] Acetaminophen 325 MG / 10/22/2019 12:00:00 eCW1 ([facility] [address] [facility] MG Oral Tablet [Percocet] Furosemide 20 MG Oral 10/22/2019 12:00:00 eCW1 ([facility] Tablet [Lasix] AM [facility]) 24 HR Nicotine 0.583 MG/HR 10/01/2019 12:00:00 eCW1 ([facility] Transdermal Patch AM EST [facility]) [Nicoderm C-Q] 24 HR Nicotine 0.583 MG/HR 10/01/2019 12:00:00 eCW1 ([facility] Transdermal Patch AM EST [facility]) [Nicoderm C-Q] Acetaminophen 325 MG / 09/24/2019 12:00:00 eCW1 ([facility] Oxy[facility] Hydrochloride 10 AM [facility]) MG Oral Tablet [Percocet]
[2020-09-12] MEDS ORDERED: ASPIRIN 81 MG CHEWABLE TABLETS ONE ×2 (03:22→10:35)
[2020-09-12 03:50] LABS: LIPASE 129 U/L (73-393)
[2020-09-12] MEDS ORDERED: NITROGLYCERIN SUBLINGUAL 1/200 0.3 MG BTL SL ONE (06:09)
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
[2020-09-12] MEDS: INSULIN SLIDING SCALE (NOVOLOG) 1 VIAL SQ SCH ×4 (07:57→21:55)
[2020-09-12 09:00] LABS: BASO % 1.1 % (0-2.0); EOS % 1.5 % (0-4.5); HEMATOCRIT 38.2 % (32.4-45.2); HEMOGLOBIN 12.8 GM/dL (10.7-15.3); LYMPH % 36.8 % (8-40); MCH 22.9 pg (25.7-33.7); MCHC 33.6 g/dl (32.0-36.0); MEAN CELL VOLUME 68.3 fl (80-96); MEAN PLT VOLUME 7.9 fl (7.5-11.1); NEUT % 54.6 % (42.8-82.8); PLATELET COUNT 206 K/MM3 (134-434); RBC 5.59 M/mm3 (3.60-5.2); RDW 14.8 % (11.6-15.6)
[2020-09-12 09:07] LABS: INR 1.15 (0.83-1.09); PROTHROMBIN TIME (PATIENT) 13.9 SEC (9.7-13.0)
[2020-09-12 09:22] LABS: CHLORIDE 110 mmol/L (98-107); POTASSIUM 4.1 mmol/L (3.5-5.1); SODIUM 140 mmol/L (136-145)
[2020-09-12 09:25] LABS: CALCIUM 8.7 mg/dL (8.5-10.1); GLUCOSE,RANDOM 101 mg/dL (74-106)
[2020-09-12 09:26] LABS: ALBUMIN 3.1 g/dl (3.4-5.0); ANION GAP 5 MMOL/L (8-16); BLOOD UREA NITROGEN 8.1 mg/dL (7-18); CO2 26 mmol/L (21-32); MAGNESIUM 1.9 mg/dL (1.8-2.4)
[2020-09-12 09:28] LABS: CREATININE 0.6 mg/dL (0.55-1.3); PHOSPHOROUS 2.9 mg/dL (2.5-4.9); SGPT/ALT 44 U/L (13-61)
[2020-09-12 09:29] LABS: CHOLESTEROL 167 mg/dL (50-200); LDL CHOLESTEROL (ONLY SJRH) 92 mg/dL (5-100); SGOT/AST 23 U/L (15-37); TRIGLYCERIDES 116 mg/dL (0-150)
[2020-09-12 09:30] LABS: BILIRUBIN,TOTAL 0.3 mg/dL (0.2-1); TOT PROT 6.8 g/dl (6.4-8.2)
[2020-09-12 09:31] LABS: ALK PHOS 146 U/L (45-117); HDL CHOLESTEROL 58 mg/dL (40-60)
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
[2020-09-12] MEDS: FAMOTIDINE 20 MG TABLET PO SCH (10:00)
[2020-09-12] MEDS: RANOLAZINE E.R. 1,000 MG TABLET (FP) PO SCH ×2 (10:00→21:55)
[2020-09-12] MEDS: CLOPIDOGREL BISULFATE 75 MG TABLET (FP) PO SCH (10:00)
[2020-09-12] MEDS: ASPIRIN 81 MG CHEWABLE TABLETS PO SCH (10:00)
[2020-09-12] MEDS: amLODIPine BESYLATE 5 MG TABLET (FP) PO SCH (10:00)
[2020-09-12] MEDS ORDERED: FAMOTIDINE 20 MG TABLET ONE (10:36)
[2020-09-12] MEDS ORDERED: ENALAPRIL MALEATE 5 MG TABLET ONE (10:36)
[2020-09-12] MEDS ORDERED: CLOPIDOGREL BISULFATE 75 MG TABLET (FP) ONE (10:36)
[2020-09-12] MEDS ORDERED: amLODIPine BESYLATE 5 MG TABLET (FP) ONE (10:36)
[2020-09-12] MEDS ORDERED: ENOXAPARIN NA (PORCINE) 40 MG/0.4 ML DISP.SYRIN SQ ONE (10:37)
[2020-09-12] MEDS: ENOXAPARIN NA (PORCINE) 40 MG/0.4 ML DISP.SYRIN SQ SCH (11:12)
[2020-09-12] MEDS: ENALAPRIL MALEATE 5 MG TABLET PO SCH (11:13)
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
[2020-09-12] MEDS ORDERED: oxyCODONE HCL 5 MG TABLET PO ONE (15:18)
[2020-09-12] MEDS ORDERED: ACETAMINOPHEN 325 MG TABLET (FP) PO ONE (15:19)
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
--- NOTE | 2020-09-12 18:38 | EKG ---
Test Reason : Blood Pressure : / mmHG Vent. Rate : 066 BPM Atrial Rate : 066 BPM P-R Int : 152 ms QRS Dur : 078 ms QT Int : 416 ms P-R-T Axes : 056 021 039 degrees QTc Int : 436 ms NORMAL SINUS RHYTHM POSSIBLE LEFT ATRIAL ENLARGEMENT BORDERLINE ECG WHEN COMPARED WITH ECG OF 13-JAN-2020 08:31, NO SIGNIFICANT CHANGE WAS FOUND Confirmed by MD ROSE, NAVARRO ([id number]) on 09/12/2020 6:38:13 PM Referred By: Confirmed By:NAVARRO ROSE MD
--- NOTE | 2020-09-12 18:38 | EKG ---
Test Reason : Blood Pressure : / mmHG Vent. Rate : 054 BPM Atrial Rate : 054 BPM P-R Int : 162 ms QRS Dur : 082 ms QT Int : 430 ms P-R-T Axes : 053 024 034 degrees QTc Int : 407 ms SINUS BRADYCARDIA OTHERWISE NORMAL ECG WHEN COMPARED WITH ECG OF 11-SEP-2020 23:57, NO SIGNIFICANT CHANGE WAS FOUND Confirmed by MD ROSE, NAVARRO ([id number]) on 09/12/2020 6:37:44 PM Referred By: Confirmed By:NAVARRO ROSE MD
[2020-09-12 21:30] VITALS: BMI 28.7
[2020-09-13] MEDS: INSULIN SLIDING SCALE (NOVOLOG) 1 VIAL SQ SCH ×4 (06:09→22:37)
[2020-09-13 07:51] LABS: POTASSIUM 4.3 mmol/L (3.5-5.1)
[2020-09-13 07:53] LABS: BLOOD UREA NITROGEN 11.9 mg/dL (7-18)
[2020-09-13 07:54] LABS: MAGNESIUM 1.9 mg/dL (1.8-2.4)
[2020-09-13 07:56] LABS: CALCIUM 8.7 mg/dL (8.5-10.1); CREATININE 0.6 mg/dL (0.55-1.3)
[2020-09-13] MEDS ORDERED: PT OWN MED DRAWER 7, Y5N ONE ×2 (09:24→10:24)
[2020-09-13] MEDS: FAMOTIDINE 20 MG TABLET PO SCH (09:30)
[2020-09-13] MEDS: amLODIPine BESYLATE 5 MG TABLET (FP) PO SCH (09:30)
[2020-09-13] MEDS: ASPIRIN 81 MG CHEWABLE TABLETS PO SCH (09:30)
[2020-09-13] MEDS: CLOPIDOGREL BISULFATE 75 MG TABLET (FP) PO SCH (09:30)
[2020-09-13] MEDS: RANOLAZINE E.R. 1,000 MG TABLET (FP) PO SCH ×2 (09:30→22:37)
[2020-09-13] MEDS: ENOXAPARIN NA (PORCINE) 40 MG/0.4 ML DISP.SYRIN SQ SCH (09:32)
--- NOTE | 2020-09-13 10:51 | PN ---
Progress Note, Physician Chief Complaint: cp History of Present Illness: mild CP once or twice here. walking halls without sx's. no sob no diaph, LH - Current Medication List Current Medications: Active Medications Amlodipine Besylate (Norvasc -) 5 mg PO DAILY [facility] Last Admin: 09/13/20 09:30 Dose: 5 mg Documented by: Aspirin (Asa -) 81 mg PO DAILY [facility] Last Admin: 09/13/20 09:30 Dose: 81 mg Documented by: Clopidogrel Bisulfate (Plavix -) 75 mg PO DAILY [facility] Last Admin: 09/13/20 09:30 Dose: 75 mg Documented by: Enalapril Maleate (Vasotec -) 5 mg PO DAILY [facility] Last Admin: 09/12/20 11:13 Dose: 5 mg Documented by: Enoxaparin Sodium (Lovenox -) 40 mg SQ DAILY [facility] Last Admin: 09/13/20 09:32 Dose: 40 mg Documented by: Famotidine (Pepcid -) 20 mg PO DAILY [facility] Last Admin: 09/13/20 09:30 Dose: 20 mg Documented by: Insulin Aspart (Novolog Vial Sliding Scale -) 1 vial SQ [facility]; Protocol Last Admin: 09/13/20 06:09 Dose: Not Given Documented by: Liraglutide (Victoza -) 1.8 mg SQ DAILY@0700 [facility] Metoprolol Succinate (Toprol Xl -) 50 mg PO DAILY [facility] Last Admin: 09/13/20 09:30 Dose: 50 mg Documented by: Ranolazine (Ranexa -) 1,000 mg PO BID [facility] Last Admin: 09/13/20 09:30 Dose: 1,000 mg Documented by: - Objective Vital Signs: Vital Signs Temperature 98.5 F 09/13/20 09:29 Pulse Rate 67 09/13/20 09:29 Respiratory Rate 18 09/13/20 09:29 Blood Pressure 131/78 09/13/20 09:29 O2 Sat by Pulse Oximetry (%) 98 09/13/20 09:29 Constitutional: Yes: Well Nourished, No Distress, Calm Cardiovascular: Yes: Regular Rate and Rhythm, S1, S2. No: Gallop, Murmur Respiratory: Yes: Regular, CTA Bilaterally. No: Accessory Muscle Use, Rales, Wheezes Extremities: No: Cold Edema: No Neurological: Yes: Alert, Oriented Psychiatric: No: Agitated Labs: CBC, BMP 09/12/20 08:47 09/13/20 06:15 INR, PTT INR 1.15 (0.83-1.09) H 09/12/20 08:47 Assessment/Plan CXR: clear lungs/pleura. normal cardiomediastinal shadow Chest pain: -no ischemia on MPI 07/15 -trop here neg x 2 -ECG normal -atypical sx's, pt uncertain if chronic or new. also L hand numbness which is new. -no clear mskel explanation by history -given pt is high risk, rec rpt nuclear stress test--for monday -monitor on tele CAD s/p CABG, multiple PCIs of SVG to Ramus: -CP 07/15 with MPI no ischemia, nl EF then -Continue ASA, statin/lipid mgmt as below -Cont Ranexa, Imdur amd Toprol for chronic stable anginal sx HTN: controlled -at goals -Cont KANE -Off Amlo due to edema DM: -A1c 5.6 -F/u PMD HLD: -Goal LDL <50-70mg/dl. -recent transaminitis as outpt 06/15--atorva reduced 40 to 20 -AST/LT WNL here -LDL 92 -cont atorva 20 -consider ezetimibe--per dr mix
[2020-09-13] MEDS: ENALAPRIL MALEATE 5 MG TABLET PO SCH (11:11)
[2020-09-13] MEDS: LIRAGLUTIDE 0.6 MG/0.1 ML PEN.INJCTR SQ SCH (11:11)
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
[2020-09-13] MEDS ORDERED: ACETAMINOPHEN 325 MG TABLET (FP) PO ONE (18:18)
[2020-09-14] MEDS: INSULIN SLIDING SCALE (NOVOLOG) 1 VIAL SQ SCH ×2 (06:16→13:17)
[2020-09-14] MEDS ORDERED: REGADENOSON 0.4 MG/5 ML PRE-FILLED SYRINGE IVPUSH ONE ×2 (10:42→12:00)
[2020-09-14] MEDS: LIRAGLUTIDE 0.6 MG/0.1 ML PEN.INJCTR SQ SCH (13:23)
[2020-09-14] MEDS: ENOXAPARIN NA (PORCINE) 40 MG/0.4 ML DISP.SYRIN SQ SCH (13:28)
[2020-09-14] MEDS: ASPIRIN 81 MG CHEWABLE TABLETS PO SCH (13:29)
[2020-09-14] MEDS: RANOLAZINE E.R. 1,000 MG TABLET (FP) PO SCH (13:29)
[2020-09-14] MEDS: amLODIPine BESYLATE 5 MG TABLET (FP) PO SCH (13:29)
[2020-09-14] MEDS: CLOPIDOGREL BISULFATE 75 MG TABLET (FP) PO SCH (13:29)
[2020-09-14] MEDS: FAMOTIDINE 20 MG TABLET PO SCH (13:29)
[2020-09-14] MEDS: ENALAPRIL MALEATE 5 MG TABLET PO SCH (13:30)
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
[2020-09-14 13:43] VITALS: BP 136/58; PULSE 61; TEMP 98.9
[2020-09-14] MEDS ORDERED: DOCUSATE SODIUM 100 MG CAPSULE (FP) PO SCH (14:15)
--- NOTE | 2020-09-14 16:11 | EKG ---
Test Reason : Blood Pressure : / mmHG Vent. Rate : 061 BPM Atrial Rate : 061 BPM P-R Int : 162 ms QRS Dur : 082 ms QT Int : 422 ms P-R-T Axes : 049 028 044 degrees QTc Int : 424 ms NORMAL SINUS RHYTHM CANNOT RULE OUT ANTERIOR INFARCT , AGE UNDETERMINED ABNORMAL ECG WHEN COMPARED WITH ECG OF 12-SEP-2020 07:59, NO SIGNIFICANT CHANGE WAS FOUND Confirmed by BONITA RIVERS MD ([id number]) on 09/14/2020 4:10:51 PM Referred By: Confirmed By:BONITA RIVERS MD
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
== END 2020-09-14 17:40 | disposition home or self-care (01) ==
LOC: JER 23:47 → INTOOBSV 09-12 02:45 → JERBED 09-12 02:45 → J4S 09-12 20:45
PROVIDERS: ADMIT Hospitalist; ATTEND Internal Medicine
DX: I11.0 Hypertensive heart disease with heart failure (principal); E11.9 Type 2 diabetes mellitus without complications; Z95.1 Presence of aortocoronary bypass graft; Z95.5 Presence of coronary angioplasty implant and graft; J45.909 Unspecified asthma, uncomplicated; M79.605 Pain in left leg; F32.9 Major depressive disorder, single episode, unspecified; E78.5 Hyperlipidemia, unspecified; I25.10 Atherosclerotic heart disease of native coronary artery without angina pectoris; Z91.018 Allergy to other foods; M62.81 Muscle weakness (generalized); R20.0 Anesthesia of skin; F17.210 Nicotine dependence, cigarettes, uncomplicated; R07.89 Other chest pain
CPT/HCPCS: 36415; 70450-TC; 71045-TC-FY; 78452-TC; 80048; 80053; 80061; 82550; 82962; 83036; 83690; 83721; 83735; 84100; 84484; 85025; 85610; 93005; 93010; 93017; 96372; 96374; 96375; 97116-GP; 97161-GP; 99285-25; A9502; C9803; G0378; J0131; J2785; U0003

== ENCOUNTER 2021-03-12 11:02 | Observation (INO) | payer OTHER ==
[2021-03-12 11:15] VITALS: BMI 30.6
[2021-03-12] MEDS ORDERED: ASPIRIN 81 MG CHEWABLE TABLETS PO ONE (12:17)
[2021-03-12] MEDS ORDERED: NITROGLYCERIN SUBLINGUAL 1/150 0.4 MG TAB SL ONE (12:18)
[2021-03-12] MEDS ORDERED: ACETAMINOPHEN 1000 MG/100 ML VIAL (NON FORMULARY) IVPB ONE (12:18)
[2021-03-12] MEDS ORDERED: ASPIRIN 81 MG CHEWABLE TABLETS ONE (12:25)
[2021-03-12] MEDS ORDERED: ACETAMINOPHEN INJECTION 100 ML IVPB ONE (12:25)
[2021-03-12 12:38] LABS: BASO % 0.8 % (0-2.0); HEMATOCRIT 41.1 % (32.4-45.2); HEMOGLOBIN 13.5 GM/dL (10.7-15.3); LYMPH % 32.9 % (8-40); MCH 22.4 pg (25.7-33.7); MCHC 32.9 g/dl (32.0-36.0); MEAN CELL VOLUME 68.3 fl (80-96); MEAN PLT VOLUME 8.2 fl (7.5-11.1); MONO % 4.3 % (3.8-10.2); PLATELET COUNT 244 K/MM3 (134-434); RBC 6.02 M/mm3 (3.60-5.2); RDW 14.8 % (11.6-15.6); WHITE BLOOD COUNT 7.8 K/mm3 (4.0-10.0)
[2021-03-12 12:46] LABS: INR 1.08 (0.83-1.09); PROTHROMBIN TIME (PATIENT) 13.3 SEC (9.7-13.0)
[2021-03-12 12:49] LABS: ACTIVATED PTT 35.7 SECONDS (25.2-36.5)
[2021-03-12 13:01] LABS: CHLORIDE 107 mmol/L (98-107); SODIUM 142 mmol/L (136-145)
[2021-03-12 13:03] LABS: ALBUMIN 3.8 g/dl (3.4-5.0); ANION GAP 8 MMOL/L (8-16); CALCIUM 9.3 mg/dL (8.5-10.1); CO2 27 mmol/L (21-32); GLUCOSE,RANDOM 124 mg/dL (74-106)
[2021-03-12 13:06] LABS: CREATININE 0.8 mg/dL (0.55-1.3); SGPT/ALT 58 U/L (13-61)
[2021-03-12 13:07] LABS: SGOT/AST 30 U/L (15-37)
[2021-03-12 13:08] LABS: BILIRUBIN,TOTAL 0.6 mg/dL (0.2-1)
[2021-03-12 13:09] LABS: ALK PHOS 161 U/L (45-117)
[2021-03-12] MEDS ORDERED: SODIUM CHLORIDE 0.9% 500 ML INFUS.BAG IV ONE (13:28)
[2021-03-12] MEDS ORDERED: ACETAMINOPHEN 325 MG TABLET (FP) PO PRN (15:42)
[2021-03-12] MEDS ORDERED: SODIUM CHLORIDE 1,000 ML IV SCH (15:45)
[2021-03-12] MEDS ORDERED: ENOXAPARIN NA (PORCINE) 40 MG/0.4 ML DISP.SYRIN SQ ONE (17:35)
[2021-03-12] MEDS: ENOXAPARIN NA (PORCINE) 40 MG/0.4 ML DISP.SYRIN SQ SCH (18:12)
[2021-03-12] MEDS ORDERED: ALBUTEROL SO4 HFA INHALER IH PRN (18:15)
[2021-03-12] MEDS ORDERED: CLOPIDOGREL BISULFATE 75 MG TABLET (FP) ONE (18:32)
[2021-03-12] MEDS: CLOPIDOGREL BISULFATE 75 MG TABLET (FP) PO SCH (18:41)
[2021-03-12] MEDS ORDERED: ACETAMINOPHEN 325 MG TABLET (FP) ONE (19:39)
[2021-03-12 21:19] LABS: MAGNESIUM 2.1 mg/dL (1.8-2.4)
[2021-03-12 21:23] LABS: CHOLESTEROL 230 mg/dL (50-200); TRIGLYCERIDES 98 mg/dL (0-150)
[2021-03-12 21:24] LABS: LDL CHOLESTEROL (ONLY SJRH) 130 mg/dL (5-100)
[2021-03-12 21:26] LABS: HDL CHOLESTEROL 64 mg/dL (40-60)
[2021-03-12] MEDS ORDERED: RANOLAZINE E.R. 500 MG TABLET (FP) ONE (21:49)
[2021-03-12] MEDS: ATORVASTATIN CA 40 MG TABLET (FP) PO SCH (22:09)
[2021-03-12] MEDS: RANOLAZINE E.R. 1,000 MG TABLET (FP) PO SCH (22:10)
[2021-03-12] MEDS ORDERED: oxyCODONE HCL 5 MG TABLET PO ONE (23:30)
[2021-03-13 07:19] LABS: BASO % 0.9 % (0-2.0); EOS % 2.6 % (0-4.5); HEMATOCRIT 35.8 % (32.4-45.2); HEMOGLOBIN 11.8 GM/dL (10.7-15.3); LYMPH % 36.8 % (8-40); MCH 22.3 pg (25.7-33.7); MCHC 33.1 g/dl (32.0-36.0); MEAN CELL VOLUME 67.4 fl (80-96); MEAN PLT VOLUME 8.3 fl (7.5-11.1); MONO % 6.6 % (3.8-10.2); NEUT % 53.1 % (42.8-82.8); PLATELET COUNT 205 K/MM3 (134-434); RBC 5.32 M/mm3 (3.60-5.2)
[2021-03-13 07:38] LABS: CALCIUM 8.4 mg/dL (8.5-10.1)
[2021-03-13 07:39] LABS: ALBUMIN 3.1 g/dl (3.4-5.0); BLOOD UREA NITROGEN 10.8 mg/dL (7-18)
[2021-03-13 07:42] LABS: CREATININE 0.6 mg/dL (0.55-1.3); PHOSPHOROUS 3.1 mg/dL (2.5-4.9)
[2021-03-13 07:43] LABS: BILIRUBIN,TOTAL 0.3 mg/dL (0.2-1); TOT PROT 6.3 g/dl (6.4-8.2)
[2021-03-13] MEDS ORDERED: RANOLAZINE E.R. 500 MG TABLET (FP) ONE ×2 (08:17→21:18)
[2021-03-13] MEDS: RANOLAZINE E.R. 1,000 MG TABLET (FP) PO SCH ×2 (09:49→21:28)
[2021-03-13] MEDS: CLOPIDOGREL BISULFATE 75 MG TABLET (FP) PO SCH (09:49)
[2021-03-13] MEDS: ENALAPRIL MALEATE 5 MG TABLET PO SCH (09:49)
[2021-03-13] MEDS: FUROSEMIDE 20 MG TABLET (FP) PO SCH (09:49)
[2021-03-13] MEDS: ENOXAPARIN NA (PORCINE) 40 MG/0.4 ML DISP.SYRIN SQ SCH (09:50)
[2021-03-13] MEDS: ASPIRIN 81 MG CHEWABLE TABLETS PO SCH (09:50)
[2021-03-13] MEDS ORDERED: ALPRAZolam 1 MG TABLET PO PRN (12:21)
[2021-03-13] MEDS: FLUTICASONE PROP 0.05% 16 GM NASAL SPRAY NS SCH ×2 (13:23→21:28)
[2021-03-13] MEDS: LIDOCAINE 5% TOPICAL PATCH TP SCH (13:45)
[2021-03-13] MEDS: ATORVASTATIN CA 40 MG TABLET (FP) PO SCH (21:28)
[2021-03-13] MEDS ORDERED: LIDOCAINE PATCH REMOVAL MC SCH (22:00)
[2021-03-14 09:06] VITALS: BP 135/77; PULSE 62; TEMP 98
[2021-03-14] MEDS ORDERED: RANOLAZINE E.R. 500 MG TABLET (FP) ONE (09:17)
[2021-03-14] MEDS: RANOLAZINE E.R. 1,000 MG TABLET (FP) PO SCH (09:37)
[2021-03-14] MEDS: LIDOCAINE 5% TOPICAL PATCH TP SCH (09:37)
[2021-03-14] MEDS: ENOXAPARIN NA (PORCINE) 40 MG/0.4 ML DISP.SYRIN SQ SCH (09:37)
[2021-03-14] MEDS: FUROSEMIDE 20 MG TABLET (FP) PO SCH (09:37)
[2021-03-14] MEDS: ENALAPRIL MALEATE 5 MG TABLET PO SCH (09:38)
[2021-03-14] MEDS: FLUTICASONE PROP 0.05% 16 GM NASAL SPRAY NS SCH (09:38)
[2021-03-14] MEDS: CLOPIDOGREL BISULFATE 75 MG TABLET (FP) PO SCH (09:38)
[2021-03-14] MEDS: ASPIRIN 81 MG CHEWABLE TABLETS PO SCH (09:38)
== END 2021-03-14 11:48 | disposition home or self-care (01) ==
LOC: JER 11:02 → JERBED 13:23 → INTOOBSV 13:23 → J4W 20:17
PROVIDERS: ADMIT Internal Medicine; ATTEND Internal Medicine
PROC: 3E033NZ Introduction of Analgesics, Hypnotics, Sedatives into Peripheral Vein, Percutaneous Approach (ICD-10-PCS; principal; 2021-03-12)
PROC: 3E023GC Introduction of Other Therapeutic Substance into Muscle, Percutaneous Approach (ICD-10-PCS; 2021-03-12)
PROC: 3E0337Z Introduction of Electrolytic and Water Balance Substance into Peripheral Vein, Percutaneous Approach (ICD-10-PCS; 2021-03-12)
DX: I25.10 Atherosclerotic heart disease of native coronary artery without angina pectoris (principal); E11.9 Type 2 diabetes mellitus without complications; I11.0 Hypertensive heart disease with heart failure; E78.5 Hyperlipidemia, unspecified; F32.9 Major depressive disorder, single episode, unspecified; J44.9 Chronic obstructive pulmonary disease, unspecified; I50.9 Heart failure, unspecified; Z29.9 Encounter for prophylactic measures, unspecified; Z91.018 Allergy to other foods; Z87.891 Personal history of nicotine dependence; E66.8 Other obesity; Z68.31 Body mass index [BMI] 31.0-31.9, adult
CPT/HCPCS: 36415; 71046-TC-FY; 80053; 80061; 82550; 82962; 83036; 83721; 83735; 84100; 84443; 84484; 85025; 85610; 85730; 93005; 93010; 96361; 96372; 96374; 99285-25; C9803; G0378; J0131; U0003; U0005

== ENCOUNTER 2021-04-01 09:31 | Observation (INO) | payer OTHER ==
[2021-04-01] MEDS ORDERED: ACETAMINOPHEN 325 MG TABLET (FP) PO ONE (10:08)
[2021-04-01] MEDS ORDERED: morphine SULFATE IMMEDIATE RELEASE 30 MG TAB PO STA (10:09)
[2021-04-01] MEDS ORDERED: ACETAMINOPHEN 325 MG TABLET (FP) ONE (10:24)
[2021-04-01] MEDS ORDERED: morphine SULFATE IMMEDIATE RELEASE 30 MG TAB ONE (10:25)
[2021-04-01] MEDS ORDERED: ONDANSETRON *ODT* 4 MG TABLET SL ONE (12:35)
[2021-04-01] MEDS ORDERED: ONDANSETRON *ODT* 4 MG TABLET ONE (12:54)
[2021-04-01] MEDS ORDERED: LIDOCAINE 5% TOPICAL PATCH TP ONE (13:45)
[2021-04-01] MEDS ORDERED: METOCLOPRAMIDE HCL INJECTION 10 MG/2 ML VIAL IM ONE (13:50)
[2021-04-01] MEDS ORDERED: METOCLOPRAMIDE HCL INJECTION 10 MG/2 ML VIAL ONE (13:52)
[2021-04-01] MEDS ORDERED: LIDOCAINE 5% TOPICAL PATCH ONE (13:52)
[2021-04-01] MEDS ORDERED: FAMOTIDINE 20 MG/50 ML IVPB 20 MG/50 ML MG IVPB ONE ×2 (14:43→14:50)
[2021-04-01] MEDS ORDERED: SODIUM CHLORIDE 1,000 ML IV STA (14:43)
[2021-04-01] MEDS ORDERED: ONDANSETRON 4 MG/2 ML VIAL IVPUSH ONE ×2 (14:43→17:37)
[2021-04-01] MEDS ORDERED: ONDANSETRON 4 MG/2 ML VIAL ONE ×2 (14:50→18:45)
[2021-04-01 15:53] LABS: BASO % 0.5 % (0-2.0); EOS % 0.3 % (0-4.5); HEMATOCRIT 42.5 % (32.4-45.2); HEMOGLOBIN 13.6 GM/dL (10.7-15.3); LYMPH % 14.7 % (8-40); MCHC 32.1 g/dl (32.0-36.0); MEAN CELL VOLUME 68.5 fl (80-96); MEAN PLT VOLUME 8.4 fl (7.5-11.1); MONO % 7.3 % (3.8-10.2); NEUT % 77.2 % (42.8-82.8); PLATELET COUNT 264 K/MM3 (134-434); RDW 14.9 % (11.6-15.6); WHITE BLOOD COUNT 11.5 K/mm3 (4.0-10.0)
[2021-04-01 16:18] LABS: CHLORIDE 106 mmol/L (98-107); SODIUM 139 mmol/L (136-145)
[2021-04-01 16:20] LABS: CALCIUM 8.9 mg/dL (8.5-10.1)
[2021-04-01 16:21] LABS: ALBUMIN 4.2 g/dl (3.4-5.0); ANION GAP 6 MMOL/L (8-16); BLOOD UREA NITROGEN 11.1 mg/dL (7-18); CO2 27 mmol/L (21-32); GLUCOSE,RANDOM 124 mg/dL (74-106)
[2021-04-01 16:24] LABS: CREATININE 0.7 mg/dL (0.55-1.3); SGOT/AST 248 U/L (15-37); SGPT/ALT 168 U/L (13-61)
[2021-04-01 16:25] LABS: BILIRUBIN,TOTAL 0.8 mg/dL (0.2-1)
[2021-04-01 16:27] LABS: ALK PHOS 203 U/L (45-117)
[2021-04-01 16:32] LABS: LIPASE 61 U/L (73-393)
[2021-04-01] MEDS ORDERED: DEXTROSE 5%-NORMAL SALINE 1,000 ML IV SCH (19:00)
[2021-04-01 19:24] LABS: ANISOCYTOSIS 1+
[2021-04-01] MEDS ORDERED: LIDOCAINE PATCH REMOVAL MC ONE (22:00)
[2021-04-02] MEDS ORDERED: ONDANSETRON 4 MG/2 ML VIAL IVPUSH PRN
[2021-04-02 04:04] VITALS: BMI 30.2
[2021-04-02 08:06] LABS: BASO % 1.1 % (0-2.0); EOS % 2.1 % (0-4.5); HEMATOCRIT 35.2 % (32.4-45.2); HEMOGLOBIN 11.8 GM/dL (10.7-15.3); LYMPH % 29.7 % (8-40); MCH 22.5 pg (25.7-33.7); MCHC 33.5 g/dl (32.0-36.0); MEAN CELL VOLUME 67.1 fl (80-96); MEAN PLT VOLUME 8.5 fl (7.5-11.1); MONO % 6.7 % (3.8-10.2); NEUT % 60.4 % (42.8-82.8); PLATELET COUNT 236 K/MM3 (134-434); RBC 5.24 M/mm3 (3.60-5.2); RDW 15.6 % (11.6-15.6); WHITE BLOOD COUNT 8.6 K/mm3 (4.0-10.0)
[2021-04-02 08:16] LABS: CALCIUM 7.9 mg/dL (8.5-10.1)
[2021-04-02 08:17] LABS: BLOOD UREA NITROGEN 12.1 mg/dL (7-18)
[2021-04-02 08:20] LABS: CREATININE 0.7 mg/dL (0.55-1.3)
[2021-04-02 08:21] LABS: BILIRUBIN,TOTAL 0.4 mg/dL (0.2-1)
[2021-04-02 08:22] LABS: TOT PROT 6.6 g/dl (6.4-8.2)
[2021-04-02 08:29] LABS: ALBUMIN 3.2 g/dl (3.4-5.0)
[2021-04-02] MEDS ORDERED: ALBUTEROL SO4 HFA INHALER IH PRN (09:15)
[2021-04-02] MEDS ORDERED: FUROSEMIDE 20 MG TABLET (FP) PO SCH (10:00)
[2021-04-02] MEDS ORDERED: BUDESONIDE/FORMETEROL FUMARATE 160/4.5 mcg INHALER IH SCH ×2 (10:00)
[2021-04-02] MEDS ORDERED: ENALAPRIL MALEATE 5 MG TABLET PO SCH (10:00)
[2021-04-02] MEDS ORDERED: ASPIRIN COATED 81 MG TABLET.EC PO SCH (10:00)
[2021-04-02] MEDS ORDERED: DOCUSATE SODIUM 100 MG CAPSULE (FP) PO SCH ×2 (10:00→14:00)
[2021-04-02] MEDS ORDERED: ISOSORBIDE MONONITRATE 30 MG TAB.SR.24H (FP) PO SCH (10:00)
[2021-04-02] MEDS ORDERED: CLOPIDOGREL BISULFATE 75 MG TABLET (FP) PO SCH (10:00)
[2021-04-02] MEDS ORDERED: ALBUTEROL SO4 0.083% IH SOL 2.5 MG/3 ML VIAL.NEB. NEB SCH (10:00)
[2021-04-02] MEDS ORDERED: PANTOPRAZOLE 20 MG TABLET PO SCH (10:00)
[2021-04-02] MEDS ORDERED: RANOLAZINE E.R. 500 MG TABLET (FP) PO SCH (13:00)
[2021-04-02 15:17] VITALS: BP 108/52; PULSE 68; TEMP 98.3
[2021-04-02] MEDS ORDERED: ATORVASTATIN CA 20 MG TABLET (FP) PO SCH (22:00)
== END 2021-04-02 19:03 | disposition home or self-care (01) ==
LOC: JER 09:31 → JERBED 18:12 → INTOOBSV 18:12 → UNDOADMOB 18:12 → JERBED 18:41 → J4W 04-02 01:22 → JERBED 04-02 01:22
PROVIDERS: ATTEND Internal Medicine
PROC: 3E033GC Introduction of Other Therapeutic Substance into Peripheral Vein, Percutaneous Approach (ICD-10-PCS; principal; 2021-04-01)
PROC: 3E023GC Introduction of Other Therapeutic Substance into Muscle, Percutaneous Approach (ICD-10-PCS; 2021-04-01)
PROC: 3E0337Z Introduction of Electrolytic and Water Balance Substance into Peripheral Vein, Percutaneous Approach (ICD-10-PCS; 2021-04-01)
DX: I25.10 Atherosclerotic heart disease of native coronary artery without angina pectoris (principal); I11.0 Hypertensive heart disease with heart failure; I50.33 Acute on chronic diastolic (congestive) heart failure; E78.5 Hyperlipidemia, unspecified; Z95.5 Presence of coronary angioplasty implant and graft; F32.9 Major depressive disorder, single episode, unspecified; J44.9 Chronic obstructive pulmonary disease, unspecified; E11.9 Type 2 diabetes mellitus without complications; T50.905A Adverse effect of unspecified drugs, medicaments and biological substances, initial encounter; Y92.238 Other place in hospital as the place of occurrence of the external cause; Z91.018 Allergy to other foods; Z88.6 Allergy status to analgesic agent; W18.39XA Other fall on same level, initial encounter; Y93.89 Activity, other specified; Y92.009 Unspecified place in unspecified non-institutional (private) residence as the place of occurrence of the external cause
CPT/HCPCS: 36415; 70450-TC; 73590-TC-RT-FY; 73610-TC-RT-FY; 73630-TC-RT-FY; 80053; 82550; 83690; 84484; 85025; 87086; 93005; 93010; 96365; 96367; 96372; 96375; 96376; 97116-GP; 97161-GP; 99285-25; C9803; G0378; Q0162; U0003; U0005

== ENCOUNTER 2022-02-13 21:23 | Observation (INO) | payer OTHER ==
[2022-02-13 22:33] LABS: BASO % 1.1 % (0-2.0); EOS % 1.8 % (0-4.5); HEMATOCRIT 40.5 % (32.4-45.2); HEMOGLOBIN 13.4 GM/dL (10.7-15.3); LYMPH % 33.6 % (8-40); MCH 22.4 pg (25.7-33.7); MCHC 33.2 g/dl (32.0-36.0); MEAN CELL VOLUME 67.6 fl (80-96); MEAN PLT VOLUME 7.5 fl (7.5-11.1); NEUT % 57.5 % (42.8-82.8); PLATELET COUNT 205 10^3/uL (134-434); RDW 15.5 % (11.6-15.6); WHITE BLOOD COUNT 8.8 K/mm3 (4.0-10.0)
[2022-02-13 22:39] LABS: INR 1.24 (0.83-1.09); PROTHROMBIN TIME (PATIENT) 14.3 SEC (9.7-13.0)
[2022-02-13 22:42] LABS: ACTIVATED PTT 41.7 SECONDS (25.2-36.5)
[2022-02-13 22:55] LABS: ALBUMIN 3.7 g/dl (3.4-5.0); BLOOD UREA NITROGEN 8.8 mg/dL (7-18); CALCIUM 9.4 mg/dL (8.5-10.1)
[2022-02-13 22:59] LABS: CREATININE 0.7 mg/dL (0.55-1.3)
[2022-02-13 23:00] LABS: BILIRUBIN,TOTAL 0.4 mg/dL (0.2-1); TOT PROT 7.9 g/dl (6.4-8.2)
[2022-02-13] MEDS ORDERED: ACETAMINOPHEN 325 MG TABLET (FP) PO ONE (23:45)
[2022-02-14] MEDS ORDERED: ACETAMINOPHEN 325 MG TABLET (FP) ONE
[2022-02-14] MEDS ORDERED: ASPIRIN 81 MG CHEWABLE TABLETS PO ONE (00:45)
[2022-02-14] MEDS ORDERED: ASPIRIN 81 MG CHEWABLE TABLETS ONE (00:54)
[2022-02-14] MEDS ORDERED: ALBUTEROL SO4 HFA INHALER IH PRN (02:52)
[2022-02-14] MEDS ORDERED: ALBUTEROL SO4 0.083% IH SOL 2.5 MG/3 ML VIAL.NEB. NEB PRN (02:52)
[2022-02-14] MEDS ORDERED: HEPARIN NA (PORCINE) 5,000 UNITS/ML 1ML VIAL ONE ×3 (06:47→21:31)
[2022-02-14] MEDS ORDERED: DOCUSATE SODIUM 100 MG CAPSULE (FP) PO ONE ×3 (06:47→21:31)
[2022-02-14] MEDS ORDERED: ALPRAZolam 0.25 MG TABLET ONE ×3 (06:47→21:30)
[2022-02-14] MEDS: HEPARIN NA (PORCINE) 5,000 UNITS/ML 1ML VIAL SQ SCH ×3 (06:55→21:49)
[2022-02-14] MEDS: DOCUSATE SODIUM 100 MG CAPSULE (FP) PO SCH ×3 (06:55→21:49)
[2022-02-14] MEDS: ALPRAZolam 0.25 MG TABLET PO SCH ×3 (06:56→21:49)
[2022-02-14] MEDS: INSULIN SLIDING SCALE (NOVOLOG) 1 VIAL SQ SCH ×4 (07:15→21:49)
[2022-02-14] MEDS ORDERED: BUDESONIDE/FORMETEROL FUMARATE 160/4.5 mcg INHALER IH SCH (10:00)
[2022-02-14] MEDS ORDERED: ENALAPRIL MALEATE 5 MG TABLET ONE (10:14)
[2022-02-14] MEDS ORDERED: PANTOPRAZOLE 20 MG TABLET PO ONE ×2 (10:14→21:30)
[2022-02-14] MEDS ORDERED: FUROSEMIDE 20 MG TABLET (FP) ONE (10:15)
[2022-02-14] MEDS ORDERED: SERTRALINE HCL 50 MG TABLET (FP) ONE (10:15)
[2022-02-14 10:18] LABS: BASO % 0.3 % (0-2.0); EOS % 1.7 % (0-4.5); HEMATOCRIT 37.8 % (32.4-45.2); LYMPH % 35.4 % (8-40); MCH 21.8 pg (25.7-33.7); MCHC 31.8 g/dl (32.0-36.0); MEAN CELL VOLUME 68.4 fl (80-96); MEAN PLT VOLUME 8.8 fl (7.5-11.1); NEUT % 56.6 % (42.8-82.8); PLATELET COUNT 216 10^3/uL (134-434); RBC 5.52 M/mm3 (3.60-5.2); WHITE BLOOD COUNT 6.9 K/mm3 (4.0-10.0)
[2022-02-14 10:41] LABS: CALCIUM 8.5 mg/dL (8.5-10.1)
[2022-02-14 10:43] LABS: ALBUMIN 3.2 g/dl (3.4-5.0); BLOOD UREA NITROGEN 8.8 mg/dL (7-18)
[2022-02-14 10:46] LABS: CREATININE 0.7 mg/dL (0.55-1.3)
[2022-02-14 10:47] LABS: BILIRUBIN,TOTAL 0.4 mg/dL (0.2-1); TOT PROT 7.2 g/dl (6.4-8.2)
[2022-02-14] MEDS: FUROSEMIDE 20 MG TABLET (FP) PO SCH (10:48)
[2022-02-14] MEDS: PANTOPRAZOLE 20 MG TABLET PO SCH ×2 (10:48→21:49)
[2022-02-14] MEDS: ISOSORBIDE MONONITRATE 30 MG TAB.SR.24H (FP) PO SCH (10:48)
[2022-02-14] MEDS: RANOLAZINE E.R. 1,000 MG TABLET (FP) PO SCH ×2 (10:48→21:49)
[2022-02-14] MEDS: SERTRALINE HCL 50 MG TABLET (FP) PO SCH (10:50)
[2022-02-14] MEDS: ENALAPRIL MALEATE 5 MG TABLET PO SCH (10:50)
[2022-02-14 11:51] LABS: ANISOCYTOSIS 2+; MACROCYTOSIS 0; OVALOCYTE 1+; TARGET CELLS 2+
[2022-02-15 01:21] VITALS: BMI 30.2
[2022-02-15] MEDS ORDERED: MELATONIN 5 MG TABLETS PO ONE (01:38)
[2022-02-15] MEDS: HEPARIN NA (PORCINE) 5,000 UNITS/ML 1ML VIAL SQ SCH ×3 (06:00→13:58)
[2022-02-15] MEDS: DOCUSATE SODIUM 100 MG CAPSULE (FP) PO SCH ×2 (06:47→13:41)
[2022-02-15] MEDS: ALPRAZolam 0.25 MG TABLET PO SCH ×3 (06:47→13:41)
[2022-02-15] MEDS: INSULIN SLIDING SCALE (NOVOLOG) 1 VIAL SQ SCH ×3 (06:47→17:19)
[2022-02-15] MEDS: ISOSORBIDE MONONITRATE 30 MG TAB.SR.24H (FP) PO SCH ×2 (08:00→11:24)
[2022-02-15 08:22] LABS: HEMATOCRIT 36.8 % (32.4-45.2); MCH 22.2 pg (25.7-33.7); MCHC 32.6 g/dl (32.0-36.0); MEAN PLT VOLUME 8.7 fl (7.5-11.1); PLATELET COUNT 193 10^3/uL (134-434); RDW 15.1 % (11.6-15.6); WHITE BLOOD COUNT 7.1 K/mm3 (4.0-10.0)
[2022-02-15 08:52] LABS: BLOOD UREA NITROGEN 10.9 mg/dL (7-18)
[2022-02-15 08:54] LABS: CALCIUM 8.3 mg/dL (8.5-10.1); CREATININE 0.8 mg/dL (0.55-1.3)
[2022-02-15 08:56] LABS: BILIRUBIN,TOTAL 0.5 mg/dL (0.2-1)
[2022-02-15 08:57] LABS: TOT PROT 6.8 g/dl (6.4-8.2)
[2022-02-15] MEDS ORDERED: REGADENOSON 0.4 MG/5 ML PRE-FILLED SYRINGE IVPUSH ONE ×2 (09:29→09:45)
[2022-02-15] MEDS ORDERED: ASPIRIN COATED 81 MG TABLET.EC PO SCH (10:00)
[2022-02-15] MEDS ORDERED: CLOPIDOGREL BISULFATE 75 MG TABLET (FP) PO SCH (10:00)
[2022-02-15] MEDS ORDERED: oxyCODONE HCL 5 MG TABLET PO PRN (10:51)
[2022-02-15] MEDS ORDERED: RANOLAZINE E.R. 500 MG TABLET (FP) ONE (11:21)
[2022-02-15] MEDS: FUROSEMIDE 20 MG TABLET (FP) PO SCH (11:23)
[2022-02-15] MEDS: ENALAPRIL MALEATE 5 MG TABLET PO SCH (11:24)
[2022-02-15] MEDS: RANOLAZINE E.R. 1,000 MG TABLET (FP) PO SCH (11:24)
[2022-02-15] MEDS: PANTOPRAZOLE 20 MG TABLET PO SCH (11:24)
[2022-02-15] MEDS: SERTRALINE HCL 50 MG TABLET (FP) PO SCH (11:39)
[2022-02-15 15:52] VITALS: BP 114/55; PULSE 62; TEMP 97.9
== END 2022-02-15 19:20 | disposition home or self-care (01) ==
LOC: JER 21:23 → INTOOBSV 02-14 00:44 → JERBED 02-14 00:44 → J4W 02-15 00:46
PROVIDERS: ADMIT Hospitalist; ATTEND Internal Medicine
PROC: 3E033GC Introduction of Other Therapeutic Substance into Peripheral Vein, Percutaneous Approach (ICD-10-PCS; principal; 2022-02-14)
DX: I11.0 Hypertensive heart disease with heart failure (principal); Z95.5 Presence of coronary angioplasty implant and graft; Z95.1 Presence of aortocoronary bypass graft; E78.00 Pure hypercholesterolemia, unspecified; F99 Mental disorder, not otherwise specified; E11.9 Type 2 diabetes mellitus without complications; J45.909 Unspecified asthma, uncomplicated; I50.32 Chronic diastolic (congestive) heart failure; Z87.891 Personal history of nicotine dependence; Z88.6 Allergy status to analgesic agent; Z91.018 Allergy to other foods
CPT/HCPCS: 36415; 71046-TC-FY; 78452-TC; 80053; 82962; 84484; 85025; 85027; 85610; 85730; 93005; 93010; 93017; 93306-TC; 93971-TC; 96374; 99285-25; A9502; C9803-CS; G0378; J1644; J2785; U0003; U0005

== ENCOUNTER 2022-03-14 08:42 | Emergency (ER) | payer OTHER ==
[2022-03-14 09:24] VITALS: BMI 29.6
[2022-03-14] MEDS ORDERED: SODIUM CHLORIDE 1,000 ML IV STA (09:31)
[2022-03-14] MEDS ORDERED: ACETAMINOPHEN 1000 MG/100 ML BAG IVPB ONE (09:33)
[2022-03-14] MEDS ORDERED: ACETAMINOPHEN INJECTION 100 ML IVPB ONE (09:41)
[2022-03-14] MEDS ORDERED: METOCLOPRAMIDE HCL INJECTION 10 MG/2 ML VIAL IM ONE (10:17)
[2022-03-14 10:21] LABS: BASO % 0.6 % (0-2.0); EOS % 1.6 % (0-4.5); HEMOGLOBIN 13.3 GM/dL (10.7-15.3); MCH 22.4 pg (25.7-33.7); MCHC 33.3 g/dl (32.0-36.0); MEAN CELL VOLUME 67.3 fl (80-96); MEAN PLT VOLUME 7.7 fl (7.5-11.1); MONO % 6.2 % (3.8-10.2); NEUT % 68.6 % (42.8-82.8); PLATELET COUNT 224 10^3/uL (134-434); RBC 5.93 M/mm3 (3.60-5.2); RDW 14.4 % (11.6-15.6); WHITE BLOOD COUNT 7.2 K/mm3 (4.0-10.0)
[2022-03-14] MEDS ORDERED: METOCLOPRAMIDE HCL INJECTION 10 MG/2 ML VIAL ONE (10:23)
[2022-03-14 11:00] LABS: CALCIUM 9.3 mg/dL (8.5-10.1)
[2022-03-14 11:01] LABS: ALBUMIN 3.6 g/dl (3.4-5.0)
[2022-03-14 11:03] LABS: CREATININE 0.7 mg/dL (0.55-1.3)
[2022-03-14 11:05] LABS: BILIRUBIN,TOTAL 0.8 mg/dL (0.2-1); TOT PROT 8.1 g/dl (6.4-8.2)
[2022-03-14 13:30] LABS: PH,URINE 5.5 (5.0-8.0); URINE APPEARANCE CLEAR; URINE BILIRUBIN NEGATIVE (NEGATIVE); URINE COLOR YELLOW; URINE GLUCOSE (UA) NEGATIVE (NEGATIVE); URINE KETONE NEGATIVE (NEGATIVE); URINE LEUK ESTERASE NEGATIVE (NEGATIVE); URINE NITRITE NEGATIVE (NEGATIVE); URINE PROTEIN NEGATIVE (NEGATIVE)
[2022-03-14 14:00] VITALS: BP 131/73; PULSE 60; TEMP 98
== END 2022-03-14 14:00 | disposition home or self-care (01) ==
LOC: JER 08:42
PROC: 3E033GC Introduction of Other Therapeutic Substance into Peripheral Vein, Percutaneous Approach (ICD-10-PCS; principal; 2022-03-14)
PROC: 3E023GC Introduction of Other Therapeutic Substance into Muscle, Percutaneous Approach (ICD-10-PCS; principal; 2022-03-14)
DX: I10 Essential (primary) hypertension (principal)
CPT/HCPCS: 36415; 70450-TC; 71046-TC-FY; 80053; 81003; 83735; 84484; 85025; 93005; 93010; 99285-25

== ENCOUNTER 2022-03-25 10:49 | Emergency (ER) | payer OTHER ==
[2022-03-25 10:59] VITALS: BMI 29.6
[2022-03-25 11:35] VITALS: BP 148/82; PULSE 64; TEMP 97.9
== END 2022-03-25 11:55 | disposition home or self-care (01) ==
LOC: JER 10:49
DX: I10 Essential (primary) hypertension (principal)
CPT/HCPCS: 99282-25

== ENCOUNTER 2022-05-31 18:25 | Emergency (ER) | payer OTHER ==
[2022-05-31 18:52] VITALS: TEMP 98.6; BMI 29.1
[2022-05-31 21:53] VITALS: BP 145/82; PULSE 62
== END 2022-05-31 22:52 | disposition home or self-care (01) ==
LOC: JER 18:25
DX: I10 Essential (primary) hypertension (principal)
CPT/HCPCS: 93005; 93010; 99283-25

== ENCOUNTER 2022-07-08 12:49 | Observation (INO) | payer OTHER ==
[2022-07-08] MEDS ORDERED: ACETAMINOPHEN 1000 MG/100 ML BAG IVPB ONE (13:59)
[2022-07-08] MEDS ORDERED: SODIUM CHLORIDE 0.9% 500 ML INFUS.BAG IV ONE (14:17)
[2022-07-08] MEDS ORDERED: ACETAMINOPHEN INJECTION 100 ML IVPB ONE (14:26)
[2022-07-08 14:57] LABS: BASO % 0.7 % (0-2.0); EOS % 2.1 % (0-4.5); HEMATOCRIT 38.3 % (32.4-45.2); HEMOGLOBIN 12.5 GM/dL (10.7-15.3); LYMPH % 31.7 % (8-40); MCH 22.1 pg (25.7-33.7); MCHC 32.6 g/dl (32.0-36.0); MEAN CELL VOLUME 67.9 fl (80-96); MEAN PLT VOLUME 8.2 fl (7.5-11.1); MONO % 6.1 % (3.8-10.2); NEUT % 59.4 % (42.8-82.8); PLATELET COUNT 217 10^3/uL (134-434); RBC 5.65 M/mm3 (3.60-5.2); RDW 15.2 % (11.6-15.6); WHITE BLOOD COUNT 7.4 K/mm3 (4.0-10.0)
[2022-07-08 15:03] LABS: INR 1.29 (0.83-1.09); PROTHROMBIN TIME (PATIENT) 14.9 SEC (9.7-13.0)
[2022-07-08 15:06] LABS: ACTIVATED PTT 39.8 SECONDS (25.2-36.5)
[2022-07-08 15:20] LABS: ALBUMIN 3.3 g/dl (3.4-5.0)
[2022-07-08 15:23] LABS: CREATININE 0.7 mg/dL (0.55-1.3)
[2022-07-08 15:25] LABS: BILIRUBIN,TOTAL 0.6 mg/dL (0.2-1); TOT PROT 7.8 g/dl (6.4-8.2)
[2022-07-08 15:35] LABS: N-TERMINAL BNP 239.7 pg/ml (5-125)
[2022-07-08] MEDS ORDERED: ASPIRIN 81 MG CHEWABLE TABLETS PO ONE (16:02)
[2022-07-08] MEDS ORDERED: ASPIRIN 81 MG CHEWABLE TABLETS ONE (16:14)
[2022-07-08] MEDS ORDERED: diphenhydrAMINE HCL 25 MG CAPSULE (FP) PO ONE ×2 (16:58→17:14)
[2022-07-08] MEDS ORDERED: DEXTROSE 50%-WATER - 25 GM/50 ML VIAL IVPUSH PRN (17:04)
[2022-07-08] MEDS ORDERED: LACTATED RINGERS SOLUTION 1,000 ML/1,000 ML INFUS.BAG IV STA (17:04)
[2022-07-08] MEDS ORDERED: DOCUSATE SODIUM 100 MG CAPSULE (FP) PO PRN (17:10)
[2022-07-08] MEDS ORDERED: oxyCODONE HCL 5 MG TABLET PO PRN (17:10)
[2022-07-08] MEDS ORDERED: ACETAMINOPHEN 325 MG TABLET (FP) PO PRN (17:11)
[2022-07-08 18:32] LABS: URINE APPEARANCE CLEAR; URINE BILIRUBIN NEGATIVE (NEGATIVE); URINE COLOR YELLOW; URINE GLUCOSE (UA) NEGATIVE (NEGATIVE); URINE KETONE NEGATIVE (NEGATIVE); URINE LEUK ESTERASE NEGATIVE (NEGATIVE); URINE NITRITE NEGATIVE (NEGATIVE); URINE PROTEIN NEGATIVE (NEGATIVE)
[2022-07-08] MEDS: LACTATED RINGERS SOLUTION 1,000 ML/1,000 ML INFUS.BAG IV SCH (19:51)
[2022-07-08] MEDS ORDERED: ATORVASTATIN CA 20 MG TABLET (FP) PO SCH (22:00)
[2022-07-08] MEDS ORDERED: ATORVASTATIN CA 20 MG TABLET (FP) ONE (22:47)
[2022-07-08] MEDS: INSULIN SLIDING SCALE (NOVOLOG) 1 VIAL SQ SCH (23:01)
[2022-07-09] MEDS ORDERED: ACETAMINOPHEN 325 MG TABLET (FP) ONE (02:35)
[2022-07-09] MEDS ORDERED: FAMOTIDINE 20 MG/50 ML IVPB 20 MG/50 ML MG IVPB ONE ×2 (04:14→04:17)
[2022-07-09] MEDS ORDERED: FAMOTIDINE 10 MG TABLET PO ONE (04:30)
[2022-07-09 05:41] VITALS: BMI 29.7
[2022-07-09] MEDS: INSULIN SLIDING SCALE (NOVOLOG) 1 VIAL SQ SCH ×4 (06:07→21:31)
[2022-07-09 09:19] LABS: HEMATOCRIT 39.1 % (32.4-45.2); HEMOGLOBIN 12.9 GM/dL (10.7-15.3); MCH 22.2 pg (25.7-33.7); MEAN CELL VOLUME 67.4 fl (80-96); MEAN PLT VOLUME 8.7 fl (7.5-11.1); PLATELET COUNT 227 10^3/uL (134-434); RDW 15.5 % (11.6-15.6)
[2022-07-09 09:37] LABS: ALBUMIN 3.3 g/dl (3.4-5.0); CREATININE 0.6 mg/dL (0.55-1.3)
[2022-07-09 09:38] LABS: BLOOD UREA NITROGEN 12.2 mg/dL (7-18)
[2022-07-09 09:39] LABS: BILIRUBIN,TOTAL 0.3 mg/dL (0.2-1); TOT PROT 7.9 g/dl (6.4-8.2)
[2022-07-09] MEDS: ENOXAPARIN NA (PORCINE) 40 MG/0.4 ML DISP.SYRIN SQ SCH (09:39)
[2022-07-09] MEDS: ASPIRIN COATED 81 MG TABLET.EC PO SCH (09:39)
[2022-07-09 09:52] LABS: CALCIUM 8.7 mg/dL (8.5-10.1)
[2022-07-10] MEDS: INSULIN SLIDING SCALE (NOVOLOG) 1 VIAL SQ SCH ×2 (06:22→11:56)
[2022-07-10] MEDS: ENOXAPARIN NA (PORCINE) 40 MG/0.4 ML DISP.SYRIN SQ SCH (09:29)
[2022-07-10] MEDS: ASPIRIN COATED 81 MG TABLET.EC PO SCH (09:29)
[2022-07-10] MEDS ORDERED: FUROSEMIDE 20 MG TABLET (FP) PO SCH (11:30)
[2022-07-10] MEDS ORDERED: ISOSORBIDE MONONITRATE 30 MG TAB.SR.24H (FP) PO SCH (11:30)
[2022-07-10] MEDS ORDERED: metoPROLOL SUCCINATE 25 MG TAB.SR.24H (FP) PO SCH (11:30)
[2022-07-10] MEDS ORDERED: ENALAPRIL MALEATE 5 MG TABLET PO SCH (11:30)
[2022-07-10] MEDS ORDERED: RANOLAZINE E.R. 1,000 MG TABLET (FP) PO SCH (11:30)
[2022-07-10] MEDS ORDERED: CLOPIDOGREL BISULFATE 75 MG TABLET (FP) PO SCH (11:30)
[2022-07-10] MEDS ORDERED: RANOLAZINE E.R. 500 MG TABLET (FP) ONE (11:42)
[2022-07-10] MEDS: LACTATED RINGERS SOLUTION 1,000 ML/1,000 ML INFUS.BAG IV SCH (12:54)
[2022-07-10 15:44] VITALS: BP 111/69; PULSE 62; RESP 18; TEMP 98.5
== END 2022-07-10 17:04 | disposition home or self-care (01) ==
LOC: JER 12:49 → JERBED 14:14 → UNDOADMOB 14:14 → INTOOBSV 17:02 → OBSVTOIN 17:02 → JERBED 17:49 → J4W 07-09 05:59
PROVIDERS: ADMIT Internal Medicine; ATTEND Internal Medicine
PROC: 3E023GC Introduction of Other Therapeutic Substance into Muscle, Percutaneous Approach (ICD-10-PCS; principal; 2022-07-08)
PROC: 3E033NZ Introduction of Analgesics, Hypnotics, Sedatives into Peripheral Vein, Percutaneous Approach (ICD-10-PCS; 2022-07-08)
PROC: 3E0337Z Introduction of Electrolytic and Water Balance Substance into Peripheral Vein, Percutaneous Approach (ICD-10-PCS; 2022-07-08)
DX: I11.0 Hypertensive heart disease with heart failure (principal); I95.1 Orthostatic hypotension; R63.39 Other feeding difficulties; Z29.8 Encounter for other specified prophylactic measures; E11.9 Type 2 diabetes mellitus without complications; R35.0 Frequency of micturition; R00.1 Bradycardia, unspecified; R07.9 Chest pain, unspecified; R42 Dizziness and giddiness
CPT/HCPCS: 0241U-QW; 36415; 71045-TC-FY; 76705-TC; 80053; 81003; 82962; 83690; 83880; 84484; 85025; 85027; 85610; 85730; 86705; 86708; 86803; 87086; 87340; 87517; 93005; 93010; 93971-TC; 96361; 96372; 96374; 99284-25; G0378

== ENCOUNTER → 2022-09-29 | Day surgery (SDC) | payer OTHER | END | disposition home or self-care (01) | LOC: FMAMMOTONE 09:50 | PROVIDERS: ATTEND Physician Assistant | PROC: 0HBT3ZX Excision of Right Breast, Percutaneous Approach, Diagnostic (ICD-10-PCS; principal; 2022-09-29) | DX: N60.21 Fibroadenosis of right breast (principal); N64.89 Other specified disorders of breast; R92.1 Mammographic calcification found on diagnostic imaging of breast | CPT/HCPCS: 19081; 19082; 76098-TC-FY; 88305-TC ==

== ENCOUNTER 2022-10-14 19:55 | Emergency (ER) | payer OTHER ==
[2022-10-14 20:07] VITALS: BMI 29.1
[2022-10-14] MEDS ORDERED: SODIUM CHLORIDE 0.9% 500 ML INFUS.BAG IV ONE (21:09)
[2022-10-14] MEDS ORDERED: ACETAMINOPHEN 1000 MG/100 ML BAG IVPB ONE (21:09)
[2022-10-14] MEDS ORDERED: ACETAMINOPHEN INJECTION 100 ML IVPB ONE (21:42)
[2022-10-14 22:11] LABS: BASO % 0.7 % (0-2.0); EOS % 2.1 % (0-4.5); HEMATOCRIT 40.7 % (32.4-45.2); HEMOGLOBIN 13.2 GM/dL (10.7-15.3); LYMPH % 28.1 % (8-40); MCH 22.1 pg (25.7-33.7); MCHC 32.4 g/dl (32.0-36.0); MEAN CELL VOLUME 68.3 fl (80-96); MEAN PLT VOLUME 7.6 fl (7.5-11.1); MONO % 6.4 % (3.8-10.2); NEUT % 62.7 % (42.8-82.8); PLATELET COUNT 269 10^3/uL (134-434); RBC 5.96 M/mm3 (3.60-5.2); RDW 15.1 % (11.6-15.6); WHITE BLOOD COUNT 8.7 K/mm3 (4.0-10.0)
[2022-10-14 22:18] LABS: CALCIUM 8.8 mg/dL (8.5-10.1)
[2022-10-14 22:20] LABS: ALBUMIN 3.7 g/dl (3.4-5.0); BLOOD UREA NITROGEN 8.5 mg/dL (7-18)
[2022-10-14 22:23] LABS: CREATININE 0.7 mg/dL (0.55-1.3)
[2022-10-14 22:25] LABS: BILIRUBIN,TOTAL 0.5 mg/dL (0.2-1); TOT PROT 8.2 g/dl (6.4-8.2)
[2022-10-14 23:21] LABS: URINE APPEARANCE CLEAR; URINE BILIRUBIN NEGATIVE (NEGATIVE); URINE COLOR DK YELLOW; URINE GLUCOSE (UA) NEGATIVE (NEGATIVE); URINE KETONE NEGATIVE (NEGATIVE); URINE LEUK ESTERASE NEGATIVE (NEGATIVE); URINE NITRITE NEGATIVE (NEGATIVE); URINE PROTEIN NEGATIVE (NEGATIVE); URINE UROBILINOGEN 0.2 mg/dL (0.2-1.0)
[2022-10-15] MEDS ORDERED: KETOROLAC TROMETHAMINE 15 MG/ML VIAL IVPUSH ONE ×2 (00:17)
[2022-10-15] MEDS ORDERED: CYCLOBENZAPRINE HCL 5 MG TABLET PO ONE (00:17)
[2022-10-15] MEDS ORDERED: LIDOCAINE 5% TOPICAL PATCH TP ONE (00:17)
[2022-10-15] MEDS ORDERED: CYCLOBENZAPRINE HCL 10 MG TABLET (FP) ONE (01:09)
[2022-10-15] MEDS ORDERED: KETOROLAC TROMETHAMINE 15 MG/ML VIAL ONE (01:10)
[2022-10-15] MEDS ORDERED: LIDOCAINE 5% TOPICAL PATCH ONE (01:10)
[2022-10-15 01:29] VITALS: BP 106/59; PULSE 53; RESP 16; TEMP 97.9
== END 2022-10-15 02:11 | disposition home or self-care (01) ==
LOC: JER 19:55
PROC: 3E033NZ Introduction of Analgesics, Hypnotics, Sedatives into Peripheral Vein, Percutaneous Approach (ICD-10-PCS; principal; 2022-10-14)
DX: M54.9 Dorsalgia, unspecified (principal); B34.9 Viral infection, unspecified; K40.90 Unilateral inguinal hernia, without obstruction or gangrene, not specified as recurrent
CPT/HCPCS: 0241U-QW; 36415; 71045-TC-FY; 74176-TC; 80053; 81003; 84484; 85025; 87086; 93005; 93010; 99285-25

== ENCOUNTER 2022-11-03 14:20 | Emergency (ER) | payer OTHER ==
[2022-11-03 14:52] VITALS: BP 138/75; PULSE 74; RESP 18; TEMP 98.5; BMI 29.2
[2022-11-03] MEDS ORDERED: ACETAMINOPHEN 325 MG TABLET (FP) PO ONE (17:29)
[2022-11-03] MEDS ORDERED: SUMATRIPTAN SUCCINATE 6 MG/0.5 ML VIAL SQ ONE ×2 (17:29→18:11)
[2022-11-03] MEDS ORDERED: FUROSEMIDE 20 MG TABLET (FP) PO ONE (17:29)
[2022-11-03] MEDS ORDERED: METOCLOPRAMIDE HCL 10 MG TABLET (FP) PO ONE (17:44)
[2022-11-03] MEDS ORDERED: ACETAMINOPHEN 325 MG TABLET (FP) ONE (18:13)
[2022-11-03] MEDS ORDERED: FUROSEMIDE 20 MG TABLET (FP) ONE (18:13)
[2022-11-03] MEDS ORDERED: SUMATRIPTAN SUCCINATE 6 MG/0.5 ML VIAL ONE (18:13)
[2022-11-03 18:51] LABS: BASO % 0.9 % (0-2.0); EOS % 2.4 % (0-4.5); HEMATOCRIT 39.4 % (32.4-45.2); HEMOGLOBIN 12.8 GM/dL (10.7-15.3); LYMPH % 39.2 % (8-40); MCH 22.3 pg (25.7-33.7); MCHC 32.5 g/dl (32.0-36.0); MEAN CELL VOLUME 68.6 fl (80-96); MONO % 7.9 % (3.8-10.2); NEUT % 49.6 % (42.8-82.8); PLATELET COUNT 252 10^3/uL (134-434); RBC 5.75 M/mm3 (3.60-5.2); RDW 15.2 % (11.6-15.6); WHITE BLOOD COUNT 7.7 K/mm3 (4.0-10.0)
[2022-11-03 19:27] LABS: ALBUMIN 3.2 g/dl (3.4-5.0); BILIRUBIN,TOTAL 0.5 mg/dL (0.2-1); BLOOD UREA NITROGEN 14.7 mg/dL (7-18); CALCIUM 8.5 mg/dL (8.5-10.1); CREATININE 0.7 mg/dL (0.55-1.3); N-TERMINAL BNP 100.2 pg/ml (5-125); TOT PROT 7.4 g/dl (6.4-8.2)
== END 2022-11-03 21:58 | disposition home or self-care (01) ==
LOC: JER 14:20
DX: R51.9 Headache, unspecified (principal); R42 Dizziness and giddiness
CPT/HCPCS: 0241U-QW; 36415; 70450-TC; 71045-TC-FY; 80053; 83880; 84484; 85025; 93005; 93010; 99285-25

== ENCOUNTER 2022-12-11 16:37 | Emergency (ER) | payer OTHER ==
[2022-12-11 16:45] VITALS: BP 128/78; PULSE 71; RESP 18; TEMP 97.7; BMI 30.7
[2022-12-11] MEDS ORDERED: SODIUM CHLORIDE 1,000 ML IV STA (17:40)
[2022-12-11] MEDS ORDERED: ONDANSETRON 4 MG/2 ML VIAL IVPUSH ONE (17:40)
[2022-12-11] MEDS ORDERED: MAG HYDROX/AL HYDROX/SIMETH 30 ML UNIT-DOSE CUP PO ONE (17:40)
[2022-12-11] MEDS ORDERED: FAMOTIDINE 20 MG/50 ML IVPB 20 MG/50 ML MG IVPB ONE ×2 (17:40→17:47)
[2022-12-11] MEDS ORDERED: MAG HYDROX/AL HYDROX/SIMETH 30 ML UNIT-DOSE CUP ONE (17:47)
[2022-12-11] MEDS ORDERED: ONDANSETRON 4 MG/2 ML VIAL ONE (17:47)
[2022-12-11 18:37] LABS: INR 1.2 (0.83-1.09); PROTHROMBIN TIME (PATIENT) 13.8 SEC (9.7-13.0)
[2022-12-11 18:40] LABS: ACTIVATED PTT 25.6 SECONDS (25.2-36.5)
[2022-12-11 18:45] LABS: CALCIUM 8.8 mg/dL (8.5-10.1)
[2022-12-11 18:46] LABS: ALBUMIN 3.5 g/dl (3.4-5.0); BLOOD UREA NITROGEN 14.5 mg/dL (7-18)
[2022-12-11 18:49] LABS: CREATININE 0.9 mg/dL (0.55-1.3)
[2022-12-11 18:51] LABS: BILIRUBIN,TOTAL 0.7 mg/dL (0.2-1); TOT PROT 8.4 g/dl (6.4-8.2)
[2022-12-11 21:02] LABS: BASO % 0.5 % (0-2.0); EOS % 1.7 % (0-4.5); HEMATOCRIT 43.7 % (32.4-45.2); HEMOGLOBIN 14.2 GM/dL (10.7-15.3); LYMPH % 30.3 % (8-40); MCH 22.1 pg (25.7-33.7); MCHC 32.5 g/dl (32.0-36.0); MEAN PLT VOLUME 8.6 fl (7.5-11.1); MONO % 8.3 % (3.8-10.2); NEUT % 59.2 % (42.8-82.8); PLATELET COUNT 232 10^3/uL (134-434); RBC 6.43 M/mm3 (3.60-5.2); WHITE BLOOD COUNT 5.7 K/mm3 (4.0-10.0)
[2022-12-11] MEDS ORDERED: DIPHENOXYLATE 2.5/ATROPINE.025 1 COMBO TABLET PO ONE (21:25)
[2022-12-11] MEDS ORDERED: ACETAMINOPHEN 1000 MG/100 ML BAG IVPB ONE (21:26)
[2022-12-11] MEDS ORDERED: ACETAMINOPHEN INJECTION 100 ML IVPB ONE (21:28)
[2022-12-11 23:22] LABS: EPI CELLS 23 /uL (0-25.1); HYALINE CASTS 3 /uL (0-3.1); URINE APPEARANCE CLEAR; URINE BACTERIA 289 /uL (0-1359); URINE BILIRUBIN NEGATIVE (NEGATIVE); URINE COLOR YELLOW; URINE GLUCOSE (UA) NEGATIVE (NEGATIVE); URINE KETONE NEGATIVE (NEGATIVE); URINE LEUK ESTERASE NEGATIVE (NEGATIVE); URINE NITRITE NEGATIVE (NEGATIVE); URINE PROTEIN TRACE (NEGATIVE); URINE RBC 18 /uL (0-23.9); URINE UROBILINOGEN 0.2 mg/dL (0.2-1.0); URINE WBC 15 /uL (0-25.8)
== END 2022-12-11 23:25 | disposition home or self-care (01) ==
LOC: JER 16:37
PROC: 3E0333Z Introduction of Anti-inflammatory into Peripheral Vein, Percutaneous Approach (ICD-10-PCS; principal; 2022-12-11)
PROC: 3E033GC Introduction of Other Therapeutic Substance into Peripheral Vein, Percutaneous Approach (ICD-10-PCS; 2022-12-11)
PROC: 3E033GC Introduction of Other Therapeutic Substance into Peripheral Vein, Percutaneous Approach (ICD-10-PCS; 2022-12-11)
PROC: 3E0337Z Introduction of Electrolytic and Water Balance Substance into Peripheral Vein, Percutaneous Approach (ICD-10-PCS; 2022-12-11)
DX: A05.1 Botulism food poisoning (principal); R11.2 Nausea with vomiting, unspecified; R10.32 Left lower quadrant pain; R19.7 Diarrhea, unspecified; K40.10 Bilateral inguinal hernia, with gangrene, not specified as recurrent
CPT/HCPCS: 0241U-QW; 36415; 71045-TC-FY; 74177-TC; 80053; 81003; 83690; 84484; 85025; 85610; 85730; 87086; 93005; 93010; 96360; 96374; 96375; 99285-25; Q9967

== ENCOUNTER 2023-05-31 13:27 | Inpatient (IN) | payer OTHER ==
[2023-05-31 13:40] VITALS: BMI 30.6
[2023-05-31] MEDS ORDERED: ACETAMINOPHEN 1000 MG/100 ML BAG IVPB ONE (15:16)
[2023-05-31] MEDS ORDERED: ACETAMINOPHEN INJECTION 100 ML IVPB ONE (15:22)
[2023-05-31 16:11] LABS: BASO % 0.9 % (0-2.0); EOS % 2.1 % (0-4.5); HEMATOCRIT 41.2 % (32.4-45.2); HEMOGLOBIN 13.5 GM/dL (10.7-15.3); LYMPH % 26.3 % (8-40); MCH 21.7 pg (25.7-33.7); MCHC 32.7 g/dl (32.0-36.0); MEAN CELL VOLUME 66.2 fl (80-96); MEAN PLT VOLUME 7.9 fl (7.5-11.1); MONO % 6.5 % (3.8-10.2); NEUT % 64.2 % (42.8-82.8); PLATELET COUNT 243 10^3/uL (134-434); RBC 6.22 M/mm3 (3.60-5.2); RDW 15.8 % (11.6-15.6); WHITE BLOOD COUNT 7.9 K/mm3 (4.0-10.0)
[2023-05-31 16:21] LABS: INR 1.25 (0.83-1.09); POTASSIUM 4.1 mmol/L (3.5-5.1); PROTHROMBIN TIME (PATIENT) 14.5 SEC (9.7-13.0)
[2023-05-31 16:23] LABS: ACTIVATED PTT 37.3 SECONDS (25.2-36.5)
[2023-05-31 16:24] LABS: BLOOD UREA NITROGEN 17.3 mg/dL (7-18); CALCIUM 9.3 mg/dL (8.5-10.1)
[2023-05-31 16:25] LABS: ALBUMIN 3.3 g/dl (3.4-5.0)
[2023-05-31 16:28] LABS: CREATININE 0.9 mg/dL (0.55-1.3)
[2023-05-31 16:29] LABS: BILIRUBIN,TOTAL 0.8 mg/dL (0.2-1); TOT PROT 7.6 g/dl (6.4-8.2)
[2023-05-31 16:38] LABS: ANISOCYTOSIS 1+; MACROCYTOSIS 0; TEAR DROP CELLS 1+
[2023-05-31] MEDS ORDERED: LIDOCAINE 5% TOPICAL PATCH TP ONE (17:30)
[2023-05-31] MEDS ORDERED: KETOROLAC TROMETHAMINE 15 MG/ML VIAL IVPUSH ONE (17:45)
[2023-05-31] MEDS ORDERED: KETOROLAC TROMETHAMINE 15 MG/ML VIAL ONE (17:59)
[2023-05-31] MEDS ORDERED: LIDOCAINE 5% TOPICAL PATCH ONE (17:59)
[2023-06-01] MEDS ORDERED: ACETAMINOPHEN 325 MG TABLET (FP) PO PRN ×2 (01:24→01:25)
[2023-06-01 08:56] VITALS: RESP 18
[2023-06-01] MEDS ORDERED: RANOLAZINE E.R. 500 MG TABLET (FP) ONE ×2 (09:12→21:11)
[2023-06-01] MEDS: CLOPIDOGREL BISULFATE 75 MG TABLET (FP) PO SCH (09:43)
[2023-06-01] MEDS: ISOSORBIDE MONONITRATE 30 MG TAB.SR.24H (FP) PO SCH (09:44)
[2023-06-01] MEDS: ENALAPRIL MALEATE 5 MG TABLET PO SCH (09:44)
[2023-06-01] MEDS: metoPROLOL SUCCINATE 25 MG TAB.SR.24H (FP) PO SCH (09:44)
[2023-06-01] MEDS: ASPIRIN COATED 81 MG TABLET.EC PO SCH (09:44)
[2023-06-01] MEDS: RANOLAZINE E.R. 1,000 MG TABLET (FP) PO SCH ×2 (09:44→21:27)
[2023-06-01] MEDS: ENOXAPARIN NA (PORCINE) 40 MG/0.4 ML DISP.SYRIN SQ SCH (09:44)
[2023-06-01 09:57] LABS: PH,URINE 5.5 (5.0-8.0); URINE APPEARANCE CLEAR; URINE BILIRUBIN 1+ (NEGATIVE); URINE COLOR DK YELLOW; URINE GLUCOSE (UA) NEGATIVE (NEGATIVE); URINE KETONE TRACE (NEGATIVE); URINE LEUK ESTERASE NEGATIVE (NEGATIVE); URINE NITRITE NEGATIVE (NEGATIVE); URINE PROTEIN TRACE (NEGATIVE)
[2023-06-01] MEDS: LORazepam 2 MG/ML SDV VIAL IVPUSH SCH (18:26)
[2023-06-01] MEDS: LIDOCAINE PATCH REMOVAL MC SCH (21:29)
[2023-06-02] MEDS ORDERED: FUROSEMIDE 20 MG TABLET (FP) PO SCH (10:00)
[2023-06-02 10:01] LABS: BASO % 0.9 % (0-2.0); EOS % 1.6 % (0-4.5); HEMATOCRIT 40.6 % (32.4-45.2); HEMOGLOBIN 12.7 GM/dL (10.7-15.3); LYMPH % 26.9 % (8-40); MCH 21.3 pg (25.7-33.7); MCHC 31.4 g/dl (32.0-36.0); MEAN PLT VOLUME 8.3 fl (7.5-11.1); MONO % 6.9 % (3.8-10.2); NEUT % 63.7 % (42.8-82.8); PLATELET COUNT 211 10^3/uL (134-434); RBC 5.97 M/mm3 (3.60-5.2); RDW 15.6 % (11.6-15.6); WHITE BLOOD COUNT 7.6 K/mm3 (4.0-10.0)
[2023-06-02 10:47] LABS: POTASSIUM 4.3 mmol/L (3.5-5.1)
[2023-06-02 10:52] LABS: CALCIUM 9.2 mg/dL (8.5-10.1)
[2023-06-02] MEDS ORDERED: RANOLAZINE E.R. 500 MG TABLET (FP) ONE ×2 (10:52→21:29)
[2023-06-02 10:53] LABS: ALBUMIN 3.3 g/dl (3.4-5.0); BLOOD UREA NITROGEN 10.3 mg/dL (7-18)
[2023-06-02 10:55] LABS: CREATININE 0.7 mg/dL (0.55-1.3)
[2023-06-02 10:57] LABS: BILIRUBIN,TOTAL 0.4 mg/dL (0.2-1); TOT PROT 7.6 g/dl (6.4-8.2)
[2023-06-02] MEDS: ENOXAPARIN NA (PORCINE) 40 MG/0.4 ML DISP.SYRIN SQ SCH (10:57)
[2023-06-02] MEDS: ENALAPRIL MALEATE 5 MG TABLET PO SCH ×2 (10:58→11:54)
[2023-06-02] MEDS: CLOPIDOGREL BISULFATE 75 MG TABLET (FP) PO SCH (10:58)
[2023-06-02] MEDS: ISOSORBIDE MONONITRATE 30 MG TAB.SR.24H (FP) PO SCH (10:58)
[2023-06-02] MEDS: RANOLAZINE E.R. 1,000 MG TABLET (FP) PO SCH ×2 (10:58→21:33)
[2023-06-02] MEDS: ASPIRIN COATED 81 MG TABLET.EC PO SCH (10:58)
[2023-06-02] MEDS: metoPROLOL SUCCINATE 25 MG TAB.SR.24H (FP) PO SCH (10:58)
[2023-06-02] MEDS ORDERED: PANTOPRAZOLE 40 MG TABLET PO SCH (13:00)
[2023-06-02] MEDS: FAMOTIDINE 20 MG TABLET PO SCH ×2 (13:28→21:33)
[2023-06-02] MEDS ORDERED: ALPRAZolam 1 MG TABLET PO PRN (14:11)
[2023-06-02] MEDS: LORazepam 2 MG/ML SDV VIAL IVPUSH SCH (15:26)
[2023-06-02] MEDS: LIDOCAINE PATCH REMOVAL MC SCH (21:38)
[2023-06-03] MEDS ORDERED: RANOLAZINE E.R. 500 MG TABLET (FP) ONE (10:29)
[2023-06-03] MEDS: FAMOTIDINE 20 MG TABLET PO SCH (10:35)
[2023-06-03] MEDS: ENOXAPARIN NA (PORCINE) 40 MG/0.4 ML DISP.SYRIN SQ SCH (10:35)
[2023-06-03] MEDS: ASPIRIN COATED 81 MG TABLET.EC PO SCH (10:35)
[2023-06-03] MEDS: ISOSORBIDE MONONITRATE 30 MG TAB.SR.24H (FP) PO SCH (10:35)
[2023-06-03] MEDS: RANOLAZINE E.R. 1,000 MG TABLET (FP) PO SCH (10:36)
[2023-06-03] MEDS: CLOPIDOGREL BISULFATE 75 MG TABLET (FP) PO SCH (10:36)
[2023-06-03] MEDS: metoPROLOL SUCCINATE 25 MG TAB.SR.24H (FP) PO SCH (10:37)
[2023-06-03] MEDS: ENALAPRIL MALEATE 5 MG TABLET PO SCH ×2 (10:37→10:48)
[2023-06-03 11:14] VITALS: BP 132/75; PULSE 61; TEMP 98.3
== END 2023-06-03 12:59 | disposition home or self-care (01) | DRG 552 ==
LOC: JER 13:27 → JERBED 17:47 → OBSVTOIN 22:01 → J6S 06-01 03:56
PROVIDERS: ADMIT Internal Medicine; ATTEND Internal Medicine
DX: M54.30 Sciatica, unspecified side (principal); M54.59 Other low back pain; I10 Essential (primary) hypertension; R07.9 Chest pain, unspecified; I25.10 Atherosclerotic heart disease of native coronary artery without angina pectoris; E11.9 Type 2 diabetes mellitus without complications; E78.5 Hyperlipidemia, unspecified; M54.9 Dorsalgia, unspecified
CPT/HCPCS: 0241U-QW; 36415; 71045-TC-FY; 72131-TC; 72141-TC; 72148-TC; 80053; 81003; 82550; 83036; 84443; 84484; 85025; 85610; 85730; 93005; 93010; 97116-GP; 97162-GP; 99285-25; G0378

== ENCOUNTER 2023-10-14 10:30 | Emergency (ER) | payer OTHER ==
[2023-10-14 10:53] VITALS: BMI 29.7
[2023-10-14] MEDS ORDERED: ACETAMINOPHEN 500 MG TABLET (FP) PO ONE (12:35)
[2023-10-14] MEDS ORDERED: ENALAPRIL MALEATE 5 MG TABLET PO ONE (12:39)
[2023-10-14] MEDS ORDERED: ENALAPRIL MALEATE 5 MG TABLET ONE (12:57)
[2023-10-14] MEDS ORDERED: ACETAMINOPHEN 500 MG TABLET (FP) ONE (12:59)
[2023-10-14 13:06] LABS: BASO % 0.9 % (0-2.0); EOS % 1.3 % (0-4.5); HEMATOCRIT 42.1 % (32.4-45.2); HEMOGLOBIN 13.3 GM/dL (10.7-15.3); LYMPH % 18.1 % (8-40); MCH 21.4 pg (25.7-33.7); MCHC 31.7 g/dl (32.0-36.0); MEAN CELL VOLUME 67.7 fl (80-96); MEAN PLT VOLUME 7.8 fl (7.5-11.1); MONO % 6.6 % (3.8-10.2); NEUT % 73.1 % (42.8-82.8); PLATELET COUNT 265 10^3/uL (134-434); RBC 6.21 M/mm3 (3.60-5.2); WHITE BLOOD COUNT 13.8 K/mm3 (4.0-10.0)
[2023-10-14] MEDS ORDERED: FUROSEMIDE 20 MG TABLET (FP) PO ONE (13:06)
[2023-10-14] MEDS ORDERED: FUROSEMIDE 20 MG TABLET (FP) ONE (13:08)
[2023-10-14] MEDS ORDERED: metoPROLOL SUCCINATE 25 MG TAB.SR.24H (FP) PO ONE ×2 (13:08)
[2023-10-14 13:12] LABS: INR 1.24 (0.83-1.09); PROTHROMBIN TIME (PATIENT) 14.3 SEC (9.7-13.0)
[2023-10-14 13:15] LABS: ACTIVATED PTT 39.5 SECONDS (25.2-36.5)
[2023-10-14 13:30] LABS: POTASSIUM 5.5 mmol/L (3.5-5.1)
[2023-10-14 13:32] LABS: CALCIUM 8.9 mg/dL (8.5-10.1)
[2023-10-14 13:33] LABS: ALBUMIN 3.8 g/dl (3.4-5.0); BLOOD UREA NITROGEN 6.7 mg/dL (7-18)
[2023-10-14 13:36] LABS: CREATININE 0.8 mg/dL (0.55-1.3)
[2023-10-14 13:38] LABS: BILIRUBIN,TOTAL 0.8 mg/dL (0.2-1); TOT PROT 8.7 g/dl (6.4-8.2)
[2023-10-14 13:41] LABS: N-TERMINAL BNP 112.5 pg/ml (5-125)
[2023-10-14 13:52] LABS: ANISOCYTOSIS 3+; MACROCYTOSIS 0
[2023-10-14 14:39] LABS: POTASSIUM 3.6 mmol/L (3.5-5.1)
[2023-10-14 14:40] LABS: CALCIUM 8.5 mg/dL (8.5-10.1)
[2023-10-14 14:42] LABS: BLOOD UREA NITROGEN 6.9 mg/dL (7-18)
[2023-10-14 14:45] LABS: CREATININE 0.8 mg/dL (0.55-1.3)
[2023-10-14 15:09] VITALS: BP 115/63; PULSE 85; RESP 20; TEMP 98.9
== END 2023-10-14 15:58 | disposition home or self-care (01) ==
LOC: JER 10:30
DX: R05.9 Cough, unspecified (principal); R09.81 Nasal congestion; R06.02 Shortness of breath; J02.9 Acute pharyngitis, unspecified; J06.9 Acute upper respiratory infection, unspecified; Z20.822 Contact with and (suspected) exposure to COVID-19
CPT/HCPCS: 0241U-QW; 36415; 71046-TC-FY; 80048; 80053; 83880; 84484; 85025; 85610; 85730; 87651; 93005; 93010; 99285-25

== ENCOUNTER 2023-11-04 10:29 | Emergency (ER) | payer OTHER ==
[2023-11-04 10:42] VITALS: BP 129/81; PULSE 71; RESP 18; TEMP 99; BMI 30.6
[2023-11-04 14:54] LABS: BASO % 1.1 % (0-2.0); EOS % 2.9 % (0-4.5); HEMOGLOBIN 12.7 GM/dL (10.7-15.3); LYMPH % 30.9 % (8-40); MCH 22.2 pg (25.7-33.7); MCHC 32.6 g/dl (32.0-36.0); MEAN CELL VOLUME 68.1 fl (80-96); MEAN PLT VOLUME 7.7 fl (7.5-11.1); MONO % 5.9 % (3.8-10.2); NEUT % 59.2 % (42.8-82.8); PLATELET COUNT 238 10^3/uL (134-434); RBC 5.73 M/mm3 (3.60-5.2); RDW 14.9 % (11.6-15.6)
[2023-11-04 15:01] LABS: INR 1.23 (0.83-1.09); PROTHROMBIN TIME (PATIENT) 14.2 SEC (9.7-13.0)
[2023-11-04 15:04] LABS: ACTIVATED PTT 37.8 SECONDS (25.2-36.5)
[2023-11-04] MEDS ORDERED: ACETAMINOPHEN 500 MG TABLET (FP) PO ONE (15:12)
[2023-11-04] MEDS ORDERED: ACETAMINOPHEN 325 MG TABLET (FP) ONE (15:13)
[2023-11-04 15:14] LABS: POTASSIUM 3.8 mmol/L (3.5-5.1)
[2023-11-04 15:16] LABS: ALBUMIN 3.3 g/dl (3.4-5.0); BLOOD UREA NITROGEN 10.9 mg/dL (7-18); CALCIUM 8.8 mg/dL (8.5-10.1)
[2023-11-04] MEDS ORDERED: oxyCODONE HCL 5 MG TABLET PO ONE (15:18)
[2023-11-04 15:19] LABS: CREATININE 0.8 mg/dL (0.55-1.3)
[2023-11-04 15:20] LABS: BILIRUBIN,TOTAL 0.5 mg/dL (0.2-1)
[2023-11-04 15:22] LABS: TOT PROT 7.7 g/dl (6.4-8.2)
== END 2023-11-04 20:17 | disposition home or self-care (01) ==
LOC: JER 10:29
DX: M79.661 Pain in right lower leg (principal); M79.662 Pain in left lower leg; R04.0 Epistaxis; S80.11XA Contusion of right lower leg, initial encounter; S80.12XA Contusion of left lower leg, initial encounter; X58.XXXA Exposure to other specified factors, initial encounter
CPT/HCPCS: 36415; 80053; 85025; 85610; 85730; 86850; 86900; 86901; 93970-TC; 99284-25

== ENCOUNTER 2023-11-13 09:15 | Emergency (ER) | payer OTHER ==
[2023-11-13 09:27] VITALS: RESP 18; BMI 30.7
[2023-11-13 12:16] LABS: EOS % 2.2 % (0-4.5); HEMATOCRIT 40.3 % (32.4-45.2); HEMOGLOBIN 12.9 GM/dL (10.7-15.3); LYMPH % 20.4 % (8-40); MCH 21.4 pg (25.7-33.7); MEAN CELL VOLUME 66.8 fl (80-96); MEAN PLT VOLUME 7.4 fl (7.5-11.1); MONO % 5.7 % (3.8-10.2); NEUT % 70.7 % (42.8-82.8); PLATELET COUNT 267 10^3/uL (134-434); RBC 6.03 M/mm3 (3.60-5.2); RDW 14.9 % (11.6-15.6); WHITE BLOOD COUNT 9.8 K/mm3 (4.0-10.0)
[2023-11-13 12:43] LABS: POTASSIUM 3.9 mmol/L (3.5-5.1)
[2023-11-13 12:46] LABS: CALCIUM 9.5 mg/dL (8.5-10.1)
[2023-11-13 12:47] LABS: ALBUMIN 3.7 g/dl (3.4-5.0); BLOOD UREA NITROGEN 8.9 mg/dL (7-18)
[2023-11-13 12:50] LABS: CREATININE 0.8 mg/dL (0.55-1.3)
[2023-11-13 12:52] LABS: ANISOCYTOSIS 3+; BILIRUBIN,TOTAL 0.6 mg/dL (0.2-1); MACROCYTOSIS 0; TOT PROT 8.4 g/dl (6.4-8.2)
[2023-11-13 14:41] VITALS: BP 127/66; PULSE 69; TEMP 97.8
== END 2023-11-13 14:47 | disposition home or self-care (01) ==
LOC: JERFT 09:15 → JER 09:15 → JERFT 14:47
DX: R07.89 Other chest pain (principal); R05.9 Cough, unspecified; R11.10 Vomiting, unspecified; R50.9 Fever, unspecified; Z20.822 Contact with and (suspected) exposure to COVID-19
CPT/HCPCS: 0241U-QW; 36415; 71046-TC-FY; 80053; 84484; 85025; 93005; 93010; 99285-25

== ENCOUNTER 2023-11-20 00:53 | Emergency (ER) | payer OTHER ==
[2023-11-20 01:03] VITALS: BP 104/88; PULSE 70; RESP 20; TEMP 97.8; BMI 30.6
[2023-11-20] MEDS ORDERED: LIDOCAINE 5% TOPICAL PATCH TP ONE (01:48)
[2023-11-20] MEDS ORDERED: ACETAMINOPHEN 325 MG TABLET (FP) PO ONE (01:48)
[2023-11-20] MEDS ORDERED: LIDOCAINE 4% PATCH TP ONE (01:52)
[2023-11-20] MEDS ORDERED: ACETAMINOPHEN 500 MG TABLET (FP) ONE (01:52)
[2023-11-20] MEDS ORDERED: ASPIRIN 81 MG CHEWABLE TABLETS PO ONE (02:20)
[2023-11-20] MEDS ORDERED: ASPIRIN 325 MG TABLET ONE (03:07)
[2023-11-20] MEDS ORDERED: CYCLOBENZAPRINE HCL 5 MG TABLET PO SCH ×2 (03:07→10:00)
[2023-11-20] MEDS ORDERED: CYCLOBENZAPRINE HCL 5 MG TABLET PO ONE (03:55)
[2023-11-20] MEDS ORDERED: LIDOCAINE PATCH REMOVAL MC SCH (22:00)
== END 2023-11-20 04:49 | disposition home or self-care (01) ==
LOC: JER 00:53
DX: M79.601 Pain in right arm (principal); M25.511 Pain in right shoulder
CPT/HCPCS: 36415; 73030-TC-RT-FY; 84484; 93005; 93010; 99285-25

== ENCOUNTER 2024-01-04 08:12 | Emergency (ER) | payer OTHER ==
[2024-01-04] MEDS ORDERED: ACETAMINOPHEN 500 MG TABLET (FP) ONE (09:08)
[2024-01-04] MEDS: ACETAMINOPHEN 500 MG TABLET (FP) PO ONE (09:11)
[2024-01-04 09:40] VITALS: BP 130/78; PULSE 82; RESP 18; TEMP 100.6; BMI 30.6
== END 2024-01-04 09:51 | disposition home or self-care (01) ==
LOC: JER 08:12
DX: R05.9 Cough, unspecified (principal); R07.89 Other chest pain; R50.9 Fever, unspecified; R51.9 Headache, unspecified; J11.1 Influenza due to unidentified influenza virus with other respiratory manifestations; Z20.822 Contact with and (suspected) exposure to COVID-19
CPT/HCPCS: 0241U-QW; 71046-TC-FY; 93005; 93010; 99285-25

== ENCOUNTER 2024-05-15 10:08 | Observation (INO) | payer OTHER ==
[2024-05-15 10:12] VITALS: RESP 18; BMI 31.6
[2024-05-15 11:58] LABS: HEMOGLOBIN 12.4 GM/dL (10.7-15.3); MCHC 32.6 g/dl (32.0-36.0); MEAN CELL VOLUME 67.6 fl (80-96); MEAN PLT VOLUME 7.1 fl (7.5-11.1); PLATELET COUNT 205 10^3/uL (134-434); RBC 5.62 M/mm3 (3.60-5.2); RDW 16.5 % (11.6-15.6)
[2024-05-15] MEDS ORDERED: ACETAMINOPHEN INJECTION 100 ML IVPB ONE (12:00)
[2024-05-15] MEDS ORDERED: LIDOCAINE 4% PATCH TP ONE (12:01)
[2024-05-15] MEDS: ACETAMINOPHEN 1000 MG/100 ML BAG IVPB ONE (12:10)
[2024-05-15] MEDS: LIDOCAINE 4% PATCH TP ONE (12:11)
[2024-05-15 12:14] LABS: INR 1.12 (0.83-1.09); PROTHROMBIN TIME (PATIENT) 12.6 SEC (9.7-13.0)
[2024-05-15 12:16] LABS: ACTIVATED PTT 33.6 SECONDS (25.2-36.5)
[2024-05-15 12:19] LABS: POTASSIUM 4.1 mmol/L (3.5-5.1)
[2024-05-15 12:21] LABS: ALBUMIN 3.2 g/dl (3.4-5.0); CALCIUM 8.6 mg/dL (8.5-10.1)
[2024-05-15 12:24] LABS: CREATININE 0.7 mg/dL (0.55-1.3)
[2024-05-15 12:25] LABS: BILIRUBIN,TOTAL 0.7 mg/dL (0.2-1); BLOOD UREA NITROGEN 14.1 mg/dL (7-18)
[2024-05-15 12:26] LABS: TOT PROT 6.6 g/dl (6.4-8.2)
[2024-05-15 12:29] LABS: N-TERMINAL BNP 39.9 pg/ml (5-125)
[2024-05-15 13:56] LABS: ANISOCYTOSIS 0; MACROCYTOSIS 0
[2024-05-15] MEDS ORDERED: ASPIRIN 81 MG CHEWABLE TABLETS ONE (14:26)
[2024-05-15] MEDS: ASPIRIN 81 MG CHEWABLE TABLETS PO ONE (14:27)
[2024-05-15 14:56] LABS: PH,URINE 6.5 (5.0-8.0); URINE APPEARANCE Clear; URINE BILIRUBIN Negative (NEGATIVE); URINE COLOR Yellow; URINE GLUCOSE (UA) Negative (NEGATIVE); URINE KETONE Negative (NEGATIVE); URINE LEUK ESTERASE Negative (NEGATIVE); URINE NITRITE Negative (NEGATIVE); URINE PROTEIN Negative (NEGATIVE); URINE UROBILINOGEN 0.2 mg/dL (0.2-1.0)
[2024-05-15 15:12] LABS: EPI CELLS 8 /uL (0-25.1); HYALINE CASTS 0 /uL (0-3.1); URINE BACTERIA 425 /uL (0-1359); URINE RBC 11 /uL (0-23.9); URINE WBC 7 /uL (0-25.8)
[2024-05-15] MEDS ORDERED: FLUCONAZOLE 150 MG TABLET PO ONE (16:12)
[2024-05-15] MEDS: FLUCONAZOLE 150 MG TABLET PO ONE (16:17)
[2024-05-15] MEDS: MAG HYDROX/AL HYDROX/SIMETH 30 ML UNIT-DOSE CUP PO ONE (19:42)
[2024-05-15] MEDS: FAMOTIDINE 20 MG/50 ML IVPB 20 MG/50 ML MG IVPB ONE (19:42)
[2024-05-15] MEDS ORDERED: FAMOTIDINE 20 MG/50 ML IVPB 20 MG/50 ML MG IVPB ONE (19:45)
[2024-05-15] MEDS ORDERED: MAG HYDROX/AL HYDROX/SIMETH 30 ML UNIT-DOSE CUP ONE (19:45)
[2024-05-15] MEDS: LIDOCAINE PATCH REMOVAL MC ONE (22:10)
[2024-05-15] MEDS ORDERED: ALPRAZolam 1 MG TABLET PO PRN (22:15)
[2024-05-16] MEDS: INSULIN ASPART SLIDING SCALE (NOVOLOG) 1 VIAL SQ SCH (06:13)
[2024-05-16 07:08] LABS: HEMATOCRIT 38.7 % (32.4-45.2); HEMOGLOBIN 12.4 GM/dL (10.7-15.3); MCH 21.9 pg (25.7-33.7); MCHC 32.1 g/dl (32.0-36.0); MEAN CELL VOLUME 68.3 fl (80-96); MEAN PLT VOLUME 7.5 fl (7.5-11.1); PLATELET COUNT 211 10^3/uL (134-434); RBC 5.66 M/mm3 (3.60-5.2); RDW 16.2 % (11.6-15.6); WHITE BLOOD COUNT 8.5 K/mm3 (4.0-10.0)
[2024-05-16 07:36] LABS: POTASSIUM 4.5 mmol/L (3.5-5.1)
[2024-05-16 07:38] LABS: CALCIUM 8.5 mg/dL (8.5-10.1)
[2024-05-16 07:39] LABS: ALBUMIN 3.3 g/dl (3.4-5.0); BLOOD UREA NITROGEN 14.6 mg/dL (7-18)
[2024-05-16 07:43] LABS: CREATININE 0.7 mg/dL (0.55-1.3)
[2024-05-16 07:44] LABS: TOT PROT 6.7 g/dl (6.4-8.2)
[2024-05-16 07:45] LABS: BILIRUBIN,TOTAL 0.4 mg/dL (0.2-1)
[2024-05-16 08:52] LABS: ANISOCYTOSIS 3+; MACROCYTOSIS 0
[2024-05-16] MEDS ORDERED: ENALAPRIL MALEATE 5 MG TABLET PO SCH (10:00)
[2024-05-16] MEDS ORDERED: RANOLAZINE E.R. 1,000 MG TABLET (FP) PO SCH (10:00)
[2024-05-16] MEDS: metoPROLOL SUCCINATE 25 MG TAB.SR.24H (FP) PO SCH (10:15)
[2024-05-16] MEDS: ISOSORBIDE MONONITRATE 30 MG TAB.SR.24H (FP) PO SCH (10:15)
[2024-05-16] MEDS: PANTOPRAZOLE 40 MG TABLET PO SCH (10:15)
[2024-05-16] MEDS: SERTRALINE HCL 50 MG TABLET (FP) PO SCH (10:15)
[2024-05-16] MEDS: CLOPIDOGREL BISULFATE 75 MG TABLET (FP) PO SCH (10:15)
[2024-05-16] MEDS: ASPIRIN COATED 81 MG TABLET.EC PO SCH (10:15)
[2024-05-16] MEDS: HEPARIN NA (PORCINE) 5,000 UNITS/ML 1ML VIAL SQ SCH (10:15)
[2024-05-16] MEDS: BUDESONIDE/FORMETEROL FUMARATE 160/4.5 mcg INHALER IH SCH (10:17)
[2024-05-16 14:24] VITALS: BP 120/68; PULSE 79; TEMP 97.9
[2024-05-17] MEDS ORDERED: FUROSEMIDE 20 MG TABLET (FP) PO SCH (10:00)
== END 2024-05-16 18:35 | disposition home or self-care (01) ==
LOC: JER 10:08 → JERBED 16:03 → UNDOADMOB 16:03 → J4S 20:28 → JERBED 20:28 → OBSVTOIN 22:14 → INTOOBSV 22:14 → JERBED 05-16 10:14 → J4S 05-16 10:14
PROVIDERS: ADMIT Internal Medicine; ATTEND Internal Medicine
PROC: 3E033NZ Introduction of Analgesics, Hypnotics, Sedatives into Peripheral Vein, Percutaneous Approach (ICD-10-PCS; principal; 2024-05-16)
PROC: 3E033GC Introduction of Other Therapeutic Substance into Peripheral Vein, Percutaneous Approach (ICD-10-PCS; 2024-05-16)
PROC: 3E033NZ Introduction of Analgesics, Hypnotics, Sedatives into Peripheral Vein, Percutaneous Approach (ICD-10-PCS; 2024-05-16)
PROC: 3E023GC Introduction of Other Therapeutic Substance into Muscle, Percutaneous Approach (ICD-10-PCS; 2024-05-16)
DX: I25.10 Atherosclerotic heart disease of native coronary artery without angina pectoris (principal); J44.9 Chronic obstructive pulmonary disease, unspecified; B37.31 Acute candidiasis of vulva and vagina; I50.32 Chronic diastolic (congestive) heart failure; Z95.5 Presence of coronary angioplasty implant and graft; F32.A Depression, unspecified; E11.9 Type 2 diabetes mellitus without complications; E78.5 Hyperlipidemia, unspecified; R20.8 Other disturbances of skin sensation; R10.13 Epigastric pain; Z88.6 Allergy status to analgesic agent; Z88.8 Allergy status to other drugs, medicaments and biological substances; Z91.018 Allergy to other foods; Z87.891 Personal history of nicotine dependence
CPT/HCPCS: 36415; 71046-TC-FY; 80053; 81003; 82962; 83036; 83880; 84484; 85025; 85610; 85730; 87086; 93005; 93010; 93306-TC; 96365; 96372; 96375; 99285-25; G0378; J0131; J1644

== ENCOUNTER 2024-06-13 15:41 | Emergency (ER) | payer OTHER ==
[2024-06-13 15:49] VITALS: RESP 18; BMI 31.6
[2024-06-13 18:28] LABS: BASO % 0.8 % (0-2.0); EOS % 0.4 % (0-4.5); HEMATOCRIT 39.2 % (32.4-45.2); LYMPH % 15.4 % (8-40); MCH 22.5 pg (25.7-33.7); MCHC 33.2 g/dl (32.0-36.0); MEAN CELL VOLUME 67.7 fl (80-96); MEAN PLT VOLUME 8.6 fl (7.5-11.1); MONO % 4.1 % (3.8-10.2); NEUT % 79.3 % (42.8-82.8); PLATELET COUNT 231 10^3/uL (134-434); RBC 5.79 M/mm3 (3.60-5.2); RDW 16.7 % (11.6-15.6); WHITE BLOOD COUNT 10.9 K/mm3 (4.0-10.0)
[2024-06-13 18:55] LABS: POTASSIUM 5.9 mmol/L (3.5-5.1)
[2024-06-13 18:57] LABS: CALCIUM 8.6 mg/dL (8.5-10.1)
[2024-06-13 18:58] LABS: ALBUMIN 3.5 g/dl (3.4-5.0); BLOOD UREA NITROGEN 15.8 mg/dL (7-18)
[2024-06-13 19:00] LABS: CREATININE 0.8 mg/dL (0.55-1.3)
[2024-06-13 19:02] LABS: BILIRUBIN,TOTAL 0.4 mg/dL (0.2-1); TOT PROT 7.8 g/dl (6.4-8.2)
[2024-06-13 19:06] LABS: N-TERMINAL BNP 39.2 pg/ml (5-125)
[2024-06-13 20:15] VITALS: BP 105/62; PULSE 64; TEMP 97.7
== END 2024-06-13 22:18 | disposition home or self-care (01) ==
LOC: JER 15:41
DX: M79.604 Pain in right leg (principal); M79.605 Pain in left leg; R60.0 Localized edema
CPT/HCPCS: 36415; 71045-TC-FY; 80053; 83880; 84484; 85025; 93970-TC; 99285-25

== ENCOUNTER 2025-02-09 08:17 | Emergency (ER) | payer OTHER ==
[2025-02-09 08:33] VITALS: BP 143/97; PULSE 73; RESP 18; TEMP 99.7; BMI 31.6
[2025-02-09] MEDS ORDERED: ACETAMINOPHEN 500 MG TABLET (FP) ONE (08:49)
[2025-02-09] MEDS: ACETAMINOPHEN 500 MG TABLET (FP) PO ONE (08:54)
[2025-02-09] MEDS ORDERED: LIDOCAINE VISCOUS 2% ORAL/TOP 15 ML UNIT-DOSE CUP MM ONE (09:06)
[2025-02-09 09:22] LABS: THROAT:GRP A STREP NOT DETECTED (NOTDETECTED)
[2025-02-09] MEDS ORDERED: LIDOCAINE VISCOUS 2% ORAL/TOP 15 ML UNIT-DOSE CUP ONE (09:34)
[2025-02-09 10:24] LABS: HIV INTERPRETATION NEGATIVE (NEGATIVE)
== END 2025-02-09 09:47 | disposition home or self-care (01) ==
LOC: JER 08:17
DX: U07.1 COVID-19 (principal); R50.9 Fever, unspecified; J06.9 Acute upper respiratory infection, unspecified; R09.81 Nasal congestion; B34.9 Viral infection, unspecified
CPT/HCPCS: 0241U-QW; 36415; 86803; 87389; 87651; 99283-25

== ENCOUNTER 2025-04-01 12:55 | Emergency (ER) | payer OTHER ==
[2025-04-01 13:13] VITALS: PULSE 60; BMI 32.3
[2025-04-01] MEDS ORDERED: FAMOTIDINE 10 MG TABLET ONE ×2 (14:16→14:47)
[2025-04-01] MEDS ORDERED: ACETAMINOPHEN 325 MG TABLET (FP) ONE (14:16)
[2025-04-01] MEDS ORDERED: FAMOTIDINE 20 MG TABLET ONE (14:46)
[2025-04-01] MEDS: FAMOTIDINE 10 MG TABLET PO ONE (14:50)
[2025-04-01] MEDS: ACETAMINOPHEN 325 MG TABLET (FP) PO ONE (14:50)
[2025-04-01 15:13] LABS: ABSOLUTE IMMATURE GRANULOCYTES 0.02 x10^3/uL (0.0-0.031); BASOPHILS # 0.08 x10^3/uL (0.01-0.08); EOSINOPHIL % 1.5 % (0.7-5.8); HEMATOCRIT 42.5 % (34.1-44.9); HEMOGLOBIN 13.6 g/dL (11.2-15.7); MEAN PLT VOLUME 9.9 fl (9.4-12.3); MONOCYTE # 0.47 x10^3/uL (0.24-0.86); MONOCYTE % 6.8 % (4.7-12.5); PLATELET COUNT 269 x10^3/uL (182-369); RDW 15.8 % (12.4-16.4)
[2025-04-01 15:17] LABS: EPI CELLS >36 /uL (0-25.1); HYALINE CASTS 2 /uL (0-3.1); PH,URINE 5.5 (5.0-8.0); URINE APPEARANCE CLOUDY; URINE BACTERIA 2964 /uL (0-1359); URINE BILIRUBIN NEGATIVE (NEGATIVE); URINE COLOR YELLOW; URINE GLUCOSE (UA) NEGATIVE (NEGATIVE); URINE KETONE NEGATIVE (NEGATIVE); URINE LEUK ESTERASE 1+ (NEGATIVE); URINE NITRITE NEGATIVE (NEGATIVE); URINE PROTEIN NEGATIVE (NEGATIVE); URINE RBC 19 /uL (0-23.9); URINE UROBILINOGEN 0.2 mg/dL (0.2-1.0); URINE WBC 28 /uL (0-25.8)
[2025-04-01 15:21] LABS: INR 1.26 (0.83-1.09); PROTHROMBIN TIME (PATIENT) 13.9 SEC (9.7-13.0)
[2025-04-01 15:23] LABS: ACTIVATED PTT 39.6 SECONDS (25.2-36.5)
[2025-04-01 15:39] LABS: POTASSIUM 4.3 mmol/L (3.5-5.1)
[2025-04-01 15:41] LABS: ALBUMIN 3.9 g/dl (3.4-5.0)
[2025-04-01 15:42] LABS: BLOOD UREA NITROGEN 10.5 mg/dL (7-18); MAGNESIUM 2.2 mg/dL (1.8-2.4)
[2025-04-01 15:45] LABS: CREATININE 0.8 mg/dL (0.55-1.3)
[2025-04-01 15:46] LABS: BILIRUBIN,TOTAL 0.6 mg/dL (0.2-1); TOT PROT 8.5 g/dl (6.4-8.2)
[2025-04-01] MEDS ORDERED: KETOROLAC TROMETHAMINE 15 MG/ML VIAL ONE (16:17)
[2025-04-01] MEDS: KETOROLAC TROMETHAMINE 15 MG/ML VIAL IVPUSH ONE (16:43)
[2025-04-01] MEDS ORDERED: CEFTRIAXONE 1 G/50 ML PREMIX 50 ML IVPB ONE (18:13)
[2025-04-01 19:40] VITALS: BP 110/65; RESP 18; TEMP 97.7
== END 2025-04-01 20:35 | disposition home or self-care (01) ==
LOC: JER 12:55
PROC: 3E03329 Introduction of Other Anti-infective into Peripheral Vein, Percutaneous Approach (ICD-10-PCS; principal; 2025-04-01)
PROC: 3E0333Z Introduction of Anti-inflammatory into Peripheral Vein, Percutaneous Approach (ICD-10-PCS; 2025-04-01)
DX: R10.9 Unspecified abdominal pain (principal); K40.90 Unilateral inguinal hernia, without obstruction or gangrene, not specified as recurrent; R07.9 Chest pain, unspecified
CPT/HCPCS: 36415; 71045-TC-FY; 74177-TC; 80053; 81003; 83690; 83735; 84484; 85025; 85610; 85730; 93005; 93010; 99285-25; Q9967

== ENCOUNTER 2025-06-05 13:56 | Emergency (ER) | payer OTHER ==
[2025-06-05 14:07] VITALS: PULSE 78; RESP 20; TEMP 98.2; BMI 31.1
[2025-06-05 15:53] LABS: ABSOLUTE IMMATURE GRANULOCYTES 0.03 x10^3/uL (0.0-0.031); BASOPHILS # 0.06 x10^3/uL (0.01-0.08); EOSINOPHIL % 1.4 % (0.7-5.8); EOSINOPHILS # 0.10 x10^3/uL (0.04-0.36); MCHC 31.7 g/dl (32.2-35.5); MEAN CELL VOLUME 67.3 fl (79.4-94.8); MEAN PLT VOLUME 9.6 fl (9.4-12.3); MONOCYTE # 0.51 x10^3/uL (0.24-0.86); MONOCYTE % 7.1 % (4.7-12.5); RDW 15.7 % (12.4-16.4)
[2025-06-05] MEDS ORDERED: ACETAMINOPHEN 325 MG TABLET (FP) ONE (15:55)
[2025-06-05] MEDS: ACETAMINOPHEN 325 MG TABLET (FP) PO ONE (16:05)
[2025-06-05 16:40] LABS: CO2 26.0 mmol/L (21-32)
[2025-06-05 16:41] LABS: GLUCOSE,RANDOM 94.0 mg/dL (74-106)
[2025-06-05 16:44] LABS: CREATININE 1.0 mg/dL (0.55-1.3)
[2025-06-05 17:47] VITALS: BP 97/65
[2025-06-05 17:59] LABS: EPI CELLS >36 /uL (0-25.1); HYALINE CASTS 11 /uL (0-3.1); URINE APPEARANCE CLOUDY; URINE BACTERIA 1347 /uL (0-1359); URINE BILIRUBIN NEGATIVE (NEGATIVE); URINE COLOR DK YELLOW; URINE GLUCOSE (UA) NEGATIVE (NEGATIVE); URINE KETONE TRACE (NEGATIVE); URINE LEUK ESTERASE 2+ (NEGATIVE); URINE NITRITE NEGATIVE (NEGATIVE); URINE PROTEIN 1+ (NEGATIVE); URINE UROBILINOGEN 1.0 mg/dL (0.2-1.0); URINE WBC 715 /uL (0-25.8)
[2025-06-05 19:53] LABS: URINE RBC 1254.2 /uL (0-23.9)
== END 2025-06-05 19:35 | disposition home or self-care (01) ==
LOC: JER 13:56
DX: I95.9 Hypotension, unspecified (principal); R42 Dizziness and giddiness; R60.0 Localized edema; R07.2 Precordial pain; M79.662 Pain in left lower leg; R51.9 Headache, unspecified
CPT/HCPCS: 36415; 71045-TC-FY; 80048; 81003; 82962; 83880; 84484; 85025; 85379; 86850; 86900; 86901; 87086; 93005; 93010; 93970-TC; 99285-25

== ENCOUNTER 2025-08-19 16:52 | Emergency (ER) | payer OTHER ==
[2025-08-19 17:04] VITALS: TEMP 99; BMI 31.1
[2025-08-19] MEDS ORDERED: ACETAMINOPHEN INJECTION 100 ML ONE (17:43)
[2025-08-19] MEDS ORDERED: METOCLOPRAMIDE HCL INJECTION 10 MG/2 ML VIAL ONE (17:43)
[2025-08-19] MEDS: SODIUM CHLORIDE 0.9% 500 ML INFUS.BAG IV ONE (18:14)
[2025-08-19] MEDS: ACETAMINOPHEN 1000 MG/100 ML BAG IVPB ONE (18:14)
[2025-08-19] MEDS: METOCLOPRAMIDE HCL INJECTION 10 MG/2 ML VIAL IVPB ONE (18:15)
[2025-08-19 18:18] LABS: ABSOLUTE IMMATURE GRANULOCYTES 0.02 x10^3/uL (0.0-0.031); BASOPHILS # 0.06 x10^3/uL (0.01-0.08); EOSINOPHIL % 2.5 % (0.7-5.8); EOSINOPHILS # 0.15 x10^3/uL (0.04-0.36); MCHC 31.6 g/dl (32.2-35.5); MEAN CELL VOLUME 67.1 fl (79.4-94.8); MEAN PLT VOLUME 9.8 fl (9.4-12.3); MONOCYTE # 0.48 x10^3/uL (0.24-0.86); MONOCYTE % 8.1 % (4.7-12.5); RDW 17.2 % (12.4-16.4)
[2025-08-19 18:25] LABS: INR 1.25 (0.83-1.09); PROTHROMBIN TIME (PATIENT) 13.6 SEC (9.7-13.0)
[2025-08-19 18:28] LABS: ACTIVATED PTT 37.1 SECONDS (25.2-36.5)
[2025-08-19 18:59] LABS: GLUCOSE,RANDOM 73.0 mg/dL (74-106)
[2025-08-19 19:00] LABS: CO2 23.0 mmol/L (21-32)
[2025-08-19 19:02] LABS: ALK PHOS 115.0 U/L (40-150)
[2025-08-19 19:05] LABS: CREATININE 0.65 mg/dL (0.55-1.3); SGOT/AST 69.0 U/L (5-34); SGPT/ALT 55.0 U/L (0-55)
[2025-08-19 19:09] LABS: EPI CELLS 10 /uL (0-25.1); HYALINE CASTS 0 /uL (0-3.1); URINE APPEARANCE CLEAR; URINE BACTERIA 543 /uL (0-1359); URINE BILIRUBIN NEGATIVE (NEGATIVE); URINE COLOR YELLOW; URINE GLUCOSE (UA) NEGATIVE (NEGATIVE); URINE KETONE NEGATIVE (NEGATIVE); URINE LEUK ESTERASE TRACE (NEGATIVE); URINE NITRITE NEGATIVE (NEGATIVE); URINE PROTEIN NEGATIVE (NEGATIVE); URINE RBC 6 /uL (0-23.9); URINE UROBILINOGEN 0.2 mg/dL (0.2-1.0); URINE WBC 11 /uL (0-25.8)
[2025-08-19] MEDS ORDERED: CEPHALEXIN MONOHYDRATE 500 MG CAPSULE (UD) ONE (19:53)
[2025-08-19 20:00] LABS: HCV DIAGNOSTIC IN-HOUSE W/RFLX NON-REACTIVE (NONREACTIVE); HIV INTERPRETATION NEGATIVE (NEGATIVE)
[2025-08-19] MEDS: CEPHALEXIN MONOHYDRATE 500 MG CAPSULE (UD) PO ONE (20:00)
[2025-08-19 20:02] VITALS: BP 135/72; PULSE 75; RESP 19
[2025-08-19 20:44] LABS: TOT PROT 9.1 g/dl (6.4-8.2)
== END 2025-08-19 20:19 | disposition home or self-care (01) ==
LOC: JER 16:52
PROC: 3E033NZ Introduction of Analgesics, Hypnotics, Sedatives into Peripheral Vein, Percutaneous Approach (ICD-10-PCS; principal; 2025-08-19)
PROC: 3E033GC Introduction of Other Therapeutic Substance into Peripheral Vein, Percutaneous Approach (ICD-10-PCS; 2025-08-19)
DX: N39.0 Urinary tract infection, site not specified (principal); R51.9 Headache, unspecified; R07.89 Other chest pain; M79.622 Pain in left upper arm; R05.9 Cough, unspecified; R33.9 Retention of urine, unspecified; R11.0 Nausea; R39.11 Hesitancy of micturition
CPT/HCPCS: 36415; 70450-TC; 71045-TC-FY; 80053; 81003; 82962; 83690; 84484; 85025; 85610; 85730; 86803; 86850; 86900; 86901; 87086; 87389; 87637-QW; 93005; 93010; 99285-25

== ENCOUNTER 2025-08-27 13:31 | Emergency (ER) | payer OTHER ==
[2025-08-27 13:44] VITALS: BP 137/79; PULSE 89; RESP 20; TEMP 98.4; BMI 30.6
[2025-08-27] MEDS ORDERED: ACETAMINOPHEN 325 MG TABLET (FP) ONE (14:37)
[2025-08-27] MEDS: ACETAMINOPHEN 500 MG TABLET (FP) PO ONE (14:48)
== END 2025-08-27 17:03 | disposition home or self-care (01) ==
LOC: JER 13:31
DX: M79.89 Other specified soft tissue disorders (principal); M79.602 Pain in left arm; G89.29 Other chronic pain; R20.2 Paresthesia of skin
CPT/HCPCS: 93971-TC-LT; 99284-25